=== PATIENT | female | born 1955 | race Caucasian/White ===

== ENCOUNTER → 2019-04-04 14:43 | Outpatient (CLI) | payer OTHER, SELFPAY ==
--- NOTE | 2019-04-04 | DI.MG.S_ITS ---
BILATERAL DIGITAL SCREENING MAMMOGRAM 3D/2D WITH CAD WITH AUGMENTATION: 04/04/2019 CLINICAL: Routine screening. Comparison is made to exams dated: 08/14/2015 mammogram, 01/20/2012 mammogram, and 02/11/2010 mammogram - [facility]. The tissue of both breasts is heterogeneously dense. This may lower the sensitivity of mammography. Current study was also evaluated with a Computer Aided Detection (CAD) system. Bilateral breast implants are stable. No significant masses, calcifications, or other findings are seen in either breast. There has been no significant interval change. IMPRESSION: NEGATIVE There is no mammographic evidence of malignancy. A 1 year screening mammogram is recommended. This exam was interpreted at Station ID: [id number]. NOTE: For mammograms, a report in lay terms will be sent to the patient. Approximately 15% of breast malignancies will not be visualized mammographically. In the management of a palpable breast mass, a negative mammogram must not discourage biopsy of a clinically suspicious lesion. Electronically Signed By: He mchugh/lakshmi:04/04/2019 19:11:54 letter sent: Normal Exam ACR BI-RADS Category 1: Negative [id number]
== END ==
PROVIDERS: PCP Family Medicine; Visit Provider Family Medicine
DX: Z12.31 Encounter for screening mammogram for malignant neoplasm of breast (principal)
CPT/HCPCS: 77063; 77067

== ENCOUNTER 2022-04-17 00:44 | Inpatient (IN) | payer MEDICARE, OTHER, SELFPAY ==
[2022-04-17] VITALS (23 sets, daily range): BP systolic 97–137; BP diastolic 57–81; PULSE 78–93; RESP 13–24; TEMP 36–37; O2SAT 82–99; BMI 16.5; BMI 22.0
--- NOTE | 2022-04-17 | DI.RAD.S_ITS ---
PROCEDURE: XR ANKLE RT MIN 3V INDICATIONS: right ankle fracture TECHNIQUE: Nondiagnostic intraoperative fluoroscopic images of the right ankle. COMPARISON: [facility], CR, XR ANKLE RT MIN 3V, 04/17/2022, 1:23. FINDINGS/ IMPRESSION: Nondiagnostic intraoperative fluoroscopic images of the right ankle demonstrated instrumented plate and screw fixation of the right fibula. Improved anatomic alignment when compared with prior study. Ankle mortise is congruent. Dictated by: Yemi Ambrose M.D. on 04/17/2022 at 21:59 Approved by: Yemi Ambrose M.D. on 04/17/2022 at 21:59
--- NOTE | 2022-04-17 01:00 | DI.RAD.S_ITS ---
PROCEDURE: XR ANKLE RT MIN 3V INDICATIONS: Obvious deformity, crepitance, post reduction TECHNIQUE: 3 views of the ankle were acquired. COMPARISON: None. FINDINGS: Cast material degrades fine detail. Fracture-dislocation of the ankle. There is posterior dislocation of the tibia with relation to the talar dome as well as marked widening of the tibiotalar interval. There is severe widening of the medial ankle mortise. Intra-articular fracture of the distal femoral metadiaphysis extends into the superolateral corner of the ankle mortise. There is widening of the lateral ankle mortise also. There is no definite tibial fracture or talar dome fracture. Large ankle joint effusion. IMPRESSION: Fracture dislocation of the ankle with a displaced intra-articular fracture of the distal femoral metadiaphysis. Severe ankle mortise disruption and tibiotalar subluxation. Dictated by: Yemi Ambrose M.D. on 04/17/2022 at 1:42 Approved by: Yemi Ambrose M.D. on 04/17/2022 at 1:44
--- NOTE | 2022-04-17 01:00 | DI.CT.S_ITS ---
PROCEDURE: CT LE RT WO CON INDICATIONS: Right ankle fracture dislocation TECHNIQUE: Noncontrast 3 mm axial sections acquired of the left lower extremity, with coronal and sagittal reformats. COMPARISON: Merged With [facility], CR, XR KNEE RT 1TO2V, 04/17/2022, 1:23. Merged With [facility], CR, XR FEMUR RT MIN 2V, 04/17/2022, 2:50. Merged With [facility], CR, XR ANKLE RT MIN 3V, 04/17/2022, 1:23. FINDINGS: Image quality: Excellent. Bones: There is a mildly displaced oblique fracture involving the lateral femoral condyle extending into the intercondylar notch. Postsurgical changes are seen involving related to ACL reconstruction. Moderate knee joint degeneration compatible with hemarthrosis. A displaced oblique fracture is seen in the lateral malleolus. In addition, there are nondisplaced fractures of the medial malleolus and posterior malleolus. Multiple small fracture fragments are seen in the medial aspect of the ankle join, likely arising from the talus. The ankle mortise is disrupted. There is lateral subluxation displacement and lateral tilt talus at the tibiotalar joint. Soft tissues: There is a small knee joint effusion. Marked soft tissue swelling in the ankle. IMPRESSION: 1. Mildly displaced oblique fracture of the distal femur involving the lateral femoral condyle extending into the intercondylar notch. 2. Trimalleolar fractures with ankle as described. 3. Multiple small fracture fragments are seen in the medial aspect of the ankle joint, likely arising from the talus. 4. Disruption of ankle mortise with lateral displacement and lateral tilt of talus at the tibiotalar joint. No significant discrepancy with the night guard radiology preliminary report. Dictated by: Sarahy Junior M.D. on 04/17/2022 at 7:39 Approved by: Sarahy Junior M.D. on 04/17/2022 at 9:07
--- NOTE | 2022-04-17 01:00 | DI.RAD.S_ITS ---
PROCEDURE: XR KNEE RT 1TO2V INDICATIONS: fall with knee pain TECHNIQUE: 2 views of the knee were acquired. COMPARISON: None. FINDINGS: Displaced intra-articular fracture right distal femur. Lucency representing a fracture appears to begin at the lateral distal femoral diaphysis and obliquely course medially and inferiorly to extend into joint at the medial aspect of the medial femoral epicondyle. ACL reconstruction changes. Large knee joint effusion. Normal alignment of the knee. IMPRESSION: Intra-articular right distal femur fracture Dictated by: Yemi Ambrose M.D. on 04/17/2022 at 1:45 Approved by: Yemi Ambrose M.D. on 04/17/2022 at 1:47
--- NOTE | 2022-04-17 01:01 | DI.CT.S_ITS ---
PROCEDURE: CT HEAD/BRAIN WO CON INDICATIONS: multiple falls, heavy alcohol use TECHNIQUE: Noncontrast 4.5 mm thick angled axial sections acquired from the foramen magnum to the vertex, with coronal and sagittal reformats. For radiation dose reduction, the following was used: automated exposure control, adjustment of mA and/or kV according to patient size. COMPARISON: None. FINDINGS: Image quality: Excellent. CSF spaces: Basal cisterns are patent. No extra-axial fluid collections. The ventricles are symmetric in size and shape. Brain: No intracranial bleeds or masses. There is cerebral volume loss for age, with resultant ventricular and sulcal prominence. There are periventricular and deep white matter chronic small vessel ischemic changes. There is intracranial internal carotid artery atherosclerosis. Skull and face: Calvarium and visualized facial bones appear intact, without suspicious lesions. Sinuses: Visualized sinuses and mastoids are clear. IMPRESSION: 1. No acute intracranial abnormality. 2. Cerebral volume loss and small vessel ischemic changes. Comment: Final report is concordant with preliminary interpretation by [facility] Dictated by: Mitchel Callahan M.D. on 04/17/2022 at 7:15 Approved by: Mitchel Callahan M.D. on 04/17/2022 at 7:17
[2022-04-17 01:35] LABS: COVID19 -Nasal RAPID Negative (Negative)
--- NOTE | 2022-04-17 01:44 | ED_ITS ---
HPI - Fall General Chief Complaint: Fall Stated Complaint: Fall/Ankle deformity Time Seen by Provider: 04/17/22 00:58 Source: patient Mode of arrival: other History of Present Illness HPI Narrative: 66-year-old female nonsmoker with history of hypothyroid and daily drinking presents by air lift for evaluation of an obvious deformity to her right ankle. She states that she has peripheral neuropathy and had been drinking and stepped awkwardly which caused her to fall and rolled her ankle. She now has significant pain and an obvious deformity to her right ankle as well as pain in her right knee. She does not think she struck her head but thinks anything is possible. She denies any neck pain, chest pain or shortness of breath. She denies abdominal pain is slightly nauseated. She is had no change in diet and does not take blood thinners. She states she has significant pain in her right ankle and knee and has numbness and tingling with this is not abnormal for her. Related Data Home Medications Medication Instructions Recorded Confirmed alprazolam 0.5 mg tablet 0.5 mg PO PRN PRN Anxiety 04/17/22 04/17/22 doxycycline monohydrate 50 mg 50 mg OR PER PKG DIR 04/17/22 04/17/22 capsule gabapentin 600 mg tablet 600 mg BID 04/17/22 04/17/22 levothyroxine 100 mcg tablet 0.1 mg PO BEDTIME 04/17/22 04/17/22 spironolactone 25 mg tablet 25 mg DAILY 04/17/22 04/17/22 zolpidem 10 mg tablet (Ambien) 10 mg PO PRN PRN Insomnia 04/17/22 04/17/22 Previous Rx's Medication Instructions Recorded metronidazole 0.75 % topical cream 0.75 % TP BID ##1 05/13/17 ([facility]) Allergies Allergy/AdvReac Type Severity Reaction Status Date / Time hydrocodone [HYDROCODONE] Allergy Mild Unverified 12/30/17 12:13 Review of Systems Review of Systems Narrative: GENERAL: Denies chills, fatigue, malaise, fever, sweats. HEENT: Denies sinus pain, ear pain, sore throat, difficulty swallowing, dizzi ness. RESPIRATORY: Denies dyspnea, cough, wheezing, hemoptysis, sputum. CARDIOVASCULAR: Denies chest pain, palpitations, orthopnea, edema, GASTROINTESTINAL: See HPI : Denies dysuria, frequency, incontinence, hematuria, urinary retention. MUSCULOSKELETAL: See HPI SKIN: Denies rash, skin lesions, or other NEUROLOGIC: See HPI PSYCHIATRIC: No concerning psychosocial issues. 12 point review of systems is negative except for those stated above Patient History Family History Father Cancer Grandmother Diverticulitis alcohol intake frequency: 0-2 drinks per day Exam Narrative Exam Narrative: GENERAL: [66] year old patient appears stated age. Well-developed patient, in mild distress. GCS 15 HEAD: Atraumatic. Normocephalic. EYES: Pupils equal round and reactive. Extraocular motions intact. No scleral icterus. No injection or drainage. ENT: Nose without bleeding, purulent drainage. Throat without erythema, tonsillar hypertrophy or exudate. Airway patent. NECK: Trachea midline. Non tender CARDIOVASCULAR: Regular rate and rhythm without murmurs, gallops, or rubs. RESPIRATORY: Clear to auscultation. Breath sounds equal bilaterally. No wheezes, rales, or rhonchi. GASTROINTESTINAL: Abdomen soft, non-tender, nondistended. EXTREMITIES: No pain in bilateral hips, patient has significant pain on palpation of right knee, no obvious ligamentous instability. There is obvious deformity suggesting fracture dislocation of right ankle, this is closed and neurovascularly intact. BACK: Nontender without deformity or crepitance. No flank tenderness. NEURO: AOx3. SKIN: No rash or erythema of visible areas Initial Vital Signs Initial Vital Signs: Vital Signs Pulse Rate 86 04/17/22 01:01 Respiratory Rate 18 04/17/22 01:01 Blood Pressure 119/79 04/17/22 01:01 Pulse Oximetry 93 04/17/22 01:01 Oxygen Delivery Method 04/17/22 01:01 Procedures Orthopedic Joint Reduction Joint #1: Time Out Performed: No Side: right Joint Reduction Location: ankle Technique used: traction/counter-traction and direct manipulation Post-reduction neuro exam: intact Post-reduction vascular: intact Post Reduction X-Ray Obtained: Yes Post Reduction X-Ray Results: reduced (partially) Patient Tolerated Procedure: Well Orthopedic Splinting/Casting Injury #1: Side: right Lower Extremity Injury Location: knee Lower Extremity Immobilizer: knee immobilizer Post splinting neuro exam: intact Post splinting vascular exam: intact Placed by: Nursing Injury #2: Side: right Lower Extremity Injury Location: ankle Lower Extremity Immobilizer: stirrup splint Post splinting neuro exam: intact Post splinting vascular exam: intact Placed by: Provider Course Orders Ordered: ED Orders 04/17/22 01:00 CT LE RT wo con Stat XR ankle RT min 3V Stat XR knee RT 1to2V Stat 04/17/22 01:01 CT head/brain wo con Stat 04/17/22 01:15 COVID19 -Nasal RAPID/Pre-Proc Stat 04/17/22 01:34 Complete Blood Count AUTO DIFF Stat Comprehensive Metabolic Panel Stat Ethanol (ETOH) Stat Prothrombin Time INR Stat 04/17/22 02:45 XR femur RT min 2V Stat Consultations Consultation #1: Case has been discussed with on-call orthopedist who has reviewed images and recommends ankle splint as well as knee immobilizer. She request patient be admitted to the hospitalist and will likely take to the OR this evening at 5 or 6:00 p.m., requesting patient become NPO at 9:00 a.m. Consultation #2: hospitalist happy to accept on their service Vital Signs Vital signs: Vital Signs - 8 hr 04/17/22 01:01 04/17/22 01:58 04/17/22 01:59 Pulse Rate 86 80 79 Respiratory Rate 18 Blood Pressure 119/79 Pulse Oximetry 93 98 98 Oxygen Delivery Method Room Air 04/17/22 01:59 04/17/22 02:00 04/17/22 02:00 Pulse Rate 80 Respiratory Rate Blood Pressure 118/75 117/72 Pulse Oximetry 99 Oxygen Delivery Method 04/17/22 02:30 04/17/22 02:30 04/17/22 02:59 Pulse Rate 78 80 Respiratory Rate Blood Pressure 111/68 Pulse Oximetry 96 98 Oxygen Delivery Method 04/17/22 03:00 04/17/22 03:03 Pulse Rate 87 Respiratory Rate Blood Pressure 118/57 L Pulse Oximetry 82 L Oxygen Delivery Method MDM - Fall Lab Data Result diagrams: 04/17/22 01:34 04/17/22 01:34 Labs: Lab Results 04/17/22 04/17/22 04/17/22 Range/Units 01:15 01:34 01:34 WBC 6.3 (4.5-11.0) X10^3/uL RBC 3.45 L (4.0-5.2) X10^6/uL Hgb 11.2 L (12.0-16.0) g/dL Hct 34.1 L (36-46) % MCV 98.8 (80-100) fL MCH 32.5 (26-34) PG MCHC 32.9 (30-36) % RDW 14.3 (11.6-14.8) % Plt Count 213 (150-400) X10^3/uL Neut % (Auto) 63.0 (50-75) % Lymph % (Auto) 22.8 L (25-40) % [place] % (Auto) 9.9 (3-14) % Eos % (Auto) 3.4 (2-4) % Baso % (Auto) 0.9 (0-2) % Neut # (Auto) 4000 (4599-4734) /uL Lymph # (Auto) 1400 (1345-1288) /uL [place] # (Auto) 600 (0-900) /uL Eos # (Auto) 200 (0-450) /uL Baso # (Auto) 100 (0-100) /uL PT (10.1-12.7) SECONDS INR (0.9-1.3) Sodium 140 (137-145) mmol/L Potassium 4.2 (3.4-5.1) mmol/L Chloride 103 (98-107) mmol/L Carbon Dioxide 26 (22-32) mmol/L BUN 13 (7-17) mg/dL Creatinine 0.67 (0.52-1.04) mg/dL Estimated GFR > 60 (>60) mL/min BUN/Creatinine Ratio 19.4 (6-22) Glucose 103 (80-110) mg/dL Calcium 9.1 (8.4-10.2) mg/dL Total Bilirubin 0.2 (0.2-1.3) mg/dL AST 87 H (14-36) IU/L ALT 55 H (<35) IU/L Alkaline Phosphatase 89 (38-126) U/L Total Protein 6.5 (6.3-8.2) g/dL Albumin 3.7 (3.5-5.0) g/dL Globulin 2.8 (1.7-4.1) g/dL Albumin/Globulin Ratio 1.3 (1.0-2.8) Ethyl Alcohol ( - 10) mg/dL SARS-CoV-2 (PCR) Negative (Negative) 04/17/22 04/17/22 Range/Units 01:34 01:34 WBC (4.5-11.0) X10^3/uL RBC (4.0-5.2) X10^6/uL Hgb (12.0-16.0) g/dL Hct (36-46) % MCV (80-100) fL MCH (26-34) PG MCHC (30-36) % RDW (11.6-14.8) % Plt Count (150-400) X10^3/uL Neut % (Auto) (50-75) % Lymph % (Auto) (25-40) % [place] % (Auto) (3-14) % Eos % (Auto) (2-4) % Baso % (Auto) (0-2) % Neut # (Auto) (4077-5018) /uL Lymph # (Auto) (7100-9846) /uL [place]well # (Auto) (0-900) /uL Eos # (Auto) (0-450) /uL Baso # (Auto) (0-100) /uL PT 10.7 (10.1-12.7) SECONDS INR 1.0 (0.9-1.3) Sodium (137-145) mmol/L Potassium (3.4-5.1) mmol/L Chloride (98-107) mmol/L Carbon Dioxide (22-32) mmol/L BUN (7-17) mg/dL Creatinine (0.52-1.04) mg/dL Estimated GFR (>60) mL/min BUN/Creatinine Ratio (6-22) Glucose (80-110) mg/dL Calcium (8.4-10.2) mg/dL Total Bilirubin (0.2-1.3) mg/dL AST (14-36) IU/L ALT (<35) IU/L Alkaline Phosphatase (38-126) U/L Total Protein (6.3-8.2) g/dL Albumin (3.5-5.0) g/dL Globulin (1.7-4.1) g/dL Albumin/Globulin Ratio (1.0-2.8) Ethyl Alcohol 170 H ( - 10) mg/dL SARS-CoV-2 (PCR) (Negative) Urine Dip Bedside Urine Glucose Negative Bedside Urine Bilirubin - Negative Bedside Urine Ketone - Negative Urine Specific [place] 1.010 Bedside Urine Occult Blood - Negative Bedside Urine pH 6 Bedside Urine Protein - Negative Bedside Urine Urobilinogen - Negative Bedside Urine Nitrite - Negative Bedside Urine Leukocytes - Negative Esterase Imaging Data Extremity x-ray #1: Radiologist's Impression: [address] [address] XRay Report Signed Patient: Shilpa Case MR#: [id number] : 1955 Acct:[id number] Age/Sex: 66 / F Date of Service: 04/17/22 Loc: ED Accession Number: [id number] ?? Procedure: XR knee RT 1to2V Ordering Provider: Low Walker D.O. PROCEDURE:? XR KNEE RT 1TO2V ? INDICATIONS:? fall with knee pain ? TECHNIQUE:? 2 views of the knee were acquired.? ? COMPARISON:? None. ? FINDINGS:? ? Displaced intra-articular fracture right distal femur.? Lucency representing a fracture appears to begin at the lateral distal femoral diaphysis and obliquely course medially and inferiorly to extend into joint at the medial aspect of the medial femoral epicondyle.? ACL reconstruction changes.? Large knee joint effusion.? Normal alignment of the knee. ? ? IMPRESSION:? Intra-articular right distal femur fracture ? ? Dictated by: Yemi Ambrose M.D. on 04/17/2022 at 1:45 ? ? Approved by: Yemi Ambrose M.D. on 04/17/2022 at 1:47 ? Extremity x-ray #2: Radiologist's Impression: Close Knee X-Ray (Signed) Yemi Ambrose - 04/17/22 Knee X-Ray (Cancelled) 04/17/22 Ankle X-Ray (Signed) Yemi Ambrose - 04/17/22 Mammogram Screening (Signed) He Dee - 04/04/19 Launch?Image [address] [address] XRay Report Signed Patient: Shilpa Case MR#: [id number] : 1955 Acct:[id number] Age/Sex: 66 / F Date of Service: 04/17/22 Loc: Accession Number: [id number] ?? Procedure: XR ankle RT min 3V Ordering Provider: Low Walker D.O. PROCEDURE:? XR ANKLE RT MIN 3V ? INDICATIONS:? Obvious deformity, crepitance, post reduction ? TECHNIQUE:? 3 views of the ankle were acquired.? ? COMPARISON:? None. ? FINDINGS:? ? Cast material degrades fine detail.? Fracture-dislocation of the ankle.? There is posterior dislocation of the tibia with relation to the talar dome as well as marked widening of the tibiotalar interval.? There is severe widening of the medial ankle mortise.? Intra-articular fracture of the distal femoral metadiaphysis extends into the superolateral corner of the ankle mortise.? There is widening of the lateral ankle mortise also.? There is no definite tibial fracture or talar dome fracture.? Large ankle joint effusion. ? ? IMPRESSION:? Fracture dislocation of the ankle with a displaced intra-articular fracture of the distal femoral metadiaphysis.? Severe ankle mortise disruption and tibiotalar subluxation. ? Dictated by: Yemi Ambrose M.D. on 04/17/2022 at 1:42 ? ? Approved by: Yemi Ambrose M.D. on 04/17/2022 at 1:44 ? Discharge Plan Departure Patient Disposition: Admitted As Inpatient Clinical Impression: Alcohol abuse, Displaced bimalleolar fracture of right ankle, Femoral distal fracture Admit Date/Time: 04/17/22 03:04 Admit Provider: Sayra Mckeon
[2022-04-17 01:48] LABS: Add Manual Diff / Slide Review NO; Basophils Absolute Auto 100 /uL (0-100); Basophils Percent Auto 0.9 % (0-2); Eosinophils Absolute Auto 200 /uL (0-450); Eosinophils Percent Auto 3.4 % (2-4); Hematocrit 34.1 % (36-46); Hemoglobin 11.2 g/dL (12.0-16.0); Lymphocytes Absolute Auto 1400 /uL (1100-4500); Lymphocytes Percent Auto 22.8 % (25-40); Mean Corpuscular HGB Conc 32.9 % (30-36); Mean Corpuscular Hemoglobin 32.5 PG (26-34); Mean Corpuscular Volume 98.8 fL (80-100); Monocytes Absolute Auto 600 /uL (0-900); Monocytes Percent Auto 9.9 % (3-14); Neutrophils Absolute Auto 4000 /uL (1500-7000); Platelet Count 213 X10^3/uL (150-400); Red Blood Cell Count 3.45 X10^6/uL (4.0-5.2); Red Cell Distribution Width 14.3 % (11.6-14.8); White Blood Cell Count 6.3 X10^3/uL (4.5-11.0)
[2022-04-17 01:56] LABS: Ethanol (ETOH) 170 mg/dL
[2022-04-17 01:57] LABS: Alanine Aminotransferase 55 IU/L (<35); Albumin 3.7 g/dL (3.5-5.0); Albumin Globulin Ratio 1.3 (1.0-2.8); Alkaline Phosphatase 89 U/L (38-126); Aspartate Aminotransferase 87 IU/L (14-36); BUN Creatinine Ratio 19.4 (6-22); Bilirubin Total 0.2 mg/dL (0.2-1.3); Blood Urea Nitrogen 13 mg/dL (7-17); Calcium 9.1 mg/dL (8.4-10.2); Carbon Dioxide 26 mmol/L (22-32); Chloride 103 mmol/L (98-107); Estimated Glomerular Filt Rate > 60 mL/min (>60); Globulin 2.8 g/dL (1.7-4.1); Glucose 103 mg/dL (80-110); HEMOLYSIS < 15 (0-50); Potassium 4.2 mmol/L (3.4-5.1); Sodium 140 mmol/L (137-145); Total Protein 6.5 g/dL (6.3-8.2)
[2022-04-17 01:58] LABS: Prothrombin Time 10.7 SECONDS (10.1-12.7)
--- NOTE | 2022-04-17 02:45 | DI.RAD.S_ITS ---
PROCEDURE: XR FEMUR RT MIN 2V INDICATIONS: distal fracture TECHNIQUE: 2 views of the femur were acquired. COMPARISON: [facility], , XR KNEE RT 1TO2V, 04/17/2022, 1:23. FINDINGS: Bones: There is a mildly displaced fracture involving the lateral femoral condyle extending to the intercondylar notch. Postsurgical changes related to ACL repair. Moderate knee joint degeneration. No suspicious bony lesions. Soft tissues: No suspicious soft tissue calcifications or masses. Small knee joint effusion. IMPRESSION: 1. Mildly displaced fracture of the distal femur involving the lateral femoral condyle extending to the intercondylar notch. 2. ACL repair. 3. Small knee joint effusion. 4. Moderate osteoarthritis of the right knee. No significant discrepancy with the supervisor general radiology preliminary report. Dictated by: Sarahy Junior M.D. on 04/17/2022 at 8:21 Approved by: Sarahy Junior M.D. on 04/17/2022 at 8:24
[2022-04-17] MEDS: ACETAMINOPHEN 325 MG TABLET 650 MG PO ×2 (04:41→22:20)
--- NOTE | 2022-04-17 05:30 | PC.ADMIT ---
Addendum entered by Jessica Pugh R.N. 04/17/22 05:38: Reports she has 4 drinks daily consisting of wine & vodka with last drink being 8pm on 04/16. Original Note: [facility] Admission Note: The patient,Shilpa Case,66 y/o, was given written information regarding hospital policies, unit procedures and contact persons. Patient's smoking status: Former smoker. Vital Signs - 8 hr 04/17/22 01:01 04/17/22 01:58 04/17/22 01:59 Temperature Pulse Rate 86 80 79 Respiratory Rate 18 Blood Pressure 119/79 Pulse Oximetry 93 98 98 Oxygen Delivery Method Room Air Oxygen Flow Rate 04/17/22 01:59 04/17/22 02:00 04/17/22 02:00 Temperature Pulse Rate 80 Respiratory Rate Blood Pressure 118/75 117/72 Pulse Oximetry 99 Oxygen Delivery Method Oxygen Flow Rate 04/17/22 02:30 04/17/22 02:30 04/17/22 02:59 Temperature Pulse Rate 78 80 Respiratory Rate Blood Pressure 111/68 Pulse Oximetry 96 98 Oxygen Delivery Method Oxygen Flow Rate 04/17/22 03:00 04/17/22 03:03 04/17/22 03:29 Temperature 97.9 F Pulse Rate 87 Respiratory Rate Blood Pressure 118/57 L Pulse Oximetry 82 L Oxygen Delivery Method Oxygen Flow Rate 04/17/22 03:30 04/17/22 03:30 04/17/22 04:00 Temperature Pulse Rate 80 Respiratory Rate Blood Pressure 130/78 131/75 Pulse Oximetry 99 Oxygen Delivery Method Oxygen Flow Rate 04/17/22 04:00 04/17/22 04:25 04/17/22 05:17 Temperature 97 F L Pulse Rate 80 81 Respiratory Rate 18 17 Blood Pressure 137/81 Pulse Oximetry 99 98 Oxygen Delivery Method Room Air Oxygen Flow Rate 0 Patient admitted to room 220 per stretcher from ER and transferred into bed using slider board. Is alert and oriented except did not know day of month. Breath sounds CTA with RA sat of 98%. HRR. Denies nausea. BT present and abdomen is soft. Denies dysuria, frequency or urgency with urination. Able to void using bedpan. Is able to move self in bed although has increased discomfort in right knee with movement. Rates pain severity as 3/10 and was medicated with Tylenol. Has knee immobilizer to right LE and lower right extremity is splinted. Has bilateral foot neuropathy at baseline. Reports she typically uses bilateral walking sticks when walking on uneven ground or for any distance. Calf SCD applied to left LE but not on right due to immobilizer. Seizure pads applied to bed rails. CIWA score is 7. Will be NPO except for ice and patient is aware. Oriented to call light and bed controls.
[2022-04-17 05:39] LABS: Add Manual Diff / Slide Review NO; Basophils Absolute Auto 0 /uL (0-100); Basophils Percent Auto 0.6 % (0-2); Eosinophils Absolute Auto 200 /uL (0-450); Eosinophils Percent Auto 3.3 % (2-4); Hematocrit 33.2 % (36-46); Lymphocytes Absolute Auto 1400 /uL (1100-4500); Lymphocytes Percent Auto 24.8 % (25-40); Mean Corpuscular HGB Conc 33.3 % (30-36); Mean Corpuscular Volume 99.2 fL (80-100); Monocytes Absolute Auto 500 /uL (0-900); Monocytes Percent Auto 9.6 % (3-14); Neutrophils Absolute Auto 3400 /uL (1500-7000); Neutrophils Percent Auto 61.7 % (50-75); Platelet Count 212 X10^3/uL (150-400); Red Blood Cell Count 3.34 X10^6/uL (4.0-5.2); Red Cell Distribution Width 14.5 % (11.6-14.8); White Blood Cell Count 5.5 X10^3/uL (4.5-11.0)
[2022-04-17 05:50] LABS: Blood Urea Nitrogen 12 mg/dL (7-17); Calcium 9.1 mg/dL (8.4-10.2); Carbon Dioxide 27 mmol/L (22-32); Chloride 102 mmol/L (98-107); Estimated Glomerular Filt Rate > 60 mL/min (>60); Glucose 97 mg/dL (80-110); HEMOLYSIS < 15 (0-50); Potassium 3.9 mmol/L (3.4-5.1); Sodium 140 mmol/L (137-145)
--- NOTE | 2022-04-17 06:42 | PM.HP.1 ---
History of Present Illness History of Present Illness Date Patient Seen: 04/17/22 Time Patient Seen: 04:00 Chief complaint: Fall/Ankle deformity Narrative: Ms. Case is a 66W with PMH daily alcohol use, hypothyroid, peripheral neuropathy previous colonic perforation which she stated required prolonged ostomy which has now been reversed who presents after a fall. She states she had a fall the day prior to arrival, she does not attribute this to intoxication, but she drinks daily. 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 She believes she fell on her right knee. She had significant pain and needed her to help her to bed as she could not walk. At that time she noted significant deformity to her ankle. She denies hitting her head during the fall. She does not have pain in her ankle due to neuropathy. She attributes her neuropathy to history of bowel perforation and multiple subsequent surgeries. In the ED workup was done, vitals with no significant abnormality. Labs notable for WBC 6.3, hgb 11.2, plts 213. Creatinine 0.67. Alcohol 170. Xray intra-articular right distal femur fracture and also fracture dislocation of th eright ankle with displaced intra-articular frature of the distal femoral metadiaphysis with severe ankle mortise disruption and tibiotalar subluxation. Reduction attempted in ED was not successful. Ankle splint and knee immobilizer were recommended to by orthopedic surgeon. She was given pain medications and admitted for further treatment. Patient History Family & Social History Family History Father Cancer Grandmother Diverticulitis Social History: household members spouse Prior Living Arrangements House Safety & Behavioral: Feels Safe in Current Yes Environment Been Physically Hurt or No Threatened By a Person Tobacco & Substance use: Tobacco type cigarettes Smoking Status Former smoker alcohol intake current alcohol intake frequency 0-2 drinks per day Substance Use Type does not use Meds Home Medications and Allergies Home Medications Medication Instructions Recorded Confirmed Type alprazolam 0.5 mg tablet 0.5 mg PO PRN PRN Anxiety 04/17/22 04/17/22 History doxycycline monohydrate 50 mg 50 mg OR PER PKG DIR 04/17/22 04/17/22 History capsule gabapentin 600 mg tablet 600 mg BID 04/17/22 04/17/22 History levothyroxine 100 mcg tablet 0.1 mg PO BEDTIME 04/17/22 04/17/22 History metronidazole 0.75 % topical cream 0.75 % TP 2XW 04/17/22 04/17/22 History (MetroCream) spironolactone 25 mg tablet 25 mg DAILY 04/17/22 04/17/22 History zolpidem 10 mg tablet (Ambien) 10 mg PO PRN PRN Insomnia 04/17/22 04/17/22 History Allergies Allergy/AdvReac Type Severity Reaction Status Date / Time hydrocodone [HYDROCODONE] Allergy Mild itch Verified 04/17/22 05:41 morphine AdvReac Intermediate Nausea Verified 04/17/22 04:39 Review of Systems Review of Systems Narrative: 14 systems reviewed and negative aside from what is noted in HPI Exam Vital Signs (past 8 hours): - 04/17/22 01:01 04/17/22 01:58 04/17/22 01:59 Temperature Pulse Rate 86 80 79 Respiratory Rate 18 Blood Pressure 119/79 Pulse Oximetry 93 98 98 Oxygen Delivery Method Room Air Oxygen Flow Rate 04/17/22 01:59 04/17/22 02:00 04/17/22 02:00 Temperature Pulse Rate 80 Respiratory Rate Blood Pressure 118/75 117/72 Pulse Oximetry 99 Oxygen Delivery Method Oxygen Flow Rate 04/17/22 02:30 04/17/22 02:30 04/17/22 02:59 Temperature Pulse Rate 78 80 Respiratory Rate Blood Pressure 111/68 Pulse Oximetry 96 98 Oxygen Delivery Method Oxygen Flow Rate 04/17/22 03:00 04/17/22 03:03 04/17/22 03:29 Temperature 97.9 F Pulse Rate 87 Respiratory Rate Blood Pressure 118/57 L Pulse Oximetry 82 L Oxygen Delivery Method Oxygen Flow Rate 04/17/22 03:30 04/17/22 03:30 04/17/22 04:00 Temperature Pulse Rate 80 Respiratory Rate Blood Pressure 130/78 131/75 Pulse Oximetry 99 Oxygen Delivery Method Oxygen Flow Rate 04/17/22 04:00 04/17/22 04:25 04/17/22 05:17 Temperature 97 F L Pulse Rate 80 81 Respiratory Rate 18 17 Blood Pressure 137/81 Pulse Oximetry 99 98 Oxygen Delivery Method Room Air Oxygen Flow Rate 0 Oxygen Delivery Method Room Air Oxygen Flow Rate 0 Narrative Exam Narrative: GEN: pleasant, intoxicated, no acute distress HEENT: moist mucous membranes, PERRL NECK: trachea midline, no JVD PULM: clear bilaterally, no wheezes, rhonchi, rales CV: regular rate and rhythm, no murmurs ABD: soft, nontender, nondistended EXT: warm and well perfused, right leg bandaged and in splint NEURO: awake, alert, oriented, no focal deficits Objective Labs Result Diagrams: 04/17/22 05:06 04/17/22 05:06 Labs: Laboratory Results - last 24 hr 04/17/22 04/17/22 04/17/22 01:15 01:34 01:34 WBC 6.3 RBC 3.45 L Hgb 11.2 L Hct 34.1 L MCV 98.8 MCH 32.5 MCHC 32.9 RDW 14.3 Plt Count 213 Neut % (Auto) 63.0 Lymph % (Auto) 22.8 L [place] % (Auto) 9.9 Eos % (Auto) 3.4 Baso % (Auto) 0.9 Neut # (Auto) 4000 Lymph # (Auto) 1400 [place] # (Auto) 600 Eos # (Auto) 200 Baso # (Auto) 100 PT INR Sodium 140 Potassium 4.2 Chloride 103 Carbon Dioxide 26 BUN 13 Creatinine 0.67 Estimated GFR > 60 BUN/Creatinine Ratio 19.4 Glucose 103 Calcium 9.1 Total Bilirubin 0.2 AST 87 H ALT 55 H Alkaline Phosphatase 89 Total Protein 6.5 Albumin 3.7 Globulin 2.8 Albumin/Globulin Ratio 1.3 Ethyl Alcohol SARS-CoV-2 (PCR) Negative 04/17/22 04/17/22 04/17/22 01:34 01:34 05:06 WBC 5.5 RBC 3.34 L Hgb 11.0 L Hct 33.2 L MCV 99.2 MCH 33.0 MCHC 33.3 RDW 14.5 Plt Count 212 Neut % (Auto) 61.7 Lymph % (Auto) 24.8 L [place] % (Auto) 9.6 Eos % (Auto) 3.3 Baso % (Auto) 0.6 Neut # (Auto) 3400 Lymph # (Auto) 1400 [place] # (Auto) 500 Eos # (Auto) 200 Baso # (Auto) 0 PT 10.7 INR 1.0 Sodium Potassium Chloride Carbon Dioxide BUN Creatinine Estimated GFR BUN/Creatinine Ratio Glucose Calcium Total Bilirubin AST ALT Alkaline Phosphatase Total Protein Albumin Globulin Albumin/Globulin Ratio Ethyl Alcohol 170 H SARS-CoV-2 (PCR) 04/17/22 05:06 WBC RBC Hgb Hct MCV MCH MCHC RDW Plt Count Neut % (Auto) Lymph % (Auto) [place] % (Auto) Eos % (Auto) Baso % (Auto) Neut # (Auto) Lymph # (Auto) [place] # (Auto) Eos # (Auto) Baso # (Auto) PT INR Sodium 140 Potassium 3.9 Chloride 102 Carbon Dioxide 27 BUN 12 Creatinine 0.60 Estimated GFR > 60 BUN/Creatinine Ratio 20.0 Glucose 97 Calcium 9.1 Total Bilirubin AST ALT Alkaline Phosphatase Total Protein Albumin Globulin Albumin/Globulin Ratio Ethyl Alcohol SARS-CoV-2 (PCR) Assessment & Plan Assessment & Plan narrative: Ms. Case is a 66W who presents after a fall found to have ankle and distal femur fracture. 1. Acute right ankle and distal femur fracture -secondary to mechanical fall -per ortho place ankle in splint and knee in immobilizer -NPO after 9am for surgery -ordered for IV pain control -bed rest until surgery 2. Alcohol use -encourage care with with alcohol use -she denies every having withdrawal or any problems with alcohol use -put on CIWA protocol for now 3. Hypothyroidism -continue synthroid CODE: Full Proxy: Jonnie Case, I have utilized all available resources to reconcile the patient's home medications Time Spent With Patient Critical Care time: I spent a total of [] minutes of critical care time on this patient's care today; this time is exclusive of procedural time.
[2022-04-17] MEDS: THIAMINE 100 MG in SODIUM CHLORIDE 0.9% 50 ML 200 MG IV (08:29)
[2022-04-17] MEDS: MULTIVITAMIN 1 TABLET 1 TAB PO (08:30)
[2022-04-17] MEDS: FOLIC ACID 1 MG TABLET PO (08:30)
[2022-04-17] MEDS: SODIUM CHLORIDE 0.9% 250 ML 21 ML IV (08:40)
--- NOTE | 2022-04-17 12:12 | CM.DANOTE ---
Initial DCP Assessment Note Pt is a 66 yo female, resident of [place], presents early this morning to the ED after a fall at home and w/ a BAL of 170. Patient admitted for surgical repair of a right ankle and distal femur fracture, PMH includes alcohol abuse and prior ostomy after bowel perforation and multiple subsequent surgeries. PCP: Dr Piero Owens: FELIPA Reviewed chart, met w/patient to introduce self and role. Patient lives with her on [address], two adult children live in [facility]. Patient admits to 4 glasses of wine and 2 martinis daily. Spouse is also a heavy drinker, daily. Patient is mostly indp at baseline. When asked if her drinking is a problem for her, patient says yeah it's too much but is not interested in being sober at this time Discussed Home health and patient states she would be agreeable if recommended. Patient does not know if there is an outpatient physical therapist in [place] Plan: [place] home w/spouse to assist is expected, r/o need for HH closer to [place] ([facility], patient aware and agreeable) JOSE LUIS Encarnacion Discharge Planning/Care Management CM Discharge Assessment Start: 04/17/22 12:08 Freq: Status: Active Protocol: Document 04/17/22 12:08 BRYANNA (Rec: 04/17/22 12:12 BRYANNA [id number]) Discharge Planning Assessment Assigned Tankman JOSE LUIS Underwood DPOA/Assigned Designee Name Jonnie Case, spouse Contact Information [phone] cell [phone] home Advance Directives? No History Provided By Patient Prior Living Arrangements House Household Members spouse Type of transporation used prior to Drives own vehicle admit Independent with ADL's Yes Is patient alert and oriented? Yes Barriers to Discharge No Comment Pending therapy evals Discharge Plan Home with Home Health Transportation Arrangement Spouse Referrals Initiated None needed Additional Comment pending therapy evals after surgery
[2022-04-17] MEDS: HYDROMORPHONE 0.5 MG INJ IV ×2 (12:20→17:20)
--- NOTE | 2022-04-17 12:57 | PM.CN ---
History of Present Illness Consult details Date Patient Seen: 04/17/22 Time Patient Seen: 06:30 Chief complaint: Fall/Ankle deformity Reason for consult: right distal femur fracture, right ankle fracture Requesting provider: Low Walker Narrative: the pt is a 66 F fell while putting on Pjs. injured R knee, ankle - flown [facility], R distal femur fx and r ankle fx/dx. failed ER reduction. CT with debri in [facility]. ethoh 170 . admitted for care. no other pain, no loc. hx hypothyroid . no dm. does have neuropathy soles of feet and toes.pain R ankle and knee Meds Home Medications and Allergies Home Medications Medication Instructions Recorded Confirmed Type alprazolam 0.5 mg tablet 0.5 mg PO PRN PRN Anxiety 04/17/22 04/17/22 History doxycycline monohydrate 50 mg 50 mg OR PER PKG DIR 04/17/22 04/17/22 History capsule gabapentin 600 mg tablet 600 mg BID 04/17/22 04/17/22 History levothyroxine 100 mcg tablet 0.1 mg PO BEDTIME 04/17/22 04/17/22 History metronidazole 0.75 % topical cream 0.75 % TP 2XW 04/17/22 04/17/22 History (MetroCream) spironolactone 25 mg tablet 25 mg DAILY 04/17/22 04/17/22 History zolpidem 10 mg tablet (Ambien) 10 mg PO PRN PRN Insomnia 04/17/22 04/17/22 History Allergies Allergy/AdvReac Type Severity Reaction Status Date / Time hydrocodone [HYDROCODONE] Allergy Mild itch Verified 04/17/22 05:41 morphine AdvReac Intermediate Nausea Verified 04/17/22 04:39 Review of Systems Review of Systems ROS: Yes All systems reviewed with the patient and are negative except as otherwise documented Exam Vital Signs (past 8 hours): - 04/17/22 05:17 04/17/22 08:00 04/17/22 09:18 Temperature 98.2 F Pulse Rate 85 Respiratory Rate 16 Blood Pressure 118/75 Pulse Oximetry 96 Oxygen Delivery Method Room Air Oxygen Flow Rate 0 04/17/22 08:00 Temperature Pulse Rate Respiratory Rate Blood Pressure Pulse Oximetry 96 Oxygen Delivery Method Room Air Oxygen Flow Rate 0 Oxygen Delivery Method Room Air Oxygen Flow Rate 0 Narrative Exam Narrative: A&0 x 3 HEENT NCAT LUNG LCTAB Heart: RRR Abd -soft MSK: RLE in Short leg splint. and KI. wiggles toes palp DP pulse. calf soft. ttp ankle and knee. stable pelvis. sILT, decrease on soles and toes. DF/PF intact Objective Imaging ankle xr : My impression: r ankle fx/dx. displaced ankle fx, with widened medial clear space, and fibula fx and tiny PM fx. fragments in medial gutter--better seen on CT knee xray: My impression: intra-articular R distal femur fx-- lateral metatphysis to medial condyle Labs Result Diagrams: 04/17/22 05:06 04/17/22 05:06 Labs: Laboratory Results - last 24 hr 04/17/22 04/17/22 04/17/22 01:15 01:34 01:34 WBC 6.3 RBC 3.45 L Hgb 11.2 L Hct 34.1 L MCV 98.8 MCH 32.5 MCHC 32.9 RDW 14.3 Plt Count 213 Neut % (Auto) 63.0 Lymph % (Auto) 22.8 L [place] % (Auto) 9.9 Eos % (Auto) 3.4 Baso % (Auto) 0.9 Neut # (Auto) 4000 Lymph # (Auto) 1400 [place] # (Auto) 600 Eos # (Auto) 200 Baso # (Auto) 100 PT INR Sodium 140 Potassium 4.2 Chloride 103 Carbon Dioxide 26 BUN 13 Creatinine 0.67 Estimated GFR > 60 BUN/Creatinine Ratio 19.4 Glucose 103 Calcium 9.1 Total Bilirubin 0.2 AST 87 H ALT 55 H Alkaline Phosphatase 89 Total Protein 6.5 Albumin 3.7 Globulin 2.8 Albumin/Globulin Ratio 1.3 Ethyl Alcohol SARS-CoV-2 (PCR) Negative 04/17/22 04/17/22 04/17/22 01:34 01:34 05:06 WBC 5.5 RBC 3.34 L Hgb 11.0 L Hct 33.2 L MCV 99.2 MCH 33.0 MCHC 33.3 RDW 14.5 Plt Count 212 Neut % (Auto) 61.7 Lymph % (Auto) 24.8 L [place] % (Auto) 9.6 Eos % (Auto) 3.3 Baso % (Auto) 0.6 Neut # (Auto) 3400 Lymph # (Auto) 1400 [place] # (Auto) 500 Eos # (Auto) 200 Baso # (Auto) 0 PT 10.7 INR 1.0 Sodium Potassium Chloride Carbon Dioxide BUN Creatinine Estimated GFR BUN/Creatinine Ratio Glucose Calcium Total Bilirubin AST ALT Alkaline Phosphatase Total Protein Albumin Globulin Albumin/Globulin Ratio Ethyl Alcohol 170 H SARS-CoV-2 (PCR) 04/17/22 05:06 WBC RBC Hgb Hct MCV MCH MCHC RDW Plt Count Neut % (Auto) Lymph % (Auto) [place] % (Auto) Eos % (Auto) Baso % (Auto) Neut # (Auto) Lymph # (Auto) [place] # (Auto) Eos # (Auto) Baso # (Auto) PT INR Sodium 140 Potassium 3.9 Chloride 102 Carbon Dioxide 27 BUN 12 Creatinine 0.60 Estimated GFR > 60 BUN/Creatinine Ratio 20.0 Glucose 97 Calcium 9.1 Total Bilirubin AST ALT Alkaline Phosphatase Total Protein Albumin Globulin Albumin/Globulin Ratio Ethyl Alcohol SARS-CoV-2 (PCR) PFSH Family History Father Cancer Grandmother Diverticulitis Social History marital status: household members: spouse lives independently: Yes caregiver/support person: Yes housing: house Tobacco & Substance Use Smoking Status: Former smoker alcohol intake: current Assessment & Plan Assessment and plan (1) Displaced bimalleolar fracture of right ankle: Status: Acute (2) Femoral distal fracture: Status: Acute Plan 1. unstable R ankle -- unable to get reasona closed reduction-- plan OR for ORIF 2. R distal femur fx-- indicated for OR for ORIF to allow early ROM. the risks, benefits and alternatives discussed with pt . and consent was signed and sites marked. plan likely OR 5:30-6pm COVID-19 COVID-19 status: Negative Time Spent With Patient Time with patient: less than 30 minutes Critical Care time: I spent a total of [] minutes of critical care time on this patient's care today; this time is exclusive of procedural time.
[2022-04-17] MEDS: diazePAM 10 MG/2 ML SYRINGE 2 MG IV (15:32)
--- NOTE | 2022-04-17 18:58 | PC.NURSE ---
Day shift: Pt off unit for surgery at approx 1900.
[2022-04-17] MEDS: LACTATED RINGERS 1,000 ML 42 ML IV ×2 (19:00→23:31)
[2022-04-17] MEDS: CEFAZOLIN 2 GM/20 ML SYRINGE IV (20:20)
--- NOTE | 2022-04-17 20:48 | SUR.OPER ---
Supine on padded OR bed, head on pillow, arms secured on padded arm boards at <90 degrees abduction, legs uncrossed, tape over blanket over lower legs. Positioning directed and approved by surgeon. Velez placed 04/17/22 at 2018 in OR, inserted with ease. Clear yellow urine was visualized in tubing prior to balloon inflation. Secured to leg during surgery.
[2022-04-17] MEDS: BUPIVACAINE 0.5% W/ EPI (PF) 30 ML VIAL INJ (21:18)
[2022-04-17] MEDS: OXYCODONE/ACETAMINOPHEN 5/325 TABLET 1 TAB PO (22:20)
[2022-04-17] MEDS: ONDANSETRON 4 MG/2 ML INJ IV (22:20)
--- NOTE | 2022-04-17 22:20 | PM.PN.1 ---
Subjective Subjective Date Patient Seen: 04/17/22 Time Patient Seen: 22:20 Interval history: Patient is postop ORIF right ankle 04/17/2022-nonweightbearing right lower extremity distal femur tray was contaminated (moisture noted on towel) on opening in the OR and will need to be reprocessed. Patient will be rescheduled for her right femur ORIF on Thursday04/19/22 Will be NPO at midnight on Thursday for this Thursday OR Exam Vital Signs (past 8 hours): - 04/17/22 17:00 04/17/22 22:06 04/17/22 22:11 Temperature 98.6 F 98.5 F Pulse Rate 91 H 91 H 93 H Respiratory Rate 17 18 17 Blood Pressure 114/70 119/73 130/69 Pulse Oximetry 95 95 96 Oxygen Delivery Method Room Air Room Air Oxygen Flow Rate 0 Oxygen Delivery Method Room Air Oxygen Flow Rate 0 Objective Labs Result Diagrams: 04/17/22 05:06 04/17/22 05:06 Labs: Laboratory Results - last 24 hr 04/17/22 04/17/22 04/17/22 01:15 01:34 01:34 WBC 6.3 RBC 3.45 L Hgb 11.2 L Hct 34.1 L MCV 98.8 MCH 32.5 MCHC 32.9 RDW 14.3 Plt Count 213 Neut % (Auto) 63.0 Lymph % (Auto) 22.8 L [place] % (Auto) 9.9 Eos % (Auto) 3.4 Baso % (Auto) 0.9 Neut # (Auto) 4000 Lymph # (Auto) 1400 [place] # (Auto) 600 Eos # (Auto) 200 Baso # (Auto) 100 PT INR Sodium 140 Potassium 4.2 Chloride 103 Carbon Dioxide 26 BUN 13 Creatinine 0.67 Estimated GFR > 60 BUN/Creatinine Ratio 19.4 Glucose 103 Calcium 9.1 Total Bilirubin 0.2 AST 87 H ALT 55 H Alkaline Phosphatase 89 Total Protein 6.5 Albumin 3.7 Globulin 2.8 Albumin/Globulin Ratio 1.3 Ethyl Alcohol SARS-CoV-2 (PCR) Negative 04/17/22 04/17/22 04/17/22 01:34 01:34 05:06 WBC 5.5 RBC 3.34 L Hgb 11.0 L Hct 33.2 L MCV 99.2 MCH 33.0 MCHC 33.3 RDW 14.5 Plt Count 212 Neut % (Auto) 61.7 Lymph % (Auto) 24.8 L [place] % (Auto) 9.6 Eos % (Auto) 3.3 Baso % (Auto) 0.6 Neut # (Auto) 3400 Lymph # (Auto) 1400 [place] # (Auto) 500 Eos # (Auto) 200 Baso # (Auto) 0 PT 10.7 INR 1.0 Sodium Potassium Chloride Carbon Dioxide BUN Creatinine Estimated GFR BUN/Creatinine Ratio Glucose Calcium Total Bilirubin AST ALT Alkaline Phosphatase Total Protein Albumin Globulin Albumin/Globulin Ratio Ethyl Alcohol 170 H SARS-CoV-2 (PCR) 04/17/22 05:06 WBC RBC Hgb Hct MCV MCH MCHC RDW Plt Count Neut % (Auto) Lymph % (Auto) [place] % (Auto) Eos % (Auto) Baso % (Auto) Neut # (Auto) Lymph # (Auto) [place] # (Auto) Eos # (Auto) Baso # (Auto) PT INR Sodium 140 Potassium 3.9 Chloride 102 Carbon Dioxide 27 BUN 12 Creatinine 0.60 Estimated GFR > 60 BUN/Creatinine Ratio 20.0 Glucose 97 Calcium 9.1 Total Bilirubin AST ALT Alkaline Phosphatase Total Protein Albumin Globulin Albumin/Globulin Ratio Ethyl Alcohol SARS-CoV-2 (PCR) PFSH Family History Father Cancer Grandmother Diverticulitis Social History marital status: household members: spouse lives independently: Yes caregiver/support person: Yes housing: house Smoking Status: Former smoker alcohol intake: current Assessment & Plan Time Spent With Patient Critical Care time: I spent a total of [] minutes of critical care time on this patient's care today; this time is exclusive of procedural time.
--- NOTE | 2022-04-17 22:22 | P.OP_ITS ---
Operative Date/Time/Diagnoses Date of procedure: 04/17/22 Time of procedure: 20:00 Pre-op diagnosis: 1. Right bimalleolar ankle fracture dislocation 2. Right distal femur fracture Post-op diagnosis: same Procedure & Clinicians Procedure: 1. Open reduction internal fixation lateral malleolus fracture, right 2. Repair deltoid ligament--ankle collateral, right 3. Closed treatment posterior malleolus fracture, right Same procedure as scheduled: Yes (Distal femur fracture ORIF was canceled today due to implant contamination) Indications: Patient is a 66-year-old female that had a fall at home and sustained right ankle and distal femur fractures. She had a fracture dislocation of the ankle this was unable to be reduced in the ER after multiple attempts. Admitted to the hospital for operative fixation of her right ankle and right distal femur fractures. The risks benefits and alternatives to surgery were discussed with the patient in detail. The risks and benefits of the procedure have been discussed with the patient was given the opportunity to ask questions. The risks of surgery include but are not limited to infection, malunion, nonunion, persistence of pain, damage to nerves and blood vessels, posttraumatic arthritis, DVT, PE, cardiopulmonary complications and . The patient expressed a thorough understanding of the risks and benefits of surgery and has elected to proceed. Consent was signed. Surgeon: Sayra Mckeon Click Yes if Unassisted: Yes Anesthesia Type: General and Local Operative Notes Findings: Displaced right ankle fracture with incarcerated deltoid ligament in the medial gutter presenting reduction. Once the deltoid ligament had partially avulsed from medial malleolus was removed the ankle then reduced. Lateral malleolus was reduced and fixed with a 2.7 lag screw and posterior lateral plate from the Redman and Nephew tray. The small posterior medial posterior malleolus fracture remained nondisplaced. The deltoid ligament was repaired back to the medial malleolus and deltoid room minutes with FiberWire suture. Once this was completed the ankle was stressed under valgus stress and under external rotation stress and the syndesmosis was stable and the mortise remained symmetric. Closure Type: primary Specimen(s): none sent Prosthetic devices, grafts, tissues, transplants, or devices: Right fibula. Redman and Nephew 6 hole posterior lateral locking plate. Nonlocking screws proximally. Locking screws distally. 1x 2.7 lag screw Deltoid repair with FiberWire suture Applied: implant(s) and other (Splint) Estimated Blood Loss (mL): 10 Blood products transfused: none Tourniquet time (min): 48 Procedure in detail: Patient was seen in the preoperative area the site of surgery marked informed consent confirmed. She was brought back to the operating room by the anesthesia team positioned supine on operative table. General anesthetic was administered. While opening the final implant trays for the distal femur was noted there was moisture on the towel of the tray which indicated failure in sterility. At this point decision was made to dilate the distal femur ORIF for repeat processing of the required distal femur locking traits. A decision to made to proceed with ankle open reduction internal fixation due to the non reducible ankle fracture dislocation. Patient positioning continued. All bony prominences were prepped and draped in a standard sterile fashion a formal time-out procedure was performed confirming the patient's side and site of surgery administration of appropriate preoperative antibiotics. All were in agreement. The Esmarch was used for exsanguination the tourniquet raised on the side to 250 mmHg. Attention was then turned to the right ankle. C-arm was brought in to jasson the level of the joint line. An anterior medial incision along the medial malleolus and medial gutter of the ankle was then made directly through the skin subcutaneous tissues. The saphenous nerve and vein were carefully retracted and the capsule in this area was attenuated. This was easily cut through down directly into the gutter. A partial bear medial malleolus edge was demonstrated there was some posterior deltoid intact. And there was a large section of deltoid infolded into the medial gutter. This was debrided. Other was some scuffing noted of the medial talar dome no full-thickness cartilage lesions. There are some very small bony flecks removed from the medial gutter. The joint was thoroughly irrigated. No large loose bodies demonstrated. Once the deltoid was removed from the medial gutter the ankle mortise was able to be reduced. Deltoid repair. Treatment of the deltoid ligament rupture was addressed with repair 2-0 FiberWire suture into the distal and proximal segments and these were clamped off and were tied at the end of the case after reduction of the lateral malleolus. This repair was further reinforced with the sutures through the medial malleolus periosteum. Lateral malleolus ORIF: Attention was then turned to the lateral malleolus fracture a separate incision laterally along the lateral border of the distal fibula was undertaken the peroneal tendon sheath was then and taken off the posterior fibula and the peroneal tendons retracted posteriorly. The grossly displaced distal fibula fracture was visualized. The fracture site was cleaned of fracture hematoma and debris and the wound was irrigated. The fracture was then reduced using a pointed reduction clamp we turning normal length alignment and rotation. This provided anatomic reduction. Once this was clamped a 2.7 a to P lag screw was placed in the standard fashion. The clamp was then adjusted and a posterior-lateral a 6 hole plate from the Redman and Nephew set was fit to the posterior lateral border of the fibula to act as an antiglide plate. This was fixed with a nonlocking screw at the apex of the fracture site an antiglide fashion and then with additional nonlocking screws proximally in the shaft. And a locking screw was placed distally for decreased prominence. The original apex nonlocking screw was slightly long and did not get a great bite therefore this was exchanged for a shorter locking screw. Once this was complete the attention was turned to the posterior malleolus fracture. Careful perfect lateral x-rays were obtained demonstrating nondisplaced alignment of the small more posterior medial type medial malleolus fracture as confirmed on CT scan this continued to be nondisplaced. The ankle was then held in slight inversion and the deltoid ligament was tied. Once this was completed the ankle was taken through range of motion and stressed under live fluoroscopy in external rotation confirming syndesmotic stability and that in valgus stress confirming deltoid integrity. Once this was complete the wounds were irrigated and closed with 2-0 Vicryl, 4-0 Monocryl, 3-0 nylon suture. The tourniquet was released prior to closure. 30 cc of 0.5% Marcaine with epinephrine were injected for local anesthetic and a sterile splint was placed with Xeroform gauze Webril and stirrup splint. Sd wraps and knee immobilizer replaced for the distal femur fracture. The drapes removed and the patient was woken from anesthesia and taken to the recovery room. All counts were correct. There no immediate complications from this p rocedure. Complications: none Post-operative Condition: stable Disposition: PACU Plan for aftercare: Nonweightbearing right lower extremity. Patient will return to operating room on Thursday04/19/2022 pending OR scheduling for ORIF of her right distal femur. Will continue knee immobilizer for her right distal femur at this time. She will have a splint on the right ankle. Will have 2 doses of postoperative antibiotics and will be restarted on DVT prophylaxis
[2022-04-17] MEDS: GABAPENTIN 600 MG TABLET PO (23:29)
[2022-04-17] MEDS: LEVOTHYROXINE 100 MCG TABLET PO (23:53)
[2022-04-18] VITALS (10 sets, daily range): BP systolic 80–142; BP diastolic 52–80; PULSE 71–95; RESP 16–18; TEMP 35.6–37.7; O2SAT 95–98
[2022-04-18] MEDS: LACTATED RINGERS 1,000 ML 1000 ML IV (00:48)
[2022-04-18 01:15] LABS: Hematocrit 28.8 % (36-46); Hemoglobin 9.8 g/dL (12.0-16.0); Mean Corpuscular HGB Conc 33.9 % (30-36); Mean Corpuscular Hemoglobin 33.1 PG (26-34); Mean Corpuscular Volume 97.7 fL (80-100); Platelet Count 170 X10^3/uL (150-400); Red Blood Cell Count 2.95 X10^6/uL (4.0-5.2); Red Cell Distribution Width 14.3 % (11.6-14.8); White Blood Cell Count 5.9 X10^3/uL (4.5-11.0)
[2022-04-18 01:21] LABS: BUN Creatinine Ratio 22.6 (6-22); Blood Urea Nitrogen 14 mg/dL (7-17); Calcium 7.9 mg/dL (8.4-10.2); Carbon Dioxide 26 mmol/L (22-32); Chloride 100 mmol/L (98-107); Estimated Glomerular Filt Rate > 60 mL/min (>60); Glucose 115 mg/dL (80-110); HEMOLYSIS < 15 (0-50); Potassium 3.8 mmol/L (3.4-5.1); Sodium 133 mmol/L (137-145)
[2022-04-18] MEDS: CEFAZOLIN 2 GM/20 ML SYRINGE IV ×2 (03:24→12:00)
[2022-04-18] MEDS: OXYCODONE IR 10 MG TABLET PO ×4 (07:57→20:29)
--- NOTE | 2022-04-18 07:59 | PM.PNPO.1 ---
Subjective Subjective Date Patient Seen: 04/18/22 Time Patient Seen: 07:59 Interval history: Patient is complaining of moderate to severe right lower extremity pain. Her postoperative ankle is painful, and her right distal femur fracture is in the knee immobilizer. She is scheduled to undergo her femur ORIF tomorrow. She notes she has baseline neuropathy but denies new numbness or tingling after her ankle surgery yesterday. Exam Vital Signs (past 8 hours): - 04/18/22 00:40 04/18/22 01:40 04/18/22 02:00 Temperature 96.7 F L 96.1 F L 97.1 F L Pulse Rate 80 71 81 Respiratory Rate 16 17 17 Blood Pressure 80/52 L 81/52 L 104/62 Pulse Oximetry 95 96 98 Oxygen Flow Rate 0 0 04/18/22 05:53 Temperature 98.8 F Pulse Rate 75 Respiratory Rate 16 Blood Pressure 96/59 L Pulse Oximetry 98 Oxygen Flow Rate 0 Oxygen Delivery Method Room Air Oxygen Flow Rate 0 Narrative Exam Narrative: Pleasant 66-year-old female, resting comfortably in bed, somewhat shaky/delirium tremens, no acute distress. Right ankle dressing and splint is clean, dry, intact. Patient is able to wiggle her toes, no decreased sensation bilaterally, the foot is warm and well perfused. Her right knee has an immobilizer in place. Objective Labs Result Diagrams: 04/18/22 01:01 04/18/22 01:01 Labs: Laboratory Results - last 24 hr 04/18/22 04/18/22 01:01 01:01 WBC 5.9 RBC 2.95 L Hgb 9.8 L Hct 28.8 L MCV 97.7 MCH 33.1 MCHC 33.9 RDW 14.3 Plt Count 170 Sodium 133 L Potassium 3.8 Chloride 100 Carbon Dioxide 26 BUN 14 Creatinine 0.62 Estimated GFR > 60 BUN/Creatinine Ratio 22.6 H Glucose 115 H Calcium 7.9 L PFSH Family History Father Cancer Grandmother Diverticulitis Social History marital status: household members: spouse lives independently: Yes caregiver/support person: Yes housing: house Smoking Status: Former smoker alcohol intake: current Assessment & Plan Post-op Postoperative Procedures: Procedures Operation Date: 04/17/22 17:45 Actual Procedure Side Surgeon p ORIF Ankle Fracture Right Sayra Mckeon MD Operation Date: 04/19/22 08:30 <No data on this case meets the specified criteria> Postoperative day: 1 Postoperative status: marginal pain control Postoperative status narrative: Stable status post right ankle ORIF -pending right distal femur ORIF -alcohol withdrawals Postoperative plan narrative: -Nonweightbearing right lower extremity. -Patient will return to operating room on Thursday04/19/2022 pending OR scheduling for ORIF of her right distal femur. -continue knee immobilizer for her right distal femur at this time. She will have a splint on the right ankle. -heparin for DVT prophylaxis. -hold 04/19/2022 a.m. dose of heparin for surgery, resume 04/19/22 pm dose
[2022-04-18] MEDS: FOLIC ACID 1 MG TABLET PO (08:05)
[2022-04-18] MEDS: MULTIVITAMIN 1 TABLET 1 TAB PO (08:05)
[2022-04-18] MEDS: HEPARIN 5,000 UNIT/ML VIAL 5000 UNIT SUBCUT (08:13)
[2022-04-18] MEDS: THIAMINE 100 MG in SODIUM CHLORIDE 0.9% 50 ML 200 MG IV (08:13)
[2022-04-18] MEDS: ACETAMINOPHEN 325 MG TABLET 650 MG PO (09:13)
[2022-04-18] MEDS: HYDROMORPHONE 0.5 MG INJ IV ×2 (09:14→21:46)
--- NOTE | 2022-04-18 14:56 | CM.DPC ---
DCP Cont: Per Ortho , successfully completed pt's surgical intervention on her ankle fx but unfortunately due to preparation needs/tools Ortho unable to also complete pt's surgery on her femur fx and pt to be non-weight bearing with brace until going back to the OR tomorrow 04/19/22 for ORIF femur. Pt not appropriate for PT/OT yet at this time until after surgical intervention tomorrow and then Ortho will place PT/OT orders towards eval and recommendations towards determining any d/c planning needs. Pt resides on [place] with spouse and may need HH pending progress and [facility] would be the only HH option. No referral made yet at this time. Pt would be agreeable to HH if needed. Plan: SW to follow closely post surgical ORIF to femur on Sat in the OR and then PT/OT to be ordered towards determining any d/c planning needs. Pt currently declining any ETOH resources. Isabel Pelayo MSW
--- NOTE | 2022-04-18 15:44 | PM.PN.1 ---
Subjective Subjective Date Patient Seen: 04/18/22 Interval history: Patient reports controlled pain this afternoon. Will have another surgery for her femur tomorrow morning. No chest pain, shortness of breath, nausea, abdominal pain today. Exam Vital Signs (past 8 hours): - 04/18/22 09:00 04/18/22 14:30 Temperature 98.7 F 98.7 F Pulse Rate 93 H 74 Respiratory Rate 18 18 Blood Pressure 100/66 97/60 Pulse Oximetry 95 95 Oxygen Flow Rate 0 0 Oxygen Delivery Method Room Air Oxygen Flow Rate 0 Narrative Exam Narrative: GEN: pleasant female, WDWN, no acute distress HEENT: moist mucous membranes, PERRL NECK: trachea midline, no JVD PULM: clear bilaterally, no wheezes, rhonchi, rales CV: regular rate and rhythm, no murmurs ABD: soft, nontender, nondistended NEURO: awake, alert, oriented, no focal deficits. No tongue fasciculations or tremulousness. Objective Labs Result Diagrams: 04/18/22 01:01 04/18/22 01:01 Labs: Laboratory Results - last 24 hr 04/18/22 04/18/22 01:01 01:01 WBC 5.9 RBC 2.95 L Hgb 9.8 L Hct 28.8 L MCV 97.7 MCH 33.1 MCHC 33.9 RDW 14.3 Plt Count 170 Sodium 133 L Potassium 3.8 Chloride 100 Carbon Dioxide 26 BUN 14 Creatinine 0.62 Estimated GFR > 60 BUN/Creatinine Ratio 22.6 H Glucose 115 H Calcium 7.9 L PFSH Family History Father Cancer Grandmother Diverticulitis Social History marital status: household members: spouse lives independently: Yes caregiver/support person: Yes housing: house Smoking Status: Former smoker alcohol intake: current Assessment & Plan Assessment & Plan narrative: Ms. Case is a 66W who presents after a fall found to have ankle and distal femur fracture. 1. Acute right ankle and distal femur fracture -secondary to mechanical fall, ankle fracture repaired 04/17, plan for distal femur repair tomorrow 04/19. - management per orthopedics - continue pain control. - PT / OT after completed with surgical procedures. 2. Alcohol use -encourage care with with alcohol use -she denies every having withdrawal or any problems with alcohol use -continue CIWA protocol for now, no current signs of withdrawal. 3. Hypothyroidism -continue synthroid CODE: Full Proxy: Jonnie Manpreet, I have utilized all available resources to reconcile the patient's home medications Time Spent With Patient Critical Care time: I spent a total of [] minutes of critical care time on this patient's care today; this time is exclusive of procedural time.
[2022-04-18] MEDS: GABAPENTIN 600 MG TABLET PO (20:29)
[2022-04-18] MEDS: LEVOTHYROXINE 100 MCG TABLET PO (21:45)
[2022-04-19] VITALS (15 sets, daily range): BP systolic 88–144; BP diastolic 58–89; PULSE 70–90; RESP 11–18; TEMP 36.1–37.2; O2SAT 90–98; BMI 22.0
--- NOTE | 2022-04-19 | DI.RAD.S_ITS ---
PROCEDURE: XR FEMUR RT MIN 2V INDICATIONS: RIGHT DISTAL FEMUR SURGERY TECHNIQUE: Fluoroscopic images were obtained during an operative procedure and submitted for interpretation following the completion of the procedure. COMPARISON: [facility], CR, XR KNEE RT 1TO2V, 04/17/2022, 1:23. [facility], CT, CT LE RT WO CON, 04/17/2022, 1:45. [facility], CR, XR FEMUR RT MIN 2V, 04/17/2022, 2:50. FINDINGS: These fluoroscopic images were performed for intraoperative localization. On these images, plate and screw fixation is seen of the distal femur laterally, with improved anatomic alignment. Prior ACL graft repair change can be seen. Please correlate with intraoperative findings. IMPRESSION: Normal intraoperative examination. Dictated by: Alex Herrera M.D. on 04/19/2022 at 11:55 Approved by: Alex Herrera M.D. on 04/19/2022 at 11:55
[2022-04-19] MEDS: HYDROMORPHONE 0.5 MG INJ IV ×2 (01:37→06:21)
[2022-04-19] MEDS: SODIUM CHLORIDE 0.9% FLUSH 10 ML IV ×3 (01:37→21:25)
--- NOTE | 2022-04-19 08:23 | PM.PREOP ---
Pre-operative Note COVID-19 COVID-19 status: Negative Interval Note History & Physical reviewed/Exam performed by Physician: Yes Changes to H&P: No
[2022-04-19] MEDS: LACTATED RINGERS 1,000 ML 42 ML IV ×2 (08:28→10:36)
--- NOTE | 2022-04-19 08:34 | SUR.HOLD ---
Patient to surgical services via bed from room 220 in stable condition. VSS; GCS 15.
[2022-04-19] MEDS: CEFAZOLIN 2 GM/20 ML SYRINGE IV ×2 (08:45→17:55)
--- NOTE | 2022-04-19 09:09 | SUR.OPER ---
Supine on padded bethany table with flat frame, head on pillow, arms secured on padded arm boards at <90 degrees abduction, legs uncrossed, safety belt at waist, tape over blanket over lower left leg, gel bump under left hip, blankets under left leg, left leg draped free .
--- NOTE | 2022-04-19 09:18 | SUR.OPER ---
Addendum entered by Bud Perry R.N. 04/19/22 09:20: blankets under lower right leg not left leg Original Note: Supine on padded bethany frame flat table, head on pillow, arms secured on padded arm boards at <90 degrees abduction, legs uncrossed, safety belt at waist, tape over blanket over lower left leg, right leg draped free with gel bump under hip and blankets under left leg.
[2022-04-19] MEDS: BUPIVACAINE 0.5% W/ EPI (PF) 30 ML VIAL INJ (09:33)
--- NOTE | 2022-04-19 10:35 | PC.NURSE ---
Addendum entered by Ana Sweet R.N. 04/19/22 11:59: 1200: returned to room. report from MICK Linares. EBL 100cc. tolerated ice chips. b/p 93/61, running LR 250 cc left in bag. patient is awake, talking, oriented. RLE is splinted w/ a velcro blue splint. chau is draining lorie urine. patient had requested chicken noodle soup prior to leaving for surgery. this was ordered. purse and phone returned to patient. awaiting arrival of food. Original Note: 0830: patient a/o, voices needs. 2/10 pain at rest, 4/10 w/ movement. R ankle is stable, supported w/ pillows. wrapped in splint and DONALD wrap. NWB. patient's purse/ charging cord/ dental retainer placed in a white belongings bag and placed in tiny closet by sink. scheduled for surgery at 0830, left floor at 0815, report to NATHALIE Linares RN.
--- NOTE | 2022-04-19 11:37 | P.OP_ITS ---
Operative Date/Time/Diagnoses Date of procedure: 04/19/22 Time of procedure: 08:45 Pre-op diagnosis: Right distal femur fracture with intra-articular extension S72. 409A Modifier 79 for unrelated procedure during other global period. Post-op diagnosis: same Procedure & Clinicians Procedure: Open reduction internal fixation intra-articular distal femur fracture right CPT 21251 Same procedure as scheduled: Yes Indications: Patient is a 66-year-old female that fell and sustained right-sided intra- articular distal femur fractures and right ankle fractures. Right ankle was fixed on 12/16. She is brought back down to the OR today for fixation of her intra-articular distal femur fracture on the right side. The risks and benefits of the procedure have been discussed with the patient given the opportunity to ask questions. The risks of surgery include but are not limited to infection, malunion, nonunion, persistence of pain, damage to nerves and blood vessels, posttraumatic arthritis, DVT, PE, cardiopulmonary complications and . The patient expressed a thorough understanding of the risks and benefits of surgery and has elected to proceed. Consent was signed. She has pre-existing posttraumatic arthritis and a remote ACL reconstruction. Surgeon: Sayra Mckeon Click Yes if Unassisted: Yes Anesthesia Type: Spinal and Local Operative Notes Findings: Mildly displaced distal femur fracture extends from supracondylar shaft radiation into the articular split involving the lateral and medial condyle. This was reduced with the clamps and provisionally fixed. Lateral plate was fit to the bone and brought down to the bone with cortical screws then locking screws were placed distally. Cortical and 1 locking screw were placed along the shaft. Closure Type: primary Specimen(s): none sent Prosthetic devices, grafts, tissues, transplants, or devices: Redman and Nephew Merissa lock right locking distal femur plate 10 hole with locking screws distally. One locking screw in the shaft and additional cortical screws. Estimated Blood Loss (mL): 50 Blood products transfused: none Tourniquet time (min): 93 Procedure in detail: Patient was seen in the preoperative room the site of surgery was marked informed consent confirmed. She was brought back to the operating room by the anesthesia team. Spinal anesthesia was administered. She was positioned on the operative table in the supine position on the flat top Nam table. Bony prominences were well padded. An SCD was on the contralateral lower extremity. The right lower extremities prepped and draped in standard sterile fashion. Formal time-out procedure was performed confirming the patient's side and site of surgery administration of appropriate preoperative antibiotics. All were in agreement. A sterile tourniquet was placed. The Esmarch was used for exsanguination and the tourniquet raised to 250 mmHg. Standard lateral approach to the distal femur was completed with a jasson from Gerdy's tubercle along the lateral femoral shaft. The ITB band was then opened and the distal femur was exposed. A small arthrotomy was made and hemarthrosis was evacuated. The fracture spike along the posterior supracondylar border was exposed. This was cleaned and reduced using clamps and K-wires. Then the 10 hole Redman and Nephew plate was slid per subcutaneously along the bone and a temporary reduction pin was used proximally to complete the box. This was checked in AP and lateral planes. The plate was then brought to the bone with a cortical screw just above the fracture extension. This provided excellent alignment of the plate to the bone next locking screws were placed distally in the articular block followed by additional cortical and 1 locking screw in the shaft at intervals for a good screw spread. The most distal posterior screw holes were interfering with the ACL screw and so these were avoided. Least 4 locking screws were placed distally and 8 cortices in the shaft. Final x-rays in the AP lateral 25 degree rollover position and notch view were obtained confirming appropriate alignment of the fracture and appropriate hardware placement without any violation of the notch or medial cortex. The tourniquet was released hemostasis was achieved. The wound was irrigated and closed in a layered fashion with 0 Vicryl, 2-0 Vicryl, masha. The small pinhole from the reduction clamp on the medial side was closed with masha. 30 cc of 0.5% Marcaine with epinephrine was injected for local anesthetic. And a Aquacel dressing was applied. A new dressing was reapplied to the previously fixed ankle of fracture including a splint. The drapes removed and patient was woken from anesthesia and taken to the recovery room in good condition. There no immediate complications from this procedure. All counts were correct. Complications: none Post-operative Condition: stable Disposition: PACU Plan for aftercare: Toe-touch weight-bearing with a walker crutches for 6 weeks, gait and transfer training, work on active range of motion of knee only no passive range of motion until 6 weeks.. Use walker at all times do not put significant weight on foot for 6 weeks. Toe-touch down. Use the knee immobilizer full-time for 3 weeks except during therapy exercises. Make sure to use the knee immobilizer at night. May remove it for hygiene. Use Lovenox for DVT prophylaxis for 3 weeks 40 mg subQ daily and then switch to aspirin 325 daily for the next 3 weeks. Follow up in Orthopedic Clinic in 2 weeks.
--- NOTE | 2022-04-19 12:58 | CM.DPNOTE ---
Discharge Planning Note: Patient returned from ORIF surgery to right femur this afternoon. On 04/17/22 she underwent ORIF to right ankle. Postoperatively according to notes, she is in RLE blue velcro leg splint. Her postop orders are for toe touch WB with crutches x 6 weeks. Patient lives on [place] with her spouse. Both she and spouse drink daily. Patient was previously offered by [facility] resources and she declined. She wishes to return to [place]. She would accept Home Health. Placed call to [facility]. Plan: Continue to follow closely for needs upon dc. Pamella Roberto RN, DCP
--- NOTE | 2022-04-19 13:53 | P.PN_ITS ---
Subjective Subjective Date Patient Seen: 04/19/22 Interval history: 66-year-old with daily alcohol use, hypothyroidism, peripheral neuropathy, previous colon perforation with prolonged ostomy and reversal, who fell on the date of admission and unfortunately sustained an acute right ankle fracture as well as an acute distal right femur fracture. Orthopedic surgery consulted on the date of admission and she was taken to the operating room for repair. Postoperatively, patient complained of significant leg and ankle pain. She was placed on nonweightbearing status. Patient returned to the operating room today for ORIF of her right distal femur fracture. A nerve block was done and current she reports she feels quite good. She states she is not having any significant pain. She does note a significant history of previous bowel surgeries and chronic constipation. She notes she has not had a bowel movement in at least a couple of days. She reports poor appetite which is not unusual for her. Exam Vital Signs (past 8 hours): - 04/19/22 06:15 04/19/22 08:05 04/19/22 07:00 Temperature 98.3 F 98.9 F Pulse Rate 85 70 Respiratory Rate 16 16 Blood Pressure 114/75 100/61 Pulse Oximetry 98 97 97 Oxygen Delivery Method Room Air Room Air Oxygen Flow Rate 0 04/19/22 11:29 04/19/22 11:28 04/19/22 11:38 Temperature 97.9 F Pulse Rate 77 76 70 Respiratory Rate 14 11 L 12 Blood Pressure 94/70 88/58 L 91/60 Pulse Oximetry 95 90 L 95 Oxygen Delivery Method Room Air Room Air Room Air Oxygen Flow Rate 04/19/22 11:42 04/19/22 11:43 04/19/22 12:00 Temperature 97.1 F L Pulse Rate 72 72 73 Respiratory Rate 11 L 11 L 17 Blood Pressure 92/61 93/61 102/65 Pulse Oximetry 94 95 94 Oxygen Delivery Method Room Air Room Air Oxygen Flow Rate 0 04/19/22 12:30 04/19/22 13:00 Temperature 97.3 F L 96.9 F L Pulse Rate 79 80 Respiratory Rate 18 17 Blood Pressure 102/64 101/59 L Pulse Oximetry 94 94 Oxygen Delivery Method Oxygen Flow Rate 0 0 Oxygen Delivery Method Room Air Oxygen Flow Rate 0 Narrative Exam Narrative: GEN: Pleasant middle-aged female, Alert and oriented x 3, NAD HEENT:NC, Face symmetric CHEST: Respiratory excursions symmetric, CTAB CV: RRR, no M/R/G ABD: Soft, NT/ND, BT present in all 4 quadrants, no organomegaly or masses EXTR: warm, well perfused, no C/C/E SKIN: warm and dry, no rash NEURO: Alert and oriented x 3, nonfocal Objective Labs Result Diagrams: 04/18/22 01:01 04/18/22 01:01 PFS Family History Father Cancer Grandmother Diverticulitis Social History marital status: household members: spouse lives independently: Yes caregiver/support person: Yes housing: house Smoking Status: Former smoker alcohol intake: current Assessment & Plan Assessment & Plan narrative: 1. Ground level fall complicated by acute right ankle and distal femur fractures, now postoperative day 2 and postoperative day 0 from repair Ongoing recommendations per Orthopedic surgery. At this time, Dr. Parada has recommended toe-touch weight-bearing with a walker crutches for 6 weeks, gait and transfer training, active range of motion of knee only, no passive range of motions until 6 weeks. Recommendation is for use of a knee immobilizer full- time for 3 weeks except during therapy exercises. DVT prophylaxis is recommended for 3 weeks of Lovenox followed by aspirin 325 daily for 3 weeks. 2. Daily alcohol use CIWA scores have ranged from 1-4. No evidence of withdrawal. 3. Hypothyroidism Continue outpatient dose of thyroid replacement 4. Peripheral neuropathy Chronic and stable 5. Constipation She is presently receiving Colace b.i.d. will add senna and MiraLax as needed. Code status Full Prophylaxis Lovenox has been ordered Disposition Await therapy assessments for discharge recommendation Time Spent With Patient Critical Care time: I spent a total of [] minutes of critical care time on this patient's care today; this time is exclusive of procedural time.
--- NOTE | 2022-04-19 15:20 | PT.IIE ---
Current Diagnoses Unspecified fracture of lower end of unspecified femur, initial encounter for closed fracture (04/17/22) Displaced bimalleolar fracture of right lower leg, initial encounter for closed fracture (04/17/22) Surgery Performed Operation Date: 04/17/22 17:45 Actual Procedures p ORIF Ankle Fracture(Right) - Sayra Mckeon MD Operation Date: 04/19/22 08:30 Actual Procedures p ORIF Distal Femur Fracture(Right) - Sayra Mckeon MD Physical Therapy Inpatient Evaluation/Re-Eval M1 PT/OT-IP Prior Functional Status Start: 04/19/22 16:51 Freq: NEEDED Status: Active Protocol: Document 04/19/22 15:20 AB (Rec: 04/19/22 17:03 AB [email or web address]) Medical Review Prior Functional Status Medical History Reviewed Yes Communication able to make needs known Mobility and Gait pt stated that she is independent with all mobilities and ambulation without AD indoors but uses 2 walking sticks for outdoor mobility Social History Household Members spouse Living Arrangements House Number of Floors (Floors) 3 or More Floors Number of Stairs To Enter/Railing? pt stays on main level of the house 2 steps without rails to enter the house Home Environment High Toilet,Walk in Shower, Built-In Shower Seat Home Equipment Hand Held Shower,Grab Bars Near Toilet,Grab Bars In Shower Additional Social History Comment has a bidet has 2 walking sticks M2 PT-IP Current Condition Start: 04/19/22 16:51 Freq: NEEDED Status: Active Protocol: Document 04/19/22 15:20 AB (Rec: 04/19/22 17:03 AB [email or web address]) Physical Therapy Current Condition Current Condition Evaluation Date 04/19/22 Treatment Diagnosis R distal femur fx s/p ORIF; R ankle fx s/p ORIF; difficulty in walking Onset Date 04/17/22 M3 PT-IP Subjective Start: 04/19/22 16:51 Freq: NEEDED Status: Active Protocol: Document 04/19/22 15:20 AB (Rec: 04/19/22 17:03 AB [email or web address]) Subjective Physical Therapy Visit Type Type Initial Evaluation Visit Start Time 15:20 Visit Stop Time 16:20 Total Visit Minutes 60 Number of WEB PRESS JOGGER Visits 0 Physical Therapy Visit Comments Patient Comments agreeable to do PT M4 PT-IP Mobility and Gait Start: 04/19/22 16:51 Freq: NEEDED Status: Active Protocol: Document 04/19/22 15:20 AB (Rec: 04/19/22 17:03 AB [email or web address]) PT-Bed Mobility Assessment Supine to Sit Supine to Sit Moderate Assistance,1 Person Assistance PT-Transfer Assessment Sit to and From Stand Sit to and from Stand Maximum Assistance,2 Person Assistance,Use of Upper Extremities Equipment Transfer Assistive Device Gait Belt,Front Wheeled Walker Orthotic/Prosthetic Devices or Brace: Yes Transfers Transfer Destination Chair Transfer Technique Stand Pivot Transfer Ability Level of Assist Maximum Assistance,2 Person Assistance,Use of Upper Extremities Comments Mobility Comments pt educated on weight bearing restriction on RLE: touch down weight bearing / NWB if pt is unable to maintain touch down weight bearing for safety. completed supine to sit mod A and max cues for techniques. completed sit to stand x 2 attempts max A x 2 and max cues. attempted step transfer to chair using FWW but pt unable and completed standpivot transfer using FWW max Ax 2 and max cues. positioned pt on the chair. call light and table placed within reach. informed pt regarding equipement needs and SNF rehab recommendation. Pt does not want to go to rehab but after conversation on level of assistance needed and safety, pt is becoming agreeable. Gait Assessment Comments Gait Comments unable at this time PT-Balance Assessment Sitting Balance and Reactions Static Sitting Balance Ability Good Dynamic Sitting Balance Ability Fair Standing Balance and Reactions Static Standing Balance Ability Poor Dynamic Standing Balance Ability Poor Device Used FWW M5 PT-IP Objective Assessments Start: 04/19/22 16:51 Freq: NEEDED Status: Active Protocol: Document 04/19/22 15:20 AB (Rec: 04/19/22 17:03 AB [email or web address]) Orientation Orientation/Cognition Level of Alertness Alert Orientation Name,Place,Situation Language Function Ability No Deficits Noted Safety Awareness Decreased Safety Awareness Memory Description No Deficits Noted Gross Range of Motion Lower Extremity ROM Assessment Right Impaired Impairments R knee on knee immobilizer and R ankle on soft cast Strength Lower Extremity Strength Assessment Right Impaired Hip 3+/5 Knee n/t Ankle n/t Muscle Tone Muscle Tone WNL Yes M6 PT-IP Treatment Start: 04/19/22 16:51 Freq: NEEDED Status: Active Protocol: Document 04/19/22 15:20 AB (Rec: 04/19/22 17:03 AB [id number]) Physical Therapy Treatment Education Education Provided Weight Bearing Status,Safety M7 PT-IP Assessment and Plan Start: 04/19/22 16:51 Freq: NEEDED Status: Active Protocol: Document 04/19/22 15:20 AB (Rec: 04/19/22 17:03 AB [email or web address]) PT Summary Assessment and Plan Potential Rehabilitation Potential Fair Status of Condition at Evaluation Evolving Summary Impairments Pain,ROM,Strength,Balance, Coordination,Sensation,Tone, Cognition,Bed Mobility, Transfers,Gait,Activity Tolerance Assessment Summary pt requiring max A x 2 for mobility using FWW and unable to ambulate at this time. Pt will require SNF rehab at this time. will continue to assess progress. informed pt regarding equipement needs. Goals Bed Mobility Goal Standby Assistance Transfer Goal Standby Assistance,Front Wheeled Walker Gait Goal Contact Guard Assistance,Front Wheel Walker Gait Distance 50 Days to Meet Goals 10 Frequency of Treatment Frequency Of Treatment Twice a Day Treatment Plan Physical Therapy Treatment Plan Bed Mobility Training,Transfer Training,Gait Training, Therapeutic Exercise,Balance Retraining,Post Op Education, Discharge Planning,Hot or Cold Pack,Neuromuscular Re-ed, Coordination Retraining,Manual Therapy Precautions Brace R knee immobilizer Weight Bearing Status Weight Bearing Status Touch Down Weight Bearing Allowed Weight Bearing Amount (enter % TTWB on RLE: opted NWB as pt or #) (%) unable to maintain TTWB Recommendations To Nursing Amount of Assist Needed Mechanical Lift Discharge Recommendations PT Discharge Recommendations SNF Rehab Transportation Needs at Discharge Wheelchair/Cabulance
[2022-04-19] MEDS: THIAMINE 100 MG in SODIUM CHLORIDE 0.9% 50 ML 200 MG IV (15:21)
[2022-04-19] MEDS: SENNOSIDES 8.6 MG TABLET PO ×2 (15:24→20:53)
[2022-04-19] MEDS: OXYCODONE IR 5 MG TABLET PO (15:32)
[2022-04-19] MEDS: LEVOTHYROXINE 100 MCG TABLET PO (20:53)
[2022-04-19] MEDS: OXYCODONE IR 10 MG TABLET PO (20:53)
[2022-04-19] MEDS: GABAPENTIN 600 MG TABLET PO (20:53)
[2022-04-19] MEDS: DOCUSATE 100 MG CAPSULE PO (20:53)
[2022-04-20 00:16] VITALS: BP 128/75; PULSE 78; RESP 19; TEMP 36.9; O2SAT 96
[2022-04-20] MEDS: SODIUM CHLORIDE 0.9% FLUSH 10 ML IV ×3 (01:02→21:49)
[2022-04-20] MEDS: OXYCODONE IR 10 MG TABLET PO ×2 (01:02→06:34)
[2022-04-20] MEDS: CEFAZOLIN 2 GM/20 ML SYRINGE IV (01:30)
[2022-04-20 05:43] VITALS: BP 123/80; PULSE 75; RESP 19; TEMP 36.6; O2SAT 97
[2022-04-20 06:04] LABS: Hematocrit 29.4 % (36-46); Hemoglobin 9.9 g/dL (12.0-16.0); Mean Corpuscular HGB Conc 33.7 % (30-36); Mean Corpuscular Hemoglobin 33.4 PG (26-34); Mean Corpuscular Volume 98.9 fL (80-100); Platelet Count 175 X10^3/uL (150-400); Red Blood Cell Count 2.97 X10^6/uL (4.0-5.2); Red Cell Distribution Width 14.3 % (11.6-14.8); White Blood Cell Count 8.8 X10^3/uL (4.5-11.0)
[2022-04-20] MEDS: ACETAMINOPHEN 325 MG TABLET 650 MG PO (06:36)
[2022-04-20 07:47] VITALS: BP 109/69; PULSE 68; RESP 16; TEMP 36.8; O2SAT 97
--- NOTE | 2022-04-20 10:03 | P.PN_ITS ---
Subjective Subjective Date Patient Seen: 04/20/22 Time Patient Seen: 08:00 Interval history: Patient is sitting up in bed eating breakfast. Complains of pain status 3 of 10 in the ankle 4/10 in the femur. States she got up with therapy yesterday but they recommended a fci placement for her. She is quite upset with this and becomes tearful talking about rehab. Denies any fevers or chills. Denies left-sided pain. Space to try to have a bowel movement yesterday but did not have 1. Feels like the knee immobilizers poking the back of her leg. This is readjusted and the pain is relieved by just moving the knee immobilizer down a bit. Exam Vital Signs (past 8 hours): - 04/20/22 05:43 04/20/22 07:47 Temperature 97.8 F 98.3 F Pulse Rate 75 68 Respiratory Rate 19 16 Blood Pressure 123/80 109/69 Pulse Oximetry 97 97 Oxygen Flow Rate 0 0 Oxygen Delivery Method Room Air Oxygen Flow Rate 0 Narrative Exam Narrative: Alert oriented female no acute distress but becomes tearful when talking about fci placement. HEENT exam normocephalic atraumatic Breathing unlabored on room air Heart regular rate. Musculoskeletal right lower extremity in knee immobilizer and lower extremity splint. Wiggles toes. Brisk capillary refill. Knee immobilizer is adjusted which improves her pain. Objective Labs Result Diagrams: 04/20/22 05:44 04/18/22 01:01 Labs: Laboratory Results - last 24 hr 04/20/22 05:44 WBC 8.8 RBC 2.97 L Hgb 9.9 L Hct 29.4 L MCV 98.9 MCH 33.4 MCHC 33.7 RDW 14.3 Plt Count 175 PFSH Family History Father Cancer Grandmother Diverticulitis Social History marital status: household members: spouse lives independently: Yes caregiver/support person: Yes housing: house Smoking Status: Former smoker alcohol intake: current Assessment & Plan Post-op Postoperative Procedures: Procedures Operation Date: 04/17/22 17:45 Actual Procedure Side Surgeon p ORIF Ankle Fracture Right Sayra Mckeon MD Operation Date: 04/19/22 08:30 Actual Procedure Side Surgeon p ORIF Distal Femur Fracture Right Sayra Mckeon MD Postop day number 3 for the right ankle open reduction internal fixation. Touchdown weight-bearing. Splint in place. Postop day 1. Right distal femur ORIF. Touchdown weight-bearing. Knee immobilizer in place. Plan 1. Toe-touch weight-bearing with a walker crutches for 6 weeks, gait and transfer training, active range of motion of knee only, no passive range of motions until 6 weeks.? Recommendation is for use of a knee immobilizer full- time for 3 weeks except during therapy exercises.? May adjust knee immobilizer as needed. DVT prophylaxis is recommended for 3 weeks of Lovenox followed by aspirin 325 daily for 3 weeks. 2. Follow-up orthopedic clinic in 2 weeks for suture and staple removal. At follow-up may switch from splint on ankle to stirrup Aircast to go along with a knee immobilizer. Will remain toe-touch weight-bearing for 6 weeks 3. Complete 24 hours postop antibiotics 4. DVT prophylaxis as mentioned above. Additional SCD on contralateral extremity 5. Discharge will be pending physical therapy possible placement Postoperative status: doing well Time Spent With Patient Time with patient: less than 15 minutes Quality VTE Deep Vein Thrombosis/Pulmonary Embolism Present on Admission: No
[2022-04-20] MEDS: SENNOSIDES 8.6 MG TABLET PO ×2 (10:04→20:49)
[2022-04-20] MEDS: FOLIC ACID 1 MG TABLET PO (10:05)
[2022-04-20] MEDS: MULTIVITAMIN 1 TABLET 1 TAB PO (10:05)
[2022-04-20] MEDS: ENOXAPARIN 40 MG/0.4 ML SYRINGE SUBCUT (10:05)
[2022-04-20] MEDS: DOCUSATE 100 MG CAPSULE PO ×2 (10:05→20:49)
[2022-04-20] MEDS: THIAMINE 100 MG in SODIUM CHLORIDE 0.9% 50 ML 200 MG IV (10:09)
--- NOTE | 2022-04-20 10:25 | PT.IPTN ---
Current Diagnoses Unspecified fracture of lower end of unspecified femur, initial encounter for closed fracture (04/17/22) Displaced bimalleolar fracture of right lower leg, initial encounter for closed fracture (04/17/22) Surgery Performed Operation Date: 04/17/22 17:45 Actual Procedures p ORIF Ankle Fracture(Right) - Sayra Mckeon MD Operation Date: 04/19/22 08:30 Actual Procedures p ORIF Distal Femur Fracture(Right) - Sayra Mckeon MD Physical Therapy Treatment Note M2 PT-IP Current Condition Start: 04/19/22 16:51 Freq: NEEDED Status: Active Protocol: Document 04/19/22 15:20 AB (Rec: 04/19/22 17:03 AB [email or web address]) Physical Therapy Current Condition Current Condition Evaluation Date 04/19/22 Treatment Diagnosis R distal femur fx s/p ORIF; R ankle fx s/p ORIF; difficulty in walking Onset Date 04/17/22 M3 PT-IP Subjective Start: 04/19/22 16:51 Freq: NEEDED Status: Active Protocol: Document 04/20/22 10:25 AW (Rec: 04/20/22 13:13 AW [id number]) Subjective Physical Therapy Visit Type Type Treatment Note Visit Start Time 10:02 Visit Stop Time 10:25 Total Visit Minutes 23 Notes 3/10 pain noted at rest. Slightly increased with mobility. Number of PROCESS CHEESE COOKER Visits 0 Physical Therapy Visit Comments Patient Comments agreeable to do PT M4 PT-IP Mobility and Gait Start: 04/19/22 16:51 Freq: NEEDED Status: Active Protocol: Document 04/20/22 10:25 AW (Rec: 04/20/22 13:13 AW [id number]) PT-Bed Mobility Assessment Supine to Sit Supine to Sit Contact Guard Assistance,Head of Bed Elevated PT-Transfer Assessment Sit to and From Stand Sit to and from Stand Moderate Assistance,2 Person Assistance,Use of Upper Extremities Equipment Transfer Assistive Device Gait Belt,Front Wheeled Walker Orthotic/Prosthetic Devices or Brace: Yes Transfers Transfer Destination Chair Transfer Technique Stand Step Pivot Transfer Ability Level of Assist Maximum Assistance,2 Person Assistance,Use of Upper Extremities Comments Mobility Comments Clarified WB status and provided demo on using left foot for pivot transfer with FWW. Pt sat up on the left side of the bed CGA with immobilizer donned. With bed raised to simulate pt's own bed, she stood mod A x 2. With FWW, she step pivot transferred to chair set up on her left side max A x 2. Max A to control descent. Pt agreed to attempt standing again. From the lower surface of the chair, max A x 2 to stand and sit again. Pt was left sitting on the chair with call light in reach and nursing attending. Gait Assessment Comments Gait Comments Transfer only. PT-Balance Assessment Sitting Balance and Reactions Static Sitting Balance Ability Good Dynamic Sitting Balance Ability Fair Standing Balance and Reactions Static Standing Balance Ability Poor Dynamic Standing Balance Ability Poor Device Used FWW M5 PT-IP Objective Assessments Start: 04/19/22 16:51 Freq: NEEDED Status: Active Protocol: Document 04/19/22 15:20 AB (Rec: 04/19/22 17:03 AB [email or web address]) Orientation Orientation/Cognition Level of Alertness Alert Orientation Name,Place,Situation Language Function Ability No Deficits Noted Safety Awareness Decreased Safety Awareness Memory Description No Deficits Noted Gross Range of Motion Lower Extremity ROM Assessment Right Impaired Impairments R knee on knee immobilizer and R ankle on soft cast Strength Lower Extremity Strength Assessment Right Impaired Hip 3+/5 Knee n/t Ankle n/t Muscle Tone Muscle Tone WNL Yes M6 PT-IP Treatment Start: 04/19/22 16:51 Freq: NEEDED Status: Active Protocol: Document 04/20/22 10:25 AW (Rec: 04/20/22 13:13 AW [id number]) Physical Therapy Treatment Exercises Exercises Gluteal Sets,Quad Sets, Straight Leg Raises,Supine Hip Abduction Other Treatments Other Treatment Performed Exercises performed pre- mobility. M7 PT-IP Assessment and Plan Start: 04/19/22 16:51 Freq: NEEDED Status: Active Protocol: Document 04/20/22 10:25 AW (Rec: 04/20/22 13:13 AW [id number]) PT Summary Assessment and Plan Summary Assessment Summary Pt requires min A for bed mobility and mod/max A x 2 for transfers with FWW. She requires SNF rehab to progress strength and mobility indepednence. Goals Bed Mobility Goal Standby Assistance Transfer Goal Standby Assistance,Front Wheeled Walker Gait Goal Contact Guard Assistance,Front Wheel Walker Gait Distance 50 Days to Meet Goals 10 Frequency of Treatment Frequency Of Treatment Twice a Day Treatment Plan Physical Therapy Treatment Plan Bed Mobility Training,Transfer Training,Gait Training, Therapeutic Exercise,Balance Retraining,Post Op Education, Discharge Planning,Hot or Cold Pack,Neuromuscular Re-ed, Coordination Retraining,Manual Therapy Precautions Brace R knee immobilizer Weight Bearing Status Weight Bearing Status Touch Down Weight Bearing Allowed Weight Bearing Amount (enter % TTWB on RLE: opted NWB as pt or #) (%) unable to maintain TTWB Recommendations To Nursing Amount of Assist Needed 2 Person Assist Discharge Recommendations PT Discharge Recommendations SNF Rehab Transportation Needs at Discharge Wheelchair/Cabulance
[2022-04-20 11:00] VITALS: BP 112/58; PULSE 81; RESP 17; TEMP 36.8; O2SAT 97
--- NOTE | 2022-04-20 12:41 | PC.NURSE ---
tolerated OOB w/ PT assisting, gaitbelt, FWW and BB SHOT PACKER assist. patient is shaky, but determined. she is currently in her recliner chair eating lunch. washed her hair earlier, she is feeling good, and declined PRN oxycodone until i need it. provided listening support as patient tearful about have to go to rehab. encouraged her to talk about her fears, and she says she will do her best. + CSM checks, immobilizer RLE. TTWB if transferring to the left, NWB if transferring toward her right, per PT.
--- NOTE | 2022-04-20 14:09 | PT.IPTN ---
Current Diagnoses Unspecified fracture of lower end of unspecified femur, initial encounter for closed fracture (04/17/22) Displaced bimalleolar fracture of right lower leg, initial encounter for closed fracture (04/17/22) Surgery Performed Operation Date: 04/17/22 17:45 Actual Procedures p ORIF Ankle Fracture(Right) - Sayra Mckeon MD Operation Date: 04/19/22 08:30 Actual Procedures p ORIF Distal Femur Fracture(Right) - Sayra Mckeon MD Physical Therapy Treatment Note M2 PT-IP Current Condition Start: 04/19/22 16:51 Freq: NEEDED Status: Active Protocol: Document 04/19/22 15:20 AB (Rec: 04/19/22 17:03 AB [id number]) Physical Therapy Current Condition Current Condition Evaluation Date 04/19/22 Treatment Diagnosis R distal femur fx s/p ORIF; R ankle fx s/p ORIF; difficulty in walking Onset Date 04/17/22 M3 PT-IP Subjective Start: 04/19/22 16:51 Freq: NEEDED Status: Active Protocol: Document 04/20/22 14:09 AW (Rec: 04/20/22 13:38 AW [id number]) Subjective Physical Therapy Visit Type Type Treatment Note Visit Start Time 13:15 Visit Stop Time 14:09 Total Visit Minutes 26 Notes Split visit [id number] and [id number] -[id number]. Number of TEACHER OF FAMILY AND CONSUMER SCIENCE Visits 0 Physical Therapy Visit Comments Patient Comments Agreeable to do PT. Pt would like to use the commode. M4 PT-IP Mobility and Gait Start: 04/19/22 16:51 Freq: NEEDED Status: Active Protocol: Document 04/20/22 14:09 AW (Rec: 04/20/22 13:38 AW [id number]) PT-Bed Mobility Assessment Sit to Supine Sit to Supine Minimal Assistance,1 Person Assistance PT-Transfer Assessment Sit to and From Stand Sit to and from Stand Maximum Assistance,1 Person Assistance,2 Person Assistance ,Use of Upper Extremities Equipment Transfer Assistive Device Gait Belt,Front Wheeled Walker Transfers Transfer Destination Bedside Commode Transfer Technique Stand Step Pivot Transfer Ability Level of Assist Maximum Assistance,2 Person Assistance,Use of Upper Extremities Comments Mobility Comments Pt was sitting up in the chair as PT arrived. She inquired about using the BSC. PT set up BSC to pt's left. Max A x 1 to stand. Pt becomes very anxious transitioning hands chair <> walker. Max A x 2 to transfer 90 degrees to BSC with pt able to move the walker slightly to improve pivot. Pt needed max A x 2 to stand from the commode and to transfer 180 degrees BSC to bed. She was cued to go toward her left. She needed increased assist to manage the walker. Before sitting, she was able to pivot on her left foot toward HOB. She sat EOB and needed min A to elevate her operative leg to the bed. Pt was left with nursing attending. Gait Assessment Comments Gait Comments Transfer only. PT-Balance Assessment Sitting Balance and Reactions Static Sitting Balance Ability Good Dynamic Sitting Balance Ability Fair Standing Balance and Reactions Static Standing Balance Ability Poor Dynamic Standing Balance Ability Poor Device Used FWW M5 PT-IP Objective Assessments Start: 04/19/22 16:51 Freq: NEEDED Status: Active Protocol: Document 04/19/22 15:20 AB (Rec: 04/19/22 17:03 AB [email or web address]) Orientation Orientation/Cognition Level of Alertness Alert Orientation Name,Place,Situation Language Function Ability No Deficits Noted Safety Awareness Decreased Safety Awareness Memory Description No Deficits Noted Gross Range of Motion Lower Extremity ROM Assessment Right Impaired Impairments R knee on knee immobilizer and R ankle on soft cast Strength Lower Extremity Strength Assessment Right Impaired Hip 3+/5 Knee n/t Ankle n/t Muscle Tone Muscle Tone WNL Yes M6 PT-IP Treatment Start: 04/19/22 16:51 Freq: NEEDED Status: Active Protocol: Document 04/20/22 14:09 AW (Rec: 04/20/22 13:38 AW [id number]) Physical Therapy Treatment Education Education Provided Weight Bearing Status,Safety M7 PT-IP Assessment and Plan Start: 04/19/22 16:51 Freq: NEEDED Status: Active Protocol: Document 04/20/22 14:09 AW (Rec: 04/20/22 13:38 AW [id number]) PT Summary Assessment and Plan Summary Impairments Pain,ROM,Strength,Balance, Coordination,Sensation,Tone, Cognition,Bed Mobility, Transfers,Gait,Activity Tolerance Assessment Summary Pt continues to require max A x 1-2 for transfers. Max verbal and tactile cues needed for LLE knee extension in stance. Pt was minimally able to help moving the walker this afternoon, demonstrating improved technique and balance . She will require SNF rehab to improve strength and mobility independence. Goals Bed Mobility Goal Standby Assistance Transfer Goal Standby Assistance,Front Wheeled Walker Gait Goal Contact Guard Assistance,Front Wheel Walker Gait Distance 50 Days to Meet Goals 10 Frequency of Treatment Frequency Of Treatment Twice a Day Treatment Plan Physical Therapy Treatment Plan Bed Mobility Training,Transfer Training,Gait Training, Therapeutic Exercise,Balance Retraining,Post Op Education, Discharge Planning,Hot or Cold Pack,Neuromuscular Re-ed, Coordination Retraining,Manual Therapy Precautions Brace R knee immobilizer Weight Bearing Status Weight Bearing Status Touch Down Weight Bearing Allowed Weight Bearing Amount (enter % TTWB on RLE: opted NWB as pt or #) (%) unable to maintain TTWB Recommendations To Nursing Amount of Assist Needed 2 Person Assist Discharge Recommendations PT Discharge Recommendations SNF Rehab Transportation Needs at Discharge Wheelchair/Cabulance
[2022-04-20 15:00] VITALS: BP 110/68; PULSE 82; RESP 16; TEMP 36.3; O2SAT 99
--- NOTE | 2022-04-20 17:45 | P.PN_ITS ---
Subjective Subjective Date Patient Seen: 04/20/22 Interval history: 66-year-old with daily alcohol use, hypothyroidism, peripheral neuropathy, previous colon perforation with prolonged ostomy and reversal, who fell on the date of admission and unfortunately sustained an acute right ankle fracture as well as an acute distal right femur fracture.? Orthopedic surgery consulted on the date of admission and she was taken to the operating room for repair.? Postoperatively, patient complained of significant leg and ankle pain.? She was placed on nonweightbearing status.? Patient returned to the operating room today for ORIF of her right distal femur fracture.? A nerve block was done and postoperatively, she reported she was feeling quite good.? Today she has had ongoing issues with pain. She has not yet had a bowel movement. However, she does report she is passing gas. She understands that therapy has recommended she go to a detention facility. She was initially quite reluctant but now reports she feels it will be a good idea. She realizes she is out of shape and has or balance. Exam Vital Signs (past 8 hours): - 04/20/22 11:00 04/20/22 15:00 Temperature 98.2 F 97.4 F L Pulse Rate 81 82 Respiratory Rate 17 16 Blood Pressure 112/58 L 110/68 Pulse Oximetry 97 99 Oxygen Flow Rate 0 0 Oxygen Delivery Method Room Air Oxygen Flow Rate 0 Narrative Exam Narrative: GEN: Alert and oriented x 3, NAD HEENT:NC, Face symmetric CHEST: Respiratory excursions symmetric, CTAB CV: RRR, no M/R/G ABD: Soft, NT/ND, BT present in all 4 quadrants, no organomegaly or masses EXTR: warm, well perfused, no C/C/E to the left lower extremity, right lower extremity a postoperative dressing and knee immobilizer in place SKIN: warm and dry, no rash NEURO: Alert and oriented x 3, nonfocal Objective Labs Result Diagrams: 04/20/22 05:44 04/18/22 01:01 Labs: Laboratory Results - last 24 hr 04/20/22 05:44 WBC 8.8 RBC 2.97 L Hgb 9.9 L Hct 29.4 L MCV 98.9 MCH 33.4 MCHC 33.7 RDW 14.3 Plt Count 175 PFSH Family History Father Cancer Grandmother Diverticulitis Social History marital status: household members: spouse lives independently: Yes caregiver/support person: Yes housing: house Smoking Status: Former smoker alcohol intake: current Assessment & Plan Assessment & Plan narrative: 1. Ground level fall complicated by acute right ankle and distal femur fractures, now postoperative day 3 from ankle and postoperative day 1 from femur repair Ongoing recommendations per Orthopedic surgery.? At this time, Dr. Parada has recommended toe-touch weight-bearing with a walker crutches for 6 weeks, gait and transfer training, active range of motion of knee only, no passive range of motions until 6 weeks.? Recommendation is for use of a knee immobilizer full- time for 3 weeks except during therapy exercises.? DVT prophylaxis is recommended for 3 weeks of Lovenox followed by aspirin 325 daily for 3 weeks. Therapies have recommended acute rehab, referrals are pending at this time. 2. Daily alcohol use CIWA scores have ranged from 1-4.? No evidence of withdrawal. 3. Hypothyroidism Continue outpatient dose of thyroid replacement 4. Peripheral neuropathy Chronic and stable 5. Constipation She is presently receiving senna, Colace, and MiraLax as needed. She is passing gas but has not yet had a bowel movement. Code status Full Prophylaxis Lovenox continues Disposition retirement facility at discharge followed by home with home health. She does live on [address] with her . Time Spent With Patient Critical Care time: I spent a total of [] minutes of critical care time on this patient's care today; this time is exclusive of procedural time. Quality VTE Deep Vein Thrombosis/Pulmonary Embolism Present on Admission: No
[2022-04-20 20:00] VITALS: BP 127/80; PULSE 85; RESP 18; TEMP 36.7; O2SAT 98
[2022-04-20] MEDS: LEVOTHYROXINE 100 MCG TABLET PO (20:49)
[2022-04-20] MEDS: GABAPENTIN 300 MG CAPSULE 900 MG PO (21:48)
[2022-04-21] VITALS: BP 140/88; PULSE 83; RESP 14; TEMP 37; O2SAT 98
[2022-04-21 05:15] VITALS: BP 142/89; PULSE 92; RESP 16; TEMP 36.8; O2SAT 97
--- NOTE | 2022-04-21 07:21 | PM.PNPO.1 ---
Subjective Subjective Date Patient Seen: 04/21/22 Time Patient Seen: 07:21 Interval history: Patient is complaining of moderate right leg pain. Her knee immobilizer is in place. She understands she will likely be discharged to a intermediate facility, as she has 2 person assist. Exam Vital Signs (past 8 hours): - 04/21/22 00:00 04/21/22 05:15 Temperature 98.6 F 98.2 F Pulse Rate 83 92 H Respiratory Rate 14 16 Blood Pressure 140/88 142/89 H Pulse Oximetry 98 97 Oxygen Flow Rate 0 0 Oxygen Delivery Method Room Air Oxygen Flow Rate 0 Narrative Exam Narrative: Pleasant 66-year-old female, resting comfortably in bed, no acute distress. Dressings are clean, dry, intact. Knee immobilizer is in place and right posterior splint is in place as well. Bilateral lower extremity: Motor functions are grossly intact, sensation is intact but slightly decreased (patient notes this is her baseline), bilateral calves are soft and nontender to palpation. Objective Labs Result Diagrams: 04/20/22 05:44 04/18/22 01:01 [facility] Family History Father Cancer Grandmother Diverticulitis Social History marital status: household members: spouse lives independently: Yes caregiver/support person: Yes housing: house Smoking Status: Former smoker alcohol intake: current Assessment & Plan Post-op Postoperative Procedures: Procedures Operation Date: 04/17/22 17:45 Actual Procedure Side Surgeon p ORIF Ankle Fracture Right Sayra Mckeon MD Operation Date: 04/19/22 08:30 Actual Procedure Side Surgeon p ORIF Distal Femur Fracture Right Sayra Mckeon MD Postoperative status narrative: -Postop day #4 for the right ankle open reduction internal fixation. Touchdown weight-bearing. Splint in place. -Postop day #2 Right distal femur ORIF. Touchdown weight-bearing. Knee immobilizer in place. -alcohol abuse Postoperative plan narrative: Plan 1. Toe-touch weight-bearing with a walker crutches for 6 weeks, gait and transfer training, active range of motion of knee only, no passive range of motions until 6 weeks. Recommendation is for use of a knee immobilizer full-time for 3 weeks except during therapy exercises. May adjust knee immobilizer as needed. DVT prophylaxis is recommended for 3 weeks of Lovenox followed by aspirin 325 daily for 3 weeks. 2. Follow-up orthopedic clinic in 2 weeks for suture and staple removal. At follow-up may switch from splint on ankle to stirrup Aircast to go along with a knee immobilizer. Will remain toe-touch weight-bearing for 6 weeks 3. Complete 24 hours postop antibiotics 4. DVT prophylaxis as mentioned above. Additional SCD on contralateral extremity 5. Discharge will be pending physical therapy possible placement Postoperative status: doing well Quality VTE Deep Vein Thrombosis/Pulmonary Embolism Present on Admission: No
--- NOTE | 2022-04-21 07:33 | P.PN_ITS ---
Subjective Subjective Date Patient Seen: 04/20/22 Interval history: 66-year-old with daily alcohol use, hypothyroidism, peripheral neuropathy, previous colon perforation with prolonged ostomy and reversal, who fell on the date of admission and unfortunately sustained an acute right ankle fracture as well as an acute distal right femur fracture.? Orthopedic surgery consulted on the date of admission and she was taken to the operating room for repair.? Postoperatively, patient complained of significant leg and ankle pain.? She was placed on nonweightbearing status.? Patient returned to the operating room today for ORIF of her right distal femur fracture.? A nerve block was done and postoperatively, she reported she was feeling quite good.? Today she has had ongoing issues with pain. She has not yet had a bowel movement. However, she does report she is passing gas. She understands that therapy has recommended she go to a long-term facility. She was initially quite reluctant but now reports she feels it will be a good idea. She realizes she is out of shape and has or balance. Exam Vital Signs (past 8 hours): - 04/21/22 00:00 04/21/22 05:15 Temperature 98.6 F 98.2 F Pulse Rate 83 92 H Respiratory Rate 14 16 Blood Pressure 140/88 142/89 H Pulse Oximetry 98 97 Oxygen Flow Rate 0 0 Oxygen Delivery Method Room Air Oxygen Flow Rate 0 Narrative Exam Narrative: GEN: Alert and oriented x 3, NAD HEENT:NC, Face symmetric CHEST: Respiratory excursions symmetric, CTAB CV: RRR, no M/R/G ABD: Soft, NT/ND, BT present in all 4 quadrants, no organomegaly or masses EXTR: warm, well perfused, no C/C/E to the left lower extremity, right lower extremity a postoperative dressing and knee immobilizer in place SKIN: warm and dry, no rash NEURO: Alert and oriented x 3, nonfocal Objective Labs Result Diagrams: 04/20/22 05:44 04/18/22 01:01 [facility] Family History Father Cancer Grandmother Diverticulitis Social History marital status: household members: spouse lives independently: Yes caregiver/support person: Yes housing: house Smoking Status: Former smoker alcohol intake: current Assessment & Plan Assessment & Plan narrative: 66-year-old with daily alcohol use, hypothyroidism, peripheral neuropathy, previous colon perforation with prolonged ostomy and reversal, who fell on the date of admission and unfortunately sustained an acute right ankle fracture as well as an acute distal right femur fracture.? Orthopedic surgery consulted on the date of admission and she was taken to the operating room for repair.? Postoperatively, patient complained of significant leg and ankle pain.? She was placed on nonweightbearing status.? Patient returned to the operating room today for ORIF of her right distal femur fracture.? A nerve block was done and postope ratively, she reported she was feeling quite good. 1. Ground level fall complicated by acute right ankle and distal femur fractures, now postoperative day 3 from ankle and postoperative day 1 from femur repair Ongoing recommendations per Orthopedic surgery.? At this time, Dr. Parada has recommended toe-touch weight-bearing with a walker crutches for 6 weeks, gait and transfer training, active range of motion of knee only, no passive range of motions until 6 weeks.? Recommendation is for use of a knee immobilizer full- time for 3 weeks except during therapy exercises.? DVT prophylaxis is sd mmended for 3 weeks of Lovenox followed by aspirin 325 daily for 3 weeks. Therapies have recommended acute rehab, and patient accepted to SNF on 04/22. -COVID booster given today -Remove chau and place purewick external cath 2. Daily alcohol use CIWA scores have ranged from 1-4.? No evidence of withdrawal. 3. Hypothyroidism Continue outpatient dose of thyroid replacement 4. Peripheral neuropathy Chronic and stable 5. Constipation, resolved She is presently receiving senna, Colace, and MiraLax as needed. -Now having BM's Code status Full Prophylaxis Lovenox continues Disposition intermediate facility on 04/22. She does live on [address] with her . Time Spent With Patient Critical Care time: I spent a total of [] minutes of critical care time on this patient's care today; this time is exclusive of procedural time. Quality VTE Deep Vein Thrombosis/Pulmonary Embolism Present on Admission: No
[2022-04-21 08:21] VITALS: BP 113/71; PULSE 78; RESP 16; TEMP 36.7; O2SAT 97
[2022-04-21] MEDS: SENNOSIDES 8.6 MG TABLET PO (09:58)
[2022-04-21] MEDS: ENOXAPARIN 40 MG/0.4 ML SYRINGE SUBCUT (09:58)
[2022-04-21] MEDS: FOLIC ACID 1 MG TABLET PO (09:58)
[2022-04-21] MEDS: GABAPENTIN 300 MG CAPSULE PO (09:58)
[2022-04-21] MEDS: DOCUSATE 100 MG CAPSULE PO (09:58)
[2022-04-21] MEDS: MULTIVITAMIN 1 TABLET 1 TAB PO (09:58)
[2022-04-21] MEDS: SODIUM CHLORIDE 0.9% FLUSH 10 ML IV ×2 (09:59→22:05)
[2022-04-21] MEDS: THIAMINE 100 MG in SODIUM CHLORIDE 0.9% 50 ML 200 MG IV (10:16)
--- NOTE | 2022-04-21 11:01 | PT.IPTN ---
Current Diagnoses Unspecified fracture of lower end of unspecified femur, initial encounter for closed fracture (04/17/22) Displaced bimalleolar fracture of right lower leg, initial encounter for closed fracture (04/17/22) Surgery Performed Operation Date: 04/17/22 17:45 Actual Procedures p ORIF Ankle Fracture(Right) - Sayra Mckeon MD Operation Date: 04/19/22 08:30 Actual Procedures p ORIF Distal Femur Fracture(Right) - Sayra Mckeon MD Physical Therapy Treatment Note M2 PT-IP Current Condition Start: 04/19/22 16:51 Freq: NEEDED Status: Active Protocol: Document 04/21/22 10:37 SP (Rec: 04/21/22 13:57 SP [id number]) Physical Therapy Current Condition Current Condition Evaluation Date 04/19/22 Treatment Diagnosis R distal femur fx s/p ORIF; R ankle fx s/p ORIF; difficulty in walking Onset Date 04/17/22 M3 PT-IP Subjective Start: 04/19/22 16:51 Freq: NEEDED Status: Active Protocol: Document 04/21/22 10:37 SP (Rec: 04/21/22 13:57 SP [id number]) Subjective Physical Therapy Visit Type Type Treatment Note Visit Start Time 10:37 Visit Stop Time 11:01 Total Visit Minutes 24 Notes MARY Dhaliwal provided 2nd person assist with CUSTOMER ACCOUNT TECHNICIAN Whitney, to provide safe mobility throughout tx requried. Vitals taken during tx: supine: BP 116/69 HR 83 HR , SaO2 95% on RA Seated in chair: BP 127/74 HR 78 SaO2 98% on RA . Pt reports 2/10 R hip pre and throughout all mobility. Number of CUSTOMER ACCOUNT TECHNICIAN Visits 1 Physical Therapy Visit Comments Patient Comments Pt agreeable to working with therapy. Patient Goals Wants to mobilize as much herself up to chair as can with knowledge still needs 2 persons help at this time. M4 PT-IP Mobility and Gait Start: 04/19/22 16:51 Freq: NEEDED Status: Active Protocol: Document 04/21/22 10:37 SP (Rec: 04/21/22 13:57 SP [id number]) PT-Bed Mobility Assessment Supine to Sit Supine to Sit Standby Assistance,Head of Bed Elevated Scooting Scooting to Edge of Bed Contact Guard Assistance, Minimal Assistance PT-Transfer Assessment Sit to and From Stand Sit to and from Stand Moderate Assistance,2 Person Assistance,Use of Upper Extremities Equipment Transfer Assistive Device Gait Belt,Front Wheeled Walker Orthotic/Prosthetic Devices or Brace: Yes Transfers Transfer Destination Chair Transfer Technique Stand Pivot Transfer Ability Level of Assist Minimal Assistance,Moderate Assistance,2 Person Assistance ,Use of Upper Extremities Comments Mobility Comments Pt was long elevated sitting when arrived. Completed complete elevated supine>sit SBA, self RLE foot to EOB , Min A for RLE support ( immobilizer donned) while pt scoot to EOB and descent rest RLE on floor. Sit>stand on LLE Mod A x2 with cues push 1 UE from bed other on FWW, contact stabilize FWW as needed, pt RLE rested on therapist foot for WB awareness feedback ( able to maintain TTWB). SPT using FWW, small hops on LLE using heavy BUE WB on FWW bed> chair, cued full back position to chair, reach for chair arms and slow descent to sit in chair, Min A x2. Pt able to scoot back in chair fully using LLE/ BUE. CUSTOMER ACCOUNT TECHNICIAN elevated BLE chair leg rests. Pt had call light and all needs in reach before left. Pt safe to be up in chair without chair alarm and discussed with good demonstration proper use of call light. Recommending SNF for progressing strength and functional mobility with pt in agreement. CUSTOMER ACCOUNT TECHNICIAN discussed progress with nursing and discussed continue safety watch pt due to no chair alarm, nursing stated is aware and confident pt is ok be in room with out chair alarm. Gait Assessment Comments Gait Comments SPT w/ FWW small hop WB on LLE while maintaining TTWB RLE slide demonstrated during transfer, Min- Mod Ax2. Stair Climbing Assessment Comments Stair Climbing Comments Unable to assess stairs at this time, will need to complete 2 stairs without HRs for safe DC home when able. PT-Balance Assessment Sitting Balance and Reactions Static Sitting Balance Ability Good Dynamic Sitting Balance Ability Fair Standing Balance and Reactions Static Standing Balance Ability Fair Dynamic Standing Balance Ability Poor Device Used FWW M5 PT-IP Objective Assessments Start: 04/19/22 16:51 Freq: NEEDED Status: Active Protocol: Document 04/19/22 15:20 AB (Rec: 04/19/22 17:03 AB [id number]) Orientation Orientation/Cognition Level of Alertness Alert Orientation Name,Place,Situation Language Function Ability No Deficits Noted Safety Awareness Decreased Safety Awareness Memory Description No Deficits Noted Gross Range of Motion Lower Extremity ROM Assessment Right Impaired Impairments R knee on knee immobilizer and R ankle on soft cast Strength Lower Extremity Strength Assessment Right Impaired Hip 3+/5 Knee n/t Ankle n/t Muscle Tone Muscle Tone WNL Yes M6 PT-IP Treatment Start: 04/19/22 16:51 Freq: NEEDED Status: Active Protocol: Document 04/21/22 10:37 SP (Rec: 04/21/22 13:57 SP [id number]) Physical Therapy Treatment Education Education Provided Weight Bearing Status,Safety M7 PT-IP Assessment and Plan Start: 04/19/22 16:51 Freq: NEEDED Status: Active Protocol: Document 04/21/22 10:37 SP (Rec: 04/21/22 13:57 SP [id number]) PT Summary Assessment and Plan Potential Rehabilitation Potential Fair Status of Condition at Evaluation Evolving Summary Impairments Pain,ROM,Strength,Balance, Coordination,Sensation,Tone, Cognition,Bed Mobility, Transfers,Gait,Activity Tolerance Progress Towards Goals Progressing Toward Goals,Slow Progress due to Pain,Slow Progress due to Activity Tolerance Assessment Summary Pt continues to require Min- Mod A x2 w/FWW for transfers. Improved occasional verbal and tactile cues needed for LLE knee extension in TTWB stance. Pt was able to mostly complete repositioning of the walker this am, demonstrating improved technique and balance . She will require SNF rehab to improve strength and mobility independence. Goals Bed Mobility Goal Standby Assistance Transfer Goal Standby Assistance,Front Wheeled Walker Gait Goal Contact Guard Assistance,Front Wheel Walker Gait Distance 50 Days to Meet Goals 10 Frequency of Treatment Frequency Of Treatment Twice a Day Treatment Plan Physical Therapy Treatment Plan Bed Mobility Training,Transfer Training,Gait Training, Therapeutic Exercise,Balance Retraining,Post Op Education, Discharge Planning,Hot or Cold Pack,Neuromuscular Re-ed, Coordination Retraining,Manual Therapy Other Recommendations and Next Treatment LE ex, transfers w/ FWW, gait Focus if able and tolerate w/chair follow while maintaining TTWB RLE. Precautions Brace R knee immobilizer Weight Bearing Status Weight Bearing Status Touch Down Weight Bearing Allowed Weight Bearing Amount (enter % TTWB on RLE: opted NWB-TTWB or #) (%) Recommendations To Nursing Amount of Assist Needed 2 Person Assist Discharge Recommendations PT Discharge Recommendations SNF Rehab Transportation Needs at Discharge Wheelchair/Cabulance
--- NOTE | 2022-04-21 11:43 | CM.DPC ---
Addendum entered by JOS ELUIS Suresh 04/21/22 15:41: ADD: [facility] confirms they can accept pt if she gets Booster shot here prior to d/c and have beds available to accept tomorrow and will work on setting up transport for maybe around [phone]. SW updated [facility] and [facility]. SW called MD and updated on accepting SNF for tomorrow if pt stable and requested med order to be placed for COVID Moderna booster. BF Addendum entered by JOSE LUIS Suresh 04/21/22 14:20: ADD: [facility] admissions states they can accept pt and if pt receives COVID booster prior to d/c then no quarantine needed but they could quarantine pt if pt not agreeable to booster. [facility]- can accept and can provide booster shot if needed but if pt does not have supplemental then would be liable for 20% out pocket past day 20 and would be $194 a day. SW met bedside with pt and updated on above and pt agreeable to Booster shot so she does not have to quarantine. Pt states she just spoke to a friend and now her preference is [facility]. SW discussed need to determine if [facility] has bed availability as she would not be able to remain in the hospital just to go to [facility] and if they do not have openings then she would need to d/c to [facility] or [facility] and pt acknowledges understanding. SW called [facility] and left ms requesting review for likely d/c tomorrow and PIERO Meng kindly emailed referral to [facility] to review. BF Original Note: DCP SNF planning: Per MD, pt making progress and likely getting close to being medically stable to discharge. Per PT/OT, recommending SNF as pt requiring 1-2 person assist for transfers/ambulation but able to do partial weight bearing and making improvements. X RAY SERVICE ENGINEER just working with pt when SW attempted bedside discussion as previous plan had been home with spouse and new [facility] referral. Pt requested SW to come back but did confirm she realizes now SNF needed and agreeable to whatever SNF can accept but preference would be in [place] as pt and spouse reside on [place]. SW called [facility] and requested review to determine if they can accept likely tomorrow and they are willing to review. SW also called [facility] as they have bed availability and they are willing to review and depending on COVID vax status may be able to accept tomorrow pending review and if pt stable for d/c. SW looked up COVID vax status on [facility] and pt showing as only having her initial two Moderna vaccinations but no booster showing in system. YESICA printed and CC Yusra kindly faxing referral and vax status to [facility] to review. PAS[facility] completed now in anticipation of likely SNF. Plan: YESICA to follow closely for [facility] and [facility] review towards determining if further SNF referrals needed. Isabel Pelayo, EXCHANGE TROUBLE SHOOTER
--- NOTE | 2022-04-21 11:51 | CM.DPNOTE ---
Addendum entered by Yusra Prince 04/21/22 14:31: Also emailed to [facility]. Yusra Prince CM Assist. Original Note: Emailed [facility] referral per Isabel to [facility]. Yusra Prince CM Assist.
[2022-04-21 12:00] VITALS: BP 109/65; PULSE 85; RESP 18; TEMP 36.8; O2SAT 97
--- NOTE | 2022-04-21 14:36 | PC.NURSE ---
isac dcrobbi 400cc dark yellow urine collected in bag. sitting on BSC now, encouraged to drink fluids. next void should be by 2230. report to MICK melendez.
--- NOTE | 2022-04-21 15:27 | PT.IPTN ---
Current Diagnoses Unspecified fracture of lower end of unspecified femur, initial encounter for closed fracture (04/17/22) Displaced bimalleolar fracture of right lower leg, initial encounter for closed fracture (04/17/22) Surgery Performed Operation Date: 04/17/22 17:45 Actual Procedures p ORIF Ankle Fracture(Right) - Sayra Mckeon MD Operation Date: 04/19/22 08:30 Actual Procedures p ORIF Distal Femur Fracture(Right) - Sayra Mckeon MD Physical Therapy Treatment Note M2 PT-IP Current Condition Start: 04/19/22 16:51 Freq: NEEDED Status: Active Protocol: Document 04/21/22 14:50 SP (Rec: 04/21/22 16:21 SP [id number]) Physical Therapy Current Condition Current Condition Evaluation Date 04/19/22 Treatment Diagnosis R distal femur fx s/p ORIF; R ankle fx s/p ORIF; difficulty in walking Onset Date 04/17/22 M3 PT-IP Subjective Start: 04/19/22 16:51 Freq: NEEDED Status: Active Protocol: Document 04/21/22 14:50 SP (Rec: 04/21/22 16:21 SP [id number]) Subjective Physical Therapy Visit Type Type Treatment Note Visit Start Time 14:50 Visit Stop Time 15:27 Total Visit Minutes 37 Notes MARY Dhaliwal provided 2nd person assist to pt with WEBSPHERE MESSAGE BROKER DEVELOPER Whitney during transfers. Number of WEBSPHERE MESSAGE BROKER DEVELOPER Visits 2 Physical Therapy Visit Comments Patient Comments Pt agreeable to working with therapy. Patient Goals Wants to mobilize as much herself with support required to improved independance. Pt agreeable to going to SNF to progress strength and mobility prior to returning home. M4 PT-IP Mobility and Gait Start: 04/19/22 16:51 Freq: NEEDED Status: Active Protocol: Document 04/21/22 14:50 SP (Rec: 04/21/22 16:21 SP [id number]) PT-Transfer Assessment Sit to and From Stand Sit to and from Stand Moderate Assistance,Maximum Assistance,2 Person Assistance ,Use of Upper Extremities Equipment Transfer Assistive Device Gait Belt,Front Wheeled Walker Orthotic/Prosthetic Devices or Brace: Yes Transfers Transfer Destination Bed Transfer Technique Stand Step Pivot Transfer Ability Level of Assist Moderate Assistance,Maximum Assistance,2 Person Assistance ,Use of Upper Extremities Comments Mobility Comments Pt on BSC when arrived, nursing in room. Sit>stand Max A x2 due to decreased strength/ activity tolerance ( reports has been up to commode alot since am tx), mod cues for L knee extension to full upright standing and RLE positioned out in front to decrease risk WB into RLE. Static stand while nursing provided pericare, Stand small hop on LLE to R using heavy WB BUE onto FWW BSC to bed, cues for fully back hop and close to HOB rail, reach back and slow descent to bed Mod- Max A x2. Sit>supine Min A for RLE support into bed and center. Instruction on doff R knee immobilizer and keeping in place under RLE, RLE AROM exercises per physican instructions: R quad & glut sets, HS w/ use of strap AROM and small support with strap over R foot for self support approx R knee 50- 70 deg flexion, hip abd w/ support strap on R foot. Pt reported just R lateral hip tight and soreness 3/10 pain. Pt had call light and all needs in reach before left. She is aware to ask for cold pack if needed for assist pain. Recommending SNF for continued progression in strength and mobility independence. Gait Assessment Comments Gait Comments SPT w/ FWW small hop WB on LLE with difficulty maintaining TTWB RLE demonstrated during transfer, Mod-Max Ax2. Education provided for RLE positioned more out in front to assist maintain TTWB for success. Best to Transfer to if possible. Stair Climbing Assessment Comments Stair Climbing Comments Unable to assess stairs at this time, will need to complete 2 stairs without HRs for safe DC home when able. PT-Balance Assessment Sitting Balance and Reactions Static Sitting Balance Ability Normal Dynamic Sitting Balance Ability Good Standing Balance and Reactions Static Standing Balance Ability Poor Dynamic Standing Balance Ability Poor Device Used FWW M5 PT-IP Objective Assessments Start: 04/19/22 16:51 Freq: NEEDED Status: Active Protocol: Document 04/19/22 15:20 AB (Rec: 04/19/22 17:03 AB [id number]) Orientation Orientation/Cognition Level of Alertness Alert Orientation Name,Place,Situation Language Function Ability No Deficits Noted Safety Awareness Decreased Safety Awareness Memory Description No Deficits Noted Gross Range of Motion Lower Extremity ROM Assessment Right Impaired Impairments R knee on knee immobilizer and R ankle on soft cast Strength Lower Extremity Strength Assessment Right Impaired Hip 3+/5 Knee n/t Ankle n/t Muscle Tone Muscle Tone WNL Yes M6 PT-IP Treatment Start: 04/19/22 16:51 Freq: NEEDED Status: Active Protocol: Document 04/21/22 14:50 SP (Rec: 04/21/22 16:21 SP [id number]) Physical Therapy Treatment Exercises Exercises Gluteal Sets,Quad Sets,Heel Slides,Supine Hip Abduction Knee ROM Measurement R knee approx 50-70 deg flexion A- AAROM w/ strap self Education Education Provided Precautions,Weight Bearing Status,Post-Op Packet,Safety Brace Education [place],Patient Other Treatments Other Treatment Performed Ed for doff/don RLE immobilizer, provided post op exercises with hand out. M7 PT-IP Assessment and Plan Start: 04/19/22 16:51 Freq: NEEDED Status: Active Protocol: Document 04/21/22 14:50 SP (Rec: 04/21/22 16:21 SP [id number]) PT Summary Assessment and Plan Potential Rehabilitation Potential Fair Status of Condition at Evaluation Evolving Summary Impairments Pain,ROM,Strength,Balance, Coordination,Sensation,Tone, Cognition,Bed Mobility, Transfers,Gait,Activity Tolerance Progress Towards Goals Progressing Toward Goals,Slow Progress due to Pain,Slow Progress due to Activity Tolerance Assessment Summary Pt required increase support during transfer Mod-Max A x2 w /FWW. Mod verbal and tactile cues needed for LLE knee extension in TTWB/NWB stance. Pt required min A for FWW repositioning and suport for trunk stability this pm. Pt reports needed more help due intestinal issues with required increased transfers to [facility] and tiring. She will require SNF rehab to improve strength and mobility independence. Goals Bed Mobility Goal Standby Assistance Transfer Goal Standby Assistance,Front Wheeled Walker Gait Goal Contact Guard Assistance,Front Wheel Walker Gait Distance 50 Days to Meet Goals 10 Frequency of Treatment Frequency Of Treatment Twice a Day Treatment Plan Physical Therapy Treatment Plan Bed Mobility Training,Transfer Training,Gait Training, Therapeutic Exercise,Balance Retraining,Post Op Education, Discharge Planning,Hot or Cold Pack,Neuromuscular Re-ed, Coordination Retraining,Manual Therapy Other Recommendations and Next Treatment RLE post op ex, transfers w/ Focus FWW, gait if able and tolerate w/chair follow while maintaining TTWB RLE. Precautions Brace R knee immobilizer Weight Bearing Status Weight Bearing Status Touch Down Weight Bearing Allowed Weight Bearing Amount (enter % TTWB on RLE: challenged or #) (%) maintain TTWB pm tx. Recommendations To Nursing Amount of Assist Needed 2 Person Assist Discharge Recommendations PT Discharge Recommendations SNF Rehab Transportation Needs at Discharge Wheelchair/Cabulance
[2022-04-21 16:00] VITALS: BP 111/63; PULSE 86; RESP 16; TEMP 37; O2SAT 99
[2022-04-21] MEDS: OXYCODONE IR 5 MG TABLET PO (16:08)
[2022-04-21 16:19] LABS: Clostridium Difficile Tox PCR Negative for C. diff (Negative)
[2022-04-21] MEDS: COVID-19 VACC #3, MRNA(MOD) 50 MCG/0.25 ML VIAL IM (17:47)
--- NOTE | 2022-04-21 19:45 | PC.NURSE ---
Pt is AxOx4, needs 2 person assistance and cooperative. VSS, pt c/o RLE and recieved PRN Oxy 5mg with good effect. Pt ate dinner well. Pt had her Covid booster vaccine today. No other changes. Continue monitor.
[2022-04-21 20:10] VITALS: BP 135/77; PULSE 81; RESP 18; TEMP 36.9; O2SAT 99
[2022-04-21] MEDS: GABAPENTIN 300 MG CAPSULE 900 MG PO (22:04)
[2022-04-21] MEDS: OXYCODONE IR 10 MG TABLET PO (22:04)
[2022-04-21] MEDS: LEVOTHYROXINE 100 MCG TABLET PO (22:04)
[2022-04-22] VITALS: BP 128/76; PULSE 72; RESP 18; TEMP 36.8; O2SAT 98
[2022-04-22 03:22] VITALS: BP 125/75; PULSE 69; RESP 18; TEMP 36.7; O2SAT 98
[2022-04-22] MEDS: diazePAM 10 MG/2 ML SYRINGE 2 MG IV (03:27)
[2022-04-22 05:48] LABS: Add Manual Diff / Slide Review NO; Basophils Absolute Auto 0 /uL (0-100); Basophils Percent Auto 0.4 % (0-2); Eosinophils Absolute Auto 200 /uL (0-450); Eosinophils Percent Auto 3.3 % (2-4); Hematocrit 26.3 % (36-46); Hemoglobin 8.9 g/dL (12.0-16.0); Lymphocytes Absolute Auto 1400 /uL (1100-4500); Lymphocytes Percent Auto 24.6 % (25-40); Mean Corpuscular HGB Conc 33.7 % (30-36); Mean Corpuscular Hemoglobin 33.2 PG (26-34); Mean Corpuscular Volume 98.4 fL (80-100); Monocytes Absolute Auto 700 /uL (0-900); Monocytes Percent Auto 12.3 % (3-14); Neutrophils Absolute Auto 3400 /uL (1500-7000); Neutrophils Percent Auto 59.4 % (50-75); Platelet Count 226 X10^3/uL (150-400); Red Blood Cell Count 2.68 X10^6/uL (4.0-5.2); Red Cell Distribution Width 14.7 % (11.6-14.8); White Blood Cell Count 5.8 X10^3/uL (4.5-11.0)
[2022-04-22 05:53] LABS: Blood Urea Nitrogen 11 mg/dL (7-17); Calcium 8.4 mg/dL (8.4-10.2); Carbon Dioxide 26 mmol/L (22-32); Chloride 103 mmol/L (98-107); Estimated Glomerular Filt Rate > 60 mL/min (>60); Glucose 93 mg/dL (80-110); HEMOLYSIS < 15 (0-50); Potassium 3.7 mmol/L (3.4-5.1); Sodium 134 mmol/L (137-145)
[2022-04-22 06:24] LABS: TSH w/ Reflex to FT4 9.02 uIU/mL (0.47-4.68)
[2022-04-22 07:02] LABS: Free T4, Direct Thyroxine 1.71 ng/dL (0.78-2.19)
--- NOTE | 2022-04-22 07:18 | P.DS_ITS ---
History of Present Illness History of Present Illness Date Patient Seen: 04/22/22 Time Patient Seen: 07:30 Chief complaint: Fall/Ankle deformity Narrative: Ms. Case is a 66W with PMH daily alcohol use, hypothyroid, peripheral neuropathy previous colonic perforation which she stated required prolonged ostomy which has now been reversed who presents after a fall. She states she had a fall the day prior to arrival, she does not attribute this to intoxication, bu t she drinks daily. The day of presentation she was drinking, she can not remember all the details but she was changing clothes and went to machine pecan picker clothes and became unsteady and fell. She believes she fell on her right knee. She had significant pain and needed her to help her to bed as she could not walk. At that time she noted significant deformity to her ankle. She denies hitting her head during the fall. She does not have pain in her ankle due to neuropathy. She attributes her neuropathy to history of bowel perforation and multiple subsequent surgeries. In the ED workup was done, vitals with no significant abnormality. Labs notable for WBC 6.3, hgb 11.2, plts 213. Creatinine 0.67. Alcohol 170. Xray intra- articular right distal femur fracture and also fracture dislocation of th eright ankle with displaced intra-articular frature of the distal femoral metadiaphysis with severe ankle mortise disruption and tibiotalar subluxation. Reduction attempted in ED was not successful. Ankle splint and knee immobilizer were recommended to by orthopedic surgeon. She was given pain medications and admitted for further treatment. Discharge Providers Provider Date of admission: 04/17/22 03:04 Discharge Date: 04/22/22 Primary care physician: Piero Rivera MD Consults: 04/17/22 03:53 Consult to Orthopedic Surgery Routine Comment: Consulting Provider: Sayra Mckeon Reason for consultation: femur and ankle fracture Has provider been notified: Yes 04/17/22 04:57 Consult to Pastoral Services Routine Comment: patient request for in-house medicare sales executive to visit 04/19/22 11:52 Consult to Discharge Planning Routine Comment: Consult to Physical Therapy Evaluate & Treat Comment: Touchdown weight-bearing 6 weeks. Use walker. Physician Instructions: Evaluate and Treat Consult to Respiratory Therapy Evaluate & Treat Comment: Physician Instructions: Evaluate and treat Discharge provider: Ari Kahn DO Summary Hospital Course Discharge Diagnosis: 1. Ground level fall complicated by acute right ankle and distal femur fractures, now postoperative day 3 from ankle and postoperative day 1 from femur repair Ongoing recommendations per Orthopedic surgery.? At this time, Dr. Parada has recommended toe-touch weight-bearing with a walker crutches for 6 weeks, gait an d transfer training, active range of motion of knee only, no passive range of motions until 6 weeks.? Recommendation is for use of a knee immobilizer full- time for 3 weeks except during therapy exercises.? DVT prophylaxis is recommended for 3 weeks of Lovenox followed by aspirin 325 daily for 3 weeks.? Therapies have recommended acute rehab, and patient accepted to SNF on 04/22. -COVID booster given 04/21 in preparation for SNF 2. Daily alcohol use CIWA scores have ranged from 1-4.? No evidence of withdrawal. 3. Hypothyroidism Continue outpatient dose of thyroid replacement 4. Peripheral neuropathy Chronic and stable 5. Constipation, resolved She is presently receiving senna, Colace, and MiraLax as needed.? -Now having 's Hospital Course: 66-year-old with daily alcohol use, hypothyroidism, peripheral neuropathy, previous colon perforation with prolonged ostomy and reversal, who fell on the date of admission and unfortunately sustained an acute right ankle fracture as well as an acute distal right femur fracture.? Orthopedic surgery consulted on the date of admission and she was taken to the operating room for repair.? Postoperatively, patient complained of significant leg and ankle pain.? She was placed on nonweightbearing status.? Patient returned to the operating room today for ORIF of her right distal femur fracture.? A nerve block was done and postoperatively, she reported she was feeling quite good. Required some pain me dication following surgery but able to work with PT who recommended SNF. Discharged on lovenox for 3 weeks then 325mg Aspirin for 3 weeks per ortho. Exam Vital Signs (past 8 hours): - 04/22/22 00:00 04/22/22 03:22 Temperature 98.2 F 98.1 F Pulse Rate 72 69 Respiratory Rate 18 18 Blood Pressure 128/76 125/75 Pulse Oximetry 98 98 Oxygen Flow Rate 0 0 Oxygen Delivery Method Room Air Oxygen Flow Rate 0 Narrative Exam Narrative: GEN: Alert and oriented x 3, NAD HEENT:NC, Face symmetric CHEST: Respiratory excursions symmetric, CTAB CV: RRR, no M/R/G ABD: Soft, NT/ND, BT present in all 4 quadrants, no organomegaly or masses EXTR: warm, well perfused, no C/C/E to the left lower extremity, right lower extremity a postoperative dressing and knee immobilizer in place SKIN: warm and dry, no rash NEURO: Alert and oriented x 3, nonfocal Objective Labs Result Diagrams: 04/22/22 05:15 04/22/22 05:15 Labs: Laboratory Results - last 24 hr 04/21/22 04/22/22 04/22/22 14:58 05:15 05:15 WBC 5.8 RBC 2.68 L Hgb 8.9 L Hct 26.3 L MCV 98.4 MCH 33.2 MCHC 33.7 RDW 14.7 Plt Count 226 Neut % (Auto) 59.4 Lymph % (Auto) 24.6 L [place] % (Auto) 12.3 Eos % (Auto) 3.3 Baso % (Auto) 0.4 Neut # (Auto) 3400 Lymph # (Auto) 1400 [place] # (Auto) 700 Eos # (Auto) 200 Baso # (Auto) 0 Sodium 134 L Potassium 3.7 Chloride 103 Carbon Dioxide 26 BUN 11 Creatinine 0.55 Estimated GFR > 60 BUN/Creatinine Ratio 20.0 Glucose 93 Calcium 8.4 TSH Free T4 C. difficile Tox (PCR) Negative for c. diff 04/22/22 05:15 WBC RBC Hgb Hct MCV MCH MCHC RDW Plt Count Neut % (Auto) Lymph % (Auto) [place] % (Auto) Eos % (Auto) Baso % (Auto) Neut # (Auto) Lymph # (Auto) [place] # (Auto) Eos # (Auto) Baso # (Auto) Sodium Potassium Chloride Carbon Dioxide BUN Creatinine Estimated GFR BUN/Creatinine Ratio Glucose Calcium TSH 9.02 H Free T4 1.71 C. difficile Tox (PCR) [facility] Family History Father Cancer Grandmother Diverticulitis Social History marital status: household members: spouse lives independently: Yes caregiver/support person: Yes housing: house Smoking Status: Former smoker alcohol intake: current Discharge Plan Discharge Plan Patient Disposition: SNF Transfer to: [facility] Discharge orders & Medications Prescriptions: New enoxaparin [Lovenox] 40 mg/0.4 mL Syringe 40 mg SUBCUT DAILY 21 Days Qty: 4 0RF oxycodone 5 mg Tablet 5 mg PO Q3HR PRN (Reason: Pain, Mild (1-3)) Qty: 30 0RF Continued gabapentin 600 mg tablet 600 mg BID Label Comments: TAKE ONE(1) TABLET BY MOUTH EVERY MORNING AND THREE(3) TABLETS BY MOUTH AT BEDTIME. Rx Instructions: take one tablet every am and 3 tablets at night levothyroxine 100 MCG tablet 0.1 mg PO BEDTIME spironolactone 25 mg tablet 25 mg DAILY Label Comments: TAKE ONE(1) TABLET BY MOUTH ONCE DAILY doxycycline monohydrate 50 MG capsule 50 mg OR PER PKG DIR Rx Instructions: every 3rd day next dose due 04/17/2022 metronidazole [MetroCream] 0.75 % cream 0.75 % TP 2XW Changed alprazolam 0.5 MG tablet 0.5 mg PO PRN PRN (Reason: Anxiety) Qty: 30 0RF Rx Instructions: 1 in the am and 1 at bedtime for anxiety zolpidem [Ambien] 10 MG tablet 10 mg PO PRN PRN (Reason: Insomnia) Qty: 30 0RF Rx Instructions: no more than 3/week Follow up/Referrals: Piero Rivera MD [Primary Care Provider] - Sayra Mckeon MD [Physician] - 2 Weeks Discharge Data Primary Care Provider: Piero Rivera Quality VTE Deep Vein Thrombosis/Pulmonary Embolism Present on Admission: No
[2022-04-22 08:00] VITALS: BP 132/77; PULSE 78; RESP 16; TEMP 37.1; O2SAT 99
--- NOTE | 2022-04-22 08:10 | P.PN_ITS ---
Subjective Subjective Date Patient Seen: 04/22/22 Time Patient Seen: 08:11 Interval history: Patient is complaining of [id number] right leg pain this morning. She notes her pain was worse yesterday after doing more exercises with physical therapy. Overall she is feeling well and would like to be discharged to SNF today. Exam Vital Signs (past 8 hours): - 04/22/22 03:22 Temperature 98.1 F Pulse Rate 69 Respiratory Rate 18 Blood Pressure 125/75 Pulse Oximetry 98 Oxygen Flow Rate 0 Oxygen Delivery Method Room Air Oxygen Flow Rate 0 Narrative Exam Narrative: Pleasant 66-year-old female, resting comfortably in bed, no acute distress. Dressings are clean, dry, intact. Knee immobilizer is in place and right ankle splint is in place. Patient is able to wiggle her toes and notes her sensation is symmetrical but somewhat decreased (patient notes this is her baseline). Left calf is soft and nontender to palpation. Objective Labs Result Diagrams: 04/22/22 05:15 04/22/22 05:15 Labs: Laboratory Results - last 24 hr 04/21/22 04/22/22 04/22/22 14:58 05:15 05:15 WBC 5.8 RBC 2.68 L Hgb 8.9 L Hct 26.3 L MCV 98.4 MCH 33.2 MCHC 33.7 RDW 14.7 Plt Count 226 Neut % (Auto) 59.4 Lymph % (Auto) 24.6 L [place] % (Auto) 12.3 Eos % (Auto) 3.3 Baso % (Auto) 0.4 Neut # (Auto) 3400 Lymph # (Auto) 1400 [place] # (Auto) 700 Eos # (Auto) 200 Baso # (Auto) 0 Sodium 134 L Potassium 3.7 Chloride 103 Carbon Dioxide 26 BUN 11 Creatinine 0.55 Estimated GFR > 60 BUN/Creatinine Ratio 20.0 Glucose 93 Calcium 8.4 TSH Free T4 C. difficile Tox (PCR) Negative for c. diff 04/22/22 05:15 WBC RBC Hgb Hct MCV MCH MCHC RDW Plt Count Neut % (Auto) Lymph % (Auto) [place] % (Auto) Eos % (Auto) Baso % (Auto) Neut # (Auto) Lymph # (Auto) [place] # (Auto) Eos # (Auto) Baso # (Auto) Sodium Potassium Chloride Carbon Dioxide BUN Creatinine Estimated GFR BUN/Creatinine Ratio Glucose Calcium TSH 9.02 H Free T4 1.71 C. difficile Tox (PCR) PFSH Family History Father Cancer Grandmother Diverticulitis Social History marital status: household members: spouse lives independently: Yes caregiver/support person: Yes housing: house Smoking Status: Former smoker alcohol intake: current Assessment & Plan Post-op Postoperative Procedures: Procedures Operation Date: 04/17/22 17:45 Actual Procedure Side Surgeon p ORIF Ankle Fracture Right Sayra Mckeon MD Operation Date: 04/19/22 08:30 Actual Procedure Side Surgeon p ORIF Distal Femur Fracture Right Sayra Mkceon MD Postoperative status narrative: -Postop day #5 for the right ankle open reductio n internal fixation. Touchdown weight-bearing. Splint in place. -Postop day #3 Right distal femur ORIF. Touchdown weight-bearing. Knee immobilizer in place. -alcohol abuse Postoperative plan narrative: 1. Toe-touch weight-bearing with a walker crutches for 6 weeks, gait and transfer training, active range of motion of knee only, no passive range of motions until 6 weeks. Recommendation is for use of a knee immobilizer full-time for 3 weeks except during therapy exercises. May adjust knee immobilizer as needed. DVT prophylaxis is recommended for 3 weeks of Love nox followed by aspirin 325 daily for 3 weeks. 2. Follow-up orthopedic clinic in 2 weeks for suture and staple removal. At follow-up may switch from splint on ankle to stirrup Aircast to go along with a knee immobilizer. Will remain toe-touch weight-bearing for 6 weeks 3. Complete 24 hours postop antibiotics 4. DVT prophylaxis as mentioned above. Additional SCD on contralateral extremity 5. Discharge to SNF today, per hospitalist recommendation Quality VTE Deep Vein Thrombosis/Pulmonary Embolism Present on Admission: No
[2022-04-22] MEDS: ENOXAPARIN 40 MG/0.4 ML SYRINGE SUBCUT (08:20)
[2022-04-22] MEDS: GABAPENTIN 300 MG CAPSULE PO (08:21)
[2022-04-22] MEDS: DOCUSATE 100 MG CAPSULE PO (08:21)
[2022-04-22] MEDS: MULTIVITAMIN 1 TABLET 1 TAB PO (08:21)
[2022-04-22] MEDS: SODIUM CHLORIDE 0.9% FLUSH 10 ML IV (08:21)
[2022-04-22] MEDS: FOLIC ACID 1 MG TABLET PO (08:21)
[2022-04-22] MEDS: THIAMINE 100 MG in SODIUM CHLORIDE 0.9% 50 ML 200 MG IV (08:25)
--- NOTE | 2022-04-22 08:48 | DIET.CONS2 ---
Dietary Inpatient Consultation Note Admission Date: 04/17/2022 03:04 66y F admitted after fall resulting in right distal femur ORIF screened by RD for LOS day 5. Pt d/c to SNF today. POs adequate. Diet: 04/19/22 Lunch General (Regular) Diet Diet Modifications: Nutrition Percent Meal Consumed 50% 04/21/22 15:00 Percent Meal Consumed 50% 04/21/22 14:58 Percent Meal Consumed 75% 04/20/22 10:00 Percent Meal Consumed 75% 04/20/22 09:00 Electronically Signed by: Nicci Woodard 04/22/22 08:48 Clinical Dietitian [address] [address]
[2022-04-22] MEDS: ACETAMINOPHEN 325 MG TABLET 650 MG PO (10:31)
--- NOTE | 2022-04-22 10:54 | PT.IPTN ---
Current Diagnoses Unspecified fracture of lower end of unspecified femur, initial encounter for closed fracture (04/17/22) Displaced bimalleolar fracture of right lower leg, initial encounter for closed fracture (04/17/22) Surgery Performed Operation Date: 04/17/22 17:45 Actual Procedures p ORIF Ankle Fracture(Right) - Sayra Mckeon MD Operation Date: 04/19/22 08:30 Actual Procedures p ORIF Distal Femur Fracture(Right) - Sayra Mckeon MD Physical Therapy Treatment Note M2 PT-IP Current Condition Start: 04/19/22 16:51 Freq: NEEDED Status: Active Protocol: Document 04/21/22 14:50 SP (Rec: 04/21/22 16:21 SP [id number]) Physical Therapy Current Condition Current Condition Evaluation Date 04/19/22 Treatment Diagnosis R distal femur fx s/p ORIF; R ankle fx s/p ORIF; difficulty in walking Onset Date 04/17/22 M3 PT-IP Subjective Start: 04/19/22 16:51 Freq: NEEDED Status: Active Protocol: Document 04/22/22 10:30 KS (Rec: 04/22/22 12:17 KS [id number]) Subjective Physical Therapy Visit Type Type Treatment Note Visit Start Time 10:30 Visit Stop Time 10:54 Total Visit Minutes 24 Notes TIRE CHANGER present for assistance Number of SUMMER INTERN Visits 3 Physical Therapy Visit Comments Patient Comments Pt agreeable to working with therapy. M4 PT-IP Mobility and Gait Start: 04/19/22 16:51 Freq: NEEDED Status: Active Protocol: Document 04/22/22 10:30 KS (Rec: 04/22/22 12:17 KS [id number]) PT-Bed Mobility Assessment Supine to Sit Supine to Sit Standby Assistance,Head of Bed Elevated Scooting Scooting to Edge of Bed Contact Guard Assistance PT-Transfer Assessment Sit to and From Stand Sit to and from Stand Maximum Assistance,1 Person Assistance,Use of Upper Extremities Equipment Transfer Assistive Device Gait Belt,Front Wheeled Walker Orthotic/Prosthetic Devices or Brace: Yes Transfers Transfer Destination Chair,Bedside Commode Transfer Technique Stand Step Pivot Transfer Ability Level of Assist Maximum Assistance,1 Person Assistance,Use of Upper Extremities Comments Mobility Comments Pt in bed upon arrival and agreeable to transfer to chair . TIRE CHANGER arrived for assistance w / brief change/pericare. Pt SBA to CGA for sup<>sit and scooting EOB. Pt Max A x1 for sit<>Stand from raised bed w/ FWW. Pt w/ muscle fatigue / shakes upon standing d/t weakness. Able to stand ~2 min for brief change and then complete stand step pivot from bed to chair w/ FWW max A and cues w/ FWW management while maintaining TTWB. After sitting, pt requested to use BSC. Performed additional sit< >stand and stand step pivot to BSC and then back to chair Max A and cues w/ FWW management. Pt fatigues quickly d/t weakness. Able to perform quad sets, glute sets, and SLR. Pt left in chair w/ all needs in reach. Gait Assessment Comments Gait Comments SSP from bed<>chair<>BSC<> chair w/ FWW Max A and max cues and FWW mgmt. Able to maintain TTWB. Stair Climbing Assessment Comments Stair Climbing Comments Unable to assess stairs at this time, will need to complete 2 stairs without HRs for safe DC home when able. PT-Balance Assessment Sitting Balance and Reactions Static Sitting Balance Ability Normal Dynamic Sitting Balance Ability Good Standing Balance and Reactions Static Standing Balance Ability Poor Dynamic Standing Balance Ability Poor Device Used FWW M5 PT-IP Objective Assessments Start: 04/19/22 16:51 Freq: NEEDED Status: Active Protocol: Document 04/19/22 15:20 AB (Rec: 04/19/22 17:03 AB [id number]) Orientation Orientation/Cognition Level of Alertness Alert Orientation Name,Place,Situation Language Function Ability No Deficits Noted Safety Awareness Decreased Safety Awareness Memory Description No Deficits Noted Gross Range of Motion Lower Extremity ROM Assessment Right Impaired Impairments R knee on knee immobilizer and R ankle on soft cast Strength Lower Extremity Strength Assessment Right Impaired Hip 3+/5 Knee n/t Ankle n/t Muscle Tone Muscle Tone WNL Yes M6 PT-IP Treatment Start: 04/19/22 16:51 Freq: NEEDED Status: Active Protocol: Document 04/22/22 10:30 KS (Rec: 04/22/22 12:17 KS [id number]) Physical Therapy Treatment Exercises Exercises Gluteal Sets,Quad Sets, Straight Leg Raises Education Education Provided Precautions,Weight Bearing Status,Post-Op Packet,Safety M7 PT-IP Assessment and Plan Start: 04/19/22 16:51 Freq: NEEDED Status: Active Protocol: Document 04/22/22 10:30 KS (Rec: 04/22/22 12:17 KS [id number]) PT Summary Assessment and Plan Potential Rehabilitation Potential Fair Status of Condition at Evaluation Evolving Summary Impairments Pain,ROM,Strength,Balance, Coordination,Sensation,Tone, Cognition,Bed Mobility, Transfers,Gait,Activity Tolerance Progress Towards Goals Progressing Toward Goals,Slow Progress due to Pain,Slow Progress due to Activity Tolerance Assessment Summary Pt required 1 person max A today for stand step pivot transfers and was able to complete LE exercises to promote strengthening. In total, she performed 3 SSP transfers, eahc requring Max A and cues to stand, maintain balance, and manage FWW. She has very quick approach to fatigue and poor balance. She will require SNF to improve strength and functional mobility. Goals Bed Mobility Goal Standby Assistance Transfer Goal Standby Assistance,Front Wheeled Walker Gait Goal Contact Guard Assistance,Front Wheel Walker Gait Distance 50 Days to Meet Goals 10 Frequency of Treatment Frequency Of Treatment Twice a Day Treatment Plan Physical Therapy Treatment Plan Bed Mobility Training,Transfer Training,Gait Training, Therapeutic Exercise,Balance Retraining,Post Op Education, Discharge Planning,Hot or Cold Pack,Neuromuscular Re-ed, Coordination Retraining,Manual Therapy Other Recommendations and Next Treatment RLE post op ex, transfers w/ Focus FWW, gait if able and tolerate w/chair follow while maintaining TTWB RLE. Precautions Brace R knee immobilizer Weight Bearing Status Weight Bearing Status Touch Down Weight Bearing Allowed Weight Bearing Amount (enter % TTWB on RLE: challenged or #) (%) maintain TTWB pm tx. Recommendations To Nursing Amount of Assist Needed 2 Person Assist Discharge Recommendations PT Discharge Recommendations SNF Rehab Transportation Needs at Discharge Wheelchair/Cabulance
[2022-04-22 11:19] LABS: COVID19 -Nasal RAPID Negative (Negative)
--- NOTE | 2022-04-22 12:36 | CM.DANOTE ---
DCP/continued: Reviewed chart. Patient medically stable for d/c today. Patient accepted at [facility]. Scheduled sampler pickup is at 1:30pm. RN updated and given number to call report. Patient aware and agreeable. P: [facility] today. [facility] Discharge Planning/Care Management CM Discharge Assessment Start: 04/17/22 12:08 Freq: Status: Active Protocol: Document 04/17/22 12:08 BRYANNA (Rec: 04/17/22 12:12 BRYANNA [id number]) Discharge Planning Assessment Assigned Metal Turner JOSE LUIS Underwood DPOA/Assigned Designee Name Jonnie Case, spouse Contact Information [phone] cell [phone] home Advance Directives? No History Provided By Patient Prior Living Arrangements House Household Members spouse Type of transporation used prior to Drives own vehicle admit Independent with ADL's Yes Is patient alert and oriented? Yes Barriers to Discharge No Comment Pending therapy evals Discharge Plan Home with Home Health Transportation Arrangement Spouse Referrals Initiated None needed Additional Comment pending therapy evals after surgery
[2022-04-22] MEDS: OXYCODONE IR 5 MG TABLET PO (13:02)
== END 2022-04-22 13:50 | DRG 481 ==
LOC: ED 01:31 → AC 03:04
PROVIDERS: Orthopaedic Surgery Foot and Ankle Surgery; Student in an Organized Health Care Education/Training Program; Admitting Provider Internal Medicine; Emergency Provider Emergency Medicine; PCP Family Medicine; Referring Provider Emergency Medicine; Visit Provider Internal Medicine
PROC: 0SSF04Z Reposition Right Ankle Joint with Internal Fixation Device, Open Approach (ICD-10-PCS; 2022-04-17 17:45)
PROC: 0QSB04Z Reposition Right Lower Femur with Internal Fixation Device, Open Approach (ICD-10-PCS; principal; 2022-04-19 08:30)
DX: S72.421A Displaced fracture of lateral condyle of right femur, initial encounter for closed fracture (principal); D62 Acute posthemorrhagic anemia; S82.841A Displaced bimalleolar fracture of right lower leg, initial encounter for closed fracture; E03.9 Hypothyroidism, unspecified; G62.9 Polyneuropathy, unspecified; F10.929 Alcohol use, unspecified with intoxication, unspecified; K59.00 Constipation, unspecified; W18.30XA Fall on same level, unspecified, initial encounter; Y92.9 Unspecified place or not applicable; Y90.6 Blood alcohol level of 120-199 mg/100 ml; Z87.891 Personal history of nicotine dependence; Z20.822 Contact with and (suspected) exposure to COVID-19; Z23 Encounter for immunization
CPT/HCPCS: 0013A; 27810; 36415; 70450; 73552; 73560; 73610; 73700; 76000; 80048; 80053; 80320; 81003; 84439; 84443; 85025; 85027; 85610; 87045; 87493; 87635; 87899; 91301; 97110; 97162; 97530; 99283; 99284; C9803; J0690; J1100; J1170; J1644; J1650; J2250; J2405; J2704; J3010; J3360

== ENCOUNTER 2025-09-04 18:30 | Inpatient (IN) | payer MEDICARE, OTHER, SELFPAY ==
[2022-04-17 04:44] VITALS: BMI 22.0
[2025-09-04] VITALS (12 sets, daily range): BP systolic 131–163; BP diastolic 75–85; PULSE 90–97; RESP 18–23; TEMP 36.4; O2SAT 91–98
--- NOTE | 2025-09-04 | DI.RAD.S_ITS ---
PROCEDURE: XR CHEST 1V INDICATIONS: altered mental status, fall, acute alcohol intoxication TECHNIQUE: One view of the chest was acquired. COMPARISON: None. FINDINGS: Surgical changes and devices: None. Lungs and pleura: Lungs are clear. No pleural effusions or pneumothorax. Mediastinum: Mediastinal contours appear normal. Heart size is normal. Bones and chest wall: No acute bony abnormality. Chronic left distal clavicular fracture deformity. Nonspecific hyperdensity projects over the left lung apex at the level of the third posterior rib. IMPRESSION: No acute intrathoracic abnormality. Chronic left distal clavicular fracture deformity. Nonspecific hyperdensity projects over the left lung apex at the level of the third posterior rib. Dictated by: Rosy Nelson M.D. on 09/04/2025 at 21:28 Approved by: Rosy Nelson M.D. on 09/04/2025 at 21:34
--- NOTE | 2025-09-04 19:07 | ED_ITS ---
HPI - General Adult <Coco Chen MD - Last Filed: 09/14/25 11:26> General Chief complaint: Altered Mental Status Stated complaint: AMS Time Seen by Provider: 09/04/25 19:06 History of Present Illness HPI narrative: 70-year-old woman lives alone on [facility] history of hypothyroidism depression alcohol use brought in with altered mental status tremors. Medics note that 2 weeks ago they went out to visit her because of a fall and she told them she was in recovery from her alcohol use. Today they find her intoxicated with alcohol bottles scattered around the room. Not entirely clear what other events of transpired. Patient is altered, significant tremors, has bruise/superficial abrasion over her chin appearing to have been from fall. Has some mild abdominal pain without rebound or guarding is not able to participate meaningfully with history or physical. Prior to arrival she was given 4 mg of Zofran and 1 mg of IV Ativan for a CIWA score of 12-13. Medic did not feel that the Ativan changed her CIWA score. Related Data Home Medications ?Medication ?Instructions ?Recorded ?Confirmed gabapentin 600 mg tablet 600 mg PO BID 04/17/2209/05 metronidazole 0.75 % topical cream 0.75 % TP 2XW 04/1709/05/25 (MetroCream) spironolactone 25 mg tablet 25 mg PO DAILY 04/17/22 alprazolam 0.25 mg tablet 0.25 mg PO DAILY PRN anxiety 09/05/25 09/05/25 doxycycline hyclate 50 mg capsule 50 mg PO DAILY 09/0509/05/25 escitalopram oxalate 10 mg tablet 10 mg PO DAILY 09/0509/05/25 escitalopram oxalate 5 mg tablet 5 mg PO DAILY 5 09/05/25 mirtazapine 30 mg tablet 30 mg PO ONCE PM 09/05/25 Previous Rx's ?Medication ?Instructions ?Recorded alprazolam 0.5 mg tablet 0.5 mg PO PRN PRN Anxiety #3 0 tabs 04/22/22 oxycodone 5 mg tablet 5 mg PO Q3HR PRN Pain, Mild (1-3) 04/22/22 #30 tabs zolpidem 10 mg tablet (Ambien) 10 mg PO PRN PRN Insomn ia #30 tabs 04/22/22 levothyroxine 88 mcg tablet 88 mcg PO DAILY@0600 #90 t abs 09/07/25 permethrin 5 % topical cream 1 applic topical Q14D 2 d oses #60 09/07/25 grams Allergies Allergy/AdvReac Type Severity Reaction Status Date / Time hydrocodone (HYDROCODONE) Allergy Mild itch Verified 09/04/25 19:32 morphine AdvReac Intermediate Nausea Verified 09/04/25 19:32 Patient History <Coco Chen MD - Last Filed: 09/14/25 11:26> Family History Father Cancer Grandmother Diverticulitis Social History marital status: household members: none lives independently: Yes caregiver/support person: Yes housing: house Smoking Status: Former smoker alcohol intake: current alcohol intake frequency: 0-2 drinks per day Exam <Coco Chen MD - Last Filed: 09/14/25 11:26> Initial Vital Signs Initial Vital Signs: Vital Signs Temperature 97.6 F 09/04/25 19:00 Pulse Rate 93 H 09/04/25 19:00 Respiratory Rate 18 09/04/25 19:00 Blood Pressure 161/85 H 09/04/25 19:00 Pulse Oximetry 95 09/04/25 19:00 Oxygen Delivery Method Room Air 09/04/25 19:00 <Thai Perry DO - Last Filed: 09/04/25 23:48> Initial Vital Signs Initial Vital Signs: Vital Signs Temperature 97.6 F 09/04/25 19:00 Pulse Rate 93 H 09/04/25 19:00 Respiratory Rate 18 09/04/25 19:00 Blood Pressure 161/85 H 09/04/25 19:00 Pulse Oximetry 95 09/04/25 19:00 Oxygen Delivery Method Room Air 09/04/25 19:00 Course <Coco Chen MD - Last Filed: 09/14/25 11:26> Orders Ordered: Al Hydrox/Mg Hydrox/Simethicone (Mag Hydrox/Alum/Simeth 30 Ml Udc) 30 ml PO Q6HR PRN PRN Reason: Dyspepsia Last Admin: 09/11/25 21:19 Dose: 30 ml Documented By: Albuterol (Albuterol 2.5 Mg/3 Ml Neb (Adult)) 2.5 mg INH [id number] PRN PRN Reason: Dyspnea Alprazolam (Alprazolam 0.25 Mg Tablet) 0.25 mg PO DAILY PRN PRN Reason: Anxiety Last Admin: 09/13/25 00:04 Dose: 0.25 mg Documented By: Admin: 09/12/25 00:17 Dose: 0.25 mg Documented By: Enoxaparin Sodium (Enoxaparin 40 Mg/0.4 Ml Syringe) 40 mg SUBCUT DAILY [facility] Last Admin: 09/14/25 10:38 Dose: 40 mg Documented By: Admin: 09/13/25 08:24 Dose: 40 mg Documented By: Admin: 09/12/25 08:59 Dose: 40 mg Documented By: Admin: 09/11/25 09:19 Dose: 40 mg Documented By: Admin: 09/10/25 09:01 Dose: 40 mg Documented By: Admin: 09/09/25 10:05 Dose: 40 mg Documented By: Admin: 09/08/25 12:03 Dose: 40 mg Documented By: Admin: 09/07/25 10:00 Dose: 40 mg Documented By: WILLOW Escitalopram Oxalate (Escitalopram 10 Mg Tablet) 15 mg PO DAILY [facility] Last Admin: 09/14/25 10:39 Dose: 15 mg Documented By: Admin: 09/13/25 08:24 Dose: 15 mg Documented By: Admin: 09/12/25 08:59 Dose: 15 mg Documented By: Admin: 09/11/25 09:19 Dose: 15 mg Documented By: Admin: 09/10/25 09:00 Dose: 15 mg Documented By: Admin: 09/09/25 09:56 Dose: 15 mg Documented By: Admin: 09/08/25 12:03 Dose: 15 mg Documented By: Admin: 09/07/25 10:00 Dose: 15 mg Documented By: Admin: 09/06/25 09:00 Dose: 15 mg Documented By: WILLOW Gabapentin (Gabapentin 600 Mg Tablet) 600 mg PO BID [facility] Last Admin: 09/14/25 10:39 Dose: 600 mg Documented By: Admin: 09/13/25 21:35 Dose: 600 mg Documented By: Admin: 09/13/25 08:24 Dose: 600 mg Documented By: Admin: 09/12/25 20:14 Dose: 600 mg Documented By: Admin: 09/12/25 09:01 Dose: 600 mg Documented By: Admin: 09/11/25 21:20 Dose: 600 mg Documented By: Admin: 09/11/25 09:19 Dose: 600 mg Documented By: Admin: 09/10/25 21:39 Dose: 600 mg Documented By: MIKE(2) Admin: 09/10/25 09:00 Dose: 600 mg Documented By: Admin: 09/09/25 21:09 Dose: 600 mg Documented By: Admin: 09/09/25 10:05 Dose: 600 mg Documented By: Admin: 09/08/25 20:59 Dose: 600 mg Documented By: Admin: 09/08/25 12:03 Dose: 600 mg Documented By: Admin: 09/07/25 23:20 Dose: 600 mg Documented By: Admin: 09/07/25 10:00 Dose: 600 mg Documented By: Admin: 09/06/25 20:37 Dose: 600 mg Documented By: Admin: 09/06/25 09:00 Dose: 600 mg Documented By: Admin: 09/05/25 20:42 Dose: 600 mg Documented By: Admin: 09/05/25 09:42 Dose: Not Given Documented By: CEW Hydralazine HCl (Hydralazine 20 Mg/Ml Vial) 10 mg IV Q6HR PRN PRN Reason: SBP>= 160 or DBP >=110 Levothyroxine Sodium (Levothyroxine 88 Mcg Tablet) 88 mcg PO DAILY@0600 [facility] Admin: 09/14/25 05:47 Dose: 88 mcg Documented By: Admin: 09/13/25 06:52 Dose: 88 mcg Documented By: Admin: 09/12/25 06:21 Dose: 88 mcg Documented By: Admin: 09/11/25 05:53 Dose: 88 mcg Documented By: MM(2) Admin: 09/10/25 06:23 Dose: 88 mcg Documented By: Admin: 09/09/25 06:00 Dose: 88 mcg Documented By: Admin: 09/08/25 05:28 Dose: 88 mcg Documented By: Admin: 09/07/25 05:58 Dose: 88 mcg Documented By: TRISH Loperamide HCl (Loperamide 2 Mg Capsule) 2 mg PO PRN PRN PRN Reason: Diarrhea Last Admin: 09/12/25 14:44 Dose: 2 mg Documented By: RADHA Mirtazapine (Mirtazapine 15 Mg Tablet) 30 mg PO BEDTIME [facility] Last Admin: 09/13/25 21:31 Dose: 30 mg Documented By: Admin: 09/12/25 20:14 Dose: 30 mg Documented By: Admin: 09/11/25 21:20 Dose: 30 mg Documented By: Admin: 09/10/25 21:39 Dose: 30 mg Documented By: MIKE(2) Admin: 09/09/25 21:09 Dose: 30 mg Documented By: Admin: 09/08/25 20:59 Dose: 30 mg Documented By: Admin: 09/07/25 23:20 Dose: 30 mg Documented By: Admin: 09/06/25 20:37 Dose: 30 mg Documented By: Admin: 09/05/25 21:09 Dose: 30 mg Documented By: LELAND Multivitamins (Multivitamin 1 Tablet) 1 tab PO DAILY [facility] Last Admin: 09/14/25 10:39 Dose: 1 tab Documented By: Admin: 09/13/25 08:24 Dose: 1 tab Documented By: Admin: 09/12/25 08:59 Dose: 1 tab Documented By: Admin: 09/11/25 09:20 Dose: 1 tab Documented By: Admin: 09/10/25 09:00 Dose: 1 tab Documented By: Admin: 09/09/25 10:04 Dose: 1 tab Documented By: Admin: 09/08/25 12:03 Dose: 1 tab Documented By: Admin: 09/07/25 10:00 Dose: 1 tab Documented By: Admin: 09/06/25 09:00 Dose: 1 tab Documented By: Admin: 09/05/25 09:42 Dose: Not Given Documented By: CEW Naloxone HCl (Naloxone 0.4 Mg/Ml Vial) 0.2 mg IV Q2MIN PRN PRN Reason: Opiate Reversal Stored In Pharmacy 0 each PO PRN PRN PRN Reason: . Ondansetron HCl (Ondansetron 4 Mg/2 Ml Inj) 4 mg IV Q6HR PRN PRN Reason: Nausea And Vomiting Oxycodone HCl (Oxycodone Ir 5 Mg Tablet) 5 mg PO Q3HR PRN PRN Reason: Pain, Mild (1-3) Last Admin: 09/14/25 03:54 Dose: 5 mg Documented By: Admin: 09/11/25 21:19 Dose: 5 mg Documented By: Sodium Chloride (Sodium Chloride 0.9% Flush) 10 ml IV PRN PRN PRN Reason: Flush Sodium Chloride (Sodium Chloride 0.9% Flush) 10 ml IV BID STEVE Last Admin: 09/14/25 10:38 Dose: 10 ml Documented By: Admin: 09/13/25 21:36 Dose: 10 ml Documented By: Admin: 09/13/25 08:26 Dose: 10 ml Documented By: Admin: 09/12/25 20:17 Dose: 10 ml Documented By: Admin: 09/12/25 08:59 Dose: 10 ml Documented By: Admin: 09/11/25 21:20 Dose: 10 ml Documented By: Admin: 09/11/25 09:20 Dose: 10 ml Documented By: Admin: 09/10/25 21:39 Dose: 10 ml Documented By: MIKE(2) Admin: 09/10/25 09:01 Dose: 10 ml Documented By: Admin: 09/09/25 21:10 Dose: 10 ml Documented By: Admin: 09/09/25 10:05 Dose: 10 ml Documented By: CN Discontinued Medications Escitalopram Oxalate (Escitalopram 10 Mg Tablet) 5 mg PO DAILY STEVE Magnesium Sulfate (Magnesium Sulfate) 2 gm in 50 mls @ 25 mls/hr IV NOW ONE Stop: 09/04/25 21:08 Last Infusion: 09/04/25 20:52 Dose: Infused Documented By: CB Co-signed By: MAYANK Admin: 09/04/25 19:20 Dose: 25 mls/hr Documented By: LEE Co-signed By: TRICE Sodium Chloride (Normal Saline 0.9%) 1,000 mls @ 1,000 mls/hr IV BOLUS ONE Stop: 09/04/25 20:08 Last Infusion: 09/04/25 22:45 Dose: Infused Documented By: Admin: 09/04/25 19:20 Dose: 1,000 mls/hr Documented By: LEE Sodium Chloride (Normal Saline 0.9%) 1,000 mls @ 100 mls/hr IV CONT STEVE Last Infusion: 09/05/25 13:41 Dose: Infused Documented By: Admin: 09/05/25 01:24 Dose: 100 mls/hr Documented By: MAYNAK Levothyroxine Sodium (Levothyroxine 100 Mcg Tablet) 100 mcg PO BEDTIME [facility] Last Admin: 09/05/25 20:43 Dose: Not Given Documented By: LELAND Levothyroxine Sodium (Levothyroxine 100 Mcg Tablet) 100 mcg PO 0600 [facility] Last Admin: 09/06/25 06:08 Dose: 100 mcg Documented By: LELAND Lorazepam (Lorazepam 2 Mg/Ml Inj) 0 mg IV CIWAPRN PRN; Protocol PRN Reason: Alcohol Withdrawal Last Admin: 09/05/25 06:18 Dose: 1 mg Documented By: MAYANK Lorazepam (Lorazepam 1 Mg Tablet) 0 mg PO CIWAPRN PRN; Protocol PRN Reason: Alcohol Withdrawal Last Admin: 09/05/25 21:06 Dose: 1 mg Documented By: LELAND Magnesium Chloride (Magnesium Chloride 64 Mg Tablet) 128 mg PO NOW ONE Stop: 09/13/25 08:16 Last Admin: 09/13/25 08:25 Dose: 128 mg Documented By: RADHA Nf - Permethrin 30gm (Tube) 30 tube TOP DIRECTED ONE Stop: 09/07/25 09:01 Last Admin: 09/07/25 13:25 Dose: Not Given Documented By: WILLOW Nf - Permethrin 60gm (Tube) 60 tube TOP DIRECTED ONE Stop: 09/07/25 12:01 Last Admin: 09/07/25 13:22 Dose: 60 tube Documented By: WILLOW Nf - Permethrin 60gm (Tube) 60 tube TOP DIRECTED ONE Stop: 09/14/25 09:01 Last Admin: 09/14/25 10:39 Dose: 60 tube Documented By: MALU Ondansetron HCl (Ondansetron 4 Mg/2 Ml Inj) 4 mg IV Q8HR PRN PRN Reason: Nausea And Vomiting Phenobarbital (Phenobarbital 65 Mg/Ml Vial) 130 mg IV NOW ONE Stop: 09/04/25 19:10 Last Admin: 09/04/25 19:21 Dose: 130 mg Documented By: LEE Vital Signs Vital signs: Vital Signs - 8 hr 09/04/25 19:00 09/04/25 19:05 09/04/25 19:18 Temperature 97.6 F Pulse Rate 93 H 97 H 96 H Respiratory Rate 18 22 23 Blood Pressure 161/85 H Pulse Oximetry 95 98 97 Oxygen Delivery Method Room Air 09/04/25 19:18 09/04/25 19:30 09/04/25 19:30 Temperature Pulse Rate 95 H Respiratory Rate 22 Blood Pressure 163/85 H 161/85 H Pulse Oximetry 96 Oxygen Delivery Method 09/04/25 20:00 09/04/25 20:00 09/04/25 20:30 Temperature Pulse Rate 92 H 91 H Respiratory Rate 21 23 Blood Pressure 144/81 H Pulse Oximetry 91 92 Oxygen Delivery Method 09/04/25 20:30 09/04/25 21:30 09/04/25 21:34 Temperature Pulse Rate 91 H Respiratory Rate 21 Blood Pressure 138/80 141/79 H Pulse Oximetry 95 Oxygen Delivery Method Room Air 09/04/25 21:34 09/04/25 22:00 09/04/25 22:00 Temperature Pulse Rate 90 91 H Respiratory Rate 21 19 Blood Pressure 137/79 Pulse Oximetry 96 91 Oxygen Delivery Method Room Air Room Air 09/04/25 22:30 09/04/25 22:30 09/04/25 23:00 Temperature Pulse Rate 93 H 94 H Respiratory Rate 21 20 Blood Pressure 131/75 Pulse Oximetry 94 92 Oxygen Delivery Method Room Air Room Air 09/04/25 23:00 Temperature Pulse Rate Respiratory Rate Blood Pressure 134/78 Pulse Oximetry Oxygen Delivery Method <Thai Perry, - Last Filed: 09/04/25 23:48> Orders Ordered: Al Hydrox/Mg Hydrox/Simethicone (Mag Hydrox/Alum/Simeth 30 Ml Udc) 30 ml PO Q6HR PRN PRN Reason: Dyspepsia Last Admin: 09/11/25 21:19 Dose: 30 ml Documented By: Albuterol (Albuterol 2.5 Mg/3 Ml Neb (Adult)) 2.5 mg INH [id number] PRN PRN Reason: Dyspnea Alprazolam (Alprazolam 0.25 Mg Tablet) 0.25 mg PO DAILY PRN PRN Reason: Anxiety Last Admin: 09/13/25 00:04 Dose: 0.25 mg Documented By: Admin: 09/12/25 00:17 Dose: 0.25 mg Documented By: Enoxaparin Sodium (Enoxaparin 40 Mg/0.4 Ml Syringe) 40 mg SUBCUT DAILY [facility] Last Admin: 09/14/25 10:38 Dose: 40 mg Documented By: Admin: 09/13/25 08:24 Dose: 40 mg Documented By: Admin: 09/12/25 08:59 Dose: 40 mg Documented By: Admin: 09/11/25 09:19 Dose: 40 mg Documented By: Admin: 09/10/25 09:01 Dose: 40 mg Documented By: Admin: 09/09/25 10:05 Dose: 40 mg Documented By: Admin: 09/08/25 12:03 Dose: 40 mg Documented By: Admin: 09/07/25 10:00 Dose: 40 mg Documented By: WILLOW Escitalopram Oxalate (Escitalopram 10 Mg Tablet) 15 mg PO DAILY [facility] Last Admin: 09/14/25 10:39 Dose: 15 mg Documented By: Admin: 09/13/25 08:24 Dose: 15 mg Documented By: Admin: 09/12/25 08:59 Dose: 15 mg Documented By: Admin: 09/11/25 09:19 Dose: 15 mg Documented By: Admin: 09/10/25 09:00 Dose: 15 mg Documented By: Admin: 09/09/25 09:56 Dose: 15 mg Documented By: Admin: 09/08/25 12:03 Dose: 15 mg Documented By: Admin: 09/07/25 10:00 Dose: 15 mg Documented By: Admin: 09/06/25 09:00 Dose: 15 mg Documented By: WILLOW Gabapentin (Gabapentin 600 Mg Tablet) 600 mg PO BID [facility] Last Admin: 09/14/25 10:39 Dose: 600 mg Documented By: Admin: 09/13/25 21:35 Dose: 600 mg Documented By: Admin: 09/13/25 08:24 Dose: 600 mg Documented By: Admin: 09/12/25 20:14 Dose: 600 mg Documented By: Admin: 09/12/25 09:01 Dose: 600 mg Documented By: Admin: 09/11/25 21:20 Dose: 600 mg Documented By: Admin: 09/11/25 09:19 Dose: 600 mg Documented By: Admin: 09/10/25 21:39 Dose: 600 mg Documented By: MIKE(2) Admin: 09/10/25 09:00 Dose: 600 mg Documented By: Admin: 09/09/25 21:09 Dose: 600 mg Documented By: Admin: 09/09/25 10:05 Dose: 600 mg Documented By: Admin: 09/08/25 20:59 Dose: 600 mg Documented By: Admin: 09/08/25 12:03 Dose: 600 mg Documented By: Admin: 09/07/25 23:20 Dose: 600 mg Documented By: Admin: 09/07/25 10:00 Dose: 600 mg Documented By: Admin: 09/06/25 20:37 Dose: 600 mg Documented By: Admin: 09/06/25 09:00 Dose: 600 mg Documented By: Admin: 09/05/25 20:42 Dose: 600 mg Documented By: Admin: 09/05/25 09:42 Dose: Not Given Documented By: YASMINE Hydralazine HCl (Hydralazine 20 Mg/Ml Vial) 10 mg IV Q6HR PRN PRN Reason: SBP>= 160 or DBP >=110 Levothyroxine Sodium (Levothyroxine 88 Mcg Tablet) 88 mcg PO DAILY@0600 [facility] Admin: 09/14/25 05:47 Dose: 88 mcg Documented By: Admin: 09/13/25 06:52 Dose: 88 mcg Documented By: Admin: 09/12/25 06:21 Dose: 88 mcg Documented By: Admin: 09/11/25 05:53 Dose: 88 mcg Documented By: MIKE(2) Admin: 09/10/25 06:23 Dose: 88 mcg Documented By: Admin: 09/09/25 06:00 Dose: 88 mcg Documented By: Admin: 09/08/25 05:28 Dose: 88 mcg Documented By: Admin: 09/07/25 05:58 Dose: 88 mcg Documented By: TRISH Loperamide HCl (Loperamide 2 Mg Capsule) 2 mg PO PRN PRN PRN Reason: Diarrhea Last Admin: 09/12/25 14:44 Dose: 2 mg Documented By: RADHA Mirtazapine (Mirtazapine 15 Mg Tablet) 30 mg PO BEDTIME [facility] Last Admin: 09/13/25 21:31 Dose: 30 mg Documented By: Admin: 09/12/25 20:14 Dose: 30 mg Documented By: Admin: 09/11/25 21:20 Dose: 30 mg Documented By: Admin: 09/10/25 21:39 Dose: 30 mg Documented By: MIKE(2) Admin: 09/09/25 21:09 Dose: 30 mg Documented By: Admin: 09/08/25 20:59 Dose: 30 mg Documented By: Admin: 09/07/25 23:20 Dose: 30 mg Documented By: Admin: 09/06/25 20:37 Dose: 30 mg Documented By: Admin: 09/05/25 21:09 Dose: 30 mg Documented By: LELAND Multivitamins (Multivitamin 1 Tablet) 1 tab PO DAILY [facility] Last Admin: 09/14/25 10:39 Dose: 1 tab Documented By: Admin: 09/13/25 08:24 Dose: 1 tab Documented By: Admin: 09/12/25 08:59 Dose: 1 tab Documented By: Admin: 09/11/25 09:20 Dose: 1 tab Documented By: Admin: 09/10/25 09:00 Dose: 1 tab Documented By: Admin: 09/09/25 10:04 Dose: 1 tab Documented By: Admin: 09/08/25 12:03 Dose: 1 tab Documented By: Admin: 09/07/25 10:00 Dose: 1 tab Documented By: Admin: 09/06/25 09:00 Dose: 1 tab Documented By: Admin: 09/05/25 09:42 Dose: Not Given Documented By: CRISELDAW Naloxone HCl (Naloxone 0.4 Mg/Ml Vial) 0.2 mg IV Q2MIN PRN PRN Reason: Opiate Reversal Stored In Pharmacy 0 each PO PRN PRN PRN Reason: . Ondansetron HCl (Ondansetron 4 Mg/2 Ml Inj) 4 mg IV Q6HR PRN PRN Reason: Nausea And Vomiting Oxycodone HCl (Oxycodone Ir 5 Mg Tablet) 5 mg PO Q3HR PRN PRN Reason: Pain, Mild (1-3) Last Admin: 09/14/25 03:54 Dose: 5 mg Documented By: Admin: 09/11/25 21:19 Dose: 5 mg Documented By: Sodium Chloride (Sodium Chloride 0.9% Flush) 10 ml IV PRN PRN PRN Reason: Flush Sodium Chloride (Sodium Chloride 0.9% Flush) 10 ml IV BID STEVE Last Admin: 09/14/25 10:38 Dose: 10 ml Documented By: Admin: 09/13/25 21:36 Dose: 10 ml Documented By: Admin: 09/13/25 08:26 Dose: 10 ml Documented By: Admin: 09/12/25 20:17 Dose: 10 ml Documented By: Admin: 09/12/25 08:59 Dose: 10 ml Documented By: Admin: 09/11/25 21:20 Dose: 10 ml Documented By: Admin: 09/11/25 09:20 Dose: 10 ml Documented By: Admin: 09/10/25 21:39 Dose: 10 ml Documented By: MIKE(2) Admin: 09/10/25 09:01 Dose: 10 ml Documented By: Admin: 09/09/25 21:10 Dose: 10 ml Documented By: Admin: 09/09/25 10:05 Dose: 10 ml Documented By: CN Discontinued Medications Escitalopram Oxalate (Escitalopram 10 Mg Tablet) 5 mg PO DAILY STEVE Magnesium Sulfate (Magnesium Sulfate) 2 gm in 50 mls @ 25 mls/hr IV NOW ONE Stop: 09/04/25 21:08 Last Infusion: 09/04/25 20:52 Dose: Infused Documented By: CB Co-signed By: MAYANK Admin: 09/04/25 19:20 Dose: 25 mls/hr Documented By: LEE Co-signed By: KW Sodium Chloride (Normal Saline 0.9%) 1,000 mls @ 1,000 mls/hr IV BOLUS ONE Stop: 09/04/25 20:08 Last Infusion: 09/04/25 22:45 Dose: Infused Documented By: Admin: 09/04/25 19:20 Dose: 1,000 mls/hr Documented By: LEE Sodium Chloride (Normal Saline 0.9%) 1,000 mls @ 100 mls/hr IV CONT STEVE Last Infusion: 09/05/25 13:41 Dose: Infused Documented By: Admin: 09/05/25 01:24 Dose: 100 mls/hr Documented By: MAYANK Levothyroxine Sodium (Levothyroxine 100 Mcg Tablet) 100 mcg PO BEDTIME [facility] Last Admin: 09/05/25 20:43 Dose: Not Given Documented By: LELAND Levothyroxine Sodium (Levothyroxine 100 Mcg Tablet) 100 mcg PO 0600 [facility] Last Admin: 09/06/25 06:08 Dose: 100 mcg Documented By: LELAND Lorazepam (Lorazepam 2 Mg/Ml Inj) 0 mg IV CIWAPRN PRN; Protocol PRN Reason: Alcohol Withdrawal Last Admin: 09/05/25 06:18 Dose: 1 mg Documented By: MAYANK Lorazepam (Lorazepam 1 Mg Tablet) 0 mg PO CIWAPRN PRN; Protocol PRN Reason: Alcohol Withdrawal Last Admin: 09/05/25 21:06 Dose: 1 mg Documented By: LELAND Magnesium Chloride (Magnesium Chloride 64 Mg Tablet) 128 mg PO NOW ONE Stop: 09/13/25 08:16 Last Admin: 09/13/25 08:25 Dose: 128 mg Documented By: RADHA Nf - Permethrin 30gm (Tube) 30 tube TOP DIRECTED ONE Stop: 09/07/25 09:01 Last Admin: 09/07/25 13:25 Dose: Not Given Documented By: WILLOW Nf - Permethrin 60gm (Tube) 60 tube TOP DIRECTED ONE Stop: 09/07/25 12:01 Last Admin: 09/07/25 13:22 Dose: 60 tube Documented By: WILLOW Nf - Permethrin 60gm (Tube) 60 tube TOP DIRECTED ONE Stop: 09/14/25 09:01 Last Admin: 09/14/25 10:39 Dose: 60 tube Documented By: MALU Ondansetron HCl (Ondansetron 4 Mg/2 Ml Inj) 4 mg IV Q8HR PRN PRN Reason: Nausea And Vomiting Phenobarbital (Phenobarbital 65 Mg/Ml Vial) 130 mg IV NOW ONE Stop: 09/04/25 19:10 Last Admin: 09/04/25 19:21 Dose: 130 mg Documented By: LEE Vital Signs Vital signs: Vital Signs - 8 hr 09/04/25 19:00 09/04/25 19:05 09/04/25 19:18 Temperature 97.6 F Pulse Rate 93 H 97 H 96 H Respiratory Rate 18 22 23 Blood Pressure 161/85 H Pulse Oximetry 95 98 97 Oxygen Delivery Method Room Air 09/04/25 19:18 09/04/25 19:30 09/04/25 19:30 Temperature Pulse Rate 95 H Respiratory Rate 22 Blood Pressure 163/85 H 161/85 H Pulse Oximetry 96 Oxygen Delivery Method 09/04/25 20:00 09/04/25 20:00 09/04/25 20:30 Temperature Pulse Rate 92 H 91 H Respiratory Rate 21 23 Blood Pressure 144/81 H Pulse Oximetry 91 92 Oxygen Delivery Method 09/04/25 20:30 09/04/25 21:30 09/04/25 21:34 Temperature Pulse Rate 91 H Respiratory Rate 21 Blood Pressure 138/80 141/79 H Pulse Oximetry 95 Oxygen Delivery Method Room Air 09/04/25 21:34 09/04/25 22:00 09/04/25 22:00 Temperature Pulse Rate 90 91 H Respiratory Rate 21 19 Blood Pressure 137/79 Pulse Oximetry 96 91 Oxygen Delivery Method Room Air Room Air 09/04/25 22:30 09/04/25 22:30 09/04/25 23:00 Temperature Pulse Rate 93 H 94 H Respiratory Rate 21 20 Blood Pressure 131/75 Pulse Oximetry 94 92 Oxygen Delivery Method Room Air Room Air 09/04/25 23:00 Temperature Pulse Rate Respiratory Rate Blood Pressure 134/78 Pulse Oximetry Oxygen Delivery Method Medical Decision Making <Coco Chen MD - Last Filed: 09/14/25 11:26> Lab Data 09/13/25 06:35 09/14/25 05:05 Labs: Lab Results 09/04/25 Range/Units 19:25 WBC 12.9 H (4.5-11.0) X10^3/uL RBC 3.43 L (4.0-5.2) X10^6/uL Hgb 11.5 L (12.0-16.0) g/dL Hct 35.0 L (36-46) % MCV 102.2 H (80-100) fL MCH 33.7 (26-34) PG MCHC 32.9 (30-36) % RDW 14.9 H (11.6-14.8) % Plt Count 206 (150-400) X10^3/uL Neut % (Auto) 89.7 H (50-75) % Lymph % (Auto) 2.9 L (25-40) % [place] % (Auto) 7.1 (3-14) % Eos % (Auto) 0.1 L (2-4) % Baso % (Auto) 0.2 (0-2) % Neut # (Auto) 53241 H (1066-6470) /uL Lymph # (Auto) 400 L (7248-7598) /uL [place] # (Auto) 900 (0-900) /uL Eos # (Auto) 0 (0-450) /uL Baso # (Auto) 0 (0-100) /uL PT 11.8 (9.4-12.5) SECONDS INR 1.0 (0.9-1.3) Sodium 142 (137-145) mmol/L Potassium 5.0 (3.4-5.1) mmol/L Chloride 102 (98-107) mmol/L Carbon Dioxide 16 L (22-32) mmol/L BUN 30 H (7-17) mg/dL Creatinine 1.68 H (0.52-1.04) mg/dL Estimated GFR 33 L (>60) mL/min BUN/Creatinine Ratio 17.9 (6-22) Glucose 95 (70-99) mg/dL Calcium 8.9 (8.4-10.2) mg/dL Magnesium 1.7 (1.6-2.3) mg/dL Total Bilirubin 0.9 (0.2-1.3) mg/dL AST 123 H (14-36) IU/L ALT 51 H (<35) IU/L Alkaline Phosphatase 109 (38-126) U/L Total Protein 7.4 (6.3-8.2) g/dL Albumin 4.6 (3.5-5.0) g/dL Globulin 2.8 (1.7-4.1) g/dL Albumin/Globulin Ratio 1.6 (1.0-2.8) Ethyl Alcohol < 10 (<10) mg/dL <Thai Perry, DO - Last Filed: 09/04/25 23:48> Lab Data Labs: Lab Results 09/04/25 Range/Units 19:25 WBC 12.9 H (4.5-11.0) X10^3/uL RBC 3.43 L (4.0-5.2) X10^6/uL Hgb 11.5 L (12.0-16.0) g/dL Hct 35.0 L (36-46) % MCV 102.2 H (80-100) fL MCH 33.7 (26-34) PG MCHC 32.9 (30-36) % RDW 14.9 H (11.6-14.8) % Plt Count 206 (150-400) X10^3/uL Neut % (Auto) 89.7 H (50-75) % Lymph % (Auto) 2.9 L (25-40) % [place] % (Auto) 7.1 (3-14) % Eos % (Auto) 0.1 L (2-4) % Baso % (Auto) 0.2 (0-2) % Neut # (Auto) 68640 H (3816-8165) /uL Lymph # (Auto) 400 L (2922-9248) /uL [place] # (Auto) 900 (0-900) /uL Eos # (Auto) 0 (0-450) /uL Baso # (Auto) 0 (0-100) /uL PT 11.8 (9.4-12.5) SECONDS INR 1.0 (0.9-1.3) Sodium 142 (137-145) mmol/L Potassium 5.0 (3.4-5.1) mmol/L Chloride 102 (98-107) mmol/L Carbon Dioxide 16 L (22-32) mmol/L BUN 30 H (7-17) mg/dL Creatinine 1.68 H (0.52-1.04) mg/dL Estimated GFR 33 L (>60) mL/min BUN/Creatinine Ratio 17.9 (6-22) Glucose 95 (70-99) mg/dL Calcium 8.9 (8.4-10.2) mg/dL Magnesium 1.7 (1.6-2.3) mg/dL Total Bilirubin 0.9 (0.2-1.3) mg/dL AST 123 H (14-36) IU/L ALT 51 H (<35) IU/L Alkaline Phosphatase 109 (38-126) U/L Total Protein 7.4 (6.3-8.2) g/dL Albumin 4.6 (3.5-5.0) g/dL Globulin 2.8 (1.7-4.1) g/dL Albumin/Globulin Ratio 1.6 (1.0-2.8) Ethyl Alcohol < 10 (<10) mg/dL MDM Narrative Medical decision making narrative: 2300: patient was signed out to me, patient arrived from [place] via EMS for evaluation of altered mental status, patient was found slumped in the chair by the neighbor has a history of alcohol abuse she was arousable but did have several bottles of alcohol around her, has a history of alcohol abuse. Patient initially appeared with a CIWA of told her 13, was moving all 4 extremities spontaneously but did appear to be responding to internal stimuli, patient was given 1 mg Ativan prior to arrival, patient was given a dose of phenobarb here, lab work does show that there is elevation in WBC but no current source of infection therefore we will hold off on antibiotics this time, patient also with a slight SHELLY most likely secondary to dehydration, fluids have already been ordered, liver functions do appear elevated, consistent with patient's history of alcohol abuse with AST elevated over ALT 123, 51 respectively, patient is current alcohol negative, imaging of the head, did not show any acute intracranial abnormalities, CT abdomen and pelvis did not show any signs of acute intra abdominal pathology as well, chest x-ray without any acute cardiopulmonary abnormality. However given patient with elevated CIWA and dose of phenobarb, patient will require admission for alcohol abuse and metabolic encephalopathy. The patient's management plan was discussed Dr. Rivera, who agrees to admit the patient to their service and assumes care of this patient at this time. Full admission orders will be placed by the primary team. Discharge Plan Departure Patient Disposition: Admitted As Inpatient Clinical Impression: Acute metabolic encephalopathy, Alcohol withdrawal delirium Admit Date/Time: 09/04/25 23:48 Admit Provider: Ramón Rivera
--- NOTE | 2025-09-04 19:09 | DI.CT.S_ITS ---
PROCEDURE: CT HEAD/BRAIN WO CON INDICATIONS: Fall, altered, acute alcohol intoxication TECHNIQUE: Noncontrast 4.5 mm thick angled axial sections acquired from the foramen magnum to the vertex, with coronal and sagittal reformats. For radiation dose reduction, the following was used: automated exposure control, adjustment of mA and/or kV according to patient size. COMPARISON: [facility], CT, CT HEAD/BRAIN WO CON, 04/17/2022, 1:54. FINDINGS: Image quality: Diagnostic. CSF spaces: Basal cisterns are patent. No extra-axial fluid collections. Age appropriate global parenchymal volume loss with associated prominence of the extra-axial space listen ventricles. Brain: Age-appropriate global parenchymal volume loss as above. No midline shift. No intracranial mass effect or hemorrhage. Gutierrez-white matter interface is normal. Moderate confluent periventricular and subcortical white matter hypodensities, suggestive of chronic small vessel ischemic disease. Skull and face: Calvarium and visualized facial bones are intact, without suspicious lesions. Sinuses: Visualized sinuses and mastoids are clear. IMPRESSION: No acute intracranial pathology. Chronic findings as above. Dictated by: Rosy Nelson M.D. on 09/04/2025 at 21:16 Approved by: Rosy Nelson M.D. on 09/04/2025 at 21:19
--- NOTE | 2025-09-04 19:09 | DI.CT.S_ITS ---
PROCEDURE: CT ABDOMEN PELVIS WO CON INDICATIONS: Altered mental status, abdominal pain, contusions from falls TECHNIQUE: CT of the abdomen and pelvis was obtained without intravenous contrast. Coronal and sagittal reformats were performed. For radiation dose reduction, the following was used: automated exposure control, adjustment of mA and/or kV according to patient size. COMPARISON: None. FINDINGS: Image quality: Diagnostic. Lower Chest: Bibasilar subpleural nodular subsegmental atelectasis/scarring. Partially visualized bilateral breast implants. Coronary artery disease is present. No pleural effusion. ABDOMEN: Liver: No contour-deforming mass. Gallbladder: No radiopaque gallstones or wall thickening. Biliary ducts: No biliary dilation. Pancreas: No ductal dilation. Spleen: Size is within normal limits. Incidental splenule. Subdiaphragmatic capsular calcifications. Adrenal Glands: No adrenal nodules. Kidneys and Ureters: No hydronephrosis. No contour-deforming mass. Stomach and Bowel: Normal colonic caliber, without significant wall thickening. Postsurgical changes at the rectosigmoid junction and likely the midtransverse colon. Peritoneum: No abnormal intraperitoneal fluid. No free air. Nonspecific soft tissue density adjacent to the gallbladder fundus measuring 1.7 cm. Ventral Wall: No significant hernia. Abdominal Nodes: No retroperitoneal or mesenteric adenopathy by size criteria. Vessels: Aorta and inferior vena cava are normal in size. PELVIS: Pelvic Organs: Simple appearing 3.9 cm right adnexal cystic structure favored to represent an ovarian cyst. Bladder: Unremarkable. Pelvic Nodes: No enlarged lymph nodes. Miscellaneous: No inguinal hernias are seen. Bones: No aggressive osseous abnormality. Mild right and severe left hip osteoarthrosis. No visualized acute osseous abnormality. IMPRESSION: 1. Chronic postsurgical changes in the bowel without evidence of acute traumatic or other abdominal pathology. 2. Chronic and other incidental findings, as detailed above. Dictated by: Piero Lockhart M.D. on 09/04/2025 at 21:37 Approved by: Piero Lockhart M.D. on 09/04/2025 at 21:46
--- NOTE | 2025-09-04 19:12 | EKG_ITS ---
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
[2025-09-04] MEDS: MAGNESIUM SULFATE 2 GM/50 ML PIGGYBACK IV (19:20)
[2025-09-04] MEDS: SODIUM CHLORIDE 0.9% 1,000 ML 1000 ML IV (19:20)
[2025-09-04 19:33] LABS: Add Manual Diff / Slide Review NO; Hematocrit 35.0 % (36-46); Hemoglobin 11.5 g/dL (12.0-16.0); Lymphocytes Absolute Auto 400 /uL (1100-4500); Mean Corpuscular HGB Conc 32.9 % (30-36); Mean Corpuscular Hemoglobin 33.7 PG (26-34); Mean Corpuscular Volume 102.2 fL (80-100); Platelet Count 206 X10^3/uL (150-400)
[2025-09-04 19:54] LABS: INR 1.0 (0.9-1.3); Prothrombin Time 11.8 SECONDS (9.4-12.5)
[2025-09-04 20:03] LABS: Alanine Aminotransferase 51 IU/L (<35); Albumin 4.6 g/dL (3.5-5.0); Albumin Globulin Ratio 1.6 (1.0-2.8); Alkaline Phosphatase 109 U/L (38-126); Blood Urea Nitrogen 30 mg/dL (7-17); Calcium 8.9 mg/dL (8.4-10.2); Carbon Dioxide 16 mmol/L (22-32); Chloride 102 mmol/L (98-107); Estimated Glomerular Filt Rate 33 mL/min (>60); Ethanol (ETOH) < 10 mg/dL (<10); Globulin 2.8 g/dL (1.7-4.1); Glucose 95 mg/dL (70-99); Magnesium 1.7 mg/dL (1.6-2.3); Potassium 5.0 mmol/L (3.4-5.1); Sodium 142 mmol/L (137-145); Total Protein 7.4 g/dL (6.3-8.2)
[2025-09-04 20:08] LABS: HEMOLYSIS 75 (0-50)
--- NOTE | 2025-09-04 21:25 | PC.NURSE ---
PureWick placed on pt at this time
--- NOTE | 2025-09-04 21:37 | PC.NURSE ---
Pt resting quietly with eyes closed, resps even and not labored. No distress noted at this time. Pt rouses to tactile stimuli, follows commands, but has unclear speech. Pt immediately closes eyes and back to resting state as soon as there is no stimuli. Pt connected to cardiac, resp, blood pressure, and pulse ox monitors with alarms on and audible. VS stable at this time. Call light within reach. Room close to nurses station and door remains open for frequent staff observation.
--- NOTE | 2025-09-04 23:02 | PC.NURSE ---
No change in patient condition or status. Pt resting quietly with eyes closed, resps even and not labored. No distress noted at this time. Pt remains connected to cardiac, resp, blood pressure, and pulse ox monitors with alarms on and audible. VS stable at this time. Call light within reach.
[2025-09-05] VITALS (32 sets, daily range): BP systolic 124–156; BP diastolic 68–96; PULSE 72–98; RESP 15–24; TEMP 36.6–36.8; O2SAT 93–96; BMI 22.4
--- NOTE | 2025-09-05 01:05 | PC.NURSE ---
No change in patient condition or status. Pt resting quielty with eyes closed, resps even and not labored. No distress noted at this time. Pt remains connected to cardiac, resp, blood pressure, and pulse ox monitors with alarms on and audible. VS stable. Call light within reach. Pt remains in exam room close to nurses station with door open for frequent staff observation.
[2025-09-05] MEDS: SODIUM CHLORIDE 0.9% 1,000 ML 100 ML IV (01:24)
--- NOTE | 2025-09-05 03:42 | PC.NURSE ---
Pt noted to start moving around and small, weak coughs. RN to bedside and pt engages appropriately at this time, A&Ox3, does not know the year. Does know she is in a hospital and where she lives. Continued plan of care discussed and no further requests or concerns at this time. Pt remains [id number] to cardiac, reps, blood pressure, and pulse ox monitors with alarms on and audible. VS stable at this time. Call light within reach. Pt remains in exam room near nurses station with door open for frequent observation by staff.
--- NOTE | 2025-09-05 04:13 | PM.HP.1 ---
History of Present Illness History of Present Illness Chief complaint: AMS Narrative: 70 years old female with history of hypothyroidism, depression, alcohol abuse, presented to the ER with alcohol withdrawal symptoms including confusion and tremors. Per EMS records she was visited at her home for fall. Today they found her intoxicated with alcohol bottles scattered around the room. She was altered with significant tremors and bruises on her chin apparently from fall. She also reports some diffuse abdominal pain. The patient was given Zofran 4 mg IV and 1 mg IV Ativan and her CIWA score was 12?13. Laboratory shows 12.9, hemoglobin 11.5, MCV 102.2, potassium 5, creatinine 1.68, magnesium 1.7, AST 123, ALT 51. CT scan of the abdomen and pelvis was unremarkable. Chest x-ray was unremarkable. In the ER she was given magnesium 2 g IV, phenobarbital 130 mg IV and fluid bolus. [facility] Family History Father Cancer Grandmother Diverticulitis Social History marital status: household members: spouse lives independently: Yes caregiver/support person: Yes housing: house alcohol intake: current Meds Home Medications and Allergies Home Medications ?Medication ?Instructions ?Recorded ?Confirmed ?Type doxycycline monohydrate 50 mg 50 mg OR PER PKG DIR 04/17/22 04/17/22 History capsule gabapentin 600 mg tablet 600 mg BID 04/17/22 04/17/22 History levothyroxine 100 mcg tablet 0.1 mg PO BEDTIME 04/17/22 04/17/22 History metronidazole 0.75 % topical cream 0.75 % TP 2XW 04/17/22 04/17/22 History ([employer]) spironolactone 25 mg tablet 25 mg DAILY 04/17/22 04/17/22 History alprazolam 0.5 mg tablet 0.5 mg PO PRN PRN Anxiety #30 tabs 04/22/22 Rx oxycodone 5 mg tablet 5 mg PO Q3HR PRN Pain, Mild (1-3) 04/22/22 Rx #30 tabs zolpidem 10 mg tablet (Ambien) 10 mg PO PRN PRN Insomnia #30 tabs 08/02/22 Rx Allergies Allergy/AdvReac Type Severity Reaction Status Date / Time hydrocodone (HYDROCODONE) Allergy Mild itch Verified 09/04/25 19:32 morphine AdvReac Intermediate Nausea Verified 09/04/25 19:32 Review of Systems Review of Systems ROS: Yes All systems reviewed with the patient and are negative except as otherwise documented Constitutional Constitutional: Reports as per HPI and Reports system reviewed and no additional complaints, except as documented Eyes Eyes: Reports as per HPI and Reports system reviewed and no additional complaints, except as documented ENT Ears, Nose, Mouth, and Throat: Yes as per HPI and Yes system reviewed and no additional complaints, except as documented Cardiovascular Cardiovascular: Reports system reviewed and no additional complaints, except as documented Respiratory Respiratory: Reports system reviewed and no additional complaints, except as documented Gastrointestinal Gastrointestinal: Reports system reviewed and no additional complaints, except as documented Genitourinary Genitourinary: Reports system reviewed and no additional complaints, except as documented Musculoskeletal Musculoskeletal: Reports system reviewed and no additional complaints, except as documented, Reports abnormal gait and Reports numbness Neurologic Neurologic: Reports system reviewed and no additional complaints, except as documented, Reports abnormal gait, Reports confusion and Reports numbness Psychiatric Psychiatric: Reports system reviewed and no additional complaints, except as documented and Reports confusion Exam Vital Signs (past 8 hours): - 09/04/25 20:30 09/04/25 20:30 09/04/25 21:30 Pulse Rate 91 H 91 H Respiratory Rate 23 21 Blood Pressure 138/80 Pulse Oximetry 92 95 Oxygen Delivery Method Room Air 09/04/25 21:34 09/04/25 21:34 09/04/25 22:00 Pulse Rate 90 91 H Respiratory Rate 21 19 Blood Pressure 141/79 H Pulse Oximetry 96 91 Oxygen Delivery Method Room Air Room Air 09/04/25 22:00 09/04/25 22:30 09/04/25 22:30 Pulse Rate 93 H Respiratory Rate 21 Blood Pressure 137/79 131/75 Pulse Oximetry 94 Oxygen Delivery Method Room Air 09/04/25 23:00 09/04/25 23:00 09/04/25 23:30 Pulse Rate 94 H 94 H Respiratory Rate 20 22 Blood Pressure 134/78 Pulse Oximetry 92 94 Oxygen Delivery Method Room Air Room Air 09/04/25 23:30 09/05/25 00:00 09/05/25 00:00 Pulse Rate 92 H Respiratory Rate 19 Blood Pressure 136/79 140/79 Pulse Oximetry 94 Oxygen Delivery Method Room Air 09/05/25 00:30 09/05/25 00:30 09/05/25 01:00 Pulse Rate 91 H 91 H Respiratory Rate 19 19 Blood Pressure 143/83 H Pulse Oximetry 96 95 Oxygen Delivery Method Room Air Room Air 09/05/25 01:00 Pulse Rate Respiratory Rate Blood Pressure 143/83 H Pulse Oximetry Oxygen Delivery Method Oxygen Delivery Method Room Air Const General: cooperative, comfortable and well developed Orientation: alert and oriented x3 HENMS Head: normal to inspection, normocephalic and atraumatic Face and sinus: normal facial exam Mouth: oral mucosae normal and moist mucous membranes Throat: posterior oropharynx normal Eyes General: appearance normal, both eyes and all related structures Pupils: PERRL EOM: EOM intact bilaterally Neck Neck: normal visual inspection and full ROM Chest Chest: normal inspection of the chest Resp Effort & Inspection: normal respiratory effort and able to speak in complete sentences Auscultation: clear to auscultation bilaterally Cardio Palpation: normal PMI Rate: regular rate Rhythm: regular rhythm Heart Sounds: S1 normal and S2 normal GI Inspection: normal to inspection Palpation: soft and no hepatosplenomegaly Auscultation: normal bowel sounds Skin General: no rashes or lesions noted Lesions: no lesions Rashes: no rashes Trauma: no lacerations or abrasions Neuro General: patient alert, patient awake, patient oriented x3 and no focal motor deficits Cranial Nerves: CN's II-XI intact bilaterally Cognition: normal cognition Speech: speech normal Gait: normal gait Motor: muscle tone normal throughout Sensory Exam: no sensory deficits noted Extrem General: full ROM and no calf tenderness Psych Appearance: grossly normal Mental Status: mental status grossly normal Speech and Movement: speech and movement normal Objective Labs 09/04/25 19:25 09/04/25 19:25 Labs: Laboratory Results - last 24 hr 09/04/25 19:25 WBC 12.9 H RBC 3.43 L Hgb 11.5 L Hct 35.0 L MCV 102.2 H MCH 33.7 MCHC 32.9 RDW 14.9 H Plt Count 206 Neut % (Auto) 89.7 H Lymph % (Auto) 2.9 L [place] % (Auto) 7.1 Eos % (Auto) 0.1 L Baso % (Auto) 0.2 Neut # (Auto) 35624 H Lymph # (Auto) 400 L [place] # (Auto) 900 Eos # (Auto) 0 Baso # (Auto) 0 PT 11.8 INR 1.0 Sodium 142 Potassium 5.0 Chloride 102 Carbon Dioxide 16 L BUN 30 H Creatinine 1.68 H Estimated GFR 33 L BUN/Creatinine Ratio 17.9 Glucose 95 Calcium 8.9 Magnesium 1.7 Total Bilirubin 0.9 AST 123 H ALT 51 H Alkaline Phosphatase 109 Total Protein 7.4 Albumin 4.6 Globulin 2.8 Albumin/Globulin Ratio 1.6 Ethyl Alcohol < 10 Assessment & Plan Assessment & Plan narrative: Alcohol withdrawal. Patient seemed to have alcohol withdrawal in beginning stages, will start patient on [facility] protocol. - Phenobarbital IV/p.o. per [facility] protocol -Start the patient on thiamine 100 mg IV initially and switch to oral daily, folic acid 1 mg daily -monitor electrolytes, magnesium and phosphate -Consider dialysis social worker consult for alcohol abuse rehab program. -counseled patient about the health risk of alcohol and encourage quitting when patient is stable and alcohol withdrawal resolved -if patient's alcohol withdrawal gets worse and then consider Precedex drip. -Solar Tech patient about the health risks of alcohol and encourage quitting when patient stable and alcohol withdrawal resolved. pressed or blown glass worker referral for alcohol abuse rehab programs. Hypomagnesemia. Replace and monitor. Hypothyroidism. Restart levothyroxine I performed this consultation using real-time telehealth tools, including a live video connection between my location and the patient's location. As the provider for this telehealth service, I attest that I introduced myself to the patient, provided my credentials, disclosed my location, and determined that, based on a review of the patients chart and/or a discussion with members of the patient's treatment team, telemedicine via a real-time, two-way, interactive audio and video platform is an appropriate and effective means of providing this service. The patient and I mutually agree that this visit is appropriate for telemedicine as well. Disclaimer Note: To increase efficiency, your provider may have prepared this document using voice recognition technology. In that case, if a word or phrase is confusing, or does not make sense, this is likely due to a recognition error within the program which was not discovered during the provider?s review. If you believe an error has occurred, please notify your provider?s office at your earliest convenience, so we can correct any mistakes. Time-Based Coding :: 50 min spent with patient and on the chart (including review of chart, obtaining history, exam, reviewing outside data, placing orders, documenting exam and treatment plan, and counseling patient) on 09/04/2025. Quality VTE Deep Vein Thrombosis/Pulmonary Embolism Present on Admission: No MIPS - Admit I confirm the patient?s Advance Care Plan is present, Code status is documented, Surrogate decision maker is in patient?s record [If Yes, STOP here]: Yes MIPS - Meds 'Current medications' to include all prescriptions, [id number] products, herbals, cannabis/cannabidiol products, and vitamin/mineral/dietary (nutritional) supplements. I have utilized all available resources to obtain, update, or review the patient?s current medications. [If Yes, STOP here]: Yes
[2025-09-05 08:02] LABS: Alanine Aminotransferase 44 IU/L (<35); Albumin 3.6 g/dL (3.5-5.0); Albumin Globulin Ratio 1.5 (1.0-2.8); Alkaline Phosphatase 103 U/L (38-126); Blood Urea Nitrogen 28 mg/dL (7-17); Calcium 8.5 mg/dL (8.4-10.2); Carbon Dioxide 22 mmol/L (22-32); Chloride 106 mmol/L (98-107); Estimated Glomerular Filt Rate 50 mL/min (>60); Globulin 2.4 g/dL (1.7-4.1); Glucose 81 mg/dL (70-99); HEMOLYSIS 24 (0-50); Magnesium 2.0 mg/dL (1.6-2.3); Potassium 4.4 mmol/L (3.4-5.1); Sodium 140 mmol/L (137-145); Total Protein 6.0 g/dL (6.3-8.2)
[2025-09-05 08:32] LABS: TSH w/ Reflex to FT4 0.30 uIU/mL (0.47-4.68)
--- NOTE | 2025-09-05 08:35 | PM.HP.1 ---
History of Present Illness History of Present Illness Date Patient Seen: 09/05/25 Chief complaint: AMS Narrative: From night doctor: 70 years old female with history of hypothyroidism, depression, alcohol abuse, presented to the ER with alcohol withdrawal symptoms including confusion and tremors. Per EMS records she was visited at her home for fall. Today they found her intoxicated with alcohol bottles scattered around the room. She was altered with significant tremors and bruises on her chin apparently from fall. She also reports some diffuse abdominal pain. The patient was given Zofran 4 mg IV and 1 mg IV Ativan and her CIWA score was 12?13. Laboratory shows 12.9, hemoglobin 11.5, MCV 102.2, potassium 5, creatinine 1.68, magnesium 1.7, AST 123, ALT 51. CT scan of the abdomen and pelvis was unremarkable. Chest x-ray was unremarkable. In the ER she was given magnesium 2 g IV, phenobarbital 130 mg IV and fluid bolus. S: She was sedated, no acute distress. Not speaking. Breathing comfortably. ROS: All else reviewed and otherwise unremarkable except as noted in the history and physical. O: NAD, Sedated. Normocephalic skull, EOMI, anicteric sclera, symmetric pupils. Oropharynx unremarkable, no droop. Neck supple, midline trachea, no adenopathy. Lungs clear, normal rate and effort. Heart regular, no murmur gallop or rub. Abdomen is soft, non distended and non tender. Extremities are free of edema. Skin is free of rash or lesions. Joints are not swollen or deformed. IMAGING: Head CT: No acute intracranial pathology. Chronic findings as above. Abdomen and pelvis CT: 1. Chronic postsurgical changes in the bowel without evidence of acute traumatic or other abdominal pathology. 2. Chronic and other incidental findings, as detailed above. Chest x-ray: No acute intrathoracic abnormality. Chronic left distal clavicular fracture deformity. Nonspecific hyperdensity projects over the left lung apex at the level of the third posterior rib. A/P: 1. Acute alcohol withdrawal, active. 2. SHELLY, improving. 3. Hypomagnesemia, improved. 4. Hypothyroidism, active. PLAN: -continue to support alcohol withdrawal CIWA and phenobarbital. -IV fluids and monitor electrolytes. Replete as needed. -thiamine repletion. -monitor renal function. Anticipate 2 MN in the hospital, supports inpatient status. Full resuscitation. [facility] Family History Father Cancer Grandmother Diverticulitis Social History marital status: household members: spouse lives independently: Yes caregiver/support person: Yes housing: house Smoking Status: Former smoker alcohol intake: current Meds Home Medications and Allergies Home Medications ?Medication ?Instructions ?Recorded ?Confirmed ?Type gabapentin 600 mg tablet 600 mg PO BID 04/17/22 09/05/25 History levothyroxine 100 mcg tablet 0.1 mg PO BEDTIME 04/17/22 09/05/25 History metronidazole 0.75 % topical cream 0.75 % TP 2XW 04/17/22 09/05/25 History ([employer]) spironolactone 25 mg tablet 25 mg PO DAILY 04/17/22 09/05/25 History alprazolam 0.5 mg tablet 0.5 mg PO PRN PRN Anxiety #30 tabs 04/22/22 09/05/25 Rx oxycodone 5 mg tablet 5 mg PO Q3HR PRN Pain, Mild (1-3) 04/22/22 09/05/25 Rx #30 tabs zolpidem 10 mg tablet (Ambien) 10 mg PO PRN PRN Insomnia #30 tabs 04/22/22 09/05/25 Rx mirtazapine 30 mg tablet 30 mg PO ONCE PM 09/05/25 09/05/25 History Allergies Allergy/AdvReac Type Severity Reaction Status Date / Time hydrocodone (HYDROCODONE) Allergy Mild itch Verified 09/04/25 19:32 morphine AdvReac Intermediate Nausea Verified 09/04/25 19:32 Exam Vital Signs (past 8 hours): - 09/05/25 01:00 09/05/25 01:00 09/05/25 01:30 Pulse Rate 91 H 89 Respiratory Rate 19 20 Blood Pressure 143/83 H Pulse Oximetry 95 95 Oxygen Delivery Method Room Air Room Air 09/05/25 01:30 09/05/25 04:03 09/05/25 04:03 Pulse Rate 92 H Respiratory Rate 19 Blood Pressure 140/81 148/83 H Pulse Oximetry 96 Oxygen Delivery Method Room Air 09/05/25 04:30 09/05/25 04:30 09/05/25 05:00 Pulse Rate 91 H Respiratory Rate 24 Blood Pressure 134/92 H 134/80 Pulse Oximetry 96 Oxygen Delivery Method Room Air 09/05/25 05:00 09/05/25 05:30 09/05/25 05:30 Pulse Rate 87 91 H Respiratory Rate 19 21 Blood Pressure 143/83 H Pulse Oximetry 94 94 Oxygen Delivery Method Room Air Room Air 09/05/25 06:00 09/05/25 06:00 09/05/25 06:30 Pulse Rate 88 87 Respiratory Rate 20 19 Blood Pressure 150/82 H Pulse Oximetry 95 96 Oxygen Delivery Method Room Air 09/05/25 06:30 09/05/25 07:00 09/05/25 07:00 Pulse Rate 87 Respiratory Rate 21 Blood Pressure 143/83 H 156/87 H Pulse Oximetry 96 Oxygen Delivery Method 09/05/25 07:30 09/05/25 07:30 09/05/25 08:11 Pulse Rate 86 86 Respiratory Rate 21 22 Blood Pressure 138/82 138/96 H Pulse Oximetry 96 94 Oxygen Delivery Method Room Air Oxygen Delivery Method Room Air Objective Labs 09/04/25 19:25 09/05/25 07:35 Labs: Laboratory Results - last 24 hr 09/04/25 09/05/25 19:25 07:35 WBC 12.9 H RBC 3.43 L Hgb 11.5 L Hct 35.0 L MCV 102.2 H MCH 33.7 MCHC 32.9 RDW 14.9 H Plt Count 206 Neut % (Auto) 89.7 H Lymph % (Auto) 2.9 L [place] % (Auto) 7.1 Eos % (Auto) 0.1 L Baso % (Auto) 0.2 Neut # (Auto) 06127 H Lymph # (Auto) 400 L [place] # (Auto) 900 Eos # (Auto) 0 Baso # (Auto) 0 PT 11.8 INR 1.0 Sodium 142 140 Potassium 5.0 4.4 Chloride 102 106 Carbon Dioxide 16 L 22 BUN 30 H 28 H Creatinine 1.68 H 1.17 H Estimated GFR 33 L 50 L BUN/Creatinine Ratio 17.9 23.9 H Glucose 95 81 Calcium 8.9 8.5 Magnesium 1.7 2.0 Total Bilirubin 0.9 0.6 AST 123 H 109 H ALT 51 H 44 H Alkaline Phosphatase 109 103 Total Protein 7.4 6.0 L Albumin 4.6 3.6 Globulin 2.8 2.4 Albumin/Globulin Ratio 1.6 1.5 Ethyl Alcohol < 10 Assessment & Plan Assessment and plan (1) Alcohol withdrawal delirium: Status: Acute Time-Based Coding :: 35 min spent with patient and on the chart (including review of chart, obtaining history, exam, reviewing outside data, placing orders, documenting exam and treatment plan, and counseling patient) on 09/05. Quality VTE Deep Vein Thrombosis/Pulmonary Embolism Present on Admission: No MIPS - Admit I confirm the patient?s Advance Care Plan is present, Code status is documented, Surrogate decision maker is in patient?s record [If Yes, STOP here]: Yes MIPS - Meds 'Current medications' to include all prescriptions, [id number] products, herbals, cannabis/cannabidiol products, and vitamin/mineral/dietary (nutritional) supplements. I have utilized all available resources to obtain, update, or review the patient?s current medications. [If Yes, STOP here]: Yes
[2025-09-05 09:09] LABS: Free T4, Direct Thyroxine 1.08 ng/dL (0.78-2.19)
[2025-09-05 17:45] LABS: Appearance Urine UA CLEAR; Bilirubin Urine UA 1+ (NEGATIVE); Glucose Urine UA NEGATIVE (Negative); Ketones Urine UA 1+ (NEGATIVE); Leukocyte Esterase Urine UA NEGATIVE (NEGATIVE); Nitrite Urine UA NEGATIVE (Negative); Occult Blood Urine UA TRACE-INTACT (Negative); Protein Urine UA TRACE (Negative); Specific Gravity Urine UA >=1.030 (1.000-1.035); Urobilinogen Urine UA 0.2 E.U./dL (0.2)
[2025-09-05 17:47] LABS: Color Urine UA Dark Yellow; pH Urine UA 5.5 (4.5-8.0)
[2025-09-05 17:56] LABS: Culture Indicated Urine Cult Not Indicated; Ictotest Urine Negative (Negative)
[2025-09-05] MEDS: GABAPENTIN 600 MG TABLET PO (20:42)
[2025-09-05] MEDS: MIRTAZAPINE 15 MG TABLET 30 MG PO (21:09)
[2025-09-06 01:00] VITALS: BP 147/80; PULSE 91; RESP 19; TEMP 36.6; O2SAT 97
[2025-09-06 04:00] VITALS: BP 132/72; PULSE 90; RESP 16; TEMP 36.7; O2SAT 92
[2025-09-06 05:26] LABS: Alanine Aminotransferase 42 IU/L (<35); Albumin 3.7 g/dL (3.5-5.0); Albumin Globulin Ratio 1.5 (1.0-2.8); Alkaline Phosphatase 114 U/L (38-126); Blood Urea Nitrogen 22 mg/dL (7-17); Calcium 8.5 mg/dL (8.4-10.2); Carbon Dioxide 19 mmol/L (22-32); Chloride 105 mmol/L (98-107); Estimated Glomerular Filt Rate > 60 mL/min (>60); Globulin 2.5 g/dL (1.7-4.1); Glucose 98 mg/dL (70-99); HEMOLYSIS < 15 (0-50); Magnesium 1.9 mg/dL (1.6-2.3); Potassium 3.8 mmol/L (3.4-5.1); Sodium 137 mmol/L (137-145); Total Protein 6.2 g/dL (6.3-8.2)
[2025-09-06] MEDS: LEVOTHYROXINE 100 MCG TABLET PO (06:08)
--- NOTE | 2025-09-06 07:28 | PM.PN.1 ---
Subjective Subjective Date Patient Seen: 09/06/25 Interval history: 70 years old female with history of hypothyroidism, depression, alcohol abuse, presented to the ER with alcohol withdrawal symptoms including confusion and tremors. Per EMS records she was visited at her home for fall. Today they found her intoxicated with alcohol bottles scattered around the room. She was altered with significant tremors and bruises on her chin apparently from fall. She also reports some diffuse abdominal pain. The patient was given Zofran 4 mg IV and 1 mg IV Ativan and her CIWA score was 12?13. Laboratory shows 12.9, hemoglobin 11.5, MCV 102.2, potassium 5, creatinine 1.68, magnesium 1.7, AST 123, ALT 51. CT scan of the abdomen and pelvis was unremarkable. Chest x-ray was unremarkable. In the ER she was given magnesium 2 g IV, phenobarbital 130 mg IV and fluid bolus. 09/05: She was sedated, no acute distress. Not speaking. Breathing comfortably. 09/06: She is speaking quite clearly today and tells me that ?my shakiness is abating. ? She has a good appetite. She will be doing PT and OT. The TSH is low at 0.30 so the levothyroxine dose will be decreased. The BMP is normal today. NAD, oriented x3. No apparent distress. Normocephalic skull Lungs clear, normal rate and effort. Heart regular, no murmur gallop or rub. Extremities are free of edema. Skin is free of rash or lesions. Joints are not swollen or deformed. IMAGING: Head CT: No acute intracranial pathology. Chronic findings as above. Abdomen and pelvis CT: 1. Chronic postsurgical changes in the bowel without evidence of acute traumatic or other abdominal pathology. 2. Chronic and other incidental findings, as detailed above. Chest x-ray: No acute intrathoracic abnormality. Chronic left distal clavicular fracture deformity. Nonspecific hyperdensity projects over the left lung apex at the level of the third posterior rib. A/P: 1. Acute alcohol withdrawal, active. 2. SHELLY, improving. 3. Hypomagnesemia, improved. 4. Hypothyroidism, active. PLAN: -continue to support alcohol withdrawal CIWA and phenobarbital. -IV fluids and monitor electrolytes. Replete as needed. -thiamine repletion. -monitor renal function. -Decrease Levothyroxine from 0.1 to 0.088 mg -PT/OT Disposition: Likely to return home in 1-2 days. Full resuscitation. Exam Vital Signs (past 8 hours): - 09/06/25 01:00 Temperature 97.9 F Pulse Rate 91 H Respiratory Rate 19 Blood Pressure 147/80 H Pulse Oximetry 97 Oxygen Flow Rate 0 Oxygen Delivery Method Room Air Oxygen Flow Rate 0 Objective Labs 09/04/25 19:25 09/06/25 04:50 Labs: Laboratory Results - last 24 hr 09/05/25 09/05/25 09/06/25 07:35 14:50 04:50 Sodium 140 137 Potassium 4.4 3.8 Chloride 106 105 Carbon Dioxide 22 19 L BUN 28 H 22 H Creatinine 1.17 H 0.93 Estimated GFR 50 L > 60 BUN/Creatinine Ratio 23.9 H 23.7 H Glucose 81 98 Calcium 8.5 8.5 Magnesium 2.0 1.9 Total Bilirubin 0.6 0.4 AST 109 H 104 H ALT 44 H 42 H Alkaline Phosphatase 103 114 Total Protein 6.0 L 6.2 L Albumin 3.6 3.7 Globulin 2.4 2.5 Albumin/Globulin Ratio 1.5 1.5 TSH 0.30 L Free T4 1.08 Urine Color Dark yellow Urine Appearance Clear Urine pH 5.5 Ur Specific [place] >=1.030 H Urine Protein Trace H Urine Glucose (UA) Negative Urine Ketones 1+ H Urine Occult Blood Trace-intact Urine Nitrate Negative Urine Bilirubin 1+ H Ur Bilirubin Confirm Negative Urine Urobilinogen 0.2 Ur Leukocyte Esterase Negative Urine RBC None seen Urine WBC 0-1/hpf Ur Squamous Epith Cells 1-5 /hpf Urine Bacteria Occasional (0-1) Ur Culture Indicated? Cult not indicated Vol Urine Centrifuged 10ml (spun) PFSH Family History Father Cancer Grandmother Diverticulitis Social History marital status: household members: spouse lives independently: Yes caregiver/support person: Yes housing: house Smoking Status: Former smoker alcohol intake: current Assessment & Plan Time-Based Coding :: [TOTAL MINUTES] spent with patient and on the chart (including review of chart, obtaining history, exam, reviewing outside data, placing orders, documenting exam and treatment plan, and counseling patient) on [DATE]. Quality VTE Deep Vein Thrombosis/Pulmonary Embolism Present on Admission: No
[2025-09-06 08:27] VITALS: BP 134/77; PULSE 85; RESP 16; TEMP 36.9; O2SAT 93
[2025-09-06] MEDS: GABAPENTIN 600 MG TABLET PO ×2 (09:00→20:37)
[2025-09-06] MEDS: MULTIVITAMIN 1 TABLET 1 TAB PO (09:00)
[2025-09-06] MEDS: ESCITALOPRAM 10 MG TABLET 15 MG PO (09:00)
[2025-09-06 12:17] VITALS: BP 129/66; PULSE 88; RESP 16; TEMP 36.4; O2SAT 95
--- NOTE | 2025-09-06 13:29 | DI.RAD.S_ITS ---
PROCEDURE: FL BARIUM SWALLOW INDICATIONS: Please do an esophagram for dysphagia/esophageal stenosis COMPARISON: None. FINDINGS: Function: There is delayed esophageal emptying. Significant gastroesophageal reflux. Morphology: Air-contrast images demonstrate normal mucosal morphology. Single contrast views show [place] Loc diverticulum in upper thoracic esophagus. Dilated esophagus with corkscrew to tapered appearance of the lower esophageal sphincter. No esophageal strictures, or extrinsic mass effects. Limited images of the stomach demonstrate normal appearance. IMPRESSION: Dilated esophagus with corkscrew tapering appearance of the lower esophageal sphincter. Delayed emptying. [place] Loc diverticulum in the upper thoracic esophagus. Dictated by: Carmita Renee [facility] Interpreted: Page Celis MD on 09/06/2025 at 16:02 Transcribed by: PAZ on 09/06/2025 at 16:10 Approved by: Page Celis M.D. on 09/08/2025 at 7:54
--- NOTE | 2025-09-06 13:54 | PT.IIE ---
Current Diagnoses Alcohol use, unspecified with withdrawal delirium (09/04/25) Physical Therapy Inpatient Evaluation/Re-Eval M1 PT IP Prior Functional Status Start: 09/06/25 14:49 Freq: Status: Active Protocol: Document 09/06/25 14:49 NW (Rec: 09/06/25 15:03 NW [id number]) Medical Review Prior Functional Status Communication Clear when speaking, RN states pt is hallucinatory. Mobility and Gait Short house hold distances with FWW. Activities of Daily independent for home care, has friends that assist with Living and IADL's within the community grocery shopping or other errands . Social History Household Members spouse Living Arrangements House Number of Floors ( Two Floors Floors) Number of Stairs To 2 with railing on R in garage or 3 from front with no Enter/Railing? railing, 12 stairs in home Home Environment Standard Height Toilet,Walk in Shower Home Equipment Front Wheel Walker,Four Wheel Walker,Grab Bars Near Toilet,Grab Bars In Shower Additional Social Pt has family that lives in [place]. History Comment M2 PT-IP Current Condition Start: 09/06/25 14:49 Freq: Status: Active Protocol: Document 09/06/25 14:49 NW (Rec: 09/06/25 15:03 NW [id number]) Physical Therapy Current Condition Current Condition Evaluation Date 09/06/25 Treatment Diagnosis GLF, Debility, Low activity tolerance Onset Date 09/04/25 M3 PT-IP Subjective Start: 09/06/25 14:49 Freq: Status: Active Protocol: Document 09/06/25 14:49 NW (Rec: 09/06/25 15:03 NW [id number]) Subjective Physical Therapy Visit Type Type Initial Evaluation Visit Start Time 13:22 Visit Stop Time 13:54 Number of [employer] Visits 0 Physical Therapy Visit Comments Patient Comments Pt is found sitting in bed side chair vomiting after lunch. RN notified secondary to pt stating she feels like food is stuck in abdomen. No other signs of distress nor dyspnea noted. Pt is agreeable to continue with evaluation as she is motivated to discharge. Patient Goals To go home to go to [place] to visit family. M4 PT-IP Mobility and Gait Start: 09/06/25 14:49 Freq: Status: Active Protocol: Document 09/06/25 14:49 NW (Rec: 12/17/25 15:03 NW [id number]) PT-Transfer Assessment Sit to and From Stand Sit to and from Moderate Assistance,1 Person Assistance Stand Equipment Transfer Assistive Gait Belt,Standard Walker Device Comments Mobility Comments Unable to perform stand pivot transfer secondary to fatigue and RN request to leave in bed side chair. Pt requires heavy UE use to perform STS from bed side chair with FWW at modA x 2. Gait Assessment Comments Gait Comments not able at this time PT-Balance Assessment Sitting Balance and Reactions Static Sitting Normal Balance Ability Dynamic Sitting Good Balance Ability Standing Balance and Reactions Static Standing Poor Balance Ability Dynamic Standing Poor Balance Ability Device Used FWW Functional Assessments Other Functional Tests standing tolerance < 30 seconds with FWW with [place] Performed M5 PT-IP Objective Assessments Start: 09/06/25 14:49 Freq: Status: Active Protocol: Document 09/06/25 14:49 NW (Rec: 09/06/25 15:03 NW [id number]) Orientation Orientation/Cognition Level of Alertness Alert Orientation Name,Age,Birthday,Month,Date,Year,Day of Week,Place, Situation Safety Awareness Decreased Safety Awareness Comments Pt wants to go home and does not see concern for mobility deficits and living alone. Gross Range of Motion Upper Extremity ROM Assessment Within Functional Limits Lower Extremity ROM Assessment Within Functional Limits Strength Lower Extremity Strength Assessment Left Impaired Hip 3/5 flexion Knee 4/5 ext Ankle WFL Coordination Assessment Gross Coordination Gross Coordination WNL Sensation Assessment Sensation Gross Sensation WNL Light Touch Intact Muscle Tone Muscle Tone WNL Yes M6 PT-IP Treatment Start: 09/06/25 14:49 Freq: Status: Active Protocol: Document 09/06/25 14:49 NW (Rec: 09/06/25 15:03 NW [id number]) Physical Therapy Treatment Education Education Provided Safety Other Treatments Other Treatment Education on importance of increasing time out of bed Performed and recommendations secondary to safety concerns returning home alone. M7 PT-IP Assessment and Plan Start: 09/06/25 14:49 Freq: Status: Active Protocol: Document 09/06/25 14:49 NW (Rec: 09/06/25 15:03 NW [id number]) PT Summary Assessment and Plan Potential Rehabilitation Good Potential Status of Condition Evolving at Evaluation Summary Impairments Strength,Balance,Bed Mobility,Transfers,Gait,Activity Tolerance Progress Towards Progressing Toward Goals Goals Assessment Summary Shilpa is a 70 yr old female admitted after a GLF with several ETOH bottles found near pt. At baseline pt is primarily a household ambulator with 4WW and occasionally ambulates within the community as pt has friends perform grocery shopping and errands for her. Today she is found vomiting after lunch in bed side chair, RN notified, but is still motivated to participate to be able to discharge home to go down to [place] to visit family. Pt had WFL for bilateral UE and RLE strength, diminished on L secondary to disuse from long history of arthritis. Today is able to stand with modA from bed side chair with FWW and stand for < 30 seconds x 2 with small marching. At this time recommending SNF upon discharge to assist pt in returning to [facility] as she is unsafe to go home alone back on [address]. Goals Bed Mobility Goal Independent Transfer Goal Independent Gait Goal Independent Gait Distance 50 Other Goals Pt will navigate 2 steps with hand rail on R. Days to Meet Goals 3 Frequency of Treatment Frequency Of Once a Day Treatment Treatment Plan Physical Therapy Bed Mobility Training,Transfer Training,Gait Training, Treatment Plan Therapeutic Exercise,Balance Retraining,Discharge Planning,Neuromuscular Re-ed Other Continue with transfers and ambulation as able. Recommendations and Next Treatment Focus Precautions Other Precautions falls risk, chau, etoh Weight Bearing Status Weight Bearing Weight Bear as Tolerated Status Recommendations To Nursing Amount of Assist 2 Person Assist,Power Sit-Stand Needed Discharge Recommendations PT Discharge SNF Rehab Recommendations Other Discharge with potential to progress to home with assistance Recommendations Transportation Needs Wheelchair/Cabulance at Discharge - PT assist 1
--- NOTE | 2025-09-06 14:56 | CM.DANOTE ---
Inital DCP Assessment Visit Note Reviewed EMR and team rounds for pt's medical status and updates. Met with at bedside to introduce self and role, pt was found to still be quite confused, sitting upright in her recliner, in no apparent distress. Pt resides alone in her own home on [address]. She has friends on the [place] that do her grocery shopping and take her to appts. Her ex-, Margarito, is still her DPOA, he lives in [place] close to pt's son/family. They will arrange for a friend from [place] to come and transport her home as soon as she's medically stable for home d/c. Payor: Medicare PCP: [facility] Pt is a 70 year-old F with a hx of ETOH abuse that presented to the ED from EMS after she was found down on the ground in her home by a neighbor following a GLF. Pt did hit her chin, but the head CT showed no abnormalities. EMS did share that she was surrounded by empty alcohol bottles, and her CIWA score was between 12-13. She was given an initial dose of Ativan in the ambulance with no effect, then she received a dose of phenobarb in the ED that did show some positive benefit. EMS had just been out to her home 2-weeks ago after she was found down after a GLF, again ETOH related. She already has a plan to fly down to [place] for the holidays, however PT is recommending SNF rehab, as pt is unable to stand or walk on her home at this time. Both pt and family are adamantly against that, and insist that a friend will come and help her get to the airport, and that family will get her into outpatient PT down here. Plan was made to admit pt for detox and symptom management. Margarito would like to be kept updated for when she is ready for d/c, and would like the Hospitalist to prescribe the drug that makes people not drink at d/c, so she won't drink when she gets to [place]. 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 No History Provided By Patient,Family Member,Medical Record Has Patient been No admitted in last 30 days? Prior Living House Arrangements Household Members none Comment Pt is . Her ex-, Margarito, is still her DPOA. Type of Relies on Others transporation used prior to admit Independent with ADL No: modified independent with a walker and assist from 's friends Is patient alert and No: No, AMS secondary to ETOH encephelopathy. oriented? Needs Assistance Home Chores / Shopping With Caregiver for No Another DME Already Rented / Elevated Toilet Seat,FWW / Walker Owned Patient/Family OP PT Therapy Preference Comment PT is recommending SNF rehab, pt and family refuse. They will move forward with getting her into OP PT once she arrives down in [place] for the holidays. Barriers to Yes Discharge Comment Pt cannot stand or walk on her own yet. Discharge Plan Home Transportation Friend Arrangement Referrals Initiated None needed Review Status In Process Please Provide Date 09/06/25 Initial DC Assessment Was Performed
--- NOTE | 2025-09-06 16:35 | OT.IP.EVAL ---
Current Diagnoses Alcohol use, unspecified with withdrawal delirium (09/04/25) Occupational Therapy Inpatient Evaluation/Re-Eval M1 OT IP Prior Functional Status Start: 09/06/25 16:42 Freq: Status: Active Protocol: Document 09/06/25 16:43 [facility] (Rec: 09/06/25 16:55 [facility] Desktop) Medical Review Prior Functional Status Communication Clear when speaking, RN states pt is hallucinatory. Mobility and Gait Short house hold distances with FWW and 4ww outdoors. Activities of Daily independent for home care, has friends that assist with Living and IADL's within the community grocery shopping or other errands . Social History Household Members none Living Arrangements House Number of Floors ( Two Floors Floors) Number of Stairs To 2 with railing on R in garage or 3 from front with no Enter/Railing? railing, 12 stairs in home Home Environment Standard Height Toilet,Walk in Shower Home Equipment Front Wheel Walker,Four Wheel Walker,Hand Held Shower, Grab Bars Near Toilet,Grab Bars In Shower M2 OT-IP Current Condition Start: 09/06/25 16:42 Freq: Status: Active Protocol: Document 09/06/25 16:43 [facility] (Rec: 09/06/25 16:55 [facility] Desktop) Occupational Therapy Current Condition Current Condition Evaluation Date 09/06/25 Treatment Diagnosis Sepsis, ecoli Diagnosis Onset Date 09/04/25 M3 OT- IP Subjective and Pain Start: 09/06/25 16:42 Freq: Status: Active Protocol: Document 09/06/25 16:43 [facility] (Rec: 09/06/25 16:55 [facility] Desktop) OT- Subjective Occupational Therapy Visit Type Type Initial Evaluation Visit Start Time 15:35 Visit Stop Time 16:10 Occupational Therapy Visit Comments Patient Comments Pt agreed to get up. Patient/Caregiver TO get better. Goals OT Pain Assessment Pain When Pain Assessed During Mobility Pain Present Pain Present Pain Reported Location Left Hip Pain Behaviors Facial Grimacing,Holding Area M4 OT- IP ADL's Start: 09/06/25 16:42 Freq: Status: Active Protocol: Document 09/06/25 16:43 [facility] (Rec: 09/06/25 16:55 [facility] Desktop) OT ADL-Dressing General Eval Lower Body Dressing Moderate Assistance Ability Comments OT Dressing Comments Assist to mckenzie left socks while seated. OT ADL-Toileting General Evaluation Toileting Ability Total Assistance Comments OT Toileting Velez Comments OT ADL-Bathing Comments OT Bathing Comments Sponge bath more appropriate or use of rolling shower chair. M5 OT- IP IADL's Start: 09/06/25 16:42 Freq: Status: Active Protocol: Document 09/06/25 16:43 [facility] (Rec: 09/06/25 16:55 [facility] Desktop) OT-Instrumental Activities of Daily Living Home Safety Awareness Ability to Problem Able to Problem Solve Solve Emergency Situations Home Safety Comments Pt able to answer all home safety situations with good accuracy. Meal Preparation Meal Preparation Pt will benefit from assist. 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 Comments Driving Driving Concerns Identified Regarding Safety M6 OT- IP Functional Cognition Start: 09/06/25 16:42 Freq: Status: Active Protocol: Document 09/06/25 16:43 [facility] (Rec: 09/06/25 16:55 [facility] Desktop) Cognitive Factors Limiting Selfcare Function Cognitive Ability Level of Alertness Alert Patient Orientation Name,Age,Birthday,Month,Date,Year,Day of Week,Place, Situation Attention Span Capable of Focused Attention,Capable of Sustained Ability Attention Ability to Follow Able to Follow One Step Commands Commands Memory Description Short Term Impaired Safety Awareness Underestimates Need for Assistance Cognitive Tests SLUMS Pt scored 25/30 which implies mild neurocognitive disorder. Pt feels that she is not thinking well and not at baseline cognitively. Cognitive Comments Cognitive Assessment Pt able to follow commands for ADL and mobility. Pt Comments needing increased time for problem solving. OT- Vision and Hearing OT- Hearing Assessment OT- Hearing WFL Assessment OT- Vision Assessment Visual Acuity Glasses For Reading Visual Attentiveness WFL M7 OT- IP Mobility and Balance Start: 09/06/25 16:42 Freq: Status: Active Protocol: Document 09/06/25 16:43 [facility] (Rec: 09/06/25 16:55 [facility] Desktop) OT-Transfer Assessment Sit to and From Stand Sit to and from Maximum Assistance Stand Comments Mobility Comments Pt needing MAXA X1 to stand to the FWW, pt heavily uses the back of her legs on the chair to assist to stand to the FWW. OT- Balance Assessment Sitting Balance and Reactions Static Sitting Good Balance Ability Dynamic Sitting Fair Balance Ability Standing Balance and Reactions Static Standing Poor Balance Ability Comments Other Balance Tests/ Pt unsteady for dynamic sitting balance while trying to Deviations/Treatment put on her left sock. Pt leans into posterior tilt : while standing and tends to hyperextend at her legs. M8 OT- IP Objective Assessments Start: 09/06/25 16:42 Freq: Status: Active Protocol: Document 09/06/25 16:43 [facility] (Rec: 09/06/25 16:55 [facility] Desktop) OT Gross Range of Motion Upper Extremity Range of Motion Assessment Within Functional Limits OT Strength Comments Strength Comments WFL for needs. OT- Coordination Assessment Upper Extremity Finger to Nose Test Left UE Impaired OT Sensation Assessment Comments Summary Comments Intact for light touch. Edema Edema Comments BLE swollen at ankles/feet M9 OT- IP Assessment and Plan Start: 09/06/25 16:42 Freq: Status: Active Protocol: Document 09/06/25 16:43 [facility] (Rec: 09/06/25 16:55 [facility] Desktop) OT Summary Assessment and Plan Potential Rehabilitation Good Potential Analytic Complexity Moderate at Evaluation Summary OT Impairments Strength,Balance,Functional Cognition,Functional Mobility,Grooming,Dressing,Toileting,Bathing,Toilet Transfers,Shower Transfers,Activity Tolerance Progress Towards Slow Progress due to Pain,Slow Progress due to Medical Goals Issues,Slow Progress due to Activity Tolerance Assessment Summary Pt MOD complexity and main barrier are steps, pain, decreased balance and needing MAX AX 1 to stand to the FWW at this time. Pt also needing extensive assist for ADL needs. Pt is very unsteady on her feet and is a high fall risk. Pt will greatly benefit from skilled rehab when medically stable. Initially pt insistent on going home but open to skilled rehab. Goals Grooming Goal Independent Dressing Goal Independent Toileting Goal Independent Bathing Goal Independent Toilet Transfer Goal Independent Shower Transfer Goal Independent Days to Meet Goals 20 Frequency of Treatment Other frequency 5x/week Treatment Plan OT Treatment Plan ADL Training,Functional Mobility,Patient/Family Education,Discharge Planning [place] [facility] [place] with [place]WW. Recommendations and Next Treatment Focus Discharge Recommendations OT Discharge SNF Rehab Recommendations Transportation Needs Wheelchair/Cabulance at Discharge
[2025-09-06 19:00] VITALS: BP 149/85; PULSE 84; RESP 19; TEMP 36.5; O2SAT 98
[2025-09-06] MEDS: MIRTAZAPINE 15 MG TABLET 30 MG PO (20:37)
[2025-09-07] MEDS: LEVOTHYROXINE 88 MCG TABLET PO (05:58)
--- NOTE | 2025-09-07 07:39 | PM.PN.1 ---
Subjective Subjective Date Patient Seen: 09/07/25 Interval history: 70 years old female with history of hypothyroidism, depression, alcohol abuse, presented to the ER with alcohol withdrawal symptoms including confusion and tremors. Per EMS records she was visited at her home for fall. Today they found her intoxicated with alcohol bottles scattered around the room. She was altered with significant tremors and bruises on her chin apparently from fall. She also reports some diffuse abdominal pain. The patient was given Zofran 4 mg IV and 1 mg IV Ativan and her CIWA score was 12?13. Laboratory shows 12.9, hemoglobin 11.5, MCV 102.2, potassium 5, creatinine 1.68, magnesium 1.7, AST 123, ALT 51. CT scan of the abdomen and pelvis was unremarkable. Chest x-ray was unremarkable. In the ER she was given magnesium 2 g IV, phenobarbital 130 mg IV and fluid bolus. 09/05: She was sedated, no acute distress. Not speaking. Breathing comfortably. 09/06: She is speaking quite clearly today and tells me that ?my shakiness is abating. ? She has a good appetite. She will be doing PT and OT. The TSH is low at 0.30 so the levothyroxine dose will be decreased. The BMP is normal today. 09/07: The 09/04 CBC was normal. The 09/06 BNP was normal. The AST was 89 with an ALT of 50. The magnesium is 1.8. She would like to begin a regular diet, somehow she was placed on a heart healthy diet. She has a very itchy rash on both in her elbows and the back of the right knee. On exam this appears to be linear across the arms scratches consistent with scabies. There is also a similar lesion on the center of the upper chest. We will treat her with permethrin. She is scheduled to fly to [place] in 2 days. That would be best delayed by at least 1 or 2 more days while physical therapy and occupational therapy works with her to try and get her strong enough again to work with a mobility device or wheelchair for that flight. NAD, oriented x3. No apparent distress. Normocephalic skull Lungs clear, normal rate and effort. Heart regular, no murmur gallop or rub. Extremities are free of edema. Skin has a significant scabitic appearing rash with linear scratches across both inner elbows and similar satellite lesions on the back of the right knee. At the top of the chest is small area of irritation/scratching, likely scabitic also Joints are not swollen or deformed. IMAGING: Head CT: No acute intracranial pathology. Chronic findings as above. Abdomen and pelvis CT: 1. Chronic postsurgical changes in the bowel without evidence of acute traumatic or other abdominal pathology. 2. Chronic and other incidental findings, as detailed above. Chest x-ray: No acute intrathoracic abnormality. Chronic left distal clavicular fracture deformity. Nonspecific hyperdensity projects over the left lung apex at the level of the third posterior rib. A/P: 1. Acute alcohol withdrawal, active. 2. SHELLY, improving. 3. Hypomagnesemia, improved. 4. Hypothyroidism, active. 5. Probable Scabies PLAN: -continue to support alcohol withdrawal CIWA and phenobarbital. -thiamine repletion. -Decrease Levothyroxine from 0.1 to 0.088 mg -PT/OT to optimize discharge plans: SNF or [facility] in [place]? -permethrin cream treatment for scabies, will need repeat in 7 days. Disposition: Likely to return home in 1-2 days. Full resuscitation. Exam Vital Signs (past 8 hours): Oxygen Delivery Method Room Air Oxygen Flow Rate 0 Objective Labs 09/04/25 19:25 09/07/25 08:45 PFSH Family History Father Cancer Grandmother Diverticulitis Social History marital status: household members: none lives independently: Yes caregiver/support person: Yes housing: house Smoking Status: Former smoker alcohol intake: current Assessment & Plan Time-Based Coding :: [TOTAL MINUTES] spent with patient and on the chart (including review of chart, obtaining history, exam, reviewing outside data, placing orders, documenting exam and treatment plan, and counseling patient) on [DATE]. Quality VTE Deep Vein Thrombosis/Pulmonary Embolism Present on Admission: No
--- NOTE | 2025-09-07 09:31 | PT.IPTN ---
Current Diagnoses Alcohol use, unspecified with withdrawal delirium (09/04/25) Physical Therapy Treatment Note M2 PT-IP Current Condition Start: 09/06/25 14:49 Freq: Status: Active Protocol: Document 09/06/25 14:49 [facility] (Rec: 09/06/25 15:03 [facility] [id number]) Physical Therapy Current Condition Current Condition Evaluation Date 09/06/25 Treatment Diagnosis GLF, Debility, Low activity tolerance Onset Date 09/04/25 M3 PT-IP Subjective Start: 09/06/25 14:49 Freq: Status: Active Protocol: Document 09/07/25 09:33 [facility] (Rec: 09/07/25 09:40 [facility] [id number]) Subjective Physical Therapy Visit Type Type Treatment Note Visit Start Time 08:49 Visit Stop Time 09:31 Number of AGENCY LEGAL COUNSEL Visits 0 Physical Therapy Visit Comments Patient Comments Pt has been able to keep food down since yesterday and is feeling better. Patient Goals Go home. M4 PT-IP Mobility and Gait Start: 09/06/25 14:49 Freq: Status: Active Protocol: Document 09/07/25 09:33 [facility] (Rec: 09/07/25 09:40 [facility] [id number]) PT-Bed Mobility Assessment Supine to Sit Supine to Sit Minimal Assistance,Head of Bed Elevated,Bedrails Scooting Scooting to Edge of Contact Guard Assistance Bed PT-Transfer Assessment Sit to and From Stand Sit to and from Minimal Assistance Stand Equipment Transfer Assistive Gait Belt,Front Wheeled Walker Device Transfers Transfer Destination Chair Transfer Technique Stand Step Pivot Transfer Ability Level of Assist Minimal Assistance Comments Mobility Comments Pt utilizes bilateral knee hyperextension with resting posterior thigh/calf on surface with STS for balance. Cues for UE placement with FWW. Pt is CGA from EOB with STS, and Azalea from lower surface of bed side chair. Performed 6 STS throughout session with FWW varying levels of assist. Gait Assessment Gait Gait Assistance Minimum Assistance Required: Distance (Feet) 20 Assistive Devices Assistive Device Gait Belt,Front Wheeled Walker Gait Deviations General Gait Pattern Decreased Stride Length,Flexed Trunk,Step-to Gait,Wide Based Gait Factors Limiting Gait Function Factors Limiting Decreased Strength,Poor Balance Gait Function Comments Gait Comments Slow arielle and irregular step/stride length. Cues to stand tall to decrease flexed trunk, unable to obtain upright. Azalea for weight shifting to allow adequate toe clearance with step to gait pattern. Performed over two equal bouts. PT-Balance Assessment Sitting Balance and Reactions Static Sitting Normal Balance Ability Dynamic Sitting Good Balance Ability Standing Balance and Reactions Static Standing Poor Balance Ability Dynamic Standing Poor Balance Ability Device Used FWW Functional Assessments Other Functional Tests Standing tolerance > 2 minutes requiring 4-5 mins of Performed recovery after exertion. M5 PT-IP Objective Assessments Start: 09/06/25 14:49 Freq: Status: Active Protocol: Document 09/06/25 14:49 [facility] (Rec: 09/06/25 15:03 [facility] [id number]) Orientation Orientation/Cognition Level of Alertness Alert Orientation Name,Age,Birthday,Month,Date,Year,Day of Week,Place, Situation Safety Awareness Decreased Safety Awareness Comments Pt wants to go home and does not see concern for mobility deficits and living alone. Gross Range of Motion Upper Extremity ROM Assessment Within Functional Limits Lower Extremity ROM Assessment Within Functional Limits Strength Lower Extremity Strength Assessment Left Impaired Hip 3/5 flexion Knee 4/5 ext Ankle WFL Coordination Assessment Gross Coordination Gross Coordination WNL Sensation Assessment Sensation Gross Sensation WNL Light Touch Intact Muscle Tone Muscle Tone WNL Yes M6 PT-IP Treatment Start: 09/06/25 14:49 Freq: Status: Active Protocol: Document 09/07/25 09:33 [facility] (Rec: 09/07/25 09:40 [facility] [id number]) Physical Therapy Treatment Exercises Exercises Ankle Pumps,Seated Knee Flexion/Extension Education Education Provided Safety M7 PT-IP Assessment and Plan Start: 09/06/25 14:49 Freq: Status: Active Protocol: Document 09/07/25 09:33 [facility] (Rec: 09/07/25 09:40 [facility] [id number]) PT Summary Assessment and Plan Potential Rehabilitation Good Potential Status of Condition Evolving at Evaluation Summary Impairments Strength,Balance,Bed Mobility,Transfers,Gait,Activity Tolerance Progress Towards Progressing Toward Goals Goals Assessment Summary Improved activity tolerance today with normal vitals. Pt was able to complete 6 STS with FWW min/CGA dependent on surface height and ambulate with FWW 20 ft over two bouts. Pt continues to utilize bilateral knee hyperextension for estrella support secondary to decrease strength. Pt lives alone and would be unsafe to return home at this time secondary to mobility issues. Continue to recommend SNF upon discharge. Goals Bed Mobility Goal Independent Transfer Goal Independent Gait Goal Independent Gait Distance 50 Other Goals Pt will navigate 2 steps with hand rail on . Days to Meet Goals 3 Frequency of Treatment Frequency Of Once a Day Treatment Treatment Plan Physical Therapy Bed Mobility Training,Transfer Training,Gait Training, Treatment Plan Therapeutic Exercise,Balance Retraining,Discharge Planning,Neuromuscular Re-ed Other Continue with transfers and ambulation as able. Recommendations and Next Treatment Focus Precautions Other Precautions falls risk, scabies, chau, ETOH Weight Bearing Status Weight Bearing Weight Bear as Tolerated Status Recommendations To Nursing Amount of Assist 1 Person Assist Needed Discharge Recommendations PT Discharge SNF Rehab Recommendations Other Discharge with potential to progress to home with assistance Recommendations Transportation Needs Wheelchair/Cabulance at Discharge - PT assist 1
[2025-09-07 09:54] LABS: Alanine Aminotransferase 50 IU/L (<35); Albumin 3.7 g/dL (3.5-5.0); Albumin Globulin Ratio 1.5 (1.0-2.8); Alkaline Phosphatase 136 U/L (38-126); Blood Urea Nitrogen 18 mg/dL (7-17); Calcium 9.5 mg/dL (8.4-10.2); Carbon Dioxide 26 mmol/L (22-32); Chloride 105 mmol/L (98-107); Estimated Glomerular Filt Rate > 60 mL/min (>60); Globulin 2.5 g/dL (1.7-4.1); Glucose 137 mg/dL (70-99); HEMOLYSIS < 15 (0-50); Magnesium 1.8 mg/dL (1.6-2.3); Potassium 3.6 mmol/L (3.4-5.1); Sodium 140 mmol/L (137-145); Total Protein 6.2 g/dL (6.3-8.2)
[2025-09-07] MEDS: GABAPENTIN 600 MG TABLET PO ×2 (10:00→23:20)
[2025-09-07] MEDS: ESCITALOPRAM 10 MG TABLET 15 MG PO (10:00)
[2025-09-07] MEDS: ENOXAPARIN 40 MG/0.4 ML SYRINGE SUBCUT (10:00)
[2025-09-07] MEDS: MULTIVITAMIN 1 TABLET 1 TAB PO (10:00)
--- NOTE | 2025-09-07 16:41 | DIET.CONS ---
Dietary Consultation Note Admission Date: 09/04/2025 23:48 Assessment: 70 y F admitted with acute alcohol withdrawal. Dietitian screened for MNA score - moderate decrease in PO intakes. Pt with improved appetite since yesterday. Likely inadequate energy-protein intakes in setting of alcohol abuse. Ht: 170.18 cm Wt: 65 kg BMI: 22.4 UBW: 69 kg over a year ago Last BM: 09/04/25 (09/05/25 04:27) MNA: 8 Jacobo Score: 20 Diet: 09/07/25 Lunch General (Regular) Diet Diet Modifications: Food Texture: Level 7 - Regular Liquid Consistency: Level 0 - Thin Labs: RBC 3.43 X10^6/uL (4.0-5.2) L 09/04/25 19:25 Hgb 11.5 g/dL (12.0-16.0) L 09/04/25 19:25 Hct 35.0 % (36-46) L 09/04/25 19:25 Creatinine 0.82 mg/dL (0.52-1.04) 09/07/25 08:45 Nutrition Diagnosis: Excessive alcohol intake r/t alcohol misuse aeb alcohol withdrawal/found in room with many empty alcohol bottles Interventions: ONS as needed if multiple PO intakes <75% Monitoring/Evaluations: PO intakes Electronically Signed by: Adina Nova 09/07/25 16:41 Clinical Dietitian [address] [address]
[2025-09-07 19:00] VITALS: BP 158/91; PULSE 81; RESP 16; TEMP 36.6; O2SAT 97
[2025-09-07] MEDS: MIRTAZAPINE 15 MG TABLET 30 MG PO (23:20)
[2025-09-08 04:00] VITALS: BP 154/85; PULSE 78; RESP 16; TEMP 36.6; O2SAT 99
[2025-09-08] MEDS: LEVOTHYROXINE 88 MCG TABLET PO (05:28)
[2025-09-08 08:00] VITALS: BP 150/88; PULSE 75; RESP 12; TEMP 36.4; O2SAT 97
--- NOTE | 2025-09-08 08:18 | PM.PN.1 ---
Subjective Subjective Date Patient Seen: 09/08/25 Interval history: 70 years old female with history of hypothyroidism, depression, alcohol abuse, presented to the ER with alcohol withdrawal symptoms including confusion and tremors. Per EMS records she was visited at her home for fall. Today they found her intoxicated with alcohol bottles scattered around the room. She was altered with significant tremors and bruises on her chin apparently from fall. She also reports some diffuse abdominal pain. The patient was given Zofran 4 mg IV and 1 mg IV Ativan and her CIWA score was 12?13. Laboratory shows 12.9, hemoglobin 11.5, MCV 102.2, potassium 5, creatinine 1.68, magnesium 1.7, AST 123, ALT 51. CT scan of the abdomen and pelvis was unremarkable. Chest x-ray was unremarkable. In the ER she was given magnesium 2 g IV, phenobarbital 130 mg IV and fluid bolus. 09/05: She was sedated, no acute distress. Not speaking. Breathing comfortably. 09/06: She is speaking quite clearly today and tells me that ?my shakiness is abating. ? She has a good appetite. She will be doing PT and OT. The TSH is low at 0.30 so the levothyroxine dose will be decreased. The BMP is normal today. 09/07: The 09/04 CBC was normal. The 09/06 BNP was normal. The AST was 89 with an ALT of 50. The magnesium is 1.8. She would like to begin a regular diet, somehow she was placed on a heart healthy diet. She has a very itchy rash on both in her elbows and the back of the right knee. On exam this appears to be linear across the arms scratches consistent with scabies. There is also a similar lesion on the center of the upper chest. We will treat her with permethrin. She is scheduled to fly to [place] in 2 days. That would be best delayed by at least 1 or 2 more days while physical therapy and occupational therapy works with her to try and get her strong enough again to work with a mobility device or wheelchair for that flight. 09/08: She is now mobilizing and noticing that she is leaning to the right. Her brain CT was normal. We will add a brain MRI for completeness. Her voice is loud and her speech is now spontaneous. She says she has decided to go back to [place] instead of going to [place] and that she will go to rehab locally. The scabies rash looks nearly resolved after treatment yesterday. NAD, oriented x3. No apparent distress. Normocephalic skull Lungs clear, normal rate and effort. Heart regular, no murmur gallop or rub. Extremities are free of edema. Nearly resolved rash with linear scratches across both inner elbows and similar satellite lesions on the back of the right knee. At the top of the chest is small area of irritation/scratching, likely scabitic also. Minor reactive swelling underneath the upper chest scabies lesion. Joints are not swollen or deformed. IMAGING: Head CT: No acute intracranial pathology. Chronic findings as above. Abdomen and pelvis CT: 1. Chronic postsurgical changes in the bowel without evidence of acute traumatic or other abdominal pathology. 2. Chronic and other incidental findings, as detailed above. Chest x-ray: No acute intrathoracic abnormality. Chronic left distal clavicular fracture deformity. Nonspecific hyperdensity projects over the left lung apex at the level of the third posterior rib. A/P: 1. Acute alcohol withdrawal, active. 2. SHELLY, improving. 3. Hypomagnesemia, improved. 4. Hypothyroidism, active. 5. Scabies PLAN: -brain MRI to rule out occult CARDROOM MANAGER process contributing to her likely alcohol related gait/balance ataxia. -thiamine repletion. -Decreased Levothyroxine from 0.1 to 0.088 mg -PT/OT to optimize discharge plans: SNF locally. She decided against going to [place]. -permethrin cream treatment for scabies on 09/07, will need repeat treatment on 09/14. Disposition: [facility] jail facility [facility] 1 more day. Full resuscitation. Exam Vital Signs (past 8 hours): - 09/08/25 04:00 Temperature 97.8 F Pulse Rate 78 Respiratory Rate 16 Blood Pressure 154/85 H Pulse Oximetry 99 Oxygen Flow Rate 0 Oxygen Delivery Method Room Air Oxygen Flow Rate 0 Objective Labs 09/04/25 19:25 09/07/25 08:45 Labs: Laboratory Results - last 24 hr 09/07/25 08:45 Sodium 140 Potassium 3.6 Chloride 105 Carbon Dioxide 26 BUN 18 H Creatinine 0.82 Estimated GFR > 60 BUN/Creatinine Ratio 22.0 Glucose 137 H Calcium 9.5 Magnesium 1.8 Total Bilirubin 0.6 AST 89 H ALT 50 H Alkaline Phosphatase 136 H Total Protein 6.2 L Albumin 3.7 Globulin 2.5 Albumin/Globulin Ratio 1.5 PFSH Family History Father Cancer Grandmother Diverticulitis Social History marital status: household members: none lives independently: Yes caregiver/support person: Yes housing: house Smoking Status: Former smoker alcohol intake: current Assessment & Plan Time-Based Coding :: [TOTAL MINUTES] spent with patient and on the chart (including review of chart, obtaining history, exam, reviewing outside data, placing orders, documenting exam and treatment plan, and counseling patient) on [DATE]. Quality VTE Deep Vein Thrombosis/Pulmonary Embolism Present on Admission: No
--- NOTE | 2025-09-08 10:06 | DI.MRI.S_ITS ---
PROCEDURE: MR HEAD/BRAIN WO CON INDICATIONS: LE Weakness TECHNIQUE: Non-contrast axial T1 spin echo, axial T2 fast spin echo, sagittal and axial FLAIR, coronal T2 fast spin echo, axial gradient echo, axial diffusion and ADC through the brain. COMPARISON: None. FINDINGS: Image quality: Excellent. CSF spaces: Ventricles appear symmetric in size and shape. Basal cisterns are patent. No extra-axial fluid collections. Brain: No intracranial bleeds or mass effects. There is cerebral volume loss for age. There are periventricular and deep white matter chronic small vessel ischemic changes, including involving the brainstem. Diffusion-weighted images show no acute infarct. No chronic ischemic insults. Normal intravascular flow voids are present. Skull and face: Calvarial bone marrow is normal in signal. Orbits are normal. Sinuses: Sinuses and mastoids are clear. IMPRESSION: No acute or subacute infarct. No acute intracranial abnormalities. Age-related global volume loss and chronic microvascular ischemic change. Dictated by: Yovani Nava M.D. on 09/08/2025 at 11:21 Approved by: Yovani Nava M.D. on 09/08/2025 at 11:23
--- NOTE | 2025-09-08 11:58 | PT.IPTN ---
Current Diagnoses Alcohol use, unspecified with withdrawal delirium (09/04/25) Physical Therapy Treatment Note M2 PT-IP Current Condition Start: 09/06/25 14:49 Freq: Status: Active Protocol: Document 09/08/25 11:42 SP (Rec: 09/08/25 12:39 SP [id number]) Physical Therapy Current Condition Current Condition Evaluation Date 09/06/25 Treatment Diagnosis GLF, Debility, Low activity tolerance Onset Date 09/04/25 M3 PT-IP Subjective Start: 09/06/25 14:49 Freq: Status: Active Protocol: Document 09/08/25 11:42 SP (Rec: 09/08/25 12:39 SP [id number]) Subjective Physical Therapy Visit Type Type Treatment Note Visit Start Time 11:42 Visit Stop Time 11:58 Notes 16 min Number of EXECUTIVE SALES ASSISTANT Visits 1 Physical Therapy Visit Comments Patient Comments Pt agreeable to working with EXECUTIVE SALES ASSISTANT, wants to get up out of bed and move around. Therapy Pain Assessment Pain When Pain Assessed During Mobility Pain Present Pain Present Pain Reported Location Left Hip Intensity 4 Description With Movement Pain Behaviors Facial Grimacing Pain Management Distraction,Modification of Treatment,Re-positioning Techniques M4 PT-IP Mobility and Gait Start: 09/06/25 14:49 Freq: Status: Active Protocol: Document 09/08/25 11:42 SP (Rec: 09/08/25 12:39 SP [id number]) PT-Bed Mobility Assessment Supine to Sit Supine to Sit Minimal Assistance,Head of Bed Elevated,Bedrails Scooting Scooting to Edge of Contact Guard Assistance Bed PT-Transfer Assessment Sit to and From Stand Sit to and from Minimal Assistance,1 Person Assistance,Use of Upper Stand Extremities Equipment Transfer Assistive Gait Belt,Front Wheeled Walker Device Transfers Transfer Destination Chair Transfer Technique pt ambulated w FWW Transfer Ability Level of Assist Contact Guard Assistance,1 Person Assistance,Use of Upper Extremities Comments Mobility Comments Decreased amount of posterior pressure knees on bed coming to standing, cues for proper hand placement push from bed/ reach back to slow sit. Cesia STS from bed but decreased to CGA x3 throughout session. Gait Assessment Gait Gait Assistance Minimum Assistance Required: Distance (Feet) 30 Assistive Devices Assistive Device Gait Belt,Front Wheeled Walker Gait Deviations General Gait Pattern Antalgic,Decreased Stride Length,Decreased Feet Clearance,Flexed Trunk,Wide Based Gait Factors Limiting Gait Function Factors Limiting Decreased Activity Tolerance,Decreased Strength,Pain, Gait Function Poor Balance,Poor Safety Awareness Comments Gait Comments Slow arielle and irregular step/stride length, WBOS with lateral wt shifting. Cues for stand tall to decrease flexed trunk. Progressed to reciprocal stepping, little off balance during pivot turns in room 5%A. Stair Climbing Assessment Comments Stair Climbing unable at this time, has 2 stairs with 2 BHR in garage, Comments 3 stairs front no HRs, 12 stairs inside home. PT-Balance Assessment Sitting Balance and Reactions Static Sitting Normal Balance Ability Dynamic Sitting Good Balance Ability Standing Balance and Reactions Static Standing Good Balance Ability Dynamic Standing Fair Balance Ability Device Used FWW M5 PT-IP Objective Assessments Start: 09/06/25 14:49 Freq: Status: Active Protocol: Document 09/06/25 14:49 NW (Rec: 09/06/25 15:03 NW [id number]) Orientation Orientation/Cognition Level of Alertness Alert Orientation Name,Age,Birthday,Month,Date,Year,Day of Week,Place, Situation Safety Awareness Decreased Safety Awareness Comments Pt wants to go home and does not see concern for mobility deficits and living alone. Gross Range of Motion Upper Extremity ROM Assessment Within Functional Limits Lower Extremity ROM Assessment Within Functional Limits Strength Lower Extremity Strength Assessment Left Impaired Hip 3/5 flexion Knee 4/5 ext Ankle WFL Coordination Assessment Gross Coordination Gross Coordination WNL Sensation Assessment Sensation Gross Sensation WNL Light Touch Intact Muscle Tone Muscle Tone WNL Yes M6 PT-IP Treatment Start: 09/06/25 14:49 Freq: Status: Active Protocol: Document 09/08/25 11:42 SP (Rec: 09/08/25 12:39 SP [id number]) Physical Therapy Treatment Education Education Provided Safety Other Treatments Other Treatment Education on importance of increasing time out of bed Performed and recommendations secondary to safety concerns returning home alone. M7 PT-IP Assessment and Plan Start: 09/06/25 14:49 Freq: Status: Active Protocol: Document 09/08/25 11:42 SP (Rec: 09/08/25 12:39 SP [id number]) PT Summary Assessment and Plan Potential Rehabilitation Good Potential Status of Condition Evolving at Evaluation Summary Impairments Strength,Balance,Bed Mobility,Transfers,Gait,Activity Tolerance Progress Towards Progressing Toward Goals,Slow Progress due to Activity Goals Tolerance Assessment Summary Pt still requires Min> CGA during STS does utilize posterior legs on bed for support initially, during various repetitions throughout tx, CGA/Min A during pivot turn in room gait approx 30 ft total, lateral wt shift WBOS gait with FWW. Decreased endurance to trial stair mgt at this time. Not at her baseline to return home alone. Recommending SNF for progression strength and funcitonal mobility. Will continue to assess progress. Goals Bed Mobility Goal Independent Transfer Goal Independent Gait Goal Independent Gait Distance 50 Other Goals Pt will navigate 2 steps with hand rail on . Days to Meet Goals 3 Frequency of Treatment Frequency Of Once a Day Treatment Treatment Plan Physical Therapy Bed Mobility Training,Transfer Training,Gait Training, Treatment Plan Therapeutic Exercise,Balance Retraining,Discharge Planning,Neuromuscular Re-ed Other Transfers, gait with FWW, stair mgt when able. Recommendations and Next Treatment Focus Precautions Other Precautions falls risk, scabies, chau, ETOH Weight Bearing Status Weight Bearing Weight Bear as Tolerated Status Recommendations To Nursing Amount of Assist 1 Person Assist Needed Discharge Recommendations PT Discharge SNF Rehab Recommendations Transportation Needs Wheelchair/Cabulance at Discharge - PT assist 1
[2025-09-08] MEDS: MULTIVITAMIN 1 TABLET 1 TAB PO (12:03)
[2025-09-08] MEDS: GABAPENTIN 600 MG TABLET PO ×2 (12:03→20:59)
[2025-09-08] MEDS: ENOXAPARIN 40 MG/0.4 ML SYRINGE SUBCUT (12:03)
[2025-09-08] MEDS: ESCITALOPRAM 10 MG TABLET 15 MG PO (12:03)
--- NOTE | 2025-09-08 13:20 | OT.IP.TRT ---
Current Diagnoses Alcohol use, unspecified with withdrawal delirium (09/04/25) Occupational Therapy Treatment Note M2 OT-IP Current Condition Start: 09/06/25 16:42 Freq: Status: Active Protocol: Document 09/06/25 16:43 [facility] (Rec: 09/06/25 16:55 [facility] Desktop) Occupational Therapy Current Condition Current Condition Evaluation Date 09/06/25 Treatment Diagnosis Sepsis, ecoli Diagnosis Onset Date 09/04/25 M3 OT- IP Subjective and Pain Start: 09/06/25 16:42 Freq: Status: Active Protocol: Document 09/08/25 13:13 [facility] (Rec: 09/08/25 13:19 [facility] Desktop) OT- Subjective Occupational Therapy Visit Type Type Treatment Note Visit Start Time 12:50 Visit Stop Time 13:02 Occupational Therapy Visit Comments Patient Comments Pt agreed to get up. Patient/Caregiver Pt now aware bets to go to skilled rehab. Goals OT Pain Assessment Pain When Pain Assessed During Mobility Pain Present Pain Present Pain Reported Location Left Hip Pain Behaviors Facial Grimacing M4 OT- IP ADL's Start: 09/06/25 16:42 Freq: Status: Active Protocol: Document 09/06/25 16:43 [facility] (Rec: 09/06/25 16:55 [facility] Desktop) OT ADL-Dressing General Eval Lower Body Dressing Moderate Assistance Ability Comments OT Dressing Comments Assist to mckenzie left socks while seated. OT ADL-Toileting General Evaluation Toileting Ability Total Assistance Comments OT Toileting Velez Comments OT ADL-Bathing Comments OT Bathing Comments Sponge bath more appropriate or use of rolling shower chair. M5 OT- IP IADL's Start: 09/06/25 16:42 Freq: Status: Active Protocol: Document 09/06/25 16:43 [facility] (Rec: 09/06/25 16:55 [facility] Desktop) OT-Instrumental Activities of Daily Living Home Safety Awareness Ability to Problem Able to Problem Solve Solve Emergency Situations Home Safety Comments Pt able to answer all home safety situations with good accuracy. Meal Preparation Meal Preparation Pt will benefit from assist. 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 Comments Driving Driving Concerns Identified Regarding Safety M6 OT- IP Functional Cognition Start: 09/06/25 16:42 Freq: Status: Active Protocol: Document 09/08/25 13:13 [facility] (Rec: 09/08/25 13:19 [facility] Desktop) Cognitive Factors Limiting Selfcare Function Cognitive Comments Cognitive Assessment Pt doing better and now realizes best to go to skilled Comments rehab. Pt feels that she is 50% base to her baseline for mobility needs. M7 OT- IP Mobility and Balance Start: 09/06/25 16:42 Freq: Status: Active Protocol: Document 09/08/25 13:13 [facility] (Rec: 09/08/25 13:19 [facility] Desktop) OT-Transfer Assessment Sit to and From Stand Sit to and from Contact Guard Assistance,Moderate Assistance Stand Transfers Transfer Ability Standby Assistance,Contact Guard Assistance Technique Transfer Destination Chair Transfer Technique Stand Step Pivot Devices Transfer Assistive Gait Belt,Front Wheeled Walker Devices Comments Mobility Comments Pt has 36inch inseams and therefore has difficulty to get up from lower surfaces and needing up to MODA. Pt able to stand from the recliner with CGA and walk in the room with CGA to close SBA and heavy use of her arms on the FWW. OT- Balance Assessment Sitting Balance and Reactions Static Sitting Normal Balance Ability Dynamic Sitting Good Balance Ability Standing Balance and Reactions Static Standing Fair Balance Ability Dynamic Standing Fair Balance Ability Comments Other Balance Tests/ Pt doing a bit better with her balance and has to be Deviations/Treatment mindful of not leaning posteriorly. Pt heavily favors : her right leg due to left hip pain. M8 OT- IP Objective Assessments Start: 09/06/25 16:42 Freq: Status: Active Protocol: Document 09/06/25 16:43 [facility] (Rec: 09/06/25 16:55 [facility] Desktop) OT Gross Range of Motion Upper Extremity Range of Motion Assessment Within Functional Limits OT Strength Comments Strength Comments WFL for needs. OT- Coordination Assessment Upper Extremity Finger to Nose Test Left UE Impaired OT Sensation Assessment Comments Summary Comments Intact for light touch. Edema Edema Comments BLE swollen at ankles/feet M9 OT- IP Assessment and Plan Start: 09/06/25 16:42 Freq: Status: Active Protocol: Document 09/08/25 13:13 [facility] (Rec: 09/08/25 13:19 [facility] Desktop) OT Summary Assessment and Plan Potential Rehabilitation Good Potential Analytic Complexity Moderate at Evaluation Summary OT Impairments Strength,Balance,Functional Mobility,Grooming,Dressing, Toileting,Bathing,Toilet Transfers,Shower Transfers, Activity Tolerance Progress Towards Progressing Toward Goals Goals Assessment Summary Pt doing better, thinking better and now agreeable to go to skilled rehab. Pt will still benefit from skilled rehab to improve her transitions and independence and all ADL and mobility needs. Goals Grooming Goal Independent Dressing Goal Independent Toileting Goal Independent Bathing Goal Independent Toilet Transfer Goal Independent Shower Transfer Goal Independent Days to Meet Goals 19 Frequency of Treatment Other frequency 5x/week Treatment Plan OT Treatment Plan ADL Training,Functional Mobility,Patient/Family Education,Discharge Planning Other Treatment Standing ADL's. Recommendations and Next Treatment Focus Discharge Recommendations OT Discharge SNF Rehab Recommendations Transportation Needs Private Vehicle,Wheelchair/Cabulance at Discharge
[2025-09-08 14:31] VITALS: BP 124/68; PULSE 85; RESP 13; TEMP 36.2; O2SAT 95
[2025-09-08] MEDS: MIRTAZAPINE 15 MG TABLET 30 MG PO (20:59)
[2025-09-09] VITALS: BP 168/84; PULSE 80; RESP 18; TEMP 36.1; O2SAT 100
[2025-09-09] MEDS: LEVOTHYROXINE 88 MCG TABLET PO (06:00)
[2025-09-09 08:00] VITALS: BP 117/57; PULSE 84; RESP 13; TEMP 36.5; O2SAT 98
[2025-09-09] MEDS: ESCITALOPRAM 10 MG TABLET 15 MG PO (09:56)
[2025-09-09] MEDS: MULTIVITAMIN 1 TABLET 1 TAB PO (10:04)
[2025-09-09] MEDS: SODIUM CHLORIDE 0.9% FLUSH 10 ML IV ×2 (10:05→21:10)
[2025-09-09] MEDS: GABAPENTIN 600 MG TABLET PO ×2 (10:05→21:09)
[2025-09-09] MEDS: ENOXAPARIN 40 MG/0.4 ML SYRINGE SUBCUT (10:05)
--- NOTE | 2025-09-09 10:34 | PC.NURSE ---
Pt sitting in the room, NAD, watching tv, talking about [place] plan and her family, will continue to monitor.
--- NOTE | 2025-09-09 10:52 | PM.PN.IH.1 ---
Subjective Subjective Date Patient Seen: 09/09/25 Time Patient Seen: 08:23 Interval history: 70 years old female with history of hypothyroidism, depression, alcohol abuse, presented to the ER with alcohol withdrawal symptoms including confusion and tremors. Per EMS records she was visited at her home for fall. Today they found her intoxicated with alcohol bottles scattered around the room. She was altered with significant tremors and bruises on her chin apparently from fall. She also reports some diffuse abdominal pain. The patient was given Zofran 4 mg IV and 1 mg IV Ativan and her CIWA score was 12?13. Laboratory shows 12.9, hemoglobin 11.5, MCV 102.2, potassium 5, creatinine 1.68, magnesium 1.7, AST 123, ALT 51. CT scan of the abdomen and pelvis was unremarkable. Chest x-ray was unremarkable. In the ER she was given magnesium 2 g IV, phenobarbital 130 mg IV and fluid bolus. 09/05: She was sedated, no acute distress. Not speaking. Breathing comfortably. 09/06: She is speaking quite clearly today and tells me that ?my shakiness is abating. ? She has a good appetite. She will be doing PT and OT. The TSH is low at 0.30 so the levothyroxine dose will be decreased. The BMP is normal today. 09/07: The 09/04 CBC was normal. The 09/06 BNP was normal. The AST was 89 with an ALT of 50. The magnesium is 1.8. She would like to begin a regular diet, somehow she was placed on a heart healthy diet. She has a very itchy rash on both in her elbows and the back of the right knee. On exam this appears to be linear across the arms scratches consistent with scabies. There is also a similar lesion on the center of the upper chest. We will treat her with permethrin. She is scheduled to fly to [place] in 2 days. That would be best delayed by at least 1 or 2 more days while physical therapy and occupational therapy works with her to try and get her strong enough again to work with a mobility device or wheelchair for that flight. 09/08: She is now mobilizing and noticing that she is leaning to the right. Her brain CT was normal. We will add a brain MRI for completeness. Her voice is loud and her speech is now spontaneous. She says she has decided to go back to [place] instead of going to [place] and that she will go to rehab locally. The scabies rash looks nearly resolved after treatment yesterday. 09/09: She has no complaints today. She anticipate care home facility placement when a facility with an isolation capacity can take her given scabies. She receives another treatment on 09/14 and then has 7 more days of isolation. Brain MRI yesterday was unremarkable. NAD, oriented x3. No apparent distress. Normocephalic skull Lungs clear, normal rate and effort. Heart regular, no murmur gallop or rub. Extremities are free of edema. Nearly resolved rash with linear scratches across both inner elbows and similar satellite lesions on the back of the right knee. At the top of the chest is small area of irritation/scratching, likely scabitic also. Minor reactive swelling underneath the upper chest scabies lesion. Joints are not swollen or deformed. IMAGING: Head CT: No acute intracranial pathology. Chronic findings as above. Abdomen and pelvis CT: 1. Chronic postsurgical changes in the bowel without evidence of acute traumatic or other abdominal pathology. 2. Chronic and other incidental findings, as detailed above. Chest x-ray: No acute intrathoracic abnormality. Chronic left distal clavicular fracture deformity. Nonspecific hyperdensity projects over the left lung apex at the level of the third posterior rib. Brain MRI: No acute or subacute infarct. No acute intracranial abnormalities. Age-related global volume loss and chronic microvascular ischemic change. A/P: 1. Acute alcohol withdrawal, resolving. 2. SHELLY, improving. 3. Hypomagnesemia, improved. 4. Hypothyroidism, active. 5. Scabies PLAN: -thiamine repletion. -Decreased Levothyroxine from 0.1 to 0.088 mg. TSH will need to be followed in 6-8 weeks given likelihood of sick euthyroid syndrome causing low TSH -PT/OT to optimize discharge plans: SNF locally. She decided against going to [place]. -permethrin cream treatment for scabies on 09/07, will need repeat treatment on 09/14. Isolation through 09/22/2025 Disposition: Likely to discharge to care home facility in 1 more day. Full resuscitation. Exam Vital Signs (past 8 hours): - 09/09/25 08:00 Temperature 97.7 F Pulse Rate 84 Respiratory Rate 13 Blood Pressure 117/57 L Pulse Oximetry 98 Oxygen Flow Rate 0 Oxygen Delivery Method Room Air Oxygen Flow Rate 0 Objective Labs 09/04/25 19:25 09/07/25 08:45 PFSH Family History Father Cancer Grandmother Diverticulitis Social History marital status: household members: none lives independently: Yes caregiver/support person: Yes housing: house Smoking Status: Former smoker alcohol intake: current Assessment & Plan Time-Based Coding :: [TOTAL MINUTES] spent with patient and on the chart (including review of chart, obtaining history, exam, reviewing outside data, placing orders, documenting exam and treatment plan, and counseling patient) on [DATE]. Quality VTE Deep Vein Thrombosis/Pulmonary Embolism Present on Admission: No [facility] [employer] Document charge(s): No
--- NOTE | 2025-09-09 11:04 | CM.DPC ---
Addendum entered by Paola Nash RN 09/09/25 13:38: [facility] to [facility] and [facility] Original Note: No ISO beds at . Patient profile sent to [facility] [place].
--- NOTE | 2025-09-09 11:14 | PT.IPTN ---
Current Diagnoses Alcohol use, unspecified with withdrawal delirium (09/04/25) Physical Therapy Treatment Note M2 PT-IP Current Condition Start: 09/06/25 14:49 Freq: Status: Active Protocol: Document 09/09/25 10:59 [facility] (Rec: 09/09/25 11:14 [facility] [id number]) Physical Therapy Current Condition Current Condition Evaluation Date 09/06/25 Treatment Diagnosis GLF, Debility, Low activity tolerance Onset Date 09/04/25 M3 PT-IP Subjective Start: 09/06/25 14:49 Freq: Status: Active Protocol: Document 09/09/25 10:59 [facility] (Rec: 09/09/25 11:14 [facility] [id number]) Subjective Physical Therapy Visit Type Type Treatment Note Visit Start Time 10:30 Visit Stop Time 10:55 Notes 25 Physical Therapy Visit Comments Patient Comments pt agrees to work with PT and reports needs to use the commode, she also reports she is liking using the wedge under her left side for the pressure sore that has started. She realizes that SNF is needed for her rehab and she has been researching SNF in [place] Pain Assessment Pain When Pain Assessed During Mobility Pain Present Pain Present Denied Pain Location Left Hip Intensity 4 Description With Movement Pain Behaviors Facial Grimacing Pain Management Distraction,Modification of Treatment,Re-positioning Techniques M4 PT-IP Mobility and Gait Start: 09/06/25 14:49 Freq: Status: Active Protocol: Document 09/09/25 10:59 [facility] (Rec: 09/09/25 11:14 [facility] [id number]) PT-Bed Mobility Assessment Supine to Sit Supine to Sit Contact Guard Assistance,Head of Bed Elevated,Bedrails Scooting Scooting to Edge of Contact Guard Assistance Bed PT-Transfer Assessment Sit to and From Stand Sit to and from Minimal Assistance,1 Person Assistance,Use of Upper Stand Extremities Equipment Transfer Assistive Gait Belt,Front Wheeled Walker Device Transfers Transfer Destination Bedside Commode Transfer Ability Level of Assist Contact Guard Assistance,1 Person Assistance,Use of Upper Extremities Comments Mobility Comments pt needed to sit at EOB for a few minutes prior to stand, she is shaky throughout her arms today. She stood with fww support for a few min prior to ambulating to bed side commode Gait Assessment Gait Gait Assistance Minimum Assistance Required: Distance (Feet) 25 Assistive Devices Assistive Device Gait Belt,Front Wheeled Walker Gait Deviations General Gait Pattern Antalgic,Decreased Stride Length,Decreased Feet Clearance,Flexed Trunk,Wide Based Gait Factors Limiting Gait Function Factors Limiting Decreased Activity Tolerance,Decreased Strength,Pain, Gait Function Poor Balance,Poor Safety Awareness Comments Gait Comments slow arielle, wide AMANDA, irregular step/stride length, shaky through her arms, Min a for weight shifting. Ambulated with fww in room, then to commode. She was able to balance to pull briefs down herself with CGA. Upon return to stand she needed a small amount of assist donning new briefs and pulling them up. Pt then agreed to sit in bed side chair and she ambulated to the chair where she was positioned with wedge under the left buttock PT-Balance Assessment Sitting Balance and Reactions Static Sitting Normal Balance Ability Dynamic Sitting Good Balance Ability Standing Balance and Reactions Static Standing Fair Balance Ability Dynamic Standing Fair Balance Ability Device Used FWW M5 PT-IP Objective Assessments Start: 09/06/25 14:49 Freq: Status: Active Protocol: Document 09/06/25 14:49 [facility] (Rec: 09/06/25 15:03 NW [id number]) Orientation Orientation/Cognition Level of Alertness Alert Orientation Name,Age,Birthday,Month,Date,Year,Day of Week,Place, Situation Safety Awareness Decreased Safety Awareness Comments Pt wants to go home and does not see concern for mobility deficits and living alone. Gross Range of Motion Upper Extremity ROM Assessment Within Functional Limits Lower Extremity ROM Assessment Within Functional Limits Strength Lower Extremity Strength Assessment Left Impaired Hip 3/5 flexion Knee 4/5 ext Ankle WFL Coordination Assessment Gross Coordination Gross Coordination WNL Sensation Assessment Sensation Gross Sensation WNL Light Touch Intact Muscle Tone Muscle Tone WNL Yes M6 PT-IP Treatment Start: 09/06/25 14:49 Freq: Status: Active Protocol: Document 09/09/25 10:59 [facility] (Rec: 09/09/25 11:14 [facility] [id number]) Physical Therapy Treatment Exercises Exercises Ankle Pumps,Seated Knee Flexion/Extension Education Education Provided Safety Other Treatments Other Treatment Education on importance of increasing time out of bed Performed M7 PT-IP Assessment and Plan Start: 09/06/25 14:49 Freq: Status: Active Protocol: Document 09/09/25 10:59 [facility] (Rec: 09/09/25 11:14 [facility] [id number]) PT Summary Assessment and Plan Potential Rehabilitation Good Potential Status of Condition Evolving at Evaluation Summary Impairments Strength,Balance,Bed Mobility,Transfers,Gait,Activity Tolerance Progress Towards Progressing Toward Goals,Slow Progress due to Activity Goals Tolerance Assessment Summary Pt using a wedge under left hip due to pressure sore that is developing. She was agreeable to PT and was CGA for bed mobility today. She needed to sit at the edge of the bed for a few minutes prior to standing and then again paused in standing for a few minutes taking deep breaths prior to gait in room with fww. She is still Min A for gait. She was able to assit with toileting with pulling down her briefs while standing with CGA. Pt is aware of the need to go to SNF now and is researching SNF locations in [place]. Goals Bed Mobility Goal Independent Transfer Goal Independent Gait Goal Independent Gait Distance 50 Other Goals Pt will navigate 2 steps with hand rail on . to Meet Goals 3 Frequency of Treatment Frequency Of Once a Day Treatment Treatment Plan Physical Therapy Bed Mobility Training,Transfer Training,Gait Training, Treatment Plan Therapeutic Exercise,Balance Retraining,Discharge Planning,Neuromuscular Re-ed Other Transfers, gait with FWW, stair mgt when able. Recommendations and Next Treatment Focus Precautions Other Precautions falls risk, scabies, chau, ETOH Weight Bearing Status Weight Bearing Weight Bear as Tolerated Status Recommendations To Nursing Amount of Assist 1 Person Assist Needed Discharge Recommendations PT Discharge SNF Rehab Recommendations Other Discharge with potential to progress to home with assistance Recommendations Transportation Needs Wheelchair/Cabulance at Discharge
--- NOTE | 2025-09-09 12:17 | PC.NURSE ---
pt sitting up in chair, texting on phone, eating lunch, nad noted, call light within reach, will continue to monitor.
--- NOTE | 2025-09-09 14:57 | PC.NURSE ---
pt sitting up in bed, playing on her phone, nad, will continue to monitor.
--- NOTE | 2025-09-09 18:17 | PC.NURSE ---
pt watching tv, sitting up in bed, finished her evening meal, states she really enjoyed it, NAD noted, will continue to monitor.
--- NOTE | 2025-09-09 18:41 | PC.NURSE ---
CIWA score 0, pt currently sitting up in bed, light on, A/Ox3, reading messages on her phone. Call light within reach, will continue to monitor.
[2025-09-09 20:27] VITALS: BP 145/72; PULSE 75; RESP 18; TEMP 36.1; O2SAT 98
[2025-09-09] MEDS: MIRTAZAPINE 15 MG TABLET 30 MG PO (21:09)
[2025-09-10] MEDS: LEVOTHYROXINE 88 MCG TABLET PO (06:23)
[2025-09-10 08:00] VITALS: BP 142/74; PULSE 74; RESP 13; TEMP 36.3; O2SAT 98
--- NOTE | 2025-09-10 08:10 | PT.IPTN ---
Current Diagnoses Alcohol use, unspecified with withdrawal delirium (09/04/25) Physical Therapy Treatment Note M2 PT-IP Current Condition Start: 09/06/25 14:49 Freq: Status: Active Protocol: Document 09/09/25 10:59 [facility] (Rec: 09/09/25 11:14 [facility] [id number]) Physical Therapy Current Condition Current Condition Evaluation Date 09/06/25 Treatment Diagnosis GLF, Debility, Low activity tolerance Onset Date 09/04/25 M3 PT-IP Subjective Start: 09/06/25 14:49 Freq: Status: Active Protocol: Document 09/10/25 11:05 NW (Rec: 09/10/25 11:15 NW [id number]) Subjective Physical Therapy Visit Type Type Treatment Note Visit Start Time 08:10 Visit Stop Time 08:35 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 Has decided not to go to [place] and is open to going to a SNF. Patient Goals Eventually go home. Therapy Pain Assessment Location Left Hip Intensity 4 Scale Used Numeric (0 - 10) Description Aching Pain Behaviors Facial Grimacing Pain Management Modification of Treatment,Timing of Activity with Techniques Medications M4 PT-IP Mobility and Gait Start: 09/06/25 14:49 Freq: Status: Active Protocol: Document 09/10/25 11:05 NW (Rec: 09/10/25 11:15 NW [id number]) PT-Bed Mobility Assessment Rolling Level of Assist Independent Supine to Sit Supine to Sit Independent,Head of Bed Elevated,Bedrails PT-Transfer Assessment Sit to and From Stand Sit to and from Minimal Assistance,1 Person Assistance,Use of Upper Stand Extremities Equipment Transfer Assistive Gait Belt,Front Wheeled Walker Device Transfers Transfer Destination Bed,Chair Transfer Technique Stand Step Pivot Transfer Ability Level of Assist Contact Guard Assistance Comments Mobility Comments Assistance with transfer is dependent on surface height . Pt is CGA from elevated surfaces and Az[place]a with fatigue from bed side chair. Cues for UE placement with unilateral on FWW and to push up from surface with anterior weight shift. Pt utilizes posterior support with bilateral knee hyperextension to gain stability with fatigue. Increased assistance with emphasis on power production. Notable dynamic knee valgus. Gait Assessment Gait Gait Assistance Contact Guard Assist Required: Distance (Feet) 60 Assistive Devices Assistive Device Gait Belt,Front Wheeled Walker Gait Deviations General Gait Pattern Antalgic,Decreased Stride Length,Step-to Gait Factors Limiting Gait Function Factors Limiting Pain Gait Function Comments Gait Comments Performed over 3 equal bouts within room. Pt is able to perform weight shift independently today and demonstrates a step to gait pattern secondary to pain of L hip. Decreased arielle and velocity with notable UE fatigue with shakiness upon third trial. PT-Balance Assessment Sitting Balance and Reactions Static Sitting Normal Balance Ability Dynamic Sitting Good Balance Ability Standing Balance and Reactions Static Standing Fair Balance Ability Dynamic Standing Poor Balance Ability Device Used FWW Functional Assessments Functional Tests 5 Times Sit to Stand 55 sec M5 PT-IP Objective Assessments Start: 09/06/25 14:49 Freq: Status: Active Protocol: Document 09/06/25 14:49 NW (Rec: 09/06/25 15:03 NW [id number]) Orientation Orientation/Cognition Level of Alertness Alert Orientation Name,Age,Birthday,Month,Date,Year,Day of Week,Place, Situation Safety Awareness Decreased Safety Awareness Comments Pt wants to go home and does not see concern for mobility deficits and living alone. Gross Range of Motion Upper Extremity ROM Assessment Within Functional Limits Lower Extremity ROM Assessment Within Functional Limits Strength Lower Extremity Strength Assessment Left Impaired Hip 3/5 flexion Knee 4/5 ext Ankle WFL Coordination Assessment Gross Coordination Gross Coordination WNL Sensation Assessment Sensation Gross Sensation WNL Light Touch Intact Muscle Tone Muscle Tone WNL Yes M6 PT-IP Treatment Start: 09/06/25 14:49 Freq: Status: Active Protocol: Document 09/10/25 11:05 NW (Rec: 09/10/25 11:15 NW [id number]) Physical Therapy Treatment Other Treatments Other Treatment STS 2 x 5 focused on power production with increased Performed use of bilateral LE. M7 PT-IP Assessment and Plan Start: 09/06/25 14:49 Freq: Status: Active Protocol: Document 09/10/25 11:05 NW (Rec: 09/10/25 11:15 NW [id number]) PT Summary Assessment and Plan Potential Rehabilitation Good Potential Status of Condition Stable at Evaluation Summary Impairments Pain,ROM,Strength,Balance,Bed Mobility,Transfers,Gait, Activity Tolerance Assessment Summary Gayl continues to make progress with increasing activity tolerance notable with increased ambulation duration and decreased assistance required with STS at Az[place]a . Pt continues to demonstrate bilateral knee hyperextension to gain stability with increased repetitions and is heavily reliant on UE strength and surface height. Improved carryover from previous sessions on UE placement and AD management. Continue to recommend SNF as pt is still requiring assistance with all functional mobility and is deemed a falls risk by the 5 x STS score of 55 sec. Goals Bed Mobility Goal Independent Transfer Goal Independent Gait Goal Independent Gait Distance 50 Other Goals Pt will navigate 2 steps with hand rail on . Days to Meet Goals 3 Frequency of Treatment Frequency Of Once a Day Treatment Treatment Plan Physical Therapy Bed Mobility Training,Transfer Training,Gait Training, Treatment Plan Therapeutic Exercise,Balance Retraining,Discharge Planning,Neuromuscular Re-ed Other Transfers, gait with FWW, stair mgt when able. Recommendations and Next Treatment Focus Precautions Other Precautions falls risk, scabies, chau, ETOH Weight Bearing Status Weight Bearing Weight Bear as Tolerated Status Recommendations To Nursing Amount of Assist 1 Person Assist Needed Discharge Recommendations PT Discharge SNF Rehab Recommendations Other Discharge with potential to progress to home with assistance Recommendations Transportation Needs Wheelchair/Cabulance at Discharge
[2025-09-10] MEDS: MULTIVITAMIN 1 TABLET 1 TAB PO (09:00)
[2025-09-10] MEDS: ESCITALOPRAM 10 MG TABLET 15 MG PO (09:00)
[2025-09-10] MEDS: GABAPENTIN 600 MG TABLET PO ×2 (09:00→21:39)
[2025-09-10] MEDS: ENOXAPARIN 40 MG/0.4 ML SYRINGE SUBCUT (09:01)
[2025-09-10] MEDS: SODIUM CHLORIDE 0.9% FLUSH 10 ML IV ×2 (09:01→21:39)
--- NOTE | 2025-09-10 10:35 | CM.DPC ---
DCP SNF Cont: Per MD, pt continues to make slow progress and confirmed next and last tx for Scabies should be on 09/14 and then will need 7 days isolation after that last treatment. Per PT, pt making progress with mobility but still needing some assist and currently recommending SNF due to fatigue and fall risk but if pt continues to remain in the hospital and SNF placement not obtained then likely could progress for original plan of flying or driving directly to [place] to stay with family. SW followed up on previously faxed SNFs: [facility]- no private iso room available [facility]- no private iso room available [facility]- left vm and email inquiring about review and bed availabilty [facility]- have 2 private rooms available, resent referral to [facility] and new weekend [facility] for review today. [facility]- made new referral as they have iso room available in two days. PASRR done in anticipation of SNF but needs MD signature for hospital exempted discharge for depression and anxiety. JOSE LUIS Suresh
--- NOTE | 2025-09-10 10:46 | P.PN_ITS ---
Subjective Subjective Date Patient Seen: 09/10/25 Time Patient Seen: 07:53 Interval history: 70 years old female with history of hypothyroidism, depression, alcohol abuse, presented to the ER with alcohol withdrawal symptoms including confusion and tremors. Per EMS records she was visited at her home for fall. Today they found her intoxicated with alcohol bottles scattered around the room. She was altered with significant tremors and bruises on her chin apparently from fall. She also reports some diffuse abdominal pain. The patient was given Zofran 4 mg IV and 1 mg IV Ativan and her CIWA score was 12?13. Laboratory shows 12.9, hemoglobin 11.5, MCV 102.2, potassium 5, creatinine 1.68, magnesium 1.7, AST 123, ALT 51. CT scan of the abdomen and pelvis was unremarkable. Chest x-ray was unremarkable. In the ER she was given magnesium 2 g IV, phenobarbital 130 mg IV and fluid bolus. 09/05: She was sedated, no acute distress. Not speaking. Breathing comfortably. 09/06: She is speaking quite clearly today and tells me that ?my shakiness is abating. ? She has a good appetite. She will be doing PT and OT. The TSH is low at 0.30 so the levothyroxine dose will be decreased. The BMP is normal today. 09/07: The 09/04 CBC was normal. The 09/06 BNP was normal. The AST was 89 with an ALT of 50. The magnesium is 1.8. She would like to begin a regular diet, somehow she was placed on a heart healthy diet. She has a very itchy rash on both in her elbows and the back of the right knee. On exam this appears to be linear across the arms scratches consistent with scabies. There is also a similar lesion on the center of the upper chest. We will treat her with permethrin. She is scheduled to fly to [place] in 2 days. That would be best delayed by at least 1 or 2 more days while physical therapy and occupational therapy works with her to try and get her strong enough again to work with a mobility device or wheelchair for that flight. 09/08: She is now mobilizing and noticing that she is leaning to the right. Her brain CT was normal. We will add a brain MRI for completeness. Her voice is loud and her speech is now spontaneous. She says she has decided to go back to [place] instead of going to [place] and that she will go to rehab locally. The scabies rash looks nearly resolved after treatment yesterday. 09/09: She has no complaints today. She anticipate assisted facility placement when a facility with an isolation capacity can take her given scabies. She receives another treatment on 09/14 and then has 7 more days of isolation. Brain MRI yesterday was unremarkable. 09/10: She has no complaints. She does have a decubitus ulcer with wedges in place and a crate ordered. She denies pruritus. Her next permethrin treatment as planned 5 with 7 more days of isolation, anticipating assisted facility placement. NAD, oriented x3. No apparent distress. Normocephalic skull Lungs clear, normal rate and effort. Heart regular, no murmur gallop or rub. Extremities are free of edema. Nearly resolved rash with linear scratches across both inner elbows and similar satellite lesions on the back of the right knee. At the top of the chest is small area of irritation/scratching, likely scabitic also. Minor reactive swelling underneath the upper chest scabies lesion. Joints are not swollen or deformed. IMAGING: Head CT: No acute intracranial pathology. Chronic findings as above. Abdomen and pelvis CT: 1. Chronic postsurgical changes in the bowel without evidence of acute traumatic or other abdominal pathology. 2. Chronic and other incidental findings, as detailed above. Chest x-ray: No acute intrathoracic abnormality. Chronic left distal clavicular fracture deformity. Nonspecific hyperdensity projects over the left lung apex at the level of the third posterior rib. Brain MRI: No acute or subacute infarct. No acute intracranial abnormalities. Age-related global volume loss and chronic microvascular ischemic change. A/P: 1. Acute alcohol withdrawal, resolved. 2. SHELLY, improving. 3. Hypomagnesemia, improved. 4. Hypothyroidism, active. 5. Scabies PLAN: -thiamine repletion. -Decreased Levothyroxine from 0.1 to 0.088 mg. TSH will need to be followed in 6-8 weeks given likelihood of sick euthyroid syndrome causing low TSH -PT/OT to optimize discharge plans: SNF locally. She decided against going to [place]. -permethrin cream treatment for scabies on 09/07, will need repeat treatment on 09/14. Isolation through 09/22/2025 Disposition: Likely to discharge to assisted facility in 1 more day. Full resuscitation. 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
[2025-09-10 17:18] VITALS: BP 131/62; PULSE 75; RESP 14; TEMP 35.9; O2SAT 99
[2025-09-10 20:04] VITALS: BP 136/62; PULSE 79; RESP 18; TEMP 36.3; O2SAT 98
[2025-09-10] MEDS: MIRTAZAPINE 15 MG TABLET 30 MG PO (21:39)
[2025-09-11 03:07] VITALS: BP 136/59; PULSE 87; RESP 18; TEMP 35.9; O2SAT 98
--- NOTE | 2025-09-11 05:30 | P.PN_ITS ---
Subjective Subjective Interval history: A&P 70 years old female with history of hypothyroidism, depression, alcohol abuse, presented to the ER with alcohol withdrawal symptoms including confusion and tremors. After admission she was also diagnosed with scabies. Acute alcohol withdrawal, resolved At presentation, the patient had an elevated CIWA score and was given phenobarbital in the emergency room. She was subsequently placed on the CIWA protocol and her withdrawal symptoms have resolved. * Encourage alcohol cessation * Continue multivitamin Diarrhea New over the last 24 hours * GI panel SHELLY, resolved Creatinine was 1.68 at presentation, now 0.82 * Continue to monitor as needed Scabies Patient was noted to have pruritic rash consistent with scabies. She has received 1 dose of permethrin and the 2nd dose will be given on 09/14. She will need to be in isolation for 7 days after the 2nd dose. The rash is significantly improved after the 1st treatment. * Permethrin 09/14 Hypomagnesemia Present at admission, likely due to alcohol consumption, repleted appropriately. * Continue to monitor. Hypothyroidism * Continue repletion with levothyroxine Code Status: Full code Diet: General Lines/Tubes: Peripheral IV DVT Prophylaxis: Enoxaparin Discharge Planning: Patient is medically stable for discharge. She will require a nursing home facility for short-term rehab. She may discharge when in accepting facility is available. Chief Complaint: Weakness and diarrhea Subjective: The patient denies chest pain, shortness on breath, nausea/vomiting, or pain. She feels that the rash is getting better. She does note multiple loose stools over the last 24 hours. Objective Vitals reviewed A&O, WN, WD, NAD NCAT, OP moist, neck supple RRR, nl S1 and S2, no murmurs CTA bilaterally Soft, NT, ND, +BS Warm without edema Neuro grossly nonfocal, globally weak Healing excoriated lesions Pleasant, cooperative Labs: Labs reviewed and notable for AST 89, ALT 50, alk phos 136 on 09/07. No labs since that time. Imaging: Imaging reviewed and notable for brain MRI with age-related global volume loss and chronic microvascular ischemic change, no acute or subacute infarct, no acute intracranial abnormalities. Time spent: 40 minutes spent with patient and on the chart (including review of chart, obtaining history, exam, reviewing outside data, placing orders, documenting exam and treatment plan, and counseling patient). Exam Vital Signs (past 8 hours): - 09/11/25 03:07 Temperature 96.7 F L Pulse Rate 87 Respiratory Rate 18 Blood Pressure 136/59 L Pulse Oximetry 98 Oxygen Delivery Method Room Air Oxygen Flow Rate 0 Objective Labs 09/04/25 19:25 09/07/25 08:45 PFSH Family History Father Cancer Grandmother Diverticulitis Social History marital status: household members: none lives independently: Yes caregiver/support person: Yes housing: house Smoking Status: Former smoker alcohol intake: current Assessment & Plan Time-Based Coding :: [TOTAL MINUTES] spent with patient and on the chart (including review of chart, obtaining history, exam, reviewing outside data, placing orders, documenting exam and treatment plan, and counseling patient) on [DATE]. Quality VTE Deep Vein Thrombosis/Pulmonary Embolism Present on Admission: No
[2025-09-11] MEDS: LEVOTHYROXINE 88 MCG TABLET PO (05:53)
--- NOTE | 2025-09-11 08:32 | PT.IPTN ---
Current Diagnoses Alcohol use, unspecified with withdrawal delirium (09/04/25) Physical Therapy Treatment Note M2 PT-IP Current Condition Start: 09/06/25 14:49 Freq: Status: Active Protocol: Document 09/09/25 10:59 AMH (Rec: 09/09/25 11:14 AMH [id number]) Physical Therapy Current Condition Current Condition Evaluation Date 09/06/25 Treatment Diagnosis GLF, Debility, Low activity tolerance Onset Date 09/04/25 M3 PT-IP Subjective Start: 09/06/25 14:49 Freq: Status: Active Protocol: Document 09/11/25 10:24 NW (Rec: 09/11/25 10:32 NW [id number]) Subjective Physical Therapy Visit Type Type Treatment Note Visit Start Time 08:03 Visit Stop Time 08:32 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 Pt is received supine in bed. Patient Goals To go to rehab. M4 PT-IP Mobility and Gait Start: 09/06/25 14:49 Freq: Status: Active Protocol: Document 09/11/25 10:24 NW (Rec: 09/11/25 10:32 NW [id number]) PT-Bed Mobility Assessment Rolling Type of Rolling Roll to Left Level of Assist Independent Supine to Sit Supine to Sit Independent,Head of Bed Elevated Scooting Scooting to Edge of Independent Bed PT-Transfer Assessment Sit to and From Stand Sit to and from Contact Guard Assistance,1 Person Assistance,Use of Stand Upper Extremities Equipment Transfer Assistive Gait Belt,Front Wheeled Walker Device Transfers Transfer Destination Chair Transfer Technique Stand Step Pivot Transfer Ability Level of Assist Contact Guard Assistance Comments Mobility Comments Improved power production with STS from various height surface requiring less assistance. With increased fatigue occasionally requires Azalea with to get hip extension with compensatory knee hyperextension. Gait Assessment Gait Gait Assistance Contact Guard Assist Required: Distance (Feet) 110 Assistive Devices Assistive Device Gait Belt,Front Wheeled Walker Gait Deviations General Gait Pattern Antalgic,Decreased Stride Length,Step-to Gait Comments Gait Comments Ambulated over two unequal bouts of 90' + 20' with improved arielle and velocity. Occasionally demonstrates step through gait pattern with reduction of knee hyperextension. PT-Balance Assessment Sitting Balance and Reactions Static Sitting Normal Balance Ability Dynamic Sitting Good Balance Ability Standing Balance and Reactions Static Standing Fair Balance Ability Dynamic Standing Poor Balance Ability Device Used FWW Balance Tests Romberg 30 sec EO Functional Assessments Functional Tests 2 Minute Walk Test 90' M5 PT-IP Objective Assessments Start: 09/06/25 14:49 Freq: Status: Active Protocol: Document 09/06/25 14:49 NW (Rec: 09/06/25 15:03 NW [id number]) Orientation Orientation/Cognition Level of Alertness Alert Orientation Name,Age,Birthday,Month,Date,Year,Day of Week,Place, Situation Safety Awareness Decreased Safety Awareness Comments Pt wants to go home and does not see concern for mobility deficits and living alone. Gross Range of Motion Upper Extremity ROM Assessment Within Functional Limits Lower Extremity ROM Assessment Within Functional Limits Strength Lower Extremity Strength Assessment Left Impaired Hip 3/5 flexion Knee 4/5 ext Ankle WFL Coordination Assessment Gross Coordination Gross Coordination WNL Sensation Assessment Sensation Gross Sensation WNL Light Touch Intact Muscle Tone Muscle Tone WNL Yes M6 PT-IP Treatment Start: 09/06/25 14:49 Freq: Status: Active Protocol: Document 09/11/25 10:24 NW (Rec: 09/11/25 10:32 NW [id number]) Physical Therapy Treatment Other Treatments Other Treatment Lateral walk edge of bed x 5 laps (4 ft distance) Performed STS 2 x 5 from lower bench surface M7 PT-IP Assessment and Plan Start: 09/06/25 14:49 Freq: Status: Active Protocol: Document 09/11/25 10:24 NW (Rec: 09/11/25 10:32 NW [id number]) PT Summary Assessment and Plan Potential Rehabilitation Good Potential Status of Condition Evolving at Evaluation Summary Impairments Pain,Strength,Bed Mobility,Transfers,Gait,Activity Tolerance Progress Towards Progressing Toward Goals Goals Assessment Summary Pt is making improvements with increased ambulation distance in single bout with less rest breaks. Pt continue to improve on power production with STS from lower surfaces. Continue to recommend SNF upon discharge as pt is unsafe to be home alone and does not have adequate care. Goals Bed Mobility Goal Independent Transfer Goal Independent Gait Goal Independent Gait Distance 50 Other Goals Pt will navigate 2 steps with hand rail on . Days to Meet Goals 3 Frequency of Treatment Frequency Of Once a Day Treatment Treatment Plan Physical Therapy Bed Mobility Training,Transfer Training,Gait Training, Treatment Plan Therapeutic Exercise,Balance Retraining,Discharge Planning,Neuromuscular Re-ed Other Transfers, gait with FWW, stair mgt when able. Recommendations and Next Treatment Focus Precautions Other Precautions falls risk, scabies, chau, ETOH Weight Bearing Status Weight Bearing Weight Bear as Tolerated Status Recommendations To Nursing Amount of Assist 1 Person Assist Needed Discharge Recommendations PT Discharge SNF Rehab Recommendations Other Discharge with potential to progress to home with assistance Recommendations Transportation Needs Wheelchair/Cabulance at Discharge
[2025-09-11] MEDS: GABAPENTIN 600 MG TABLET PO ×2 (09:19→21:20)
[2025-09-11] MEDS: ESCITALOPRAM 10 MG TABLET 15 MG PO (09:19)
[2025-09-11] MEDS: ENOXAPARIN 40 MG/0.4 ML SYRINGE SUBCUT (09:19)
[2025-09-11] MEDS: MULTIVITAMIN 1 TABLET 1 TAB PO (09:20)
[2025-09-11] MEDS: SODIUM CHLORIDE 0.9% FLUSH 10 ML IV ×2 (09:20→21:20)
[2025-09-11 09:44] VITALS: BP 110/64; PULSE 80; RESP 18; TEMP 36.7; O2SAT 99
--- NOTE | 2025-09-11 11:03 | DIET.PN1 ---
Dietary Progress Note Assessment: F/u. Pt continues with good PO intakes. Nursing staff reports pt consumed breakfast today. 75-100% PO intakes recorded. DFM reviewed for meal composition. Ht: 170.18 cm Wt: 65 kg BMI: 22.4 UBW: Last BM: 09/11/25 (09/11/25 00:27) MNA: 8 Jacobo Score: 20 Diet: 09/07/25 Lunch General (Regular) Diet Diet Modifications: Food Texture: Level 7 - Regular Liquid Consistency: Level 0 - Thin Nutrition Percent Meal Consumed 100% 09/10/25 18:09 Percent Meal Consumed 100% 09/09/25 18:32 Labs: RBC 3.43 X10^6/uL (4.0-5.2) L 09/04/25 19:25 Hgb 11.5 g/dL (12.0-16.0) L 09/04/25 19:25 Hct 35.0 % (36-46) L 09/04/25 19:25 Creatinine 0.82 mg/dL (0.52-1.04) 09/07/25 08:45 Electronically Signed by: Adina Nova 09/11/25 11:03 Clinical Dietitian [address] [address]
[2025-09-11 14:30] LABS: Clostridium difficile toxin AB Not Detected (Not Detect); Enteroaggregative E.coli Not Detected (Not Detect); Enteropathogenic E.coli Not Detected (Not Detect); Enterotoxigenic E.coli It/st Not Detected (Not Detect); Plesiomonsa shigelloides Not Detected (Not Detect); Shiga-like toxin-prod E.coli Not Detected (Not Detect)
--- NOTE | 2025-09-11 14:53 | OT.IP.TRT ---
Current Diagnoses Alcohol use, unspecified with withdrawal delirium (09/04/25) Occupational Therapy Treatment Note M2 OT-IP Current Condition Start: 09/06/25 16:42 Freq: Status: Active Protocol: Document 09/06/25 16:43 CCC (Rec: 09/06/25 16:55 CCC Desktop) Occupational Therapy Current Condition Current Condition Evaluation Date 09/06/25 Treatment Diagnosis Sepsis, ecoli Diagnosis Onset Date 09/04/25 M3 OT- IP Subjective and Pain Start: 09/06/25 16:42 Freq: Status: Active Protocol: Document 09/11/25 14:41 TJELLIENSTON (Rec: 09/11/25 14:52 TJOHNSTON Desktop) OT- Subjective Occupational Therapy Visit Type Type Treatment Note Visit Start Time 14:05 Visit Stop Time 14:35 Occupational Therapy Visit Comments Patient Comments Pt agreed to perform sink side ADLs, but declined to take a shower. Patient/Caregiver Pt agrees that skilled rehab is best for her at this Goals time. OT Pain Assessment Pain When Pain Assessed During Mobility Pain Present Pain Present Pain Reported Location Left Hip Pain Behaviors Facial Grimacing M4 OT- IP ADL's Start: 09/06/25 16:42 Freq: Status: Active Protocol: Document 09/11/25 14:41 TJOHNSTON (Rec: 09/11/25 14:52 TJOHNSTON Desktop) OT [id number] Comments OT Self-Feeding not a meal time Comments OT ADL-Grooming General Evaluation Grooming Ability Standby Assistance Comments OT Grooming Comments Pt brushes her hair sink side, using one hand on counter for support OT ADL-Oral Care General Eval Oral Care Ability Standby Assistance Comments Oral Care Comments Pt gathers supplies from around sink and performs oral hygiene with S OT ADL-Dressing General Eval Lower Body Dressing Contact Guard Assistance Ability Areas Needing Socks Assistance Comments OT Dressing Comments Pt doffs and dons socks while seated. Pt c/o L hip discomfort when performing. OT suggested educating pt on LB AE for dressing. Pt says that her 90 year old mother uses that and that she doesn't want to. After pt tfed to the bed, OT educated her on figure four position using the bed to support your leg. Pt was able to doff/don socsk with CGA and less reports of discomfort. OT ADL-Toileting Comments OT Toileting not observed Comments OT ADL-Bathing Comments OT Bathing Comments Pt declined a shower and a sponge bath today. She says she is too tired from days of diarrhea. M5 OT- IP IADL's Start: 09/06/25 16:42 Freq: Status: Active Protocol: Document 09/06/25 16:43 CCC (Rec: 09/06/25 16:55 CCC Desktop) OT-Instrumental Activities of Daily Living Home Safety Awareness Ability to Problem Able to Problem Solve Solve Emergency Situations Home Safety Comments Pt able to answer all home safety situations with good accuracy. Meal Preparation Meal Preparation Pt will benefit from assist. Comments Cookie Mixer Helper Cookie Mixer Helper Pt will benefit from assist. Comments Driving Driving Concerns Identified Regarding Safety M6 OT- IP Functional Cognition Start: 09/06/25 16:42 Freq: Status: Active Protocol: Document 09/08/25 13:13 [facility] (Rec: 09/08/25 13:19 CCC Desktop) Cognitive Factors Limiting Selfcare Function Cognitive Comments Cognitive Assessment Pt doing better and now realizes best to go to skilled Comments rehab. Pt feels that she is 50% base to her baseline for mobility needs. M7 OT- IP Mobility and Balance Start: 09/06/25 16:42 Freq: Status: Active Protocol: Document 09/11/25 14:41 CHRISTINA (Rec: 09/11/25 14:52 CHRISTINA Desktop) OT- Bed Mobility Assessment Sit to Supine Sit to Supine Assist Contact Guard Assistance OT-Transfer Assessment Sit to and From Stand Sit to and from Contact Guard Assistance,Minimal Assistance,1 Person Stand Assistance,Use of Upper Extremities Transfers Transfer Ability Contact Guard Assistance Technique Transfer Destination Bed,Chair Transfer Technique Stand Step Pivot Comments Mobility Comments Pt able to perform sit<>stand with MIN A today from chair and CGA from bed (with height increased). Pt demonstrates good safety awareness with hand position during tfs. OT- Gait Assessment Gait Gait Assistance Standby Assistance Required: Distance (Feet) 10 Assistive Devices Assistive Device Gait Belt,Front Wheeled Walker Comments Gait Ability Pt amb from chair to sink and back for BADLs. Comments OT- Balance Assessment Sitting Balance and Reactions Static Sitting Normal Balance Ability Dynamic Sitting Good Balance Ability Standing Balance and Reactions Static Standing Fair Balance Ability Dynamic Standing Fair Balance Ability Comments Other Balance Tests/ Pt demonstrates improved sitting balance both static Deviations/Treatment and dynamic. Pt favors R LE due to L hip pain. : M8 OT- IP Objective Assessments Start: 09/06/25 16:42 Freq: Status: Active Protocol: Document 09/06/25 16:43 CCC (Rec: 09/06/25 16:55 CCC Desktop) OT Gross Range of Motion Upper Extremity Range of Motion Assessment Within Functional Limits OT Strength Comments Strength Comments WFL for needs. OT- Coordination Assessment Upper Extremity Finger to Nose Test Left UE Impaired OT Sensation Assessment Comments Summary Comments Intact for light touch. Edema Edema Comments BLE swollen at ankles/feet M9 OT- IP Assessment and Plan Start: 09/06/25 16:42 Freq: Status: Active Protocol: Document 09/11/25 14:41 TJOHNSTON (Rec: 09/11/25 14:52 TJOHNSTON Desktop) OT Summary Assessment and Plan Potential Rehabilitation Good Potential Analytic Complexity Moderate at Evaluation Summary OT Impairments Strength,Balance,Functional Mobility,Grooming,Dressing, Toileting,Bathing,Toilet Transfers,Shower Transfers, Activity Tolerance Progress Towards Progressing Toward Goals Goals Assessment Summary Pt was agreeable to participating in OT, but declined performing shower or sponge bath today. Pt demonstrate sink side ADLS with SBA, LB dressing with CGA, and functional tfs with up to MIN A. Pt was left reclined in bed with all needs met and in reach and exit alarm set. Continue to recommend SNF for improved I and safety with BADLs and mobility. Cont per POC. Goals Grooming Goal Independent Dressing Goal Independent Toileting Goal Independent Bathing Goal Independent Toilet Transfer Goal Independent Shower Transfer Goal Independent Days to Meet Goals 19 Frequency of Treatment Other frequency 5x/week Treatment Plan OT Treatment Plan ADL Training,Functional Mobility,Patient/Family Education,Discharge Planning Other Treatment shower Recommendations and Next Treatment Focus Discharge Recommendations OT Discharge SNF Rehab Recommendations Transportation Needs Private Vehicle,Wheelchair/Cabulance at Discharge
--- NOTE | 2025-09-11 15:39 | CM.DPC ---
DCP SNF Cont: SW followed up with 3 previously faxed SNFs: [facility]- cannot accommodate, decline pt [facility]- no iso room available [facility]- left msg as they anticipated an iso room available tomorrow Tues. No answer from [facility] by the end of today and if they cannot accept will need to discuss with POA ex Margarito about options for possible d/c with friend to go to [place] or family/friend to stay with pt as she has been making progress with mobility. JOSE LUIS Suresh
[2025-09-11 17:41] VITALS: BP 135/64; PULSE 83; RESP 16; TEMP 36.9; O2SAT 93
[2025-09-11 19:00] VITALS: BP 123/68; PULSE 75; RESP 18; TEMP 36.6; O2SAT 99
[2025-09-11] MEDS: MAG HYDROX/ALUM/SIMETH 30 ML UDC PO (21:19)
[2025-09-11] MEDS: MIRTAZAPINE 15 MG TABLET 30 MG PO (21:20)
[2025-09-12] MEDS: LEVOTHYROXINE 88 MCG TABLET PO (06:21)
[2025-09-12 08:00] VITALS: BP 148/75; PULSE 69; RESP 17; TEMP 36; O2SAT 100
[2025-09-12] MEDS: ESCITALOPRAM 10 MG TABLET 15 MG PO (08:59)
[2025-09-12] MEDS: MULTIVITAMIN 1 TABLET 1 TAB PO (08:59)
[2025-09-12] MEDS: ENOXAPARIN 40 MG/0.4 ML SYRINGE SUBCUT (08:59)
[2025-09-12] MEDS: SODIUM CHLORIDE 0.9% FLUSH 10 ML IV ×2 (08:59→20:17)
[2025-09-12] MEDS: GABAPENTIN 600 MG TABLET PO ×2 (09:01→20:14)
--- NOTE | 2025-09-12 12:10 | PT.IPTN ---
Current Diagnoses Alcohol use, unspecified with withdrawal delirium (09/04/25) Physical Therapy Treatment Note M2 PT-IP Current Condition Start: 09/06/25 14:49 Freq: Status: Active Protocol: Document 09/12/25 11:50 SP (Rec: 09/12/25 12:27 lana Nicholson) Physical Therapy Current Condition Current Condition Evaluation Date 09/06/25 Treatment Diagnosis GLF, Debility, Low activity tolerance Onset Date 09/04/25 M3 PT-IP Subjective Start: 09/06/25 14:49 Freq: Status: Active Protocol: Document 09/12/25 11:50 SP (Rec: 09/12/25 12:27 lana Nicholson) Subjective Physical Therapy Visit Type Type Treatment Note Visit Start Time 11:50 Visit Stop Time 12:10 Notes 20 min Number of ANNUAL GIVING DIRECTOR Visits 1 Physical Therapy Visit Comments Patient Comments Pt agreeable to working with ANNUAL GIVING DIRECTOR. Patient Goals To go to rehab. Therapy Pain Assessment Location Left Hip Intensity 4 Scale Used Numeric (0 - 10) Description Aching Pain Behaviors Facial Grimacing Pain Management Modification of Treatment,Timing of Activity with Techniques Medications M4 PT-IP Mobility and Gait Start: 09/06/25 14:49 Freq: Status: Active Protocol: Document 09/12/25 11:50 SP (Rec: 09/12/25 12:27 lana Nicholson) PT-Transfer Assessment Sit to and From Stand Sit to and from Standby Assistance,Contact Guard Assistance,1 Person Stand Assistance,Use of Upper Extremities Equipment Transfer Assistive Gait Belt,Front Wheeled Walker Device Transfers Transfer Destination Chair Transfer Technique pt ambulated with FWW Transfer Ability Level of Assist Contact Guard Assistance,1 Person Assistance,Use of Upper Extremities Comments Mobility Comments Improved power production with STS from various height surface requiring less assistance. Initial stand utilized BLEs on chair. Cues for BUE push from surface sitting on less risk FWW tipping, 5xSTS (not timed) for LE strengthening from bench. Pt was seated in chair, OT took over care. Gait Assessment Gait Gait Assistance Standby Assistance,Contact Guard Assist Required: Distance (Feet) 60 Assistive Devices Assistive Device Gait Belt,Front Wheeled Walker Gait Deviations General Gait Pattern Antalgic,Decreased Stride Length,Wide Based Gait Factors Limiting Gait Function Factors Limiting Decreased Activity Tolerance,Decreased Strength,Pain, Gait Function Poor Safety Awareness Comments Gait Comments Pt ambulated 60 ft in room in 1 bout, static stand brief rest. CG>close SBA. Improved gait stride with elevation FWW x1 knotch. Pt has personal walker but missing florescent green bottom on 1 leg, has plan to order 2 more when finalized DC location. Stair Climbing Assessment Evaluation Level of Assist On Minimal Assistance,Moderate Assistance,1 Person Stairs Assistance Devices Stair Climbing Left Railing,Right Railing Assistive Devices Technique/Endurance Stair Climbing Ascend and Descend Direction Stair Climbing Step to Step Technique Number of Steps 1 Climbed Stair Climbing Set # 3 Repetitions (reps) Comments Stair Climbing Assimilated in room asc/desc 2 steps has at home to Comments enter, utilized portable step, requires Min A for trunk support and Mod A HABILITATION WORKER assimilate post on L. Pt poor power ascending and control descending, best LLE descend leading due to L hip pain vs R knee crepitus. PT-Balance Assessment Sitting Balance and Reactions Static Sitting Normal Balance Ability Dynamic Sitting Normal Balance Ability Standing Balance and Reactions Static Standing Good Balance Ability Dynamic Standing Fair Balance Ability Device Used FWW Functional Assessments Functional Tests 5 Times Sit to Stand not timed M5 PT-IP Objective Assessments Start: 09/06/25 14:49 Freq: Status: Active Protocol: Document 09/06/25 14:49 NW (Rec: 09/06/25 15:03 NW [id number]) Orientation Orientation/Cognition Level of Alertness Alert Orientation Name,Age,Birthday,Month,Date,Year,Day of Week,Place, Situation Safety Awareness Decreased Safety Awareness Comments Pt wants to go home and does not see concern for mobility deficits and living alone. Gross Range of Motion Upper Extremity ROM Assessment Within Functional Limits Lower Extremity ROM Assessment Within Functional Limits Strength Lower Extremity Strength Assessment Left Impaired Hip 3/5 flexion Knee 4/5 ext Ankle WFL Coordination Assessment Gross Coordination Gross Coordination WNL Sensation Assessment Sensation Gross Sensation WNL Light Touch Intact Muscle Tone Muscle Tone WNL Yes M6 PT-IP Treatment Start: 09/06/25 14:49 Freq: Status: Active Protocol: Document 09/12/25 11:50 SP (Rec: 09/12/25 12:27 SP lana [email or web address]) Physical Therapy Treatment Other Treatments Other Treatment STS x 5reps from lower bench surface Performed M7 PT-IP Assessment and Plan Start: 09/06/25 14:49 Freq: Status: Active Protocol: Document 09/12/25 11:50 SP (Rec: 09/12/25 12:27 SP lana aguayo) PT Summary Assessment and Plan Potential Rehabilitation Good Potential Status of Condition Evolving at Evaluation Summary Impairments Pain,Strength,Bed Mobility,Transfers,Gait,Activity Tolerance Progress Towards Progressing Toward Goals,Slow Progress due to Pain,Slow Goals Progress due to Activity Tolerance Assessment Summary Pt is making improvements with increased ambulation distance in single bout with less stand rest breaks. Pt continue to improve on power production with STS from lower surfaces, cued push with BUEs on bed vs 1 on FWW risk tipping. Continue to recommend SNF upon discharge as pt is unsafe to be home alone, Min/Mod A for step mgt and does not have adequate assisted assist her. Goals Bed Mobility Goal Independent Transfer Goal Independent Gait Goal Independent Gait Distance 50 Other Goals Pt will navigate 2 steps with hand rail on . Days to Meet Goals 3 Frequency of Treatment Frequency Of Once a Day Treatment Treatment Plan Physical Therapy Bed Mobility Training,Transfer Training,Gait Training, Treatment Plan Therapeutic Exercise,Balance Retraining,Discharge Planning,Neuromuscular Re-ed Other Transfers, gait with FWW, stair mgt when able. Recommendations and Next Treatment Focus Precautions Other Precautions falls risk, scabies, chau, ETOH Weight Bearing Status Weight Bearing Weight Bear as Tolerated Status Recommendations To Nursing Amount of Assist 1 Person Assist Needed Discharge Recommendations PT Discharge SNF Rehab Recommendations Other Discharge with potential to progress to home with assistance, Recommendations does not have assist home Transportation Needs Wheelchair/Cabulance at Discharge - PT assist 1
--- NOTE | 2025-09-12 13:16 | OT.IP.TRT ---
Current Diagnoses Alcohol use, unspecified with withdrawal delirium (09/04/25) Occupational Therapy Treatment Note M2 OT-IP Current Condition Start: 09/06/25 16:42 Freq: Status: Active Protocol: Document 09/06/25 16:43 [facility] (Rec: 09/06/25 16:55 [facility] Desktop) Occupational Therapy Current Condition Current Condition Evaluation Date 09/06/25 Treatment Diagnosis Sepsis, ecoli Diagnosis Onset Date 09/04/25 M3 OT- IP Subjective and Pain Start: 09/06/25 16:42 Freq: Status: Active Protocol: Document 09/12/25 13:06 [facility] (Rec: 09/12/25 13:16 [facility] Desktop) OT- Subjective Occupational Therapy Visit Type Type Treatment Note Visit Start Time 12:00 Visit Stop Time 12:30 Occupational Therapy Visit Comments Patient Comments Pt agreed to get up just finishing with PT. Patient/Caregiver TO get better. Goals OT Pain Assessment Pain When Pain Assessed During Mobility Pain Present Pain Present Pain Reported Location Left Hip Pain Behaviors Facial Grimacing M4 OT- IP ADL's Start: 09/06/25 16:42 Freq: Status: Active Protocol: Document 09/12/25 13:06 [facility] (Rec: 09/12/25 13:16 [facility] Desktop) OT [id number] General Evaluation Self-Feeding Ability Independent OT ADL-Grooming General Evaluation Grooming Ability Standby Assistance OT ADL-Oral Care General Eval Oral Care Ability Standby Assistance OT ADL-Dressing Comments OT Dressing Comments Not observed. OT ADL-Toileting Comments OT Toileting not observed Comments OT ADL-Bathing Bathing Type Bathing Type Shower General Evaluation Bathing Ability Standby Assistance,Minimal Assistance Comments OT Bathing Comments Per nursing aid pt able to complete while seated. M5 OT- IP IADL's Start: 09/06/25 16:42 Freq: Status: Active Protocol: Document 09/06/25 16:43 [facility] (Rec: 09/06/25 16:55 [facility] Desktop) OT-Instrumental Activities of Daily Living Home Safety Awareness Ability to Problem Able to Problem Solve Solve Emergency Situations Home Safety Comments Pt able to answer all home safety situations with good accuracy. Meal Preparation Meal Preparation Pt will benefit from assist. Comments Pipe Bender Pipe Bender Pt will benefit from assist. Comments Driving Driving Concerns Identified Regarding Safety M6 OT- IP Functional Cognition Start: 09/06/25 16:42 Freq: Status: Active Protocol: Document 09/08/25 13:13 [facility] (Rec: 09/08/25 13:19 [facility] Desktop) Cognitive Factors Limiting Selfcare Function Cognitive Comments Cognitive Assessment Pt doing better and now realizes best to go to skilled Comments rehab. Pt feels that she is 50% base to her baseline for mobility needs. M7 OT- IP Mobility and Balance Start: 09/06/25 16:42 Freq: Status: Active Protocol: Document 09/12/25 13:06 [facility] (Rec: 09/12/25 13:16 [facility] Desktop) OT-Transfer Assessment Sit to and From Stand Sit to and from Standby Assistance,Contact Guard Assistance Stand Transfers Transfer Ability Standby Assistance,Contact Guard Assistance Technique Transfer Destination Bed,Chair Transfer Technique Stand Step Pivot Comments Mobility Comments Pt improved and doing better and now from CGA to SBA when coming to stand to the FWW. Still encouraged to push up from the recliner when coming to stand to the FWW. OT- Gait Assessment Gait Gait Assistance Standby Assistance Required: Assistive Devices Assistive Device Gait Belt,Front Wheeled Walker Comments Gait Ability Pt SBA in the room with FWW. Pt doing much better coming Comments to stand and mostly does not use the back of her legs to assist to stand now. OT- Balance Assessment Sitting Balance and Reactions Static Sitting Normal Balance Ability Dynamic Sitting Good Balance Ability Standing Balance and Reactions Static Standing Fair Balance Ability Dynamic Standing Fair Balance Ability Comments Other Balance Tests/ Pt demonstrates improved sitting balance both static Deviations/Treatment and dynamic. Pt favors R LE due to L hip pain. : M8 OT- IP Objective Assessments Start: 09/06/25 16:42 Freq: Status: Active Protocol: Document 09/06/25 16:43 [facility] (Rec: 09/06/25 16:55 [facility] Desktop) OT Gross Range of Motion Upper Extremity Range of Motion Assessment Within Functional Limits OT Strength Comments Strength Comments WFL for needs. OT- Coordination Assessment Upper Extremity Finger to Nose Test Left UE Impaired OT Sensation Assessment Comments Summary Comments Intact for light touch. Edema Edema Comments BLE swollen at ankles/feet M9 OT- IP Assessment and Plan Start: 09/06/25 16:42 Freq: Status: Active Protocol: Document 09/12/25 13:06 [facility] (Rec: 09/12/25 13:16 [facility] Desktop) OT Summary Assessment and Plan Potential Rehabilitation Good Potential Analytic Complexity Moderate at Evaluation Summary OT Impairments Strength,Balance,Functional Mobility,Grooming,Dressing, Toileting,Bathing,Toilet Transfers,Shower Transfers, Activity Tolerance Progress Towards Progressing Toward Goals Goals Assessment Summary Pt improving and now CGA to SBA with mobility needs and able to shower with SBA while seated. Pt still has decreased activity tolerance and difficulty with steps. Pt will benefit from skilled rehab prior to going home . Spoke to pt not to use the FWW that a friend brought here as missing a rubber bottom on it and not safe to use. Suggested pt obtain FWW from the hospital, but pt states to just order one on [facility]. Pt to go to skilled rehab when medically stable. Goals Dressing Goal Independent Toileting Goal Independent Bathing Goal Independent Toilet Transfer Goal Independent Shower Transfer Goal Independent Days to Meet Goals 18 Frequency of Treatment Other frequency 5x/week Treatment Plan OT Treatment Plan ADL Training,Functional Mobility,Patient/Family Education,Discharge Planning Discharge Recommendations OT Discharge SNF Rehab Recommendations Transportation Needs Private Vehicle,Wheelchair/Cabulance at Discharge
[2025-09-12] MEDS: LOPERAMIDE 2 MG CAPSULE PO (14:44)
--- NOTE | 2025-09-12 16:49 | CM.DPNOTE ---
DCP Continued: Reviewed EMR and team rounds for pt?s medical status. Per hospitalist, pt still needs SNF placement and following a GI panel for new diarrhea. Will still need 7 days of isolation after 09/14 Scabies treatment. Per PT, pt is moving better and is a minimal assist although still gets fatigued. SPRING BENDER spoke to patient in room, pt states she would still like to move forward with SNF placement as she does not have any friends locally to assist her at home, confirms she does not have resources for private caregiver and does not feel home health will suffice for her rehab at this time. She also states she has rescheduled her trip to [place] for the Spring so that is no longer an option for rehabilitative care. Pt consents to SPRING BENDER broadening SNF search in [facility]. SW followed up on previously faxed SNFs: [facility]- no private iso room available [facility]- left voice message about bed availability [facility]- left a voice message about bed availability [facility]- no iso bed available until Thursday, 09/15 tentatively. Will need to follow up. Inquired on NEW referrals in [facility]: [facility]- No iso beds available [facility]- Left a voice message about bed availability [facility]- Left a voice message about bed availability SPRING BENDER updated hospitalist of above bed search. Plan: SNF Rehab bed placement pending, will need to continually follow up on bed availability. CM team following for coordination of dc plans. MARYANN ChaudharySW
--- NOTE | 2025-09-12 17:30 | P.PN_ITS ---
Subjective Subjective Interval history: A&P 70 years old female with history of hypothyroidism, depression, alcohol abuse, presented to the ER with alcohol withdrawal symptoms including confusion and tremors. After admission she was also diagnosed with scabies. Acute alcohol withdrawal, resolved At presentation, the patient had an elevated CIWA score and was given phenobarbital in the emergency room. She was subsequently placed on the CIWA protocol and her withdrawal symptoms have resolved. * Encourage alcohol cessation * Continue multivitamin Diarrhea New over the last 48 hours. GI panel negative * Imodium, 2mg aft each loose stool, max 8 tabs in 24 hours SHELLY, resolved Creatinine was 1.68 at presentation, 0.82 on 09/07 * Continue to monitor as needed -recheck on 09/13 Scabies Patient was noted to have pruritic rash consistent with scabies. She has received 1 dose of permethrin and the 2nd dose will be given on 09/14. She will need to be in isolation for 7 days after the 2nd dose. The rash is significantly improved after the 1st treatment. * Second permethrin treatment on 09/14 Hypomagnesemia Present at admission, likely due to alcohol consumption, repleted appropriately. * Continue to monitor prn Hypothyroidism * Continue repletion with levothyroxine Code Status: Full code Diet: General Lines/Tubes: Peripheral IV DVT Prophylaxis: Enoxaparin Discharge Planning: Patient is medically stable for discharge. She will require a group home facility for short-term rehab. She may discharge when in accepting facility is available. No accepting facilities at this time because not have a private room which she will need for 7 days of isolation. Chief Complaint: Weakness and diarrhea Subjective: The patient denies chest pain, shortness on breath, nausea/vomiting, or pain. She feels that the rash is getting better. She does note multiple loose stools over the last 24 hours. No other acute events overnight Objective Vitals reviewed A&O, WN, WD, NAD NCAT, OP moist, neck supple RRR, nl S1 and S2, no murmurs CTA bilaterally Soft, NT, ND, +BS Warm without edema Neuro grossly nonfocal, globally weak Healing excoriated lesions Pleasant, cooperative Labs: Labs reviewed and notable for AST 89, ALT 50, alk phos 136 on 09/07. No labs since that time. Imaging: Imaging reviewed and notable for brain MRI with age-related global volume loss and chronic microvascular ischemic change, no acute or subacute infarct, no acute intracranial abnormalities. Time spent: 40 minutes spent with patient and on the chart (including review of chart, obtaining history, exam, reviewing outside data, placing orders, documenting exam and treatment plan, and counseling patient). Exam Vital Signs (past 8 hours): Oxygen Delivery Method Room Air Oxygen Flow Rate 0 Objective Labs 09/04/25 19:25 09/07/25 08:45 PFSH Family History Father Cancer Grandmother Diverticulitis Social History marital status: household members: none lives independently: Yes caregiver/support person: Yes housing: house Smoking Status: Former smoker alcohol intake: current Assessment & Plan Time-Based Coding :: [TOTAL MINUTES] spent with patient and on the chart (including review of chart, obtaining history, exam, reviewing outside data, placing orders, documenting exam and treatment plan, and counseling patient) on [DATE]. Quality VTE Deep Vein Thrombosis/Pulmonary Embolism Present on Admission: No
[2025-09-12 19:00] VITALS: BP 115/59; PULSE 77; RESP 18; TEMP 36.7; O2SAT 96
[2025-09-12] MEDS: MIRTAZAPINE 15 MG TABLET 30 MG PO (20:14)
[2025-09-13] MEDS: LEVOTHYROXINE 88 MCG TABLET PO (06:52)
[2025-09-13 06:53] LABS: Add Manual Diff / Slide Review NO; Hematocrit 30.0 % (36-46); Hemoglobin 9.9 g/dL (12.0-16.0); Lymphocytes Absolute Auto 1700 /uL (1100-4500); Mean Corpuscular HGB Conc 33.2 % (30-36); Mean Corpuscular Hemoglobin 33.7 PG (26-34); Mean Corpuscular Volume 101.8 fL (80-100); Platelet Count 218 X10^3/uL (150-400)
[2025-09-13 07:15] VITALS: BP 110/64; PULSE 66; RESP 17; TEMP 36.2; O2SAT 98
[2025-09-13 07:19] LABS: Blood Urea Nitrogen 13 mg/dL (7-17); Calcium 8.9 mg/dL (8.4-10.2); Carbon Dioxide 23 mmol/L (22-32); Chloride 109 mmol/L (98-107); Estimated Glomerular Filt Rate > 60 mL/min (>60); Glucose 99 mg/dL (70-99); HEMOLYSIS < 15 (0-50); Magnesium 1.7 mg/dL (1.6-2.3); Potassium 3.8 mmol/L (3.4-5.1); Sodium 137 mmol/L (137-145)
[2025-09-13] MEDS: MULTIVITAMIN 1 TABLET 1 TAB PO (08:24)
[2025-09-13] MEDS: GABAPENTIN 600 MG TABLET PO ×2 (08:24→21:35)
[2025-09-13] MEDS: ENOXAPARIN 40 MG/0.4 ML SYRINGE SUBCUT (08:24)
[2025-09-13] MEDS: ESCITALOPRAM 10 MG TABLET 15 MG PO (08:24)
[2025-09-13] MEDS: MAGNESIUM CHLORIDE 64 MG TABLET 128 MG PO (08:25)
[2025-09-13] MEDS: SODIUM CHLORIDE 0.9% FLUSH 10 ML IV ×2 (08:26→21:36)
--- NOTE | 2025-09-13 09:10 | PT.IPTN ---
Current Diagnoses Alcohol use, unspecified with withdrawal delirium (09/04/25) Physical Therapy Treatment Note M2 PT-IP Current Condition Start: 09/06/25 14:49 Freq: Status: Active Protocol: Document 09/12/25 11:50 SP (Rec: 09/12/25 12:27 SP lana [email or web address]) Physical Therapy Current Condition Current Condition Evaluation Date 09/06/25 Treatment Diagnosis GLF, Debility, Low activity tolerance Onset Date 09/04/25 M3 PT-IP Subjective Start: 09/06/25 14:49 Freq: Status: Active Protocol: Document 09/13/25 12:25 [facility] (Rec: 09/13/25 12:39 [facility] [id number]) Subjective Physical Therapy Visit Type Type Treatment Note Visit Start Time 08:32 Visit Stop Time 09:10 Physical Therapy Visit Comments Patient Comments Pt is received supine in bed. States concerns is trying to get into rehab as she is still too weak to care for herself. Patient Goals To go to rehab. M4 PT-IP Mobility and Gait Start: 09/06/25 14:49 Freq: Status: Active Protocol: Document 09/13/25 12:25 [facility] (Rec: 09/13/25 12:39 NW [id number]) PT-Bed Mobility Assessment Supine to Sit Supine to Sit Independent,Head of Bed Elevated Scooting Scooting to Edge of Independent Bed PT-Transfer Assessment Sit to and From Stand Sit to and from Contact Guard Assistance,Use of Upper Extremities Stand Equipment Transfer Assistive Gait Belt,Front Wheeled Walker Device Transfers Transfer Destination Chair Transfer Technique Stand Step Pivot Transfer Ability Level of Assist Standby Assistance,Moderate Assistance,2 Person Assistance,Use of Upper Extremities Comments Mobility Comments With decreased surface height pt requires bilateral UE to push up from surface. Good balance upon stance with UE support. Gait Assessment Gait Gait Assistance Standby Assistance Required: Distance (Feet) 60 Assistive Devices Assistive Device Gait Belt,Front Wheeled Walker Gait Deviations General Gait Pattern Antalgic,Decreased Stride Length,Wide Based Gait Factors Limiting Gait Function Factors Limiting Decreased Activity Tolerance,Decreased Strength,Pain, Gait Function Poor Safety Awareness Comments Gait Comments Ambulated over 3 equal bouts at SBA/CGA. Improved arielle and step through gait pattern with increased UE support. Stair Climbing Assessment Evaluation Level of Assist On Contact Guard Assistance,1 Person Assistance Stairs Devices Stair Climbing Right Railing Assistive Devices Technique/Endurance Stair Climbing Ascend and Descend Direction Stair Climbing Step Over Step Technique Number of Steps 1 Climbed Stair Climbing Set # 11 Repetitions (reps) Comments Stair Climbing Performed 2 x 5 step up with RLE, x1 for ascent and Comments descent with decrease WBing through LLE. Extensive use of UE with bed railing to pull. Poor power production. PT-Balance Assessment Sitting Balance and Reactions Static Sitting Normal Balance Ability Dynamic Sitting Normal Balance Ability Standing Balance and Reactions Static Standing Good Balance Ability Dynamic Standing Fair Balance Ability Device Used FWW Functional Assessments Other Functional Tests ZARATE 27/46 Performed M5 PT-IP Objective Assessments Start: 09/06/25 14:49 Freq: Status: Active Protocol: Document 09/06/25 14:49 NW (Rec: 09/06/25 15:03 NW [id number]) Orientation Orientation/Cognition Level of Alertness Alert Orientation Name,Age,Birthday,Month,Date,Year,Day of Week,Place, Situation Safety Awareness Decreased Safety Awareness Comments Pt wants to go home and does not see concern for mobility deficits and living alone. Gross Range of Motion Upper Extremity ROM Assessment Within Functional Limits Lower Extremity ROM Assessment Within Functional Limits Strength Lower Extremity Strength Assessment Left Impaired Hip 3/5 flexion Knee 4/5 ext Ankle WFL Coordination Assessment Gross Coordination Gross Coordination WNL Sensation Assessment Sensation Gross Sensation WNL Light Touch Intact Muscle Tone Muscle Tone WNL Yes M6 PT-IP Treatment Start: 09/06/25 14:49 Freq: Status: Active Protocol: Document 09/13/25 12:25 NW (Rec: 09/13/25 12:39 NW [id number]) Physical Therapy Treatment Other Treatments Other Treatment STS x 5 throughout session Performed 2 x 5 step ups with 4 inch step and Unilateral R rail of bed feet together 3 x 1 min balance with no UE support M7 PT-IP Assessment and Plan Start: 09/06/25 14:49 Freq: Status: Active Protocol: Document 09/13/25 12:25 NW (Rec: 09/13/25 12:39 NW [id number]) PT Summary Assessment and Plan Potential Rehabilitation Good Potential Status of Condition Evolving at Evaluation Summary Impairments Pain,Strength,Bed Mobility,Transfers,Gait,Activity Tolerance Progress Towards Progressing Toward Goals,Slow Progress due to Pain,Slow Goals Progress due to Activity Tolerance Assessment Summary Performed Zarate assessment with score of 27/46 making pt a risk for falls. Continues to fatigue with LE exercises requiring frequent rest breaks. Pt is able to consistently perform gait at CGA/SBA once standing with FWW. Continue to recommend SNF secondary to being unsafe being home alone. Goals Bed Mobility Goal Independent Transfer Goal Independent Gait Goal Independent Gait Distance 50 Other Goals Pt will navigate 2 steps with hand rail on R. Days to Meet Goals 3 Frequency of Treatment Frequency Of Once a Day Treatment Treatment Plan Physical Therapy Bed Mobility Training,Transfer Training,Gait Training, Treatment Plan Therapeutic Exercise,Balance Retraining,Discharge Planning,Neuromuscular Re-ed Other Transfers, gait with FWW, stair mgt when able. Recommendations and Next Treatment Focus Precautions Other Precautions falls risk, scabies, chau, ETOH Weight Bearing Status Weight Bearing Weight Bear as Tolerated Status Recommendations To Nursing Amount of Assist 1 Person Assist Needed Discharge Recommendations PT Discharge SNF Rehab Recommendations Other Discharge with potential to progress to home with assistance, Recommendations does not have assist home Transportation Needs Wheelchair/Cabulance at Discharge - PT assist 1
--- NOTE | 2025-09-13 10:47 | OT.IP.TRT ---
Current Diagnoses Alcohol use, unspecified with withdrawal delirium (09/04/25) Occupational Therapy Treatment Note M2 OT-IP Current Condition Start: 09/06/25 16:42 Freq: Status: Active Protocol: Document 09/06/25 16:43 [facility] (Rec: 09/06/25 16:55 [facility] Desktop) Occupational Therapy Current Condition Current Condition Evaluation Date 09/06/25 Treatment Diagnosis Sepsis, ecoli Diagnosis Onset Date 09/04/25 M3 OT- IP Subjective and Pain Start: 09/06/25 16:42 Freq: Status: Active Protocol: Document 09/13/25 10:50 [facility] (Rec: 09/13/25 11:00 [facility] Desktop) OT- Subjective Occupational Therapy Visit Type Type Treatment Note Visit Start Time 10:23 Visit Stop Time 10:47 Occupational Therapy Visit Comments Patient Comments Pt agreed to get up to use the bathroom. Patient/Caregiver Pt wanting to go to skilled rehab. Goals OT Pain Assessment Location Left Hip Pain Behaviors Facial Grimacing,Guarding M4 OT- IP ADL's Start: 09/06/25 16:42 Freq: Status: Active Protocol: Document 09/13/25 10:50 [facility] (Rec: 09/13/25 11:00 [facility] Desktop) OT [id number] General Evaluation Self-Feeding Ability Independent OT ADL-Grooming General Evaluation Grooming Ability Independent OT ADL-Oral Care General Eval Oral Care Ability Independent OT ADL-Dressing General Eval Lower Body Dressing Standby Assistance Ability OT ADL-Toileting General Evaluation Toileting Ability Standby Assistance Comments OT Toileting Pt will benefit from grab bars or BSC if able to fit in Comments the area of her toilet at home. M5 OT- IP IADL's Start: 09/06/25 16:42 Freq: Status: Active Protocol: Document 09/06/25 16:43 [facility] (Rec: 09/06/25 16:55 [facility] Desktop) OT-Instrumental Activities of Daily Living Home Safety Awareness Ability to Problem Able to Problem Solve Solve Emergency Situations Home Safety Comments Pt able to answer all home safety situations with good accuracy. Meal Preparation Meal Preparation Pt will benefit from assist. Comments Octave Board Racker Octave Board Racker Pt will benefit from assist. Comments Driving Driving Concerns Identified Regarding Safety M6 OT- IP Functional Cognition Start: 09/06/25 16:42 Freq: Status: Active Protocol: Document 09/13/25 10:50 [facility] (Rec: 09/13/25 11:00 [facility] Desktop) Cognitive Factors Limiting Selfcare Function Cognitive Comments Cognitive Assessment Pt feels strongly of gong to skilled rehab to get Comments stronger. M7 OT- IP Mobility and Balance Start: 09/06/25 16:42 Freq: Status: Active Protocol: Document 09/13/25 10:50 [facility] (Rec: 09/13/25 11:00 [facility] Desktop) OT-Transfer Assessment Sit to and From Stand Sit to and from Standby Assistance Stand Transfers Transfer Ability Standby Assistance Technique Transfer Destination Chair,Toilet Transfer Technique Stand Step Pivot Comments Mobility Comments Pt now able to come to stand with SBA and walk with SBA with the FWW. Pt will benefit from dynamic balance with IADL needs. OT- Balance Assessment Sitting Balance and Reactions Static Sitting Normal Balance Ability Dynamic Sitting Good Balance Ability Standing Balance and Reactions Static Standing Fair Balance Ability Dynamic Standing Fair Balance Ability Comments Other Balance Tests/ Pt still needing use of surface for balance if standing Deviations/Treatment for periods of time. : M8 OT- IP Objective Assessments Start: 09/06/25 16:42 Freq: Status: Active Protocol: Document 09/06/25 16:43 [facility] (Rec: 09/06/25 16:55 [facility] Desktop) OT Gross Range of Motion Upper Extremity Range of Motion Assessment Within Functional Limits OT Strength Comments Strength Comments WFL for needs. OT- Coordination Assessment Upper Extremity Finger to Nose Test Left UE Impaired OT Sensation Assessment Comments Summary Comments Intact for light touch. Edema Edema Comments BLE swollen at ankles/feet M9 OT- IP Assessment and Plan Start: 09/06/25 16:42 Freq: Status: Active Protocol: Document 09/13/25 10:50 [facility] (Rec: 09/13/25 11:00 [facility] Desktop) OT Summary Assessment and Plan Potential Rehabilitation Good Potential Analytic Complexity Moderate at Evaluation Summary OT Impairments Strength,Balance,Functional Mobility,Grooming,Dressing, Toileting,Bathing,Toilet Transfers,Shower Transfers, Activity Tolerance Progress Towards Progressing Toward Goals Goals Assessment Summary Pt doing better and able to mobilize with SBA. Pt will need CGA to YOSELYN to stand from lower surfaces. Pt will benefit form skilled rehab to work of dynamic balance needs for IADL needs. Goals Dressing Goal Independent Toileting Goal Independent Bathing Goal Independent Toilet Transfer Goal Independent Shower Transfer Goal Independent Days to Meet Goals 17 Frequency of Treatment Other frequency 5x/week Treatment Plan OT Treatment Plan ADL Training,Functional Mobility,Patient/Family Education,Discharge Planning Discharge Recommendations OT Discharge SNF Rehab Recommendations Transportation Needs Private Vehicle,Wheelchair/Cabulance at Discharge
--- NOTE | 2025-09-13 17:58 | P.PN_ITS ---
Subjective Subjective Date Patient Seen: 09/13/25 Time Patient Seen: 17:58 Interval history: Chief complaint: Alcohol intoxication with withdrawal and scabies infestation History of present illness: 09/04: 70 years old female with history of hypothyroidism, depression, alcohol abuse, presented to the ER with alcohol withdrawal symptoms including confusion and tremors. Per EMS records she was visited at her home for fall. Today they found her intoxicated with alcohol bottles scattered around the room. She was altered with significant tremors and bruises on her chin apparently from fall. She also reports some diffuse abdominal pain. The patient was given Zofran 4 mg IV and 1 mg IV Ativan and her CIWA score was 12?13. Laboratory shows 12.9, hemoglobin 11.5, MCV 102.2, potassium 5, creatinine 1.68, magnesium 1.7, AST 123, ALT 51. CT scan of the abdomen and pelvis was unremarkable. Chest x-ray was unremarkable. In the ER she was given magnesium 2 g IV, phenobarbital 130 mg IV and fluid bolus. Hospital course: 09/05: She was sedated, no acute distress. Not speaking. Breathing comfortably. 09/06: She is speaking quite clearly today and tells me that ?my shakiness is abating. ? She has a good appetite. She will be doing PT and OT. The TSH is low at 0.30 so the levothyroxine dose will be decreased. The BMP is normal today. 09/07: The 09/04 CBC was normal. The 09/06 BNP was normal. The AST was 89 with an ALT of 50. The magnesium is 1.8. She would like to begin a regular diet, somehow she was placed on a heart healthy diet. She has a very itchy rash on both in her elbows and the back of the right knee. On exam this appears to be linear across the arms scratches consistent with scabies. There is also a similar lesion on the center of the upper chest. We will treat her with permethrin. She is scheduled to fly to [place] in 2 days. That would be best delayed by at least 1 or 2 more days while physical therapy and occupational therapy works with her to try and get her strong enough again to work with a mobility device or wheelchair for that flight. 09/08: She is now mobilizing and noticing that she is leaning to the right. Her brain CT was normal. We will add a brain MRI for completeness. Her voice is loud and her speech is now spontaneous. She says she has decided to go back to [place] instead of going to [place] and that she will go to rehab locally. The scabies rash looks nearly resolved after treatment yesterday. 09/09: She has no complaints today. She [facility] when a facility with an isolation capacity can take her given scabies. She receives another treatment on 09/14 and then has 7 more days of isolation. Brain MRI yesterday was unremarkable. 09/10: She has no complaints. She does have a decubitus ulcer with wedges in place and a crate ordered. She denies pruritus. Her next permethrin treatment as planned 1224 with 7 more days of isolation, anticipating [facility]. 09/11-09/12: Patient continued to improve 09/13: Patient is doing much better ambulating with the assistance review of reference based literature patient we will be able to be off of isolation after a dose of permethrin 09/14 (2nd dose per consultation of reference) Review of systems: No fever or chills rigors No nausea vomiting diarrhea Appetite improving Physical exam: No acute distress Alert and cogent Rash is significantly improved No labored respirations Assessment and plan: Acute alcohol withdrawal, resolved At presentation, the patient had an elevated CIWA score and was given phenobarbital in the emergency room. She was subsequently placed on the CIWA protocol and her withdrawal symptoms have resolved. * Encourage alcohol cessation * Continue multivitamin Diarrhea New over the last 48 hours. GI panel negative * Imodium, 2mg aft each loose stool, max 8 tabs in 24 hours SHELLY, resolved Creatinine was 1.68 at presentation, 0.82 on 09/07 * Continue to monitor as needed -recheck on 09/13 Scabies * Patient was noted to have pruritic rash consistent with scabies. She has received 1 dose of permethrin and the 2nd dose will be given on 09/14. * Isolation can be lifted after the 2nd dose. The rash is significantly improved after the 1st treatment. * Second permethrin treatment on 09/14 Hypomagnesemia Present at admission, likely due to alcohol consumption, repleted appropriately. * Continue to monitor prn Hypothyroidism * Continue repletion with levothyroxine Code Status: Full code Diet: General Lines/Tubes: Peripheral IV DVT Prophylaxis: Enoxaparin Discharge Planning: * Patient is medically stable for discharge. She will require a [place] [facility] for [facility]-term rehab. Time based billing: * 35 minutes were involved in evaluation of the patient including [id number] evaluation Exam Vital Signs (past 8 hours): Oxygen Delivery Method Room Air Oxygen Flow Rate 0 Objective Labs 09/13/25 06:35 09/13/25 06:35 Labs: Laboratory Results - last 24 hr 09/13/25 06:35 WBC 5.9 RBC 2.94 L Hgb 9.9 L Hct 30.0 L MCV 101.8 H MCH 33.7 MCHC 33.2 RDW 14.9 H Plt Count 218 Neut % (Auto) 56.6 Lymph % (Auto) 29.6 Amelia % (Auto) 9.6 Eos % (Auto) 3.2 Baso % (Auto) 1.0 Neut # (Auto) 3300 Lymph # (Auto) 1700 Amelia # (Auto) 600 Eos # (Auto) 200 Baso # (Auto) 100 Sodium 137 Potassium 3.8 Chloride 109 H Carbon Dioxide 23 BUN 13 Creatinine 0.69 Estimated GFR > 60 BUN/Creatinine Ratio 18.8 Glucose 99 Calcium 8.9 Magnesium 1.7 PFSH Family History Father Cancer Grandmother Diverticulitis Social History marital status: household members: none lives independently: Yes caregiver/support person: Yes housing: house Smoking Status: Former smoker alcohol intake: current Assessment & Plan Time-Based Coding :: [TOTAL MINUTES] spent with patient and on the chart (including review of chart, obtaining history, exam, reviewing outside data, placing orders, documenting exam and treatment plan, and counseling patient) on [DATE]. Quality VTE Deep Vein Thrombosis/Pulmonary Embolism Present on Admission: No
[2025-09-13 19:55] VITALS: BP 104/61; PULSE 75; RESP 16; TEMP 36.6; O2SAT 96
[2025-09-13] MEDS: MIRTAZAPINE 15 MG TABLET 30 MG PO (21:31)
[2025-09-14] MEDS: LEVOTHYROXINE 88 MCG TABLET PO (05:47)
[2025-09-14 06:00] LABS: Blood Urea Nitrogen 17 mg/dL (7-17); Calcium 9.1 mg/dL (8.4-10.2); Carbon Dioxide 22 mmol/L (22-32); Chloride 110 mmol/L (98-107); Estimated Glomerular Filt Rate > 60 mL/min (>60); Glucose 100 mg/dL (70-99); HEMOLYSIS < 15 (0-50); Magnesium 1.9 mg/dL (1.6-2.3); Potassium 4.1 mmol/L (3.4-5.1); Sodium 139 mmol/L (137-145)
[2025-09-14 08:27] VITALS: BP 111/71; PULSE 66; RESP 16; TEMP 36.4; O2SAT 98
--- NOTE | 2025-09-14 09:17 | PT.IPTN ---
Current Diagnoses Alcohol use, unspecified with withdrawal delirium (09/04/25) Physical Therapy Treatment Note M2 PT-IP Current Condition Start: 09/06/25 14:49 Freq: Status: Active Protocol: Document 09/12/25 11:50 SP (Rec: 09/12/25 12:27 SP lana [email or web address]) Physical Therapy Current Condition Current Condition Evaluation Date 09/06/25 Treatment Diagnosis GLF, Debility, Low activity tolerance Onset Date 09/04/25 M3 PT-IP Subjective Start: 09/06/25 14:49 Freq: Status: Active Protocol: Document 09/14/25 10:48 NW (Rec: 09/14/25 10:56 NW [id number]) Subjective Physical Therapy Visit Type Type Treatment Note Visit Start Time 08:46 Visit Stop Time 09:17 Number of RECORDING 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 Continues to feel like she is getting stronger. Patient Goals go to rehab Therapy Pain Assessment Location Left Hip Intensity 6 Scale Used Numeric (0 - 10) Description Aching Pain Behaviors Facial Grimacing Pain Management Modification of Treatment,Timing of Activity with Techniques Medications M4 PT-IP Mobility and Gait Start: 09/06/25 14:49 Freq: Status: Active Protocol: Document 09/14/25 10:48 NW (Rec: 09/14/25 10:56 NW [id number]) PT-Transfer Assessment Sit to and From Stand Sit to and from Standby Assistance Stand Equipment Transfer Assistive Gait Belt,Front Wheeled Walker Device Transfers Transfer Destination Bed,Chair Transfer Technique Stand Step Pivot Transfer Ability Level of Assist Standby Assistance,1 Person Assistance,Use of Upper Extremities Comments Mobility Comments No cues necessary for UE placement. Challenged to utilize LE to perform and relies on UE to help push up from surface. Dynamic knee valgus noted. With decrease surface height pt increases use of UE. Gait Assessment Gait Gait Assistance Standby Assistance Required: Distance (Feet) 120 Able to Maintain Yes Weight Bearing Status During Gait Assistive Devices Assistive Device Gait Belt,Front Wheeled Walker Gait Deviations General Gait Pattern Antalgic,Decreased Stride Length,Step-to Gait,Wide Based Gait Factors Limiting Gait Function Factors Limiting Decreased Activity Tolerance,Decreased Strength,Pain, Gait Function Poor Balance,Poor Safety Awareness Comments Gait Comments Ambulated over 3 unequal bouts with greatest distance of 88 ft for 2 minute walk test. Maintains arielle and velocity with step to gait pattern secondary to L hip pain. Continues to use UE to offload LLE with FWW. PT-Balance Assessment Sitting Balance and Reactions Static Sitting Normal Balance Ability Dynamic Sitting Normal Balance Ability Standing Balance and Reactions Static Standing Good Balance Ability Dynamic Standing Fair Balance Ability Device Used FWW Functional Assessments Functional Tests 2 Minute Walk Test 88 ft Other Functional Tests ZARATE 29/46 Performed M5 PT-IP Objective Assessments Start: 09/06/25 14:49 Freq: Status: Active Protocol: Document 09/06/25 14:49 NW (Rec: 09/06/25 15:03 NW [id number]) Orientation Orientation/Cognition Level of Alertness Alert Orientation Name,Age,Birthday,Month,Date,Year,Day of Week,Place, Situation Safety Awareness Decreased Safety Awareness Comments Pt wants to go home and does not see concern for mobility deficits and living alone. Gross Range of Motion Upper Extremity ROM Assessment Within Functional Limits Lower Extremity ROM Assessment Within Functional Limits Strength Lower Extremity Strength Assessment Left Impaired Hip 3/5 flexion Knee 4/5 ext Ankle WFL Coordination Assessment Gross Coordination Gross Coordination WNL Sensation Assessment Sensation Gross Sensation WNL Light Touch Intact Muscle Tone Muscle Tone WNL Yes M6 PT-IP Treatment Start: 09/06/25 14:49 Freq: Status: Active Protocol: Document 09/14/25 10:48 NW (Rec: 09/14/25 10:56 NW [id number]) Physical Therapy Treatment Other Treatments Other Treatment STS from surface with no hand rails 3 x 5 Performed ZARATE balance assessment M7 PT-IP Assessment and Plan Start: 09/06/25 14:49 Freq: Status: Active Protocol: Document 09/14/25 10:48 NW (Rec: 09/14/25 10:56 NW [id number]) PT Summary Assessment and Plan Potential Rehabilitation Good Potential Status of Condition Evolving at Evaluation Summary Impairments Pain,Strength,Bed Mobility,Transfers,Gait,Activity Tolerance Progress Towards Progressing Toward Goals,Slow Progress due to Pain,Slow Goals Progress due to Activity Tolerance Assessment Summary Performed Zarate assessment with score of 29/46 making pt a risk for falls. Re-assessed 2 minute walk test with distance of 88 ft, maintains gait distance from last measure. Pt is able to consistently perform gait at CGA /SBA once standing with FWW. Continue to recommend SNF secondary to being unsafe being home alone with potential to continue progress to home as pt may be nearing baseline. Goals Bed Mobility Goal Independent Transfer Goal Independent Gait Goal Independent Gait Distance 50 Other Goals Pt will navigate 2 steps with hand rail on . Days to Meet Goals 3 Frequency of Treatment Frequency Of Once a Day Treatment Treatment Plan Physical Therapy Bed Mobility Training,Transfer Training,Gait Training, Treatment Plan Therapeutic Exercise,Balance Retraining,Discharge Planning,Neuromuscular Re-ed Other Transfers, gait with FWW, stair mgt when able. Recommendations and Next Treatment Focus Precautions Other Precautions falls risk, scabies, chau, ETOH Weight Bearing Status Weight Bearing Weight Bear as Tolerated Status Recommendations To Nursing Amount of Assist 1 Person Assist Needed Discharge Recommendations PT Discharge Home with Assistance,Home Health,SNF Rehab,Home vs SNF Recommendations Other Discharge Pt states cannot get additional assistance at home due Recommendations to geographic location and cost. Transportation Needs Private Vehicle,Wheelchair/Cabulance at Discharge - PT assist 1
--- NOTE | 2025-09-14 09:35 | OT.IP.TRT ---
Current Diagnoses Alcohol use, unspecified with withdrawal delirium (09/04/25) Occupational Therapy Treatment Note M2 OT-IP Current Condition Start: 09/06/25 16:42 Freq: Status: Active Protocol: Document 09/06/25 16:43 [facility] (Rec: 09/06/25 16:55 [facility] Desktop) Occupational Therapy Current Condition Current Condition Evaluation Date 09/06/25 Treatment Diagnosis Sepsis, ecoli Diagnosis Onset Date 09/04/25 M3 OT- IP Subjective and Pain Start: 09/06/25 16:42 Freq: Status: Active Protocol: Document 09/14/25 09:35 [facility] (Rec: 09/14/25 12:54 [facility] Desktop) OT- Subjective Occupational Therapy Visit Type Type Treatment Note Visit Start Time 09:17 Visit Stop Time 09:35 Occupational Therapy Visit Comments Patient Comments Pt agreed to get up to use the bathroom. Patient/Caregiver Pt wanting to go to skilled rehab. Goals OT Pain Assessment Pain When Pain Assessed During Mobility Pain Present Pain Present Pain Reported Location Left Hip Pain Behaviors Facial Grimacing,Guarding M4 OT- IP ADL's Start: 09/06/25 16:42 Freq: Status: Active Protocol: Document 09/14/25 09:35 [facility] (Rec: 09/14/25 12:54 [facility] Desktop) OT ADL-Grooming General Evaluation Grooming Ability Independent OT ADL-Oral Care General Eval Oral Care Ability Independent OT ADL-Toileting General Evaluation Toileting Ability Standby Assistance Comments OT Toileting Distant SBA for all toileting needs. Comments M5 OT- IP IADL's Start: 09/06/25 16:42 Freq: Status: Active Protocol: Document 09/06/25 16:43 [facility] (Rec: 09/06/25 16:55 [facility] Desktop) OT-Instrumental Activities of Daily Living Home Safety Awareness Ability to Problem Able to Problem Solve Solve Emergency Situations Home Safety Comments Pt able to answer all home safety situations with good accuracy. Meal Preparation Meal Preparation Pt will benefit from assist. 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 Comments Driving Driving Concerns Identified Regarding Safety M6 OT- IP Functional Cognition Start: 09/06/25 16:42 Freq: Status: Active Protocol: Document 09/14/25 09:35 [facility] (Rec: 09/14/25 12:54 [facility] Desktop) Cognitive Factors Limiting Selfcare Function Cognitive Comments Cognitive Assessment Pt scored 85 seconds on [place] Making Part B which Comments implies scoring 60% for her age and implies normal but not perfect for visual attention, speed of processing, mental flexibility, executive functioning and task switching. Pt states insistent on going to skilled rehab however appears to be close to her baseline needs for ADL's and mobility. M7 OT- IP Mobility and Balance Start: 09/06/25 16:42 Freq: Status: Active Protocol: Document 09/14/25 09:35 [facility] (Rec: 09/14/25 12:54 [facility] Desktop) OT-Transfer Assessment Sit to and From Stand Sit to and from Standby Assistance Stand Transfers Transfer Ability Standby Assistance Technique Transfer Destination Chair,Toilet Transfer Technique Stand Step Pivot Comments Mobility Comments Distant SBA with FWW in the room. OT- Balance Assessment Sitting Balance and Reactions Static Sitting Normal Balance Ability Dynamic Sitting Normal Balance Ability Standing Balance and Reactions Static Standing Good Balance Ability Dynamic Standing Fair Balance Ability Comments Other Balance Tests/ More steady on her feet today. Deviations/Treatment : M8 OT- IP Objective Assessments Start: 09/06/25 16:42 Freq: Status: Active Protocol: Document 09/06/25 16:43 [facility] (Rec: 09/06/25 16:55 [facility] Desktop) OT Gross Range of Motion Upper Extremity Range of Motion Assessment Within Functional Limits OT Strength Comments Strength Comments WFL for needs. OT- Coordination Assessment Upper Extremity Finger to Nose Test Left UE Impaired OT Sensation Assessment Comments Summary Comments Intact for light touch. Edema Edema Comments BLE swollen at ankles/feet M9 OT- IP Assessment and Plan Start: 09/06/25 16:42 Freq: Status: Active Protocol: Document 09/14/25 09:35 [facility] (Rec: 09/14/25 12:54 [facility] Desktop) OT Summary Assessment and Plan Potential Rehabilitation Good Potential Analytic Complexity Moderate at Evaluation Summary OT Impairments Strength,Balance,Functional Mobility,Grooming,Dressing, Toileting,Bathing,Toilet Transfers,Shower Transfers, Activity Tolerance Progress Towards Progressing Toward Goals Goals Assessment Summary Pt does not feel comfortable to go home and looking to go to skilled rehab when medically stable. Pt insists she has no assist at home. Goals Dressing Goal Independent Toileting Goal Independent Bathing Goal Independent Toilet Transfer Goal Independent Shower Transfer Goal Independent Days to Meet Goals 7 Frequency of Treatment Other frequency 5x/week Treatment Plan OT Treatment Plan ADL Training,Functional Mobility,Patient/Family Education,Discharge Planning Discharge Recommendations OT Discharge SNF Rehab Recommendations Other Discharge If pt was able to have assist, home with assist and Recommendations home health. Transportation Needs Private Vehicle,Wheelchair/Cabulance at Discharge
[2025-09-14] MEDS: SODIUM CHLORIDE 0.9% FLUSH 10 ML IV ×2 (10:38→22:02)
[2025-09-14] MEDS: ENOXAPARIN 40 MG/0.4 ML SYRINGE SUBCUT (10:38)
[2025-09-14] MEDS: GABAPENTIN 600 MG TABLET PO ×2 (10:39→22:01)
[2025-09-14] MEDS: ESCITALOPRAM 10 MG TABLET 15 MG PO (10:39)
[2025-09-14] MEDS: MULTIVITAMIN 1 TABLET 1 TAB PO (10:39)
--- NOTE | 2025-09-14 10:44 | PM.PN.1 ---
Subjective Subjective Date Patient Seen: 09/14/25 Time Patient Seen: 10:59 Interval history: Chief complaint: Alcohol intoxication with withdrawal and scabies infestation History of present illness: 09/04: 70 years old female with history of hypothyroidism, depression, alcohol abuse, presented to the ER with alcohol withdrawal symptoms including confusion and tremors. Per EMS records she was visited at her home for fall. Today they found her intoxicated with alcohol bottles scattered around the room. She was altered with significant tremors and bruises on her chin apparently from fall. She also reports some diffuse abdominal pain. The patient was given Zofran 4 mg IV and 1 mg IV Ativan and her CIWA score was 12?13. Laboratory shows 12.9, hemoglobin 11.5, MCV 102.2, potassium 5, creatinine 1.68, magnesium 1.7, AST 123, ALT 51. CT scan of the abdomen and pelvis was unremarkable. Chest x-ray was unremarkable. In the ER she was given magnesium 2 g IV, phenobarbital 130 mg IV and fluid bolus. Hospital course: 09/05: She was sedated, no acute distress. Not speaking. Breathing comfortably. 09/06: She is speaking quite clearly today and tells me that ?my shakiness is abating. ? She has a good appetite. She will be doing PT and OT. The TSH is low at 0.30 so the levothyroxine dose will be decreased. The BMP is normal today. 09/07: The 09/04 CBC was normal. The 09/06 BNP was normal. The AST was 89 with an ALT of 50. The magnesium is 1.8. She would like to begin a regular diet, somehow she was placed on a heart healthy diet. She has a very itchy rash on both in her elbows and the back of the right knee. On exam this appears to be linear across the arms scratches consistent with scabies. There is also a similar lesion on the center of the upper chest. We will treat her with permethrin. She is scheduled to fly to [place] in 2 days. That would be best delayed by at least 1 or 2 more days while physical therapy and occupational therapy works with her to try and get her strong enough again to work with a mobility device or wheelchair for that flight. 09/08: She is now mobilizing and noticing that she is leaning to the right. Her brain CT was normal. We will add a brain MRI for completeness. Her voice is loud and her speech is now spontaneous. She says she has decided to go back to [place] instead of going to [place] and that she will go to rehab locally. The scabies rash looks nearly resolved after treatment yesterday. 09/09: She has no complaints today. She anticipate half-way facility placement when a facility with an isolation capacity can take her given scabies. She receives another treatment on 09/14 and then has 7 more days of isolation. Brain MRI yesterday was unremarkable. 09/10: She has no complaints. She does have a decubitus ulcer with wedges in place and a crate ordered. She denies pruritus. Her next permethrin treatment as planned 1224 with 7 more days of isolation, anticipating half-way facility placement. 09/11-09/12: Patient continued to improve 09/13: Patient is doing much better ambulating with the assistance review of reference based literature patient we will be able to be off of isolation after a dose of permethrin 09/14 (2nd dose per consultation of reference) 09/14: Improving with physical therapy patient is still once rehab can go off isolation today Review of systems: No fever or chills rigors No nausea vomiting diarrhea Appetite improving Physical exam: No acute distress Alert and cogent Rash is significantly improved No labored respirations Assessment and plan: Acute alcohol withdrawal, resolved At presentation, the patient had an elevated CIWA score and was given phenobarbital in the emergency room. She was subsequently placed on the CIWA protocol and her withdrawal symptoms have resolved. Encourage alcohol cessation Continue multivitamin Diarrhea New over the last 48 hours. GI panel negative resolved SHELLY, resolved Creatinine was 1.68 at presentation, 0.82 on 09/07 Scabies resolved Off isolation after Second permethrin treatment on 09/14 Hypomagnesemia resolved Hypothyroidism Continue repletion with levothyroxine Code Status: Full code Diet: General Lines/Tubes: Peripheral IV DVT Prophylaxis: Enoxaparin Discharge Planning: Patient is medically stable for discharge. She will require a half-way facility for short-term rehab. Patient is Off isolation Time based billin minutes were involved in evaluation of the patient including [id number] evaluation Exam Vital Signs (past 8 hours): - 09/14/25 08:27 Temperature 97.5 F L Pulse Rate 66 Respiratory Rate 16 Blood Pressure 111/71 Pulse Oximetry 98 Oxygen Flow Rate 0 Oxygen Delivery Method Room Air Oxygen Flow Rate 0 Objective Labs 09/13/25 06:35 09/14/25 05:05 Labs: Laboratory Results - last 24 hr 09/14/25 05:05 Sodium 139 Potassium 4.1 Chloride 110 H Carbon Dioxide 22 BUN 17 Creatinine 0.74 Estimated GFR > 60 BUN/Creatinine Ratio 23.0 H Glucose 100 H Calcium 9.1 Magnesium 1.9 PFSH Family History Father Cancer Grandmother Diverticulitis Social History marital status: household members: none lives independently: Yes caregiver/support person: Yes housing: house Smoking Status: Former smoker alcohol intake: current Assessment & Plan Time-Based Coding :: [TOTAL MINUTES] spent with patient and on the chart (including review of chart, obtaining history, exam, reviewing outside data, placing orders, documenting exam and treatment plan, and counseling patient) on [DATE]. Quality VTE Deep Vein Thrombosis/Pulmonary Embolism Present on Admission: No
--- NOTE | 2025-09-14 11:54 | PC.NURSE ---
1100: applied Permetharin treatment per MD orders. Pt tolerated well and was able to assist. treatment to remain in place until at least 1899. notified MD whittington that treatment has been applied and that he can change isolation orders. pt resting comfortably, call light within reach, Plan of care continues.
[2025-09-14 19:44] VITALS: BP 123/63; PULSE 67; RESP 18; TEMP 36.3; O2SAT 96
[2025-09-14] MEDS: MIRTAZAPINE 15 MG TABLET 30 MG PO (22:01)
[2025-09-15] MEDS: LEVOTHYROXINE 88 MCG TABLET PO (05:54)
[2025-09-15 08:16] VITALS: BP 122/71; PULSE 70; RESP 14; TEMP 36.4; O2SAT 99
--- NOTE | 2025-09-15 09:33 | PT.IPTN ---
Current Diagnoses Alcohol use, unspecified with withdrawal delirium (09/04/25) Physical Therapy Treatment Note M2 PT-IP Current Condition Start: 09/06/25 14:49 Freq: Status: Active Protocol: Document 09/12/25 11:50 SP (Rec: 09/12/25 12:27 SP lana [email or web address]) Physical Therapy Current Condition Current Condition Evaluation Date 09/06/25 Treatment Diagnosis GLF, Debility, Low activity tolerance Onset Date 09/04/25 M3 PT-IP Subjective Start: 09/06/25 14:49 Freq: Status: Active Protocol: Document 09/15/25 08:30 AB (Rec: 09/15/25 09:32 AB [id number]) Subjective Physical Therapy Visit Type Type Treatment Note Visit Start Time 08:30 Visit Stop Time 09:08 Number of TRANSPLANT SURGEON Visits 1 Physical Therapy Visit Comments Patient Comments Shilpa rates L hip pain 1-2/10 at rest start of session, commenting this is her normal amount of hip pain. Patient agreeable to participate in physical therapy. Patient Goals go to rehab Therapy Pain Assessment Pain When Pain Assessed During Mobility Pain Present Pain Present Pain Reported Location Left Hip Intensity 5 Scale Used Numeric (0 - 10) Description Aching Pain Behaviors Facial Grimacing Pain Management Modification of Treatment Techniques M4 PT-IP Mobility and Gait Start: 09/06/25 14:49 Freq: Status: Active Protocol: Document 09/15/25 08:30 AB (Rec: 09/15/25 09:32 AB [id number]) PT-Bed Mobility Assessment Rolling Type of Rolling Roll to Left Level of Assist Independent Supine to Sit Supine to Sit Standby Assistance PT-Transfer Assessment Sit to and From Stand Sit to and from Standby Assistance,Use of Upper Extremities Stand Equipment Transfer Assistive Gait Belt,Front Wheeled Walker Device Transfers Transfer Destination Bed,Chair Transfer Technique Stand Step Pivot Transfer Ability Level of Assist Standby Assistance,1 Person Assistance,Use of Upper Extremities Comments Mobility Comments VC for UE positioning and timing for supine to sit. Trial of 2 UE's on bed for sit to stand, with patient ed to sit back down if unsteady during transfer sit to stand with UE's on bed. Gait Assessment Gait Gait Assistance Standby Assistance Required: Distance (Feet) 62 Able to Maintain Yes Weight Bearing Status During Gait Assistive Devices Assistive Device Gait Belt,Front Wheeled Walker Gait Deviations General Gait Pattern Antalgic,Decreased Stride Length,Step-to Gait,Wide Based Gait Factors Limiting Gait Function Factors Limiting Decreased Activity Tolerance,Decreased Strength,Pain, Gait Function Poor Balance Comments Gait Comments Patient SLS in standing 1 sec R LE less than one sec L LE without UE UE. Patient ed importance of using FWW at all times and for increased force on UE's as needed to decrease pain during L LE stance phase during ambulation. VC to dec L knee hyperextension during ambulation as able. PT-Balance Assessment Sitting Balance and Reactions Static Sitting Normal Balance Ability Dynamic Sitting Normal Balance Ability Standing Balance and Reactions Static Standing Good Balance Ability Dynamic Standing Fair Balance Ability Device Used FWW M5 PT-IP Objective Assessments Start: 09/06/25 14:49 Freq: Status: Active Protocol: Document 09/06/25 14:49 NW (Rec: 09/06/25 15:03 NW [id number]) Orientation Orientation/Cognition Level of Alertness Alert Orientation Name,Age,Birthday,Month,Date,Year,Day of Week,Place, Situation Safety Awareness Decreased Safety Awareness Comments Pt wants to go home and does not see concern for mobility deficits and living alone. Gross Range of Motion Upper Extremity ROM Assessment Within Functional Limits Lower Extremity ROM Assessment Within Functional Limits Strength Lower Extremity Strength Assessment Left Impaired Hip 3/5 flexion Knee 4/5 ext Ankle WFL Coordination Assessment Gross Coordination Gross Coordination WNL Sensation Assessment Sensation Gross Sensation WNL Light Touch Intact Muscle Tone Muscle Tone WNL Yes M6 PT-IP Treatment Start: 09/06/25 14:49 Freq: Status: Active Protocol: Document 09/15/25 08:30 AB (Rec: 09/15/25 09:32 AB [id number]) Physical Therapy Treatment Exercises Exercises Heel Slides,Seated Knee Flexion/Extension Knee ROM Measurement supine hip abd, seated hip abd isometric, SLS trials M7 PT-IP Assessment and Plan Start: 09/06/25 14:49 Freq: Status: Active Protocol: Document 09/15/25 08:30 AB (Rec: 09/15/25 09:32 AB [id number]) PT Summary Assessment and Plan Potential Rehabilitation Good Potential Status of Condition Evolving at Evaluation Summary Impairments Pain,Strength,Bed Mobility,Transfers,Gait,Activity Tolerance Progress Towards Progressing Toward Goals,Slow Progress due to Pain,Slow Goals Progress due to Activity Tolerance Assessment Summary Patient required cues for timing to perform sidelying to sit without physical assist. SLS continues to be very limited bilateral LE's L>R and patient requires increased use of/force on FWW due to weakness and L hip pain. Of note patient comments during session she would like to learn how to get up off the floor, when she goes to rehab due unable to get up off the floor when she falls. Goals Bed Mobility Goal Independent Transfer Goal Independent Gait Goal Independent Gait Distance 50 Other Goals Pt will navigate 2 steps with hand rail on . Days to Meet Goals 3 Frequency of Treatment Frequency Of Once a Day Treatment Treatment Plan Physical Therapy Bed Mobility Training,Transfer Training,Gait Training, Treatment Plan Therapeutic Exercise,Balance Retraining,Discharge Planning,Neuromuscular Re-ed Other Transfers, gait with FWW, stair mgt when able. Recommendations and Next Treatment Focus Precautions Other Precautions falls risk, scabies, chau, ETOH Weight Bearing Status Weight Bearing Weight Bear as Tolerated Status Recommendations To Nursing Amount of Assist Standby Assistance Needed Discharge Recommendations PT Discharge Home with Assistance,Home Health,SNF Rehab,Home vs SNF Recommendations Other Discharge Pt states cannot get additional assistance at home due Recommendations to geographic location and cost. Transportation Needs Private Vehicle,Wheelchair/Cabulance at Discharge - PT assist 1
[2025-09-15] MEDS: ESCITALOPRAM 10 MG TABLET 15 MG PO (09:35)
[2025-09-15] MEDS: MULTIVITAMIN 1 TABLET 1 TAB PO (09:37)
[2025-09-15] MEDS: ENOXAPARIN 40 MG/0.4 ML SYRINGE SUBCUT (09:37)
[2025-09-15] MEDS: GABAPENTIN 600 MG TABLET PO ×2 (09:37→20:29)
[2025-09-15] MEDS: SODIUM CHLORIDE 0.9% FLUSH 10 ML IV ×2 (09:38→20:30)
--- NOTE | 2025-09-15 12:06 | P.DS_ITS ---
History of Present Illness History of Present Illness Date Patient Seen: 09/15/25 Chief complaint: AMS Narrative: Chief complaint: Alcohol intoxication with withdrawal and scabies infestation History of present illness: 09/04: 70 years old female with history of hypothyroidism, depression, alcohol abuse, presented to the ER with alcohol withdrawal symptoms including confusion and tremors. Per EMS records she was visited at her home for fall. Today they found her intoxicated with alcohol bottles scattered around the room. She was altered with significant tremors and bruises on her chin apparently from fall. She also reports some diffuse abdominal pain. The patient was given Zofran 4 mg IV and 1 mg IV Ativan and her CIWA score was 12?13. Laboratory shows 12.9, hemoglobin 11.5, MCV 102.2, potassium 5, creatinine 1.68, magnesium 1.7, AST 123, ALT 51. CT scan of the abdomen and pelvis was unremarkable. Chest x-ray was unremarkable. In the ER she was given magnesium 2 g IV, phenobarbital 130 mg IV and fluid bolus. Hospital course: 09/05: She was sedated, no acute distress. Not speaking. Breathing comfortably. 09/06: She is speaking quite clearly today and tells me that ?my shakiness is abating. ? She has a good appetite. She will be doing PT and OT. The TSH is low at 0.30 so the levothyroxine dose will be decreased. The BMP is normal today. 09/07: The 09/04 CBC was normal. The 09/06 BNP was normal. The AST was 89 with an ALT of 50. The magnesium is 1.8. She would like to begin a regular diet, somehow she was placed on a heart healthy diet. She has a very itchy rash on both in her elbows and the back of the right knee. On exam this appears to be linear across the arms scratches consistent with scabies. There is also a similar lesion on the center of the upper chest. We will treat her with permethrin. She is scheduled to fly to [place] in 2 days. That would be best delayed by at least 1 or 2 more days while physical therapy and occupational therapy works with her to try and get her strong enough again to work with a mobility device or wheelchair for that flight. 09/08: She is now mobilizing and noticing that she is leaning to the right. Her brain CT was normal. We will add a brain MRI for completeness. Her voice is loud and her speech is now spontaneous. She says she has decided to go back to [place] instead of going to [place] and that she will go to rehab locally. The scabies rash looks nearly resolved after treatment yesterday. 09/09: She has no complaints today. She anticipate residential facility placement when a facility with an isolation capacity can take her given scabies. She receives another treatment on 09/14 and then has 7 more days of isolation. Brain MRI yesterday was unremarkable. 09/10: She has no complaints. She does have a decubitus ulcer with wedges in place and a crate ordered. She denies pruritus. Her next permethrin treatment as planned 1224 with 7 more days of isolation, anticipating residential facility placement. 09/11-09/12: Patient continued to improve 09/13: Patient is doing much better ambulating with the assistance review of reference based literature patient we will be able to be off of isolation after a dose of permethrin 09/14 (2nd dose per consultation of reference) 09/14: Improving with physical therapy patient is still once rehab can go off isolation today 09/15: Patient transported to residential Review of systems: No fever or chills rigors No nausea vomiting diarrhea Appetite improving Physical exam: No acute distress Alert and cogent Rash is significantly improved No labored respirations Assessment and plan: Acute alcohol withdrawal, resolved At presentation, the patient had an elevated CIWA score and was given phenobarbital in the emergency room. She was subsequently placed on the CIWA protocol and her withdrawal symptoms have resolved. * Encourage alcohol cessation * Continue multivitamin Diarrhea New over the last 48 hours. GI panel negative resolved SHELLY, resolved Creatinine was 1.68 at presentation, 0.82 on 09/07 Scabies resolved * Off isolation after Second permethrin treatment on 09/14 Hypomagnesemia resolved Hypothyroidism * Continue repletion with levothyroxine Code Status: Full code Diet: General Lines/Tubes: Peripheral IV DVT Prophylaxis: Enoxaparin Discharge Planning: * Transfer residential facility for short-term rehab. * Patient is Off isolation Time based billing: * 35 minutes were involved in evaluation of the patient including [id number] evaluation Discharge Providers Provider Date of admission: 09/04/25 23:48 Discharge Date: 09/15/25 Primary care physician: Piero Rivera MD Consults: 09/04/25 23:53 Consult to Discharge Planning Routine Comment: 09/05/25 09:28 Consult to Pastoral Services Routine Comment: Pt would like a visit Consult to Pharmacy Routine Comment: She doesn't need one, system wont allow deletion 09/06/25 09:06 Consult to Physical Therapy Evaluate & Treat Comment: Physician Instructions: Evaluate and Treat 09/06/25 15:15 Consult to Occupational Therapy Evaluate & Treat Comment: Physician Instructions: Evaluate and treat Discharge provider: Raffi Fierro MD Exam Vital Signs (past 8 hours): - 09/15/25 08:16 Temperature 97.5 F L Pulse Rate 70 Respiratory Rate 14 Blood Pressure 122/71 Pulse Oximetry 99 Oxygen Flow Rate 0 Oxygen Delivery Method Room Air Oxygen Flow Rate 0 Objective Labs 09/13/25 06:35 09/14/25 05:05 PFSH Family History Father Cancer Grandmother Diverticulitis Social History marital status: household members: none lives independently: Yes caregiver/support person: Yes housing: house Smoking Status: Former smoker alcohol intake: current Discharge Plan Discharge Plan Patient Disposition: SNF Consult as needed: Dental, Hearing, Mental health, Podiatry and Vision Discharge orders & Medications Prescriptions: New permethrin 5 % cream 1 applic topical Q14D Qty: 60 0RF Rx Instructions: Cover body from chin down, wash off in 8 hours, apply second treatment 7 days levothyroxine 88 mcg Tablet 88 mcg PO DAILY@0600 Qty: 90 0RF Continued mirtazapine 30 mg tablet 30 mg PO ONCE PM doxycycline hyclate 50 mg capsule 50 mg PO DAILY alprazolam 0.25 mg tablet 0.25 mg PO DAILY PRN (Reason: anxiety) escitalopram oxalate 10 mg tablet 10 mg PO DAILY escitalopram oxalate 5 mg tablet 5 mg PO DAILY gabapentin 600 mg tablet 600 mg PO BID Patient Comments: TAKE ONE(1) TABLET BY MOUTH EVERY MORNING AND THREE(3) TABLETS BY MOUTH AT BEDTIME. Rx Instructions: take one tablet every am and 3 tablets at night spironolactone 25 mg tablet 25 mg PO DAILY Patient Comments: TAKE ONE(1) TABLET BY MOUTH ONCE DAILY metronidazole [MetroCream] 0.75 % cream 0.75 % TP 2XW oxycodone 5 mg Tablet 5 mg PO Q3HR PRN (Reason: Pain, Mild (1-3)) Qty: 30 0RF alprazolam 0.5 MG tablet 0.5 mg PO PRN PRN (Reason: Anxiety) Qty: 30 0RF Rx Instructions: 1 in the am and 1 at bedtime for anxiety zolpidem [Ambien] 10 MG tablet 10 mg PO PRN PRN (Reason: Insomnia) Qty: 30 0RF Rx Instructions: no more than 3/week Discontinued levothyroxine 100 MCG tablet 0.1 mg PO 0600 Follow up/Referrals: Piero Rivera MD [Primary Care Provider, Family Practice] Visit Report/Discharge Packet Stand Alone Forms: [employer], Patient Portal/API, Stroke Signs & Symptoms, Influenza Vaccine Info, Notice of Privacy Practices, Inpatient vs Outpatient, Pneumococcal Vaccine Info, Pt. Rights & Responsibilities Discharge Data Primary Care Provider: Piero Rivera Quality VTE Deep Vein Thrombosis/Pulmonary Embolism Present on Admission: No
--- NOTE | 2025-09-15 13:14 | OT.IP.TRT ---
Current Diagnoses Alcohol use, unspecified with withdrawal delirium (09/04/25) Occupational Therapy Treatment Note M2 OT-IP Current Condition Start: 09/06/25 16:42 Freq: Status: Active Protocol: Document 09/06/25 16:43 CCC (Rec: 09/06/25 16:55 CCC Desktop) Occupational Therapy Current Condition Current Condition Evaluation Date 09/06/25 Treatment Diagnosis Sepsis, ecoli Diagnosis Onset Date 09/04/25 M3 OT- IP Subjective and Pain Start: 09/06/25 16:42 Freq: Status: Active Protocol: Document 09/15/25 13:06 CHRISTINA (Rec: 09/15/25 13:13 CHRISTINA Desktop) OT- Subjective Occupational Therapy Visit Type Type Treatment Note Visit Start Time 12:45 Visit Stop Time 13:01 Occupational Therapy Visit Comments Patient Comments Pt agreed to get up and brush her teeth. Patient/Caregiver Pt wanting to go to skilled rehab. Goals OT Pain Assessment Pain When Pain Assessed At Rest Pain Present Pain Present Denied Pain M4 OT- IP ADL's Start: 09/06/25 16:42 Freq: Status: Active Protocol: Document 09/15/25 13:06 CHRISTINA (Rec: 09/15/25 13:13 CHRISTINA Desktop) OT [id number] Comments OT Self-Feeding not observed Comments OT ADL-Grooming General Evaluation Grooming Ability Independent Comments OT Grooming Comments Pt brushes her hair using brush she gathers from sink OT ADL-Oral Care General Eval Oral Care Ability Independent Comments Oral Care Comments Pt brushes her teeth using supplies she gathers from sink OT ADL-Dressing Comments OT Dressing Comments Pt declines dressing, stating that it is easier to manage hospital clothing at this time OT ADL-Toileting Comments OT Toileting pt declines need at this time Comments OT ADL-Bathing Comments OT Bathing Comments Pt declines, stating she showered last night. M5 OT- IP IADL's Start: 09/06/25 16:42 Freq: Status: Active Protocol: Document 09/06/25 16:43 CCC (Rec: 09/06/25 16:55 CCC Desktop) OT-Instrumental Activities of Daily Living Home Safety Awareness Ability to Problem Able to Problem Solve Solve Emergency Situations Home Safety Comments Pt able to answer all home safety situations with good accuracy. Meal Preparation Meal Preparation Pt will benefit from assist. Comments Roll Bucker Roll Bucker Pt will benefit from assist. Comments Driving Driving Concerns Identified Regarding Safety M6 OT- IP Functional Cognition Start: 09/06/25 16:42 Freq: Status: Active Protocol: Document 09/14/25 09:35 [facility] (Rec: 09/14/25 12:54 [facility] Desktop) Cognitive Factors Limiting Selfcare Function Cognitive Comments Cognitive Assessment Pt scored 85 seconds on [place] Making Part B which Comments implies scoring 60% for her age and implies normal but not perfect for visual attention, speed of processing, mental flexibility, executive functioning and task switching. Pt states insistent on going to skilled rehab however appears to be close to her baseline needs for ADL's and mobility. M7 OT- IP Mobility and Balance Start: 09/06/25 16:42 Freq: Status: Active Protocol: Document 09/15/25 13:06 [facility] (Rec: 09/15/25 13:13 [facility] Desktop) OT-Transfer Assessment Sit to and From Stand Sit to and from Standby Assistance,Use of Upper Extremities Stand Transfers Transfer Ability Standby Assistance,1 Person Assistance,Use of Upper Extremities Technique Transfer Destination Chair,Toilet Transfer Technique Stand Step Pivot Comments Mobility Comments Pt performed sit>stand with S and amb with FWW throughout her room. Pt took 3 laps around the room hoping it would help her need to use the restroom, pt also amb to sink for sink side ADLs. Increased walking is beneficial for all IADL needs. OT- Gait Assessment Gait Gait Assistance Standby Assistance Required: Assistive Devices Assistive Device Gait Belt,Front Wheeled Walker OT- Balance Assessment Sitting Balance and Reactions Static Sitting Normal Balance Ability Dynamic Sitting Normal Balance Ability Standing Balance and Reactions Static Standing Good Balance Ability Dynamic Standing Fair Balance Ability Comments Other Balance Tests/ Pt demonstrates improved steadiness. Deviations/Treatment : M8 OT- IP Objective Assessments Start: 09/06/25 16:42 Freq: Status: Active Protocol: Document 09/06/25 16:43 [facility] (Rec: 09/06/25 16:55 [facility] Desktop) OT Gross Range of Motion Upper Extremity Range of Motion Assessment Within Functional Limits OT Strength Comments Strength Comments WFL for needs. OT- Coordination Assessment Upper Extremity Finger to Nose Test Left UE Impaired OT Sensation Assessment Comments Summary Comments Intact for light touch. Edema Edema Comments BLE swollen at ankles/feet M9 OT- IP Assessment and Plan Start: 09/06/25 16:42 Freq: Status: Active Protocol: Document 09/15/25 13:06 CHRISTINA (Rec: 09/15/25 13:13 CHRISTINA Desktop) OT Summary Assessment and Plan Potential Rehabilitation Good Potential Analytic Complexity Moderate at Evaluation Summary OT Impairments Strength,Balance,Functional Mobility,Grooming,Dressing, Toileting,Bathing,Toilet Transfers,Shower Transfers, Activity Tolerance Progress Towards Progressing Toward Goals Goals Assessment Summary Pt demonstrated improved functional tf from chair, improved activity tolerance, and improved steadiness during amb. Pt would continue to benefit from additional therapy through SNF to assist in I with IADLs and overall activity tolerance for safety when returning home alone. Cont per POC. Goals Dressing Goal Independent Toileting Goal Independent Bathing Goal Independent Toilet Transfer Goal Independent Shower Transfer Goal Independent Days to Meet Goals 7 Frequency of Treatment Other frequency 5x/week Treatment Plan OT Treatment Plan ADL Training,Functional Mobility,Patient/Family Education,Discharge Planning Discharge Recommendations OT Discharge SNF Rehab Recommendations Transportation Needs Private Vehicle at Discharge
[2025-09-15 20:00] VITALS: BP 137/47; PULSE 75; RESP 16; TEMP 36.4; O2SAT 99
[2025-09-15] MEDS: MIRTAZAPINE 15 MG TABLET 30 MG PO (20:29)
[2025-09-16] MEDS: LEVOTHYROXINE 88 MCG TABLET PO (05:11)
[2025-09-16 08:00] VITALS: BP 140/74; PULSE 68; RESP 15; TEMP 36.3; O2SAT 99
[2025-09-16] MEDS: GABAPENTIN 600 MG TABLET PO (09:01)
[2025-09-16] MEDS: ESCITALOPRAM 10 MG TABLET 15 MG PO (09:01)
[2025-09-16] MEDS: MULTIVITAMIN 1 TABLET 1 TAB PO (09:01)
[2025-09-16] MEDS: ENOXAPARIN 40 MG/0.4 ML SYRINGE SUBCUT (09:01)
[2025-09-16] MEDS: SODIUM CHLORIDE 0.9% FLUSH 10 ML IV (09:31)
--- NOTE | 2025-09-16 11:14 | P.DS_ITS ---
History of Present Illness History of Present Illness Date Patient Seen: 09/16/25 Time Patient Seen: 11:14 Chief complaint: AMS Narrative: Chief complaint: Alcohol intoxication with withdrawal and scabies infestation History of present illness: 09/04: 70 years old female with history of hypothyroidism, depression, alcohol abuse, presented to the ER with alcohol withdrawal symptoms including confusion and tremors. Per EMS records she was visited at her home for fall. Today they found her intoxicated with alcohol bottles scattered around the room. She was altered with significant tremors and bruises on her chin apparently from fall. She also reports some diffuse abdominal pain. The patient was given Zofran 4 mg IV and 1 mg IV Ativan and her CIWA score was 12?13. Laboratory shows 12.9, hemoglobin 11.5, MCV 102.2, potassium 5, creatinine 1.68, magnesium 1.7, AST 123, ALT 51. CT scan of the abdomen and pelvis was unremarkable. Chest x-ray was unremarkable. In the ER she was given magnesium 2 g IV, phenobarbital 130 mg IV and fluid bolus. Hospital course: 09/05: She was sedated, no acute distress. Not speaking. Breathing comfortably. 09/06: She is speaking quite clearly today and tells me that ?my shakiness is abating. ? She has a good appetite. She will be doing PT and OT. The TSH is low at 0.30 so the levothyroxine dose will be decreased. The BMP is normal today. 09/07: The 09/04 CBC was normal. The 09/06 BNP was normal. The AST was 89 with an ALT of 50. The magnesium is 1.8. She would like to begin a regular diet, somehow she was placed on a heart healthy diet. She has a very itchy rash on both in her elbows and the back of the right knee. On exam this appears to be linear across the arms scratches consistent with scabies. There is also a similar lesion on the center of the upper chest. We will treat her with permethrin. She is scheduled to fly to [place] in 2 days. That would be best delayed by at least 1 or 2 more days while physical therapy and occupational therapy works with her to try and get her strong enough again to work with a mobility device or wheelchair for that flight. 09/08: She is now mobilizing and noticing that she is leaning to the right. Her brain CT was normal. We will add a brain MRI for completeness. Her voice is loud and her speech is now spontaneous. She says she has decided to go back to [place] instead of going to [place] and that she will go to rehab locally. The scabies rash looks nearly resolved after treatment yesterday. 09/09: She has no complaints today. She anticipate [facility] facility placement when a facility with an isolation capacity can take her given scabies. She receives another treatment on 09/14 and then has 7 more days of isolation. Brain MRI yesterday was unremarkable. 09/10: She has no complaints. She does have a decubitus ulcer with wedges in place and a crate ordered. She denies pruritus. Her next permethrin treatment as planned 1224 with 7 more days of isolation, anticipating [facility] facility placement. 09/11-09/12: Patient continued to improve 09/13: Patient is doing much better ambulating with the assistance review of reference based literature patient we will be able to be off of isolation after a dose of permethrin 09/14 (2nd dose per consultation of reference) 09/14 -: Improving with physical therapy patient is still once rehab can go off isolation today 09/16: Patient transported to [facility] Review of systems: No fever or chills rigors No nausea vomiting diarrhea Appetite improving Physical exam: No acute distress Alert and cogent Rash is significantly improved No labored respirations Assessment and plan: Acute alcohol withdrawal, resolved At presentation, the patient had an elevated CIWA score and was given phenobarbital in the emergency room. She was subsequently placed on the CIWA protocol and her withdrawal symptoms have resolved. * Encourage alcohol cessation * Continue multivitamin Diarrhea New over the last 48 hours. GI panel negative resolved SHELLY, resolved Creatinine was 1.68 at presentation, 0.82 on 09/07 Scabies resolved * Off isolation after Second permethrin treatment on 09/14 Hypomagnesemia resolved Hypothyroidism * Continue repletion with levothyroxine Code Status: Full code Diet: General Lines/Tubes: Peripheral IV DVT Prophylaxis: Enoxaparin Discharge Planning: * Transfer [facility] facility for short-term rehab. * Patient is Off isolation Time based billing: * 35 minutes were involved in evaluation of the patient including [id number] evaluation Discharge Providers Provider Date of admission: 09/04/25 23:48 Discharge Date: 09/16/25 Primary care physician: Piero Rivera MD Consults: 09/04/25 23:53 Consult to Discharge Planning Routine Comment: 09/05/25 09:28 Consult to Pastoral Services Routine Comment: Pt would like a visit Consult to Pharmacy Routine Comment: She doesn't need one, system wont allow deletion 09/06/25 09:06 Consult to Physical Therapy Evaluate & Treat Comment: Physician Instructions: Evaluate and Treat 09/06/25 15:15 Consult to Occupational Therapy Evaluate & Treat Comment: Physician Instructions: Evaluate and treat Discharge provider: Raffi Fierro MD Exam Vital Signs (past 8 hours): - 09/16/25 08:00 Temperature 97.4 F L Pulse Rate 68 Respiratory Rate 15 Blood Pressure 140/74 Pulse Oximetry 99 Oxygen Flow Rate 0 Oxygen Delivery Method Room Air Oxygen Flow Rate 0 Objective Labs 09/13/25 06:35 09/14/25 05:05 PFSH Family History Father Cancer Grandmother Diverticulitis Social History marital status: household members: none lives independently: Yes caregiver/support person: Yes housing: house Smoking Status: Former smoker alcohol intake: current Discharge Plan Discharge Plan Patient Disposition: SNF Consult as needed: Dental, Hearing, Mental health, Podiatry and Vision Discharge orders & Medications Prescriptions: New permethrin 5 % cream 1 applic topical Q14D Qty: 60 0RF Rx Instructions: Cover body from chin down, wash off in 8 hours, apply second treatment 7 days levothyroxine 88 mcg Tablet 88 mcg PO DAILY@0600 Qty: 90 0RF Continued mirtazapine 30 mg tablet 30 mg PO ONCE PM doxycycline hyclate 50 mg capsule 50 mg PO DAILY alprazolam 0.25 mg tablet 0.25 mg PO DAILY PRN (Reason: anxiety) escitalopram oxalate 10 mg tablet 10 mg PO DAILY escitalopram oxalate 5 mg tablet 5 mg PO DAILY gabapentin 600 mg tablet 600 mg PO BID Patient Comments: TAKE ONE(1) TABLET BY MOUTH EVERY MORNING AND THREE(3) TABLETS BY MOUTH AT BEDTIME. Rx Instructions: take one tablet every am and 3 tablets at night spironolactone 25 mg tablet 25 mg PO DAILY Patient Comments: TAKE ONE(1) TABLET BY MOUTH ONCE DAILY metronidazole [MetroCream] 0.75 % cream 0.75 % TP 2XW oxycodone 5 mg Tablet 5 mg PO Q3HR PRN (Reason: Pain, Mild (1-3)) Qty: 30 0RF alprazolam 0.5 MG tablet 0.5 mg PO PRN PRN (Reason: Anxiety) Qty: 30 0RF Rx Instructions: 1 in the am and 1 at bedtime for anxiety zolpidem [Ambien] 10 MG tablet 10 mg PO PRN PRN (Reason: Insomnia) Qty: 30 0RF Rx Instructions: no more than 3/week Discontinued levothyroxine 100 MCG tablet 0.1 mg PO 0600 Follow up/Referrals: Piero Rivera MD [Primary Care Provider, Family Practice] Visit Report/Discharge Packet Stand Alone Forms: [employer], Patient Portal/API, Stroke Signs & Symptoms, Influenza Vaccine Info, Notice of Privacy Practices, Inpatient vs Outpatient, Pneumococcal Vaccine Info, Pt. Rights & Responsibilities Discharge Data Primary Care Provider: Piero Rivera Quality VTE Deep Vein Thrombosis/Pulmonary Embolism Present on Admission: No
--- NOTE | 2025-09-16 11:44 | PT.IPTN ---
Current Diagnoses Alcohol use, unspecified with withdrawal delirium (09/04/25) Physical Therapy Treatment Note M2 PT-IP Current Condition Start: 09/06/25 14:49 Freq: Status: Active Protocol: Document 09/12/25 11:50 SP (Rec: 09/12/25 12:27 SP lana [email or web address]) Physical Therapy Current Condition Current Condition Evaluation Date 09/06/25 Treatment Diagnosis GLF, Debility, Low activity tolerance Onset Date 09/04/25 M3 PT-IP Subjective Start: 09/06/25 14:49 Freq: Status: Active Protocol: Document 09/16/25 11:02 AB (Rec: 09/16/25 11:44 AB [id number]) Subjective Physical Therapy Visit Type Type Treatment Note Visit Start Time 11:02 Visit Stop Time 11:26 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 Care management into session to arrange transportation to facility. Therapy Pain Assessment Pain When Pain Assessed During Mobility Pain Present Pain Present Pain Reported Location Left Hip Intensity 3 Scale Used Numeric (0 - 10) Description Aching Pain Management Modification of Treatment Techniques M4 PT-IP Mobility and Gait Start: 09/06/25 14:49 Freq: Status: Active Protocol: Document 09/16/25 11:02 AB (Rec: 09/16/25 11:44 AB [id number]) PT-Transfer Assessment Sit to and From Stand Sit to and from Standby Assistance,1 Person Assistance Stand Equipment Transfer Assistive Gait Belt,Front Wheeled Walker Device Comments Mobility Comments Pt ed mechanics of sit to stand knees flexed just past 90 deg, increased hip hinge verbal and visual cues for normal movement pattern. Gait Assessment Gait Gait Assistance Standby Assistance Required: Distance (Feet) 56 Able to Maintain Yes Weight Bearing Status During Gait Assistive Devices Assistive Device Gait Belt,Front Wheeled Walker Gait Deviations General Gait Pattern Antalgic,Decreased Stride Length,Wide Based Gait Factors Limiting Gait Function Factors Limiting Decreased Activity Tolerance,Decreased Strength,Pain, Gait Function Poor Balance Comments Gait Comments Focus on avoiding excessive knee extension stance phase during ambulation. Gait deviations, balance and pain continue to limit functional mobility. PT-Balance Assessment Sitting Balance and Reactions Static Sitting Normal Balance Ability Dynamic Sitting Normal Balance Ability Standing Balance and Reactions Static Standing Good Balance Ability Dynamic Standing Fair Balance Ability Device Used FWW M5 PT-IP Objective Assessments Start: 09/06/25 14:49 Freq: Status: Active Protocol: Document 09/06/25 14:49 NW (Rec: 09/06/25 15:03 NW [id number]) Orientation Orientation/Cognition Level of Alertness Alert Orientation Name,Age,Birthday,Month,Date,Year,Day of Week,Place, Situation Safety Awareness Decreased Safety Awareness Comments Pt wants to go home and does not see concern for mobility deficits and living alone. Gross Range of Motion Upper Extremity ROM Assessment Within Functional Limits Lower Extremity ROM Assessment Within Functional Limits Strength Lower Extremity Strength Assessment Left Impaired Hip 3/5 flexion Knee 4/5 ext Ankle WFL Coordination Assessment Gross Coordination Gross Coordination WNL Sensation Assessment Sensation Gross Sensation WNL Light Touch Intact Muscle Tone Muscle Tone WNL Yes M6 PT-IP Treatment Start: 09/06/25 14:49 Freq: Status: Active Protocol: Document 09/16/25 11:02 AB (Rec: 09/16/25 11:44 AB [id number]) Physical Therapy Treatment Exercises Knee ROM Measurement DF 1-2 min, sit to stand with UE use X 5, and side step M7 PT-IP Assessment and Plan Start: 09/06/25 14:49 Freq: Status: Active Protocol: Document 09/16/25 11:02 AB (Rec: 09/16/25 11:44 AB [id number]) PT Summary Assessment and Plan Potential Rehabilitation Good Potential Status of Condition Evolving at Evaluation Summary Impairments Pain,Strength,Bed Mobility,Transfers,Gait,Activity Tolerance Progress Towards Progressing Toward Goals,Slow Progress due to Pain,Slow Goals Progress due to Activity Tolerance Assessment Summary Balance, pain, gait deviations, and LE muscle weakness and stiffness continue to impact functional mobility/ ambulation. Patient self verbalizing cues for knee positioning, and verbalizes she does not have a heel toe pattern. Patient made aware she is high risk for falls and must use FWW at all times. Goals Bed Mobility Goal Independent Transfer Goal Independent Gait Goal Independent Gait Distance 50 Other Goals Pt will navigate 2 steps with hand rail on . Days to Meet Goals 3 Frequency of Treatment Frequency Of Once a Day Treatment Treatment Plan Physical Therapy Bed Mobility Training,Transfer Training,Gait Training, Treatment Plan Therapeutic Exercise,Balance Retraining,Discharge Planning,Neuromuscular Re-ed Other Transfers, gait with FWW, stair mgt when able. Recommendations and Next Treatment Focus Precautions Other Precautions falls risk, scabies, chau, ETOH Weight Bearing Status Weight Bearing Weight Bear as Tolerated Status Recommendations To Nursing Amount of Assist Standby Assistance Needed Discharge Recommendations PT Discharge Home with Assistance,Home Health,SNF Rehab,Home vs SNF Recommendations Other Discharge Pt states cannot get additional assistance at home due Recommendations to geographic location and cost. Transportation Needs Private Vehicle,Wheelchair/Cabulance at Discharge - PT assist 1
--- NOTE | 2025-09-16 12:15 | CM.DPC ---
[facility] ABLE TO ACCEPT PATIENT TODAY. PATIENT AGREEABLE. [facility] TRANSPORT[facility] AT 1150. EDWIN MURRAY AND MICK LEONARD UPDATED. UPDATED PATIENT PROFILE, DC SUMMARY, SIGNED MED LIST SENT, CONTROLLED RX X2 SENT TO [facility]. ZENDEJAS.
--- NOTE | 2025-09-16 12:20 | PC.NURSE ---
Pt having uneventful day. Denies discomfort. Space available @ [facility] today. program services planner arranged BLS transport. Pt prepared for transport. BLS arrived and pt escorted for transportation. D/C in stable status
== END 2025-09-16 12:00 | DRG 896 ==
LOC: ED 23:36 → AC 23:49
PROVIDERS: Emergency Medicine; Internal Medicine Infectious Disease; Pharmacist Pharmacist Clinician (PhC)/ Clinical Pharmacy Specialist; Admitting Provider Internal Medicine; Emergency Provider Student in an Organized Health Care Education/Training Program; PCP Family Medicine; Referring Provider Student in an Organized Health Care Education/Training Program; Visit Provider Internal Medicine
DX: F10.131 Alcohol abuse with withdrawal delirium (principal); G93.41 Metabolic encephalopathy; N17.9 Acute kidney failure, unspecified; E03.9 Hypothyroidism, unspecified; E83.42 Hypomagnesemia; B86 Scabies; S00.83XA Contusion of other part of head, initial encounter; R26.0 Ataxic gait; R19.7 Diarrhea, unspecified; R53.1 Weakness; F32.A Depression, unspecified; F41.9 Anxiety disorder, unspecified; G47.00 Insomnia, unspecified; W19.XXXA Unspecified fall, initial encounter; Y90.0 Blood alcohol level of less than 20 mg/100 ml; Z79.890 Hormone replacement therapy; Z87.891 Personal history of nicotine dependence
CPT/HCPCS: 36415; 51798; 70450; 70551; 71045; 74176; 74220; 80048; 80053; 80320; 81001; 83735; 84439; 84443; 85025; 85610; 87507; 93005; 93010; 96361; 96365; 96375; 97110; 97116; 97129; 97161; 97166; 97530; 97535; 99284; J1650; J2060; J2560; J3475; J7030